=== PATIENT | female | born 1960 | race Caucasian/White ===

== ENCOUNTER 2024-08-13 12:36 | Observation (INO) | payer MEDICARE, BC, SELFPAY ==
--- NOTE | 2024-07-12 08:31 | EKG12_ITS ---
Test Reason : PREOP Blood Pressure : */* mmHG Vent. Rate : 69 BPM Atrial Rate : 69 BPM P-R Int : 154 ms QRS Dur : 92 ms QT Int : 404 ms P-R-T Axes : 22 40 42 degrees QTcB Int : 432 ms Normal sinus rhythm Normal ECG Confirmed by JANA RICO ([id number]), editorial director CHECO SINGER ([id number]) on 07/15/2024 8:11:54 AM Referred By: Ascencion Francisco Confirmed By: JANA RICO
[2024-07-12 10:10] LABS: Hematocrit 41.1 % (37-47); Hemoglobin 13.2 g/dL (12.0-15.0); Immature Granulocytes Count 0.030 X10^3/uL (0.0-0.0); Mean Corp Hgb Conc 32.1 g/dL (32-36); Mean Corpuscular Volume 85.3 fL (81-99); Mean Platelet Vol. 10.6 fl (6.2-12.0); NRBC Flagged by Analyzer 0 % (0-5); Platelet Count 381 K/mm3 (150-450); RBC Distribution Width CV 13.4 % (11.6-14.6); RBC Distribution Width SD 41.9 fl (35.1-43.9); Red Blood Count 4.82 M/mm3 (4.2-5.4); White Blood Count 7.5 K/mm3 (4.4-11.0)
[2024-07-12 11:14] LABS: Albumin, Serum 4.1 g/dL (3.4-4.8); Anion Gap 10 (5-15); BUN 20 mg/dL (4-19); BUN/Creat Ratio 31.8 RATIO (10-20); Calcium,Total 9.7 mg/dL (7.6-11.0); Carbon Dioxide 30.5 mmol/L (21.0-32.0); Chloride 101 mmol/L (98-108); Glucose 97 mg/dL (70-99); Potassium 3.7 mmol/L (3.3-5.1)
[2024-07-12 11:16] LABS: Magnesium 2.2 mg/dL (1.5-2.2)
--- NOTE | 2024-07-30 08:59 | PCM.HP.BLA ---
History and Physical History and Physical? Patient Name: Aicha Magallanes : 1960From:? LEIGH ANN CARRANZA PA-C? DATE OF PRE-OPERATIVE EXAM: 07/29/2024 DATE OF SURGERY:? 08/05/2024 SCHEDULED PROCEDURE:? Direct anterior left total hip arthroplasty HISTORY OF PRESENT ILLNESS: Preoperative history and physical exam was performed on July 29, 2024.? This is a 64-year-old female who has had ongoing pain with her left hip since 2017.? Pain has been intermittent, dull, sharp, sore.? Pain is increased with going up and down stairs and walking.? She has increased pain after walking one block.? She has had to use a cane for ambulatory assistance for the past 6 months.? She states she is limping and the pain will intensify as the day goes on.? Pain is located in her groin and does experience pain in her buttock when sitting.? She has difficulty with activities of daily living including bathing, getting dressed putting on her socks and shoes, housework, shopping, and leisure activities such as walking and going to sporting events.? She has tripped/stumbled due to the pain.? She feels unsafe going up and down stairs without railings.? She has tried rest, heat, elevation with minimal relief.? She has tried home exercises with minimal relief.? She has tried oral medications including Tylenol and ibuprofen with minimal relief.? Patient denies past history of surgery on the left hip.? Patient has medical history pertinent for anxiety, hypertension, gastroesophageal reflux disease, insomnia, frequent UTIs and coronary artery disease.? Patient denies past history of DVT or pulmonary embolism.? She has been recently evaluated and blood pressure medications have been adjusted.? This has been helpful.? She denies chest pain, shortness of breath, fevers chills or recent infections.? After failing conservative measures and discussing treatment options with Dr. Ascencion Francisco, the patient does wish to proceed with a direct anterior left total hip arthroplasty.? Patient has had surgical clearance from primary care provider Dr. Donavan Gastelum. REVIEW OF SYSTEMS: Review Of Systems: Constitutional: Denies anorexia, change in appetite, fever, difficulty sleeping, weight change. Cardiovasular: Denies chest pain, heart murmur, irregular heartbeat and peripheral vascular disease. Respiratory: Denies asthma, cough, pneumonia, sleep apnea, shortness of breath, tuberculosis and wheezing. Gastrointestinal: Reports heartburn, but denies constipation, diarrhea, nausea, rectal itching, bloody stools and vomiting. Genitourinary: Denies female genital problems. Denies incontinence. Musculoskeletal: Reports leg swelling, pain, trouble walking and weakness. Skin: Denies Raynaud's, history of shingles and tattoo. Neurological: Denies ambulatory dysfunction, dizziness, numbness/tingling and tremor. Psychiatric: Reports anxiety and insomnia, but denies depression, mental illness and stress. Hematologic/Lymphatic: Denies anemia, bleeding/bruising tendency and past transfusion. Reviewed and updated. PAST MEDICAL HISTORY: Advance Care Plan: No Advance Directives Effective Date: 05/19/2023 Past Medical History: Medical Problems: High Blood Pressure, Acid Reflux, Kidney Stones Covid- 19 - (2019) anxiety dental disease - tooth pulled - no symptoms currently? mixed hyperlipidemia, insomnia, Atherosclerotic Cardiovascular Disease, frequent UTIs, kink in ureter Accidents: None Surgical Hx: Hysterectomy - (2009) Tubal Ligation - (1999) Section - (1999) Anesthesia Complications: None Assistive Devices: Glasses, Cane Reviewed and updated. 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 Personal Habits:? Cigarette Use: Former.Smokeless Tobacco: Never Used Smokeless Tobacco.E-Cigarette Use: Never used.Alcohol: Occasionally.Drug Use: Denies Use.Enjoy Exercising: Exercises 1-3 x/month. Reviewed and updated. VITALS: Ht: 64 Wt: 176lb Wt [id number] BMI: 30.2 BP: 126/74 Pulse: 82 Resp: 17 T: 97.8 T: 36.6C Pain Level: 8/10 O2SatR: 97 ALLERGIES: Iodinated Contrast? MEDICATIONS: Lisinopril/Hydrochlorothiazide 20-12.5 mg 1 po qd, Propranolol HCL 20 mg take 1 tablet by mouth 3 times a day? take 30 to 60 minutes before triggering ev, Clonidine HCL 0.1 mg 1 tablet as needed, Aspirin 81 81 mg 1 tablet nightly, Omeprazole 40 mg as needed, Vitamin C 500 mg daily, Zinc 30 mg daily, Vitamin B Complex? once daily, Probiotic (Lactobacillus)? daily, Fish Oil 1200 mg daily, QC Tumeric Complex 500 mg daily, Advil 200 mg as needed, Tylenol Extra Strength 500 mg as needed, Aleve 220 mg as needed PRE-OP EXAM:? General appearance:NORMAL? ? ? Other: Eyes: Conjunctivae and lids: NORMAL? Pupils: ERR Ears, Nose, Mouth, and Throat: NORMAL? Other: Inspection of lips, teeth and gums: NORMAL? ?Other: Neck: Examination of neck: no masses noted. Respiratory: Assessment of respiratory effort: NORMAL? ?Other: ?Auscultation of lungs: clear to auscultation no wheezes, rhonchi or rales. Cardiovascular:? Auscultation of heart: regular rate and rhythm, positive systolic murmur PHYSICAL EXAMINATION: On exam patient does walk with an antalgic gait with use of cane.? She has left groin pain.? Range of motion 50 flexion with increased pain, external rotation 5 with increased pain, internal rotation neutral.? Sensation intact to light touch. IMAGING STUDIES: Previous x-rays of the left hip reveal joint space narrowing, subchondral sclerosis, osteophyte formation consistent with severe stage IV [id number] erosive osteoarthritis.? In comparison to previous x-rays there has been progression of disease process and worsening of the arthritis. IMPRESSION: 1.? Severe left hip osteoarthritis 2.? Hypertension 3.? Gastroesophageal reflux disease 4.? Anxiety 5.? History of kidney stones 6.? Insomnia 7.? Hyperlipidemia 8.? History of frequent UTIs currently asymptomatic 9.? Obesity with BMI 30.2 PLAN: Dr. Ascencion Francisco did discuss and review with the patient all treatment options including surgical versus nonsurgical options.? I will continue plan established by Dr. Ascencion Francisco.? Patient does wish to proceed with the above-stated procedure.? Potential risks, benefits, and complications of the procedure were discussed in detail including but not limited to , infection, nerve and blood vessel damage, persistent pain, numbness, tingling, paresthesias, blood clot, pulmonary embolism, and requirement for possible further surgery.? The patient expressed full understanding and has no further questions for the doctor.? Patient does agree to proceed with the above-stated procedure and has signed the surgery consent form. POST-OP MEDICATION PLAN: Pain Medications: Postoperative pain regimen will be initiated by Dr. Ascencion Francisco in the hospital.? We discussed regimen including Tylenol, meloxicam, and oxycodone postoperatively.? Patient has a walker that she will bring to the hospital.? We discussed postoperative course in great detail.? Labs and EKG have been reviewed and clearance from primary care provider.? Extended amount of time was spent with the patient discussing recovery and surgical procedure. DVT Prophylaxis Plan:? Aspirin 81 mg twice daily for 4 weeks postoperatively.? Denies past history of DVT or pulmonary embolism.? Patient will also utilize RONEN hose for 2 weeks postoperatively. This dictation was created using voice recognition software. Phonetic and/or grammatical errors may exist. ___? I have re-examined the patient.? There are no clinical changes since date of exam. ___? See progress notes for changes. ___? Dictated on admission Date: ? ? ?Time: Signature:
--- OUTSIDE RECORDS SUMMARY | 2024-08-05 05:37 | XMS RPT_ITS | CCD ---
Author Organization [facility] Inform ion Partnership [facility] Care Team Providers Care Business Services Officer Name Role Phone CARLIE LAI, ISH Harrington Primary Care Physician [phone] DONAVAN ELLIOTT DO Primary Care Physician DONAVAN ELLIOTT DO Attending Unavailable DONAVAN ELLIOTT DO Primary Care Unavailable CHONG RAMSEY DO Attending Unavailable DONAVAN ELLIOTT DO Primary Care Unavailable DONAVAN ELLIOTT DO Attending Unavailable DONAVAN ELLIOTT DO Primary Care Unavailable DONAVAN ELLIOTT DO Attending Unavailable DONAVAN ELLIOTT DO Primary Care Unavailable DONAVAN ELLIOTT DO Attending Unavailable LEXI LEE, DONAVAN Funk Primary Care Unavailable Jana Magana Attending Unavailable Ascencion Francisco Referring Unavailable Donavan Elliott Primary Care Unavailable Ascencion Francisco Referring Unavailable Ascencion Francisco Attending Unavailable Donavan Elliott Primary Care Unavailable LEXI LEE, DONAVAN Funk Primary Care Unavailable CASSIUS CARRANZA PA-C Attending Unavailable DONAVAN ELLIOTT DO Primary Care Unavailable DONAVAN ELLIOTT DO Attending Unavailable Allergies Allergy Classification Reported Allergen(s) Allergy Type Date of Onset Reaction(s) Facility (7 sources) Iodine; Translations: [iodine] Drug Allergy [facility] (1 source) Iodinated Contrast Media Drug allergy (disorder) 07-09-2024 [facility] Repository Medications Current Medications Medication Drug Class(es) Dates Sig (Normalized) Sig (Original) Ascorbic Acid (3 sources) Vitamin C Start: 03-22-2022 Vitamin C Dose : 1,000 mg =, qDay, 0 Refill(s) Start Date: 03/22/22 Status: Ordered cefdinir 300 mg oral capsule (2 sources) Cephalosporin Antibacterial Start: 06-23-2023 End: 06-28-2023 cefdinir 300 mg oral capsule Dose : 300 mg = 1 cap(s), Oral, q12h, X 5 day(s), # 10 cap(s), 0 Refill(s), 06/28/23 12:50:00 PM EDT, Pharmacy: [facility], Urine leukocytes Hematuria, 160, cm, 06/23/23 12:30:00 EDT, Height, 81.3, kg, 06/23/23 12:30:00 EDT, Dosing Weight Start Date: 06/23/23 Stop Date: 06/28/23 Status: Ordered Start: 03-06-2023 End: 03-11-2023 cefdinir 300 mg oral capsule Dose : 300 mg = 1 cap(s), Oral, q12h, X 5 day(s), # 10 cap(s), 0 Refill(s), 03/11/23 1:55:00 PM EST, Pharmacy: [facility], Dysuria History of kidney stones, 157.2, cm, 03/06/23 13:19:00 EST, Height, 81.3, kg, 03/06/23 13:19:00 EST, Dosing Weight Start Date: 03/06/23 Stop Date: 03/11/23 Status: Ordered cephalexin 500 mg oral capsule (2 sources) Cephalosporin Antibacterial Start: 05-23-2022 End: 05-30-2022 cephalexin 500 mg oral capsule Dose : 500 mg = 1 cap(s), Oral, q8h, X 7 day(s), # 21 cap(s), 0 Refill(s), 05/30/22 10:10:00 EDT, Pharmacy: [facility], UTI (urinary tract infection), 157.2, cm, 05/23/22 9:46:00 EDT, Height, 80.4 Start Date: 05/23/22 Stop Date: 05/30/22 Status: Ordered Start: 06-11-2021 End: 2021 cephalexin 500 mg oral capsu le Dose : 500 mg = 1 cap(s), Oral, q8h, X 7 day(s), # 21 cap(s), 0 Refill(s), 06/18/21 15:13:00 EDT, Pharmacy: [facility], 157.2, cm, 06/11/21 14:41:00 EDT, Height, 82.8 Start Date: 06/11/21 Stop Date: 06/18/21 Status: Ordered Cranberry preparation (3 sources) Non-Standardized Food Allergenic Extract, Non-Standardized Plant Allergenic Extract Start: 03-22-2022 take 1 capsule by mouth once daily cranberry oral capsule 4,200 mg, Oral, Daily, 0 Refill(s) Start Date: 03/22/22 Status: Ordered Garlic preparation (3 sources) Non-Standardized Food Allergenic Extract Start: 03-22-2022 take 1 capsule by mouth once daily garlic oral capsule Dose = 1 cap(s), Oral, Daily, 0 Refill(s) Start Date: 03/22/22 Status: Ordered hydroCHLOROthiazide 12.5 mg / lisinopril 20 mg oral tablet (6 sources) Thiazide Diuretic, Angiotensin Converting Enzyme Inhibitor Start: 06-27-2023 take 1 tablet by mouth once daily hydrochloroth iazide-lisino pril 12.5 mg-20 mg oral tablet Dose = 1 tab(s), Oral, qDay, # 90 tab(s), 0 Refill(s), Pharmacy: [facility], 160, cm, 06/23/23 12:30:00 EDT, Height, kg, 06/23/23 12:30:00 EDT, Dosing Weight Start Date: 06/27/23 Status: Ordered Start: 11-21-2022 take 1 tablet by timothy th once daily hydrochlorothiazide-lisinopril 12.5 mg-2 0 mg oral tablet Dose = 1 tab(s), Oral, qDay, # 90 tab(s), 1 Refill(s), Pharmacy: [facility], 157.2, cm, 11/21/22 10:55:00 EDT, Height, kg, 11/21/22 10:55:00 EDT, Dosing Weight Start Date: 11/21/22 Status: Ordered Start: 03-24-2022 take 1 tablet by timothy th once daily hydrochlorothiazide-lisinopril 12.5 mg-2 0 mg oral tablet Dose = 1 tab(s), Oral, qDay, # 90 tab(s), 1 Refill(s), Pharmacy: [facility], 157.2, cm, 03/22/22 10:58:00 EST, Height, kg, 03/22/22 10:58:00 EST, Dosing Weight Start Date: 03/24/22 Status: Ordered Start: 09-07-2021 take 1 tablet by timothy th once daily hydrochlorothiazide-lisinopril 12.5 mg-2 0 mg oral tablet Dose = 1 tab(s), Oral, qDay, # 90 tab(s), 1 Refill(s), Pharmacy: [facility], 157.2, cm, 09/07/21 13:31:00 EDT, Height, kg, 09/07/21 13:31:00 EDT, Dosing Weight Start Date: 09/07/21 Status: Ordered Start: 08-27-2020 take 1 tablet by timothy th once daily hydrochlorothiazide-lisinopril 12.5 mg-2 0 mg oral tablet Dose = 1 tab(s), Oral, qDay, # 90 tab(s), 3 Refill(s), Pharmacy: [facility], 160, cm, 11/08/19 13:16:00 EDT, Height, kg, 11/08/19 13:16:00 EDT, Dosing Weight Start Date: 08/27/20 Status: Ordered natures calm (3 sources) Start: 03-22-2022 natures calm n atures calm, 325 mg, 0 Refill(s), 81.1 Start Date: 03/22/22 Status: Ordered Probiotic (3 sources) Start: 03-22-2022 Probiotic 0 Re fill(s) Start Date: 03/22/22 Status: Ordered prodentim (3 sources) Start: 03-22-2022 prodentim prod entim, 0 Refill(s), 81.1 Start Date: 03/22/22 Status: Ordered propranolol hydrochloride 20 mg oral tablet (2 sources) beta-Adrenergic Chris Start: 11-21-2022 propranolol 20 mg or al tablet Dose : 20 mg = 1 tab(s), Oral, TID, Take 30-60 min before triggering events. If needing more can take 40mg, # 30 tab(s), 0 Refill(s), Pharmacy: [facility], Anxiety, 157.2, cm, 11/21/22 10:55:00 EDT, Height, kg, 11/21/22 10:55:00 EDT, Dosing Weight Start Date: 11/21/22 Status: Ordered turmeric extract 500 mg oral capsule (3 sources) Start: 03-22-2022 turmeric 500 m g oral capsule 0 Refill(s) Start Date: 03/22/22 Status: Ordered Vitamin D3 25 mcg (1000 intl units) oral capsule (3 sources) Start: 03-22-2022 Vitamin D3 25 mcg (1000 intl units) oral capsule Dose : 25 mcg = 1 cap(s), Oral, qDay, # 100 cap(s), 0 Refill(s) Start Date: 03/22/22 Status: Ordered vitamin e 180 mg oral tablet (2 sources) Start: 03-22-2022 vitamin E Dose : 180 mg =, Oral, 0 Refill(s) Start Date: 03/22/22 Status: Ordered zinc acetate 50 mg oral capsule (3 sources) Start: 03-22-2022 zinc (as aceta te) 50 mg oral capsule Dose : 50 mg = 1 cap(s), Oral, TID, # 250 cap(s), 0 Refill(s) Start Date: 03/22/22 Status: Ordered Problems Active Problems Problem Classification Problem Date Documented Date Episodic/Chronic Disorders of lipid metabolism (6 sources) Mixed hyperlipidemia 09-07-2021 Chronic Disorders of teeth and jaw (4 sources) Tooth disorder 03-22-2022 Episodic Esophageal disorders (6 sources) Gastroesophageal reflux disease 09-07-2021 Chronic Essential hypertension (8 sources) Essential hypertension; Translations: [Essential (primary) hypertension] Onset: 06-23-2023 09-07-2021 Chronic Genitourinary symptoms and ill-defined conditions (10 sources) Unspecified symptoms and signs involving the genitourinary system; Translations: [Hematuria, unspecified] Onset: 03-06-2023 Episodic Other connective tissue disease (4 sources) Trochanteric bursitis 03-22-2022 Episodic Other non-traumatic joint disorders (2 sources) Arthritis of hip 06-23-2023 Chronic Other non-traumatic joint disorders (4 sources) Hip pain 03-22-2022 Episodic Other nutritional; endocrine; and metabolic disorders (1 source) Body mass index 30+ - obesity 09-02-2023 Chronic Other nutritional; endocrine; and metabolic disorders (1 source) Obesity 09-02-2023 Chronic Peripheral and visceral atherosclerosis (1 source) Arteriosclerotic vascular disease 08-28-2023 Chronic Residual codes; unclassified (1 source) Screening due 09-02-2023 Episodic Screening and history of mental health and substance abuse codes (1 source) Tobacco use and exposure - finding 09-02-2023 Chronic Unclassified (2 sources) Patient encounter status 06-23-2023 Urinary tract infections (1 source) Recurrent urinary tract infection 09-02-2023 Episodic Past or Other Problems Problem Classification Problem Date Documented Da te Episodic/Chronic Calculus of urinary tract (2 sources) Personal history of urinary calculi; Translations: [Personal history of urinary calculi] Onset: 03-06-2023 Episodic Results Test Name Value Interpretation Reference Range Facility MRSA/SAID NASAL SCREENon MRSA+SAID SCRN Reason for Exam: Surgery MRSA MRSA Negative S. AUREUS S. aureus Negative Normal [facility] Comment on above: Performed By: #### M 100.651, L100.0100, L500.2500, L501.1800 #### [facility] [address] [place], [address] 12 Lead EKGon 07-12-2024 12 Lead EKG [facility] [address] [place] [address] 12 Lead EKG 07/12/24 0838 MR#: [id number] Acct: [id number] Name: AICHA MAGALLANES Rep #: [id number] : 1960 64 From: Jana Magana MD Attending Dr: Dr. Ascencion Francisco MD Status: PRE [facility] Ordering Dr: Ascencion Francisco MD Date: 07/12/24 Location: [facility] Sex: F C Admitted: Test Reason : PREOP Blood Pressure : */* mmHG Vent. Rate : 69 BPM Atrial Rate : 69 BPM P-R Int : 154 ms QRS Dur : 92 ms QT Int : 404 ms P-R-T Axes : 22 40 42 degrees QTcB Int : 432 ms Normal sinus rhythm Normal ECG Confirmed by JANA MAGANA ([id number]), news assignment editor CHECO SINGER ([id number]) on 07/15/2024 8:11:54 AM Referred By: Ascencion Francisco Confirmed By: JANA MAGANA 07/15/24811 Date Jana Magana MD CC: Dr. Donavan Elliott DO; Dr. Ascencion Francisco MD Signed Normal [facility] Albumin, Serumon 07-12-2024 Albumin [Mass/Vol] 4.1 g/dL Normal 3.4-4.8 [facility] Comment on above: Performed By: #### M 100.651, L100.0100, L500.2500, L501.1800 #### [facility] [address] [place], [address] Basic Metabolic Profile (BMP )on 07-12-2024 BUN/CRE 31.8 RATIO High 10-20 [facility] Comment on above: Performed By: #### M 100.651, L100.0100, L500.2500, L501.1800 #### [facility] [address] [place], [address] Calcium [Mass/Vol] 9.7 mg/dL Normal 7.6-11.0 [facility] Comment on above: Performed By: #### M 100.651, L100.0100, L500.2500, L501.1800 #### [facility] [address] [place], [address] Chloride [Moles/Vol] 101 mmol/L Normal 98-108 [facility] Comment on above: Performed By: #### M 100.651, L100.0100, L500.2500, L501.1800 #### [facility] [address] [place], [address] CO2 [Moles/Vol] 30.5 mmol/L Normal 21.0-32.0 [facility] Comment on above: Performed By: #### M 100.651, L100.0100, L500.2500, L501.1800 #### [facility] [address] [place], [address] Creatinine [Mass/Vol] 0.61 mg/dL Low 0.70-1.20 [facility] Comment on above: Performed By: #### M 100.651, L100.0100, L500.2500, L501.1800 #### [facility] [address] [place], [address] GAP 10 Normal 5-15 [facility] Comment on above: Performed By: #### M 100.651, L100.0100, L500.2500, L501.1800 #### [facility] [address] [place], [address] GFR/1.73 sq M.predicted among non-blacks MDRD (S/P/Bld) [Vol rate/Area] 99 mL/min/{1.73_m2} Normal >60 [facility] Comment on above: Result Comment: mL/m in/1.73m2 CKD-EPI Creatinine Equation (2020) Performed By: #### M 100.651, L100.0100, L500.2500, L501.1800 #### [facility] [address] [place], [address] Glucose [Mass/Vol] 97 mg/dL Normal 70-99 [facility] Comment on above: Performed By: #### M 100.651, L100.0100, L500.2500, L501.1800 #### [facility] [address] [place], [address] Potassium [Moles/Vol] 3.7 mmol/L Normal 3.3-5.1 [facility] Comment on above: Performed By: #### M 100.651, L100.0100, L500.2500, L501.1800 #### [facility] [address] [place], [address] Sodium [Moles/Vol] 141 mmol/L Normal 133-145 [facility] Comment on above: Performed By: #### M 100.651, L100.0100, L500.2500, L501.1800 #### [facility] [address] [place], [address] Urea nitrogen [Mass/Vol] 20 mg/dL High 4-19 [facility] Comment on above: Performed By: #### M 100.651, L100.0100, L500.2500, L501.1800 #### [facility] [address] [place], [address] CBC W/Diff, Automatedon 05-3 0-2025 Absolute Lymph 2.08 X10 3/uL Normal 0.83-4.51 [facility] Comment on above: Performed By: #### M 100.651, L100.0100, L500.2500, L501.1800 #### [facility] [address] [place], [address] Absolute Neut 4.8 X10 3/uL Normal 2.0-7.7 [facility] Comment on above: Performed By: #### M 100.651, L100.0100, L500.2500, L501.1800 #### [facility] [address] [place], [address] Basophils/100 WBC (Bld) 1.1 % High 0-1 [facility] Comment on above: Performed By: #### M 100.651, L100.0100, L500.2500, L501.1800 #### [facility] [address] [place], [address] Eosinophils/100 WBC (Bld) 2.5 % Normal 0-5 [facility] Comment on above: Performed By: #### M 100.651, L100.0100, L500.2500, L501.1800 #### [facility] [address] [place], [address] Erythrocyte distribution width (RBC) [Ratio] 13.4 % Normal 11.6-14.6 [facility] Comment on above: Performed By: #### M 100.651, L100.0100, L500.2500, L501.1800 #### [facility] [address] [place], [address] Hematocrit (Bld) [Volume fraction] 41.1 % Normal 37-47 [facility] Comment on above: Performed By: #### M 100.651, L100.0100, L500.2500, L501.1800 #### [facility] [address] [place], [address] Hemoglobin (Bld) [Mass/Vol] 13.2 g/dL Normal 12.0-15.0 [facility] Comment on above: Performed By: #### M 100.651, L100.0100, L500.2500, L501.1800 #### [facility] [address] [place], [address] IG% 0.400 Normal 0.0-0.9 [facility] Comment on above: Result Comment: IG% - Immature Granulocytes (promyelocytes, myelocytes and metamyelocytes) > 1% indicates that a LEFT SHIFT is Present. Performed By: #### M 100.651, L100.0100, L500.2500, L501.1800 #### [facility] [address] [place], [address] Lymphocytes/100 WBC (Bld) 27.7 % Normal 19-41 [facility] Comment on above: Performed By: #### M 100.651, L100.0100, L500.2500, L501.1800 #### [facility] [address] [place], [address] MCH (RBC) [Entitic mass] 27.4 pg Normal 27.0-32.0 [facility] Comment on above: Performed By: #### M 100.651, L100.0100, L500.2500, L501.1800 #### [facility] [address] [place], [address] MCHC (RBC) [Mass/Vol] 32.1 g/dL Normal 32-36 [facility] Comment on above: Performed By: #### M 100.651, L100.0100, L500.2500, L501.1800 #### [facility] [address] [place], [address] MCV (RBC) [Entitic vol] 85.3 fL Normal 81-99 [facility] Comment on above: Performed By: #### M 100.651, L100.0100, L500.2500, L501.1800 #### [facility] [address] [place], [address] Monocytes/100 WBC (Bld) 4.9 % Normal 0-10 [facility] Comment on above: Performed By: #### M 100.651, L100.0100, L500.2500, L501.1800 #### [facility] [address] [place], [address] Neutrophils/100 WBC (Bld) 63.4 % Normal 47-70 [facility] Comment on above: Performed By: #### M 100.651, L100.0100, L500.2500, L501.1800 #### [facility] [address] [place], [address] Nucleated RBC (Bld) [#/Vol] 0 10*3/uL Normal 0-5 [facility] Comment on above: Performed By: #### M 100.651, L100.0100, L500.2500, L501.1800 #### [facility] [address] [place], [address] Platelet mean volume (Bld) [Entitic vol] 10.6 fL Normal 6.2-12.0 [facility] Comment on above: Performed By: #### M 100.651, L100.0100, L500.2500, L501.1800 #### [facility] [address] [place], [address] Platelets (Bld) [#/Vol] 381 10*3/uL Normal 150-450 [facility] Comment on above: Performed By: #### M 100.651, L100.0100, L500.2500, L501.1800 #### [facility] [address] [place], [address] RBC (Bld) [#/Vol] 4.82 10*6/uL Normal 4.2-5.4 [facility] Comment on above: Performed By: #### M 100.651, L100.0100, L500.2500, L501.1800 #### [facility] [address] [place], [address] RDW SD 41.9 fl Normal 35.1-43.9 [facility] Comment on above: Performed By: #### M 100.651, L100.0100, L500.2500, L501.1800 #### [facility] [address] [place], [address] WBC (Bld) [#/Vol] 7.5 10*3/uL Normal 4.4-11.0 [facility] Comment on above: Performed By: #### M 100.651, L100.0100, L500.2500, L501.1800 #### [facility] [address] [place], [address] Magnesiumon 07-12-2024 Magnesium [Mass/Vol] 2.2 mg/dL Normal 1.5-2.2 [facility] Comment on above: Performed By: #### L 501.5200 #### [facility] [address] [place], [place], [address] LABORATORYOrdered By: Ale Cordon on 04-09-2024 Cholesterol [Mass/Vol] 232 mg/dL High 0 - 200 mg/dL AO ADM SS Comment on above: Interpretive Data: C holesterol Reference Interval: Less than 200 Desirable 200-239 Borderline high risk 240 and above High risk Cholesterol in HDL [Mass/Vol] 51 mg/dL Normal 40 - 60 mg/dL AO ADM SS Cholesterol in LDL [Mass/Vol] 161 mg/dL High 0 - 130 mg/dL AO ADM SS Triglyceride [Mass/Vol] 98 mg/dL Normal 0 - 150 mg/dL AO ADM SS Comment on above: Interpretive Data: T riglyceride Reference Interval: Less than 150 Normal 150-199 Borderline high risk 200-499 High risk 500 or higher Very high risk LABORATORYOrdered By: SYSTEM SYSTEM on 04-09-2024 TSH Qn 0.67 m[IU]/L Normal 0.36 - 3.74 mcIU/mL AO ADM SS LIPIDon 04-09-2024 Cholesterol [Mass/Vol] 232 mg/dL High 0-200 [facility] Comment on above: Result Comment: Chol esterol Reference Interval: Less than 200 Desirable 200-239 Borderline high risk 240 and above High risk Performed By: #### L CADEN, TSHR #### [address] [address] Cholesterol in HDL [Mass/Vol] 51 mg/dL Normal 40-60 [facility] Comment on above: Performed By: #### L CADEN, TSHR #### [address] [address] Cholesterol in LDL [Mass/Vol] 161 mg/dL High 0-130 [facility] Comment on above: Performed By: #### L CADEN, TSHR #### [place] [address] [place], [place] [address] Triglyceride [Mass/Vol] 98 mg/dL Normal 0-150 [facility] Comment on above: Result Comment: Trig lyceride Reference Interval: Less than 150 Normal 150-199 Borderline high risk 200-499 High risk 500 or higher Very high risk Performed By: #### L IPID, TSHR #### [address] [address] TSHRon 04-09-2024 TSH Qn 0.67 m[IU]/L Normal 0.36-3.74 [facility] Comment on above: Performed By: #### L IPID, TSHR #### [address] [address] .Auto Diffon 08-24-2023 Basophil, Absolute 0.1 10 3/mcL Normal 0.0-0.2 [facility] ([place]) Comment on above: Performed By: #### A DANDRE, CBC, VIDH, ADIFF, A1C, LIPID, GFR, CMP #### [place] [address] #### B12 #### [address] [address] Basophils/100 WBC (Bld) 1.2 % Normal 0.0-2.5 [facility] ([place]) Comment on above: Performed By: #### A DANDRE, CBC, VIDH, ADIFF, A1C, LIPID, GFR, CMP #### [place] [address] #### B12 #### [address] [address] Eosinophil, Absolute 0.2 10 3/mcL Normal 0.0-0.4 [facility] ([place]) Comment on above: Performed By: #### A DANDRE, CBC, VIDH, ADIFF, A1C, LIPID, GFR, CMP #### [place] [address] #### B12 #### [address] [address] Eosinophils/100 WBC (Bld) 3.7 % Normal 0.0-7.0 [facility] ([place]) Comment on above: Performed By: #### A DANDRE, CBC, VIDH, ADIFF, A1C, LIPID, GFR, CMP #### [address] [address] #### B12 #### [address] [address] Lymphocyte, Absolute 2.5 10 3/mcL Normal 0.8-3.9 [facility] ([place]) Comment on above: Performed By: #### A DANDRE, CBC, VIDH, ADIFF, A1C, LIPID, GFR, CMP #### [address] [address] #### B12 #### [address] [address] Lymphocytes/100 WBC (Bld) 38.3 % Normal 10.0-50.0 [facility] ([place]) Comment on above: Performed By: #### A DANDRE, CBC, VIDH, ADIFF, A1C, LIPID, GFR, CMP #### [address] [address] #### B12 #### [address] [address] Monocyte, Absolute 0.4 10 3/mcL Normal 0.2-1.0 [facility] ([place]) Comment on above: Performed By: #### A DANDRE, CBC, VIDH, ADIFF, A1C, LIPID, GFR, CMP #### [address] [address] #### B12 #### [address] [address] Monocytes/100 WBC (Bld) 6.1 % Normal 1.7-13.0 [facility] ([place]) Comment on above: Performed By: #### A DANDRE, CBC, VIDH, ADIFF, A1C, LIPID, GFR, CMP #### [address] [address] #### B12 #### [address] [address] Neutrophils/100 WBC (Bld) 50.7 % Normal 37.0-80.0 [facility] ([place]) Comment on above: Performed By: #### A DANDRE, CBC, VIDH, ADIFF, A1C, LIPID, GFR, CMP #### [facility] [address] [place], [place] [address] #### B12 #### [place] [address] [place] [address] .GFRon 08-24-2023 GFR Non- 92 ml/min/1.73sqm Normal [facility] ([place]) Comment on above: Result Comment: GFR Population mean for , Non- Americans Ages 20-29 = 116 mL/min/1.73 sq.m. Ages 30-39 = 107 mL/min/1.73 sq.m. Ages 40-49 = 99 mL/min/1.73 sq.m. Ages 50-59 = 93 mL/min/1.73 sq.m. Ages 60-69 = 85 mL/min/1.73 sq.m. Ages 70+ = 75 mL/min/1.73 sq.m. Chronic Kidney Disease: Less than 60 mL/min/1.73 square meters End Stage Renal Disease: Less than 15 mL/min/1.73 square meters Performed By: #### A DANDRE, CBC, VIDH, ADIFF, A1C, LIPID, GFR, CMP ####[address] [place], [place] [address]#### B12 ####[address] [address] GFR 111 ml/min/1.73sqm Normal [facility] ([place]) Comment on above: Result Comment: GFR Population mean for , Non- Americans Ages 20-29 = 116 mL/min/1.73 sq.m. Ages 30-39 = 107 mL/min/1.73 sq.m. Ages 40-49 = 99 mL/min/1.73 sq.m. Ages 50-59 = 93 mL/min/1.73 sq.m. Ages 60-69 = 85 mL/min/1.73 sq.m. Ages 70+ = 75 mL/min/1.73 sq.m. Chronic Kidney Disease: Less than 60 mL/min/1.73 square meters End Stage Renal Disease: Less than 15 mL/min/1.73 square meters Performed By: #### A DANDRE, CBC, VIDH, ADIFF, A1C, LIPID, GFR, CMP ####[place] [address]#### B12 ####[place] [address] .NEUABSon 08-24-2023 Neutrophil, Absolute 3.3 10 3/mcL Normal 2.9-6.2 [facility] ([place]) Comment on above: Performed By: #### A DANDRE, CBC, VIDH, ADIFF, A1C, LIPID, GFR, CMP #### [place] [address] #### B12 #### [place] [address] A1Con 08-24-2023 HbA1c (Bld) [Mass fraction] 5.7 % Normal 4.3-6.4 [facility] ([place]) Comment on above: Performed By: #### A DANDRE, CBC, VIDH, ADIFF, A1C, LIPID, GFR, CMP ####[place] [address]#### B12 ####[place] [address] B12on 08-24-2023 Cobalamin (Vitamin B12) [Mass/Vol] 617 pg/mL Normal 211-911 [facility] ([place]) Comment on above: Performed By: #### A DANDRE, CBC, VIDH, ADIFF, A1C, LIPID, GFR, CMP ####[place] [address]#### B12 ####[place] [address] CBCon 08-24-2023 Erythrocyte distribution width (RBC) [Ratio] 15.0 % High 11.5-14.5 [facility] ([place]) Comment on above: Performed By: #### A DANDRE, CBC, VIDH, ADIFF, A1C, LIPID, GFR, CMP #### [place] [place] [address] #### B12 #### [place] [address] Hematocrit (Bld) [Volume fraction] 39.0 % Normal 37.0-47.0 [facility] ([place] Comment on above: Performed By: #### A DANDRE, CBC, VIDH, ADIFF, A1C, LIPID, GFR, CMP #### [place] [address] #### B12 #### [place] [address] Hgb 13.1 G/dL Normal 12.0-16.0 [facility] ([place] Comment on above: Performed By: #### A DANDRE, CBC, VIDH, ADIFF, A1C, LIPID, GFR, CMP #### [place] [address] #### B12 #### [place] [address] MCH (RBC) [Entitic mass] 28.3 pg Normal 27.0-31.2 [facility] ([place] Comment on above: Performed By: #### A DANDRE, CBC, VIDH, ADIFF, A1C, LIPID, GFR, CMP #### [place] [address] #### B12 #### [place] [address] MCHC 33.6 G/dL Normal 33.0-37.0 [facility] ([place] Comment on above: Performed By: #### A DANDRE, CBC, VIDH, ADIFF, A1C, LIPID, GFR, CMP #### [place] [address] #### B12 #### [place] [address] MCV (RBC) [Entitic vol] 84.2 fL Normal 80.0-94.0 [facility] ([place] Comment on above: Performed By: #### A DANDRE, CBC, VIDH, ADIFF, A1C, LIPID, GFR, CMP #### [place] [address] #### B12 #### [place] [address] Platelet 321 10 3/mcL Normal 130-400 [facility] ([place]) Comment on above: Performed By: #### A DANDRE, CBC, VIDH, ADIFF, A1C, LIPID, GFR, CMP #### [address] [address] #### B12 #### [address] [address] Platelet mean volume (Bld) [Entitic vol] 8.2 fL Normal 7.4-10.4 [facility] ([place]) Comment on above: Performed By: #### A DANDRE, CBC, VIDH, ADIFF, A1C, LIPID, GFR, CMP #### [place] [address] #### B12 #### [place] [address] RBC 4.63 10 6/mcL Normal 4.20-5.40 [facility] ([place] Comment on above: Performed By: #### A DANDRE, CBC, VIDH, ADIFF, A1C, LIPID, GFR, CMP #### [place] [address] #### B12 #### [address] [address] WBC 6.5 10 3/mcL Normal 4.6-10.8 [facility] ([place] Comment on above: Performed By: #### A DANDRE, CBC, VIDH, ADIFF, A1C, LIPID, GFR, CMP #### [place] [address] #### B12 #### [address] [address] CMPon 08-24-2023 Albumin Level 3.5 G/dL Normal 3.4-4.8 [facility] ([place] Comment on above: Performed By: #### A DANDRE, CBC, VIDH, ADIFF, A1C, LIPID, GFR, CMP ####[address] [address]#### B12 ####[place] [address] Albumin/Globulin [Mass ratio] 1.2 {ratio} Normal 1.1-2.5 [facility] ([place] Comment on above: Performed By: #### A DANDRE, CBC, VIDH, ADIFF, A1C, LIPID, GFR, CMP ####[place] [address]#### B12 ####[place] [address] ALP [Catalytic activity/Vol] 66 U/L Normal 40-135 [facility] ([place] Comment on above: Performed By: #### A DANDRE, CBC, VIDH, ADIFF, A1C, LIPID, GFR, CMP ####[place] [address]#### B12 ####[place] [address] ALT [Catalytic activity/Vol] 47 U/L Normal 14-59 [facility] ([place] Comment on above: Performed By: #### A DANDRE, CBC, VIDH, ADIFF, A1C, LIPID, GFR, CMP ####[place] [address]#### B12 ####[place] [address] AST [Catalytic activity/Vol] 16 U/L Normal 10-40 [facility] ([place] Comment on above: Performed By: #### A DANDRE, CBC, VIDH, ADIFF, A1C, LIPID, GFR, CMP ####[place] [address]#### B12 ####[place] [address] Bili Total 0.5 mg/dL Normal 0.2-1.0 [facility] ([place] Comment on above: Result Comment: Use of this assay is not recommended for patients undergoing treatment with eltrombopag due to the potential for falsely elevated results. Performed By: #### A DANDRE, CBC, VIDH, ADIFF, A1C, LIPID, GFR, CMP ####[place] [address]#### B12 ####[address] [address] BUN/Creatinine Ratio 25 ratio Normal 7-27 [facility] ([place] Comment on above: Performed By: #### A DANDRE, CBC, VIDH, ADIFF, A1C, LIPID, GFR, CMP ####[address] [address]#### B12 ####[address] [address] Calcium [Mass/Vol] 9.5 mg/dL Normal 8.4-10.2 [facility] ([place] Comment on above: Performed By: #### A DANDRE, CBC, VIDH, ADIFF, A1C, LIPID, GFR, CMP ####[place] [address]#### B12 ####[address] [address] Chloride [Moles/Vol] 103 mmol/L Normal 98-107 [facility] ([place] Comment on above: Performed By: #### A DANDRE, CBC, VIDH, ADIFF, A1C, LIPID, GFR, CMP ####[place] [address]#### B12 ####[address] [address] CO2 [Moles/Vol] 35 mmol/L High 23-31 [facility] ([place] Comment on above: Performed By: #### A DANDRE, CBC, VIDH, ADIFF, A1C, LIPID, GFR, CMP ####[place] [address]#### B12 ####[address] [address] Creatinine [Mass/Vol] 0.65 mg/dL Normal 0.55-1.02 [facility] ([place] Comment on above: Performed By: #### A DANDRE, CBC, VIDH, ADIFF, A1C, LIPID, GFR, CMP ####[place] [address]#### B12 ####[address] [address] Electrolyte Balance 5.0 mEq/L Normal 4.0-15.0 [facility] ([place]) Comment on above: Performed By: #### A DANDRE, CBC, VIDH, ADIFF, A1C, LIPID, GFR, CMP ####[place] [address]#### B12 ####[address] [address] Globulin 3.0 G/dL Normal [facility] ([place]) Comment on above: Performed By: #### A DANDRE, CBC, VIDH, ADIFF, A1C, LIPID, GFR, CMP ####[place] [address]#### B12 ####[place] [address] Glucose [Mass/Vol] 102 mg/dL Normal 80-115 [facility] ([place] Comment on above: Performed By: #### A DANDRE, CBC, VIDH, ADIFF, A1C, LIPID, GFR, CMP ####[place] [address]#### B12 ####[place] [address] Potassium [Moles/Vol] 4.3 mmol/L Normal 3.5-5.1 [facility] ([place] Comment on above: Performed By: #### A DANDRE, CBC, VIDH, ADIFF, A1C, LIPID, GFR, CMP ####[place] [address]#### B12 ####[address] [address] Sodium [Moles/Vol] 143 mmol/L Normal 136-145 [facility] ([place] Comment on above: Performed By: #### A DANDRE, CBC, VIDH, ADIFF, A1C, LIPID, GFR, CMP ####[place] [address]#### B12 ####[address] [address] Total Protein 6.5 G/dL Normal 6.4-8.2 [facility] ([place]) Comment on above: Performed By: #### A DANDRE, CBC, VIDH, ADIFF, A1C, LIPID, GFR, CMP ####[address] [address]#### B12 ####[address] [address] Urea nitrogen [Mass/Vol] 16 mg/dL Normal 7-18 [facility] ([place]) Comment on above: Performed By: #### A DANDRE, CBC, VIDH, ADIFF, A1C, LIPID, GFR, CMP ####[place] [address]#### B12 ####[address] [address] DLDLon 08-24-2023 Direct LDL Cholesterol 152 mg/dL High 0-99 [facility] ([place]) Comment on above: Result Comment: Dire ct LDL Cholesterol Reference Interval: Optimal: <100 mg/dL Near Optimal/above optimal: 100-129 mg/dL Borderline high: 130-159 mg/dL High: 160-189 mg/dL Very high: >=190 mg/dL Performed By: #### D LDL, TSHR ####[address] [address] LIPIDon 08-24-2023 Cholesterol [Mass/Vol] 250 mg/dL High 0-200 [facility] ([place]) Comment on above: Result Comment: Chol esterol Reference Interval: Less than 200 Desirable 200-239 Borderline high risk 240 and above High risk Performed By: #### A DANDRE, CBC, VIDH, ADIFF, A1C, LIPID, GFR, CMP ####[address] [address]#### B12 ####[address] [address] Cholesterol in HDL [Mass/Vol] 43 mg/dL Normal 40-60 [facility] ([place]) Comment on above: Performed By: #### A DANDRE, CBC, VIDH, ADIFF, A1C, LIPID, GFR, CMP ####[facility] [place] [address]#### B12 ####[place] [address] Cholesterol in LDL [Mass/Vol] 163 mg/dL High 0-130 [facility] ([place]) Comment on above: Performed By: #### A DANDRE, CBC, VIDH, ADIFF, A1C, LIPID, GFR, CMP ####[place] [address]#### B12 ####[place] [address] Triglyceride [Mass/Vol] 220 mg/dL High 0-150 [facility] ([place]) Comment on above: Result Comment: Trig lyceride Reference Interval: Less than 150 Normal 150-199 Borderline high risk 200-499 High risk 500 or higher Very high risk Performed By: #### A DANDRE, CBC, VIDH, ADIFF, A1C, LIPID, GFR, CMP ####[place] [address]#### B12 ####[place] [address] TSHRon 08-24-2023 TSH Qn 0.84 m[IU]/L Normal 0.36-3.74 [facility] ([place]) Comment on above: Performed By: #### D LDL, TSHR ####[facility] [place] [id number] VIDHon 08-24-2023 Vit. D 25-Hydroxy 21.1 ng/mL Normal [facility] ([place]) Comment on above: Result Comment: Inte rpretive Values Based on Total 25(OH) Vitamin D: Deficient <20 ng/mL Insufficient 20 - <30 ng/mL Sufficient 30-100 ng/mL Performed By: #### A DANDRE, CBC, VIDH, ADIFF, A1C, LIPID, GFR, CMP ####[facility] [place] [address]#### B12 ####[place] [address] AMPICILLIN:SUSC:PT:ISOLATE:O RDQN:MICon 06-23-2023 Ampicillin RANJANA [Susc] >100,000 cfu/ml Citrobacter koseri [facility] Ampicillin RANJANA [Susc]on 06-13 Citrobacter koseri Citrobacter koseri [facility] LABORATORYOrdered By: Fiona Fernandez on 06-23-2023 Albumin DL <= 20 mg/L (U) [Mass/Vol] 499 mcg/dL Invalid Interpretation Code AO ADM SS Albumin/Creatinine DL <= 20 mg/L (U) [Mass ratio] 10 mcg/mg Normal 0 - 30 mcg/mg AO ADM SS Creatinine (U) [Mass/Vol] 47.9 mg/dL Normal 28.0 - 117.0 mg/dL AO ADM SS MALBRon 06-23-2023 U Creatinine 47.9 mg/dL Normal 28.0-117.0 [facility] ([place]) Comment on above: Performed By: #### 9 [id number] #### [address] [address] U Microalb 499 mcg/dL Normal [facility] ([place]) Comment on above: Performed By: #### 9 [address] #### [address] [address] U Ratio Alb/Cre 10 mcg/mg Normal 0-30 [facility] ([place]) Comment on above: Performed By: #### 9 [address] #### [place] [address] CSAon 03-24-2023 Color-Stone Garcia Normal [facility] ([place]) Comment on above: Performed By: #### 9 [address] #### [place] [address] Composition-Stone Comment [facility] ([place]) Comment on above: Result Comment: Please see comment Performed By: #### 9 [address] #### [address] [address] Contact info Comment [facility] ([place]) Comment on above: Result Comment: Physician questions regarding Calculi Analysis contact [facility] at: [phone]. Performed By: #### 9 225[address] #### [place] [address] Photo Stone COMMENT [facility] ([place]) Comment on above: Result Comment: Test not performed No photo available Performed By: #### 9 [address] #### [place] [address] Size-Stone <1 [facility] ([place]) Comment on above: Result Comment: Too small to measure. Performed By: #### 9 545[address] #### [place] [address] Source-Stone Comment [facility] ([place]) Comment on above: Result Comment: Not provided Performed By: #### 9 178[address] #### [place] [address] Stone Analysis Note Comment Normal [facility] ([facility] Comment on above: Result Comment: Calculi report will follow via computer, mail or manufacturer representative delivery. Performed By: #### 9 [address] #### [place] [address] Stone Comment1 Comment [facility] ([place]) Comment on above: Result Comment: Crystalline substances normally associated with human calculi were not identified. Specimen is consistent with organic material. Insufficient sample to perform additional, confirmatory, or reference testing. Performed By: #### 9 35870 #### [place] [address] Stone Comment2 Comment [facility] ([place] Comment on above: Result Comment: Calculus received wet. Wet calculi must be dried before analysis, which delays reporting of results. Leaving calculi wet (such as water, saline, blood, urine) may lead to changes in composition. Performed By: #### 9 33429 #### [place] [address] Stone Disclaimer: Comment [facility] ([place]) Comment on above: Result Comment: This test was developed and its performance characteristics determined by [employer]. It has not been cleared or approved by the Food and Drug Administration. Performed At: [facility] [address] [id number] Kendy Cerrato PhD Ph:[phone] Performed By: #### 9 [address] #### [address] [place] [address] [place], [place] [address] Weight-Stone <1 Normal [facility] ([place]) Comment on above: Result Comment: Too small to weigh Performed By: #### 9 19891 #### [address] [place] [address] [place] [address] .Urinalysis Microscopic (AO) on 03-06-2023 UA Bacteria Trace Abnormal [facility] ([place]) Comment on above: Performed By: #### U AMICAO, UA ####[address] [place] [place] [address] UA Glitter cells 0-5 Abnormal [facility] ([place] Comment on above: Performed By: #### U AMICAO, UA ####[address] [place], [place] [address] UA RBC 0-5 Abnormal None Seen [facility] ([place] Comment on above: Performed By: #### U AMICAO, UA ####[address] [place] [place], [place] [address] UA Squam Epithelial None Seen Normal None Seen [facility] ([place] Comment on above: Performed By: #### U AMICAO, UA ####[address] [place] [place] [id number] UA WBC 0-5 Abnormal None Seen [facility] ([place] Comment on above: Performed By: #### U AMICAO, UA ####[address]avid [address] [place] [address] AMIKACIN:SUSC:PT:ISOLATE:ORD QN:MICon 03-06-2023 Amikacin RANJANA [Susc] >100,000 cfu/ml Citrobacter koseri [facility] Amikacin RANJANA [Susc]on 2023 Citrobacter koseri Citrobacter koseri [facility] LABORATORYOrdered By: Julienne Roa on 03-06-2023 Appearance (U) Clear (03/06/23 4:25 PM) Normal AO Auto Urine SS Bacteria LM.HPF (Urine sed) [#/Area] Trace /HPF Invalid Interpretation Code AO Auto Urine SS Bilirubin Ql (U) Negative (03/06/23 4:25 PM) Normal AO Auto Urine SS Color (U) Yellow (03/06/23 4:25 PM) Normal AO Auto Urine SS Glucose Test strip (U) [Mass/Vol] Negative Normal AO Auto Urine SS Hemoglobin Auto test strip (U) [Mass/Vol] Trace *ABN* (03/06/23 4:25 PM) Invalid Interpretation Code AO Auto Urine SS Ketones Ql (U) Negative Normal AO Auto Ur ine SS UA Glitter cells 0-5 /HPF Invalid Interpretation Code AO Auto Urine SS UA Leuk Est Small *ABN* (03/06/23 4:25 PM) Invalid Interpretation Code AO Auto Urine SS UA Nitrite Negative (03/06/23 4:25 PM) Normal AO Auto Urine SS UA pH 5.5 (03/06/23 4:25 PM) Normal AO Auto Urine SS UA Protein Negative Normal AO Auto Urine SS UA RBC 0-5 /HPF Invalid Interpretation Code AO Auto Urine SS UA Spec Grav 1.010 *ABN* (03/06/23 4:25 PM) Invalid Interpretation Code AO Auto Urine SS UA Specimen Type Not Given (03/06/23 4:25 PM) Normal AO Auto Urine SS UA Squam Epithelial None Seen /HPF Normal A O Auto Urine SS UA Urobilinogen 0.2 E.U./dL Normal AO Auto Urine SS WBC LM.HPF (Urine sed) [#/Area] 0-5 /HPF Invalid Interpretation Code AO Auto Urine SS UAon 03-06-2023 Color (U) Yellow Normal [facility] ([place] Comment on above: Performed By: #### U OLIVER UA ####[facility] [place], [place] [address] Glucose (U) [Mass/Vol] Negative Normal Negative [facility] ([place]) Comment on above: Performed By: #### U AMICAO, UA ####[address] [place], [place] [address] Ketones Ql (U) Negative Normal Negative [facility] ([place] Comment on above: Performed By: #### U AMICAO, UA ####[address] [place] [place], [place] [address] UA Appear Clear Normal Clear [facility] ([place] Comment on above: Performed By: #### U AMICAO, UA ####[address] [place] [place], [place] [address] UA Blood Trace Abnormal Negative [facility] ([place] Comment on above: Performed By: #### U AMICAO, UA ####[address] [place] [place] [address] UA Leuk Est Small Abnormal Negative [facility] ([place] Comment on above: Performed By: #### U AMICAO, UA ####[address] [place] [address] UA Nitrite Negative Normal Negative [facility] ([place] Comment on above: Performed By: #### U AMICAO, UA ####[address] [place] [place], [place] [address] UA pH 5.5 Normal 5.0 - 8.0 [facility] ([place] Comment on above: Performed By: #### U AMICAO, UA ####[address] [place] [place], [place] [address] UA Protein Negative Normal Negative [facility] ([place] Comment on above: Performed By: #### U AMICAO, UA ####[address] [place] [place], [place] [address] UA Spec Grav 1.010 Abnormal 1.015-1.025 [facility] ([place] Comment on above: Performed By: #### U AMICAO, UA ####[address] [place] [place], [place] [address] UA Specimen Type Not Given Normal [facility] ([place] Comment on above: Performed By: #### U AMICAO, UA ####[address] [place], [place] [address] UA Urobilinogen 0.2 E.U./dL Normal 0.2-1.0 [facility] ([place] Comment on above: Performed By: #### U AMICAO, UA ####[address] [place] [place], [place] [address] Urobilinogen (U) [Mass/Vol] Negative Normal Negative [facility] ([place] Comment on above: Performed By: #### U AMICAO, UA ####[address] [place], [place] [address] Direct LDLon 11-15-2022 LDL Cholesterol Direct 146 mg/dL High <100 [facility] ([place]) Comment on above: Result Comment: <100 mg/dL, Optimal 100-129 mg/dL, Near optimal/above optimal 130-159 mg/dL, Borderline high 160-189 mg/dL, High >189 mg/dL, Very high Secondary prevention optimal LDL Cholesterol levels are recommended to be < 70 mg/dL Performed By: [employer] [address] [place] [address] [employer] Grinder: Minh Bunn III, M.D. CLIA#: [id number] Performed By: #### B MP, LDLDCT, GFR, LIPID #### [address] [address] VLDL Cholesterol See Below Normal [facility] ([place]) Comment on above: Result Comment: Test not indicated. Performed By: [employer] [place] [id number] [employer] Grinder: Minh Bunn III, M.D. CLIA#: [id number] Performed By: #### B MP, LDLDCT, GFR, LIPID #### [address] [place] [address] [place], [place] [address] .GFRon 11-14-2022 GFR 104 ml/min/1.73sqm Normal [facility] ([place]) Comment on above: Result Comment: GFR Population mean for , Non- Americans Ages 20-29 = 116 mL/min/1.73 sq.m. Ages 30-39 = 107 mL/min/1.73 sq.m. Ages 40-49 = 99 mL/min/1.73 sq.m. Ages 50-59 = 93 mL/min/1.73 sq.m. Ages 60-69 = 85 mL/min/1.73 sq.m. Ages 70+ = 75 mL/min/1.73 sq.m. Chronic Kidney Disease: Less than 60 mL/min/1.73 square meters End Stage Renal Disease: Less than 15 mL/min/1.73 square meters Performed By: #### B MP, LDLDCT, GFR, LIPID #### [address] [address] GFR Non- 86 ml/min/1.73sqm Normal [facility] ([place]) Comment on above: Result Comment: GFR Population mean for , Non- Americans Ages 20-29 = 116 mL/min/1.73 sq.m. Ages 30-39 = 107 mL/min/1.73 sq.m. Ages 40-49 = 99 mL/min/1.73 sq.m. Ages 50-59 = 93 mL/min/1.73 sq.m. Ages 60-69 = 85 mL/min/1.73 sq.m. Ages 70+ = 75 mL/min/1.73 sq.m. Chronic Kidney Disease: Less than 60 mL/min/1.73 square meters End Stage Renal Disease: Less than 15 mL/min/1.73 square meters Performed By: #### B MP, LDLDCT, GFR, LIPID #### [address] [address] BMPon 11-14-2022 BUN/Creatinine Ratio 20 ratio Normal 7-27 [facility] ([place] Comment on above: Performed By: #### B MP, LDLDCT, GFR, LIPID #### [address] [address] Calcium [Mass/Vol] 9.2 mg/dL Normal 8.4-10.2 [facility] ([place] Comment on above: Performed By: #### B MP, LDLDCT, GFR, LIPID #### [address] [address] Chloride [Moles/Vol] 103 mmol/L Normal 98-107 [facility] ([place] Comment on above: Performed By: #### B MP, LDLDCT, GFR, LIPID #### [address] [address] CO2 [Moles/Vol] 34 mmol/L High 23-31 [facility] ([place] Comment on above: Performed By: #### B MP, LDLDCT, GFR, LIPID #### [address] [address] Creatinine [Mass/Vol] 0.69 mg/dL Normal 0.55-1.02 [facility] ([place] Comment on above: Performed By: #### B MP, LDLDCT, GFR, LIPID #### [address] [address] Electrolyte Balance 6.0 mEq/L Normal 4.0-15.0 [facility] ([place]) Comment on above: Performed By: #### B MP, LDLDCT, GFR, LIPID #### [address] [address] Glucose [Mass/Vol] 94 mg/dL Normal 80-115 [facility] ([place] Comment on above: Performed By: #### B MP, LDLDCT, GFR, LIPID #### [address] [address] Potassium [Moles/Vol] 4.0 mmol/L Normal 3.5-5.1 [facility] ([place] Comment on above: Performed By: #### B MP, LDLDCT, GFR, LIPID #### [address] [address] Sodium [Moles/Vol] 143 mmol/L Normal 136-145 [facility] ([place] Comment on above: Performed By: #### B MP, LDLDCT, GFR, LIPID #### [address] [address] Urea nitrogen [Mass/Vol] 14 mg/dL Normal 7-18 [facility] ([place] Comment on above: Performed By: #### B MP, LDLDCT, GFR, LIPID #### [address] [address] LIPIDon 11-14-2022 Cholesterol [Mass/Vol] 224 mg/dL High 0-200 [facility] ([place] Comment on above: Result Comment: Chol esterol Reference Interval: Less than 200 Desirable 200-239 Borderline high risk 240 and above High risk Performed By: #### B MP, LDLDCT, GFR, LIPID #### [address] [address] Cholesterol in HDL [Mass/Vol] 42 mg/dL Normal 40-60 [facility] ([place] Comment on above: Performed By: #### B MP, LDLDCT, GFR, LIPID #### [address] [address] Cholesterol in LDL [Mass/Vol] 151 mg/dL High 0-130 [facility] ([place] Comment on above: Performed By: #### B MP, LDLDCT, GFR, LIPID #### [address] [address] Triglyceride [Mass/Vol] 154 mg/dL High 0-150 [facility] ([place] Comment on above: Result Comment: Trig lyceride Reference Interval: Less than 150 Normal 150-199 Borderline high risk 200-499 High risk 500 or higher Very high risk Performed By: #### B MP, LDLDCT, GFR, LIPID #### [address] [address] AMOXICILLIN+CLAVULANATE:SUSC :PT:ISOLATE:ORDQN:MICon 05-23-2022 Amoxicillin+Clavulana te RANJANA [Susc] >100,000 cfu/ml Citrobacter koseri [facility] Amoxicillin+Clavulanate RANJANA [Susc]on 05-23-2022 Citrobacter koseri Citrobacter koseri [facility] LABORATORYOrdered By: SYSTEM SYSTEM on 03-14-2022 Albumin BCP dye [Mass/Vol] 3.8 G/dL Invalid Interpretation Code 3.4 - 4.8 G/dL AO ADM SS Albumin/Globulin [Mass ratio] 1.1 {ratio} Invalid Interpretation Code 1.1 - 2.5 ratio AO ADM SS ALP [Catalytic activity/Vol] 66 U/L Invalid Interpretation Code 40 - 135 U/L AO ADM SS ALT With P-5'-P [Catalytic activity/Vol] 33 U/L Invalid Interpretation Code 14 - 59 U/L AO ADM SS AST With P-5'-P [Catalytic activity/Vol] 17 U/L Invalid Interpretation Code 10 - 40 U/L AO ADM SS Bilirubin [Mass/Vol] 0.5 mg/dL Invalid Interpretation Code 0.2 - 1.0 mg/dL AO ADM SS Calcium [Mass/Vol] 9.1 mg/dL Invalid Interpretation Code 8.4 - 10.2 mg/dL AO ADM SS Chloride [Moles/Vol] 103 mmol/L Invalid Interpretation Code 98 - 107 mmol/L AO ADM SS CO2 [Moles/Vol] 34 mmol/L Invalid Interpretation Code 23 - 31 mmol/L AO ADM SS Creatinine [Mass/Vol] 0.59 mg/dL Invalid Interpretation Code 0.55 - 1.02 mg/dL AO ADM SS Electrolyte Balance 4.0 mEq/L Invalid Interpretation Code 4.0 - 15.0 mEq/L AO ADM SS Free T4 [Mass/Vol] 0.95 ng/dL Invalid Interpretation Code 0.76 - 1.46 ng/dL AO ADM SS GFR 125 ml/min/1.73sqm Invalid Interpretation Code AO Chemistry S GFR Non- 103 ml/min/1.73sqm Invalid Interpretation Code AO Chemistry S Globulin 3.4 G/dL Invalid Interpretation Code AO ADM SS Glucose [Mass/Vol] 99 mg/dL Invalid Interpretation Code 80 - 115 mg/dL AO ADM SS Potassium [Moles/Vol] 3.7 mmol/L Invalid Interpretation Code 3.5 - 5.1 mmol/L AO ADM SS Protein [Mass/Vol] 7.2 G/dL Invalid Interpretation Code 6.4 - 8.2 G/dL AO ADM SS Sodium [Moles/Vol] 141 mmol/L Invalid Interpretation Code 136 - 145 mmol/L AO ADM SS TSH Qn 0.41 m[IU]/L Invalid Interpretation Code 0.36 - 3.74 mcIU/mL AO ADM SS Urea nitrogen [Mass/Vol] 13 mg/dL Invalid Interpretation Code 7 - 18 mg/dL AO ADM SS Urea nitrogen/Creatinine [Mass ratio] 22 ratio Invalid Interpretation Code 7 - 27 ratio AO ADM SS LABORATORYOrdered By: Ahmet Rey on 03-14-2022 Basophil, Absolute 0.1 103/mcL Invalid Interpretation Code 0.0 - 0.2 10^3/mcL AO Workflow SS Basophils/100 WBC (Bld) 0.8 % Invalid Interpretation Code 0.0 - 2.5 % AO Workflow SS Eosinophil, Absolute 0.1 103/mcL Invalid Interpretation Code 0.0 - 0.4 10^3/mcL AO Workflow SS Eosinophils/100 WBC (Bld) 2.0 % Invalid Interpretation Code 0.0 - 7.0 % AO Workflow SS Erythrocyte distribution width (RBC) [Ratio] 14.5 % Invalid Interpretation Code 11.5 - 14.5 % AO Workflow SS Hematocrit (Bld) [Volume fraction] 38.5 % Invalid Interpretation Code 37.0 - 47.0 % AO Workflow SS Hemoglobin (Bld) [Mass/Vol] 12.7 G/dL Invalid Interpretation Code 12.0 - 16.0 G/dL AO Workflow SS Lymphocyte, Absolute 2.3 103/mcL Invalid Interpretation Code 0.8 - 3.9 10^3/mcL AO Workflow SS Lymphocytes/100 WBC (Bld) 35.7 % Invalid Interpretation Code 10.0 - 50.0 % AO Workflow SS MCH (RBC) [Entitic mass] 27.2 pg Invalid Interpretation Code 27.0 - 31.2 pg AO Workflow SS MCHC 33.0 G/dL Invalid Interpretation Code 33.0 - 37.0 G/dL AO Workflow SS MCV (RBC) [Entitic vol] 82.5 fL Invalid Interpretation Code 80.0 - 94.0 fL AO Workflow SS Monocyte, Absolute 0.4 103/mcL Invalid Interpretation Code 0.2 - 1.0 10^3/mcL AO Workflow SS Monocytes/100 WBC (Bld) 6.1 % Invalid Interpretation Code 1.7 - 13.0 % AO Workflow SS Neutrophil, Absolute 3.6 103/mcL Invalid Interpretation Code 2.9 - 6.2 10^3/mcL AO Workflow SS Neutrophils/100 WBC (Bld) 55.4 % Invalid Interpretation Code 37.0 - 80.0 % AO Workflow SS Platelet mean volume (Bld) [Entitic vol] 7.9 fL Invalid Interpretation Code 7.4 - 10.4 fL AO Workflow SS Platelets (Bld) [#/Vol] 334 103/mcL Invalid Interpretation Code 130 - 400 10^3/mcL AO Workflow SS RBC (Bld) [#/Vol] 4.67 106/mcL Invalid Interpretation Code 4.20 - 5.40 10^6/mcL AO Workflow SS WBC (Bld) [#/Vol] 6.4 103/mcL Invalid Interpretation Code 4.6 - 10.8 10^3/mcL AO Workflow SS LABORATORYOrdered By: Dari Rodriguez on 03-14-2022 Cholesterol [Mass/Vol] 246 mg/dL Invalid Interpretation Code 0 - 200 mg/dL AO ADM SS Cholesterol in HDL [Mass/Vol] 45 mg/dL Invalid Interpretation Code 40 - 60 mg/dL AO ADM SS Cholesterol in LDL [Mass/Vol] 171 mg/dL Invalid Interpretation Code 0 - 130 mg/dL AO ADM SS Triglyceride [Mass/Vol] 151 mg/dL Invalid Interpretation Code 0 - 150 mg/dL AO ADM SS LABORATORYOrdered By: Eileen Meng on 03-14-2022 HCV Ab IA Ql Non-Reactive (03/14/22 9:16 AM) Invalid Interpretation Code Non-Reactive AH ADM SS HCV Ab IA Ql Nonreactive: Samples with a value < 0.80 are considered nonreactive (negative) for antibodies to HCV.A negative test result does not exclude the possibility of exposure to or infection with HCV. HCV antibodies may be undetectable in some stages of the infection and in some clinical conditions. Invalid Interpretation Code AH Chemistry S No Panel Informationon 06-11 Culture Urine 10,000 - 50,000 cfu/ml Mixed growth consistent with normal urogenital tomer. [facility] Encounters Encounter Date Encounter Type Care Provider Facility Start: 08-01-2024 Encounter for other preprocedural examination [facility] Francisco [facility] Start: 08-01-2024 ambulatory DONAVAN ELLIOTT DO Faci lity:[facility] Start: 07-12-2024 End: 07-12-2024 ambulatory [facility] Facility:[facility] Start: 04-09-2024 End: 04-09-2024 ambulatory DONAVAN ELLIOTT DO Facility[facility] [place] Start: 04-09-2024 End: 04-09-2024 Patient encounter procedure DONAVAN Blessing ELLIOTT DO [facility] Start: 09-02-2023 ambulatory CHONG RAMSEY DO Facili ty:B Start: 08-24-2023 End: 08-24-2023 ambulatory DONAVAN HAWTHORNEINS DO Facility:[facility] Start: 06-23-2023 End: 06-27-2023 ambulatory DONAVAN Blessing ELLIOTT DO Facility:[facility] Start: 06-23-2023 End: 06-27-2023 Outreach Lab DONAVAN Blessing ELLIOTT DO [facility] Start: 03-06-2023 End: 03-10-2023 ambulatory DONAVAN Blessing ELLIOTT DO Facility:B Start: 03-06-2023 End: 03-10-2023 Outreach Lab DONAVAN Blessing ELLIOTT DO [facility] Start: 11-14-2022 End: 11-14-2022 ambulatory DONAVAN ELLIOTT DO Facility:B Start: 05-23-2022 End: 05-27-2022 Outreach Lab [employer] [facility] Start: 03-14-2022 End: 03-14-2022 Patient encounter procedure DONAVAN Blessing ELLIOTT DO [facility] Start: 10-05-2021 End: 10-05-2021 Patient encounter procedure DONAVAN Blessing ELLIOTT DO [facility] Start: 06-11-2021 End: 06-15-2021 Outreach Lab [employer] [facility] Plan of Treatment Date Care Activity Detail Author Start: 08-05-2024 ambulatory Ambulatory Facility:[facility] Immunizations Immunization Date Immunization Notes Care Provider Johanny winters 06-08-2018 tetanus toxoid, redu kamilah diphtheria toxoid, and acellular pertussis vaccine, adsorbed DONAVAN ELLIOTT DO [facility] Payers Date Payer Category Payer Medicare [id number] 2024 Self-pay 2024 Unknown [id number] 2022 Unknown [id number] 1960 Unknown [id number] 2.16.8 [id number] 1959 Unknown [id number] 2.16.8 [id number] 1959 Unknown [id number] 2.16.8 [id number] 1959 Unknown [id number] 2.16.8 [id number] 1959 Unknown [id number] 2.16.8 [id number] 1959 Unknown [id number] 2.16. [id number] 1959 Unknown [id number] 2.16.8 [id number] Unknown [id number] 2.16.8 [id number] Unknown [id number] 2.16.8 [id number] Social History Date Type Detail Facility Start: 04-17-2019 Tobacco smoking status Never s moked tobacco (finding) [facility] Sex Assigned At Female [facility] Sexual Orientation [facility]ine [facility] Start: 08-08-2018 Sex Female (finding) [facility] Clinical Notes 03-08-2023 to 07-30-2024 LaboratoryLaboratoryLaboratoryLaboratoryLaboratoryRadiology Note Date & Type Note Facility 07-30-2024 Note [facility] Medical Records Department [address] [place] [address] History Physical Exam 07/30/24 0859 MR#: [id number] Acct: [id number] Name: AICHA MAGALLANES Rep #: [id number] : 1960 64 From: Cassius RUSS PA-C PCP: Dr. Donavan Elliott, DO Status:PRE [facility] Location: [place] History and Physical History and Physical??? Patient Name: Aicha Magallanes : 1960From:??? CASSIUS CARRANZA PA-C??? DATE OF PRE-OPERATIVE EXAM: 07/29/2024 DATE OF SURGERY:??? 08/05/2024 SCHEDULED PROCEDURE:??? Direct anterior left total hip arthroplasty HISTORY OF PRESENT ILLNESS: Preoperative history and physical exam was performed on July 29, 2024.??? This is a 64-year-old female who has had ongoing pain with her left hip since 2017.??? Pain has been intermittent, dull, sharp, sore.??? Pain is increased with going up and down stairs and walking.??? She has increased pain after walking one block.??? She has had to use a cane for ambulatory assistance for the past 6 months.??? She states she is limping and the pain will intensify as the day goes on.??? Pain is located in her groin and does experience pain in her buttock when sitting.??? She has difficulty with activities of daily living including bathing, getting dressed putting on her socks and shoes, housework, shopping, and leisure activities such as walking and going to sporting events.??? She has tripped/stumbled due to the pain.??? She feels unsafe going up and down stairs without railings.??? She has tried rest, heat, elevation with minimal relief.??? She has tried home exercises with minimal relief.??? She has tried oral medications including Tylenol and ibuprofen with minimal relief.??? Patient denies past history of surgery on the left hip.??? Patient has medical history pertinent for anxiety, hypertension, gastroesophageal reflux disease, insomnia, frequent UTIs and coronary artery disease.??? Patient denies past history of DVT or pulmonary embolism.??? She has been recently evaluated and blood pressure medications have been adjusted.??? This has been helpful.??? She denies chest pain, shortness of breath, fevers chills or recent infections.??? After failing conservative measures and discussing treatment options with Dr. Ascencion Francisco, the patient does wish to proceed with a direct anterior left total hip arthroplasty.??? Patient has had surgical clearance from primary care provider Dr. Donavan Elliott. REVIEW OF SYSTEMS: Review Of Systems: Constitutional: Denies anorexia, change in appetite, fever, difficulty sleeping, weight change. Cardiovasular: Denies chest pain, heart murmur, irregular heartbeat and peripheral vascular disease. Respiratory: Denies asthma, cough, pneumonia, sleep apnea, shortness of breath, tuberculosis and wheezing. Gastrointestinal: Reports heartburn, but denies constipation, diarrhea, nausea, rectal itching, bloody stools and vomiting. Genitourinary: Denies female genital problems. Denies incontinence. Musculoskeletal: Reports leg swelling, pain, trouble walking and weakness. Skin: Denies Raynaud's, history of shingles and tattoo. Neurological: Denies ambulatory dysfunction, dizziness, numbness/tingling and tremor. Psychiatric: Reports anxiety and insomnia, but denies depression, mental illness and stress. Hematologic/Lymphatic: Denies anemia, bleeding/bruising tendency and past transfusion. Reviewed and updated. PAST MEDICAL HISTORY: Advance Care Plan: No Advance Directives Effective Date: 05/19/2023 Past Medical History: Medical Problems: High Blood Pressure, Acid Reflux, Kidney Stones Covid- 19 - (2019) anxiety dental disease - tooth pulled -2024 - no symptoms currently??? mixed hyperlipidemia, insomnia, Atherosclerotic Cardiovascular Disease, frequent UTIs, kink in ureter Accidents: None Surgical Hx: Hysterectomy - (2009) Tubal Ligation - (1999) Section - (1999) Anesthesia Complications: None Assistive Devices: Glasses, Cane Reviewed and updated. SOCIAL HISTORY: Social History: Marital: .Occupation: [employer].Work Status: Retired.Hand Dominance: Right-handed. Personal Habits:??? Cigarette Use: Former.Smokeless Tobacco: Never Used Smokeless Tobacco.E-Cigarette Use: Never used.Alcohol: Occasionally.Drug Use: Denies Use.Enjoy Exercising: Exercises 1-3 x/month. Reviewed and updated. VITALS: Ht: 64 Wt: 176lb Wt k.834 BMI: 30.2 BP: 126/74 Pulse: 82 Resp: 17 T: 97.8 T: 36.6C Pain Level: 8/10 O2SatR: 97 ALLERGIES: Iodinated Contrast??? MEDICATIONS: Lisinopril/Hydrochlorothiazide 20-12.5 mg 1 po qd, Propranolol HCL 20 mg take 1 tablet by mouth 3 times a day??? take 30 to 60 minutes before triggering ev, Clonidine HCL 0.1 mg 1 tablet as needed, Aspirin 81 81 mg 1 tablet nightly, Omeprazole 40 mg as needed, Vitamin C 500 mg daily, Zinc 30 mg daily, Vitamin B Com (more content not included)... [facility] 09-04-2023 Note . MICRO - Microbiology PROCEDURE: Urine Culture [*1] SOURCE: Urine, Clean Catch BODY SITE: COLLECTED DATE/TIME: 09/02/2023 09:54 EDT RECEIVED DATE/TIME: 09/02/2023 15:59 EDT START DATE/TIME: 09/02/2023 15:59 EDT FREE TEXT SOURCE: FINAL REPORTS Final Report [] Verified Date/Time/Personnel: 09/04/2023 08:49 EDT >100,000 cfu/ml Citrobacter koseri PRELIMINARY REPORTS Preliminary Report [] Verified Date/Time/Personnel: 09/03/2023 11:20 EDT >100,000 cfu/ml Citrobacter koseri RANJANA to follow SUSCEPTIBILITY RESULTS Citrobacter koseri Antibiotic RANJANA Dilut RANJANA Inter Ampicillin >16 Resistant Ampicillin/ <=4/2 Susceptible Sulbactam Aztreonam <=4 Susceptible Cefazolin <=2 Susceptible Ciprofloxacin <=0.25 Susceptible Ertapenem <=0.5 Susceptible Gentamicin <=2 Susceptible ID Panel Not Not Applicable Applicable Imipenem <=1 Susceptible Levofloxacin <=0.5 Susceptible Meropenem <=1 Susceptible Minocycline <=4 Susceptible Nitrofurantoin <=32 Susceptible Piperacillin/ <=8 Susceptible Tazobactam Trimethoprim/ <=0.5/9.5 Susceptible Sulfa Performing Locations *1: This test was performed at: [address], [address] [place] [address] ([place]) 06-25-2023 Note . MICRO - Microbiology PROCEDURE: Urine Culture [*1] SOURCE: Urine, Clean Catch BODY SITE: COLLECTED DATE/TIME: 06/23/2023 16:51 EDT RECEIVED DATE/TIME: 06/23/2023 20:20 EDT START DATE/TIME: 06/23/2023 20:20 EDT FREE TEXT SOURCE: FINAL REPORTS Final Report [] Verified Date/Time/Personnel: 06/25/2023 08:20 EDT >100,000 cfu/ml Citrobacter koseri PRELIMINARY REPORTS Preliminary Report [] Verified Date/Time/Personnel: 06/24/2023 12:17 EDT >100,000 cfu/ml Citrobacter koseri RANJANA to follow SUSCEPTIBILITY RESULTS Citrobacter koseri Antibiotic RANJANA Dilut RANJANA Inter Ampicillin >16 Resistant Ampicillin/ <=4/2 Susceptible Sulbactam Aztreonam <=4 Susceptible Cefazolin <=2 Susceptible Ciprofloxacin <=0.25 Susceptible Ertapenem <=0.5 Susceptible Gentamicin <=2 Susceptible ID Panel Not Not Applicable Applicable Imipenem <=1 Susceptible Levofloxacin <=0.5 Susceptible Meropenem <=1 Susceptible Minocycline <=4 Susceptible Nitrofurantoin <=32 Susceptible Piperacillin/ <=8 Susceptible Tazobactam Trimethoprim/ <=0.5/9.5 Susceptible Sulfa Performing Locations *1: This test was performed at: [address], [address] [place] [address] ([place]) 03-08-2023 Note . MICRO - Microbiology PROCEDURE: Urine Culture [*1] SOURCE: Urine, Clean Catch BODY SITE: COLLECTED DATE/TIME: 03/06/2023 16:24 EST RECEIVED DATE/TIME: 03/06/2023 19:11 EST START DATE/TIME: 03/06/2023 19:11 EST FREE TEXT SOURCE: FINAL REPORTS Final Report [] Verified Date/Time/Personnel: 03/08/2023 08:40 EST >100,000 cfu/ml Citrobacter koseri PRELIMINARY REPORTS Preliminary Report [] Verified Date/Time/Personnel: 03/07/2023 10:52 EST >100,000 cfu/ml Citrobacter koseri RANJANA to follow SUSCEPTIBILITY RESULTS Citrobacter koseri Antibiotic RANJANA Dilut RANJANA Inter Ampicillin >16 Resistant Ampicillin/ <=4/2 Susceptible Sulbactam Aztreonam <=4 Susceptible Cefazolin <=2 Susceptible Ciprofloxacin <=0.25 Susceptible Ertapenem <=0.5 Susceptible Gentamicin <=2 Susceptible ID Panel Not Not Applicable Applicable Imipenem <=1 Susceptible Levofloxacin <=0.5 Susceptible Meropenem <=1 Susceptible Minocycline <=4 Susceptible Nitrofurantoin 64 Intermediate Piperacillin/ <=8 Susceptible Tazobactam Trimethoprim/ <=0.5/9.5 Susceptible Sulfa Performing Locations *1: This test was performed at: [facility], [address] [place] [address], [address] [place] [address] ([place]) Evaluation + Plan note No data available for this section [facility] Evaluation + Plan note Future Appointments Appointment Date:12/01/2021 10:00:00 AM Scheduled Provider:DONAVAN ELLIOTT DO Location:[facility] Appointment Type:PC Wellness Annual Future Scheduled TestsThyroid Stimulating Hormone 09/07/21Free T4 09/07/21Complete Blood Count 09/07/21Lipid Profile 09/07/21Hepatitis C Antibody IgG 09/07/21Microalbumin Level Urine 09/07/21Complete Metabolic Panel 09/07/21 [facility] Evaluation + Plan note Future Appointments Appointment Date:03/21/2022 02:30:00 PM Scheduled Provider:DONAVAN ELLIOTT DO Location:[facility] Appointment Type:PC Wellness Annual Future Scheduled TestsMicroalbumin Level Urine 09/07/21 [facility] Evaluation + Plan note Future Appointments Appointment Date:07/12/2022 02:00:00 PM Scheduled Provider:DONAVAN ELLIOTT DO Location:[facility] Appointment Type:PC OV Future Scheduled TestsLDL-Cholesterol, Direct 03/22/22Basic Metabolic Panel 03/22/22Lipid Profile 03/22/22Microalbumin Level Urine 09/07/21 [facility] Evaluation + Plan note Future Appointments Appointment Date:05/23/2023 09:30:00 AM Scheduled Provider:DONAVAN ELLIOTT DO Location:[facility] Appointment Type:PC OV Diagnostic Tests PendingStone Analysis 03/06/23 Future Scheduled TestsLDL-Cholesterol, Direct 11/21/22Thyroid Stimulating Hormone 11/21/22A1C Hemoglobin 11/21/22Complete Blood Count 11/21/22Lipid Profile 11/21/22Albumin/Creatinine Ratio, Random Urine 11/21/22Complete Metabolic Panel 11/21/22 [facility] Evaluation + Plan note Future Appointments Appointment Date:08/28/2023 04:00:00 PM Scheduled Provider:DONAVAN ELLIOTT DO Location:[facility] Appointment Type:PC OV Future Scheduled Tests.CCLLDL-Cholesterol, Direct 06/23/23Thyroid Stimulating Hormone 06/23/23Urine Microscopic 06/23/23Vitamin B12 Level 06/23/23A1C Hemoglobin 06/23/23Complete Blood Count 06/23/23Lipid Profile 06/23/23Vitamin D Level 06/23/23Complete Metabolic Panel 06/23/23 [facility] Evaluation + Plan note Future Appointments Appointment Date:04/12/2024 02:45:00 PM Scheduled Provider:DONAVAN ELLIOTT DO Location:[facility] Appointment Type:PC OV Future Scheduled TestsCT Coronary Calcium Score w/o Contrast 08/28/23 [facility] Hospital Discharge instructions No data available for this section [facility] Progress note No data available for this section [facility] Summary Purpose Family History No Family History Records Found Advance Directives No Advanced Directives Records FoundNo Advanced Directives Records FoundNo Advanced Directives Records Found Additional Source Comments Care Team (unrecognized sect ion and content) Personnel Name: ISH SEXTON MD Address: [address] [place] [address] Care Team Personnel Name: DONAVAN ELLIOTT DO Position: P4 Physician - Primary Care Member Role: Primary Care Physician Address: Address: [address] [place] [address] Care Team Related Persons Name: ILDA MAGALLANES Address: Home [address] [place], [place] [id number] Address: Temporary [address] [place], [place] [id number] Care Team Personnel Name: DONAVAN ELLIOTT DO Position: P4 Physician - Primary Care Member Role: Primary Care Physician Address: Address: [address] [place] [id number] [place] [address] Care Team Related Persons Name: ILDA MAGALLANES Address: Home [address] [place], [place] [id number] Address: Temporary [address] [place], [place] [id number] Care Team Personnel Name: DONAVAN ELLIOTT DO Position: P4 Physician - Primary Care Member Role: Primary Care Physician Address: Address: [address] [place] [id number] [place] [address] Care Team Related Persons Name: ILDA MAGALLANES Address: Home [address] [place], [place] [id number] Address: Temporary [address] [place], [place] [id number] Care Team Personnel Name: DONAVAN ELLIOTT DO Position: P4 Physician - Primary Care Member Role: Primary Care Physician Address: [address] [place] [id number] [place] [address] Telecom: Care Team Related Persons Name: ILDA MAGALLANES Care Team (unrecognized sect ion and content) Care Team Personnel Name: DONAVAN ELLIOTT DO Position: P4 Physician - Primary Care Member Role: Primary Care Physician Address: Address: [address] [place] [id number] Care Team Related Persons Name: ILDA MAGALLANES Address: Home [address] [place], [place] [id number] Address: Temporary [address] [place], [place] [id number] Care Team Personnel Name: DONAVAN ELLIOTT DO Position: P4 Physician - Primary Care Member Role: Primary Care Physician Address: Address: [address] [place] [id number] Care Team Related Persons Name: ILDA MAGALLANES Address: Home [address] [place], [place] [id number] Address: Temporary [address] [place] [phone] INFORMATION SOURCE (unrecogn ized section and content) DATE CREATED AUTHOR 09/05/2023 [facility] ([place]) DATE CREATED AUTHOR AUTHOR'S ORGANIZ ATION 08/01/2024 [facility] DATE CREATED AUTHOR AUTHOR'S ORGANIZ ATION 08/04/2024 [facility] FOR RECORDS PERTAINING TO PATIENTS WHO ARE OR HAVE BEEN ENROLLED IN A CHEMICAL DEPENDENCY/SUBSTANCEABUSE PROGRAM, SOME INFORMATION MAY BE OMITTED. This clinical summary was aggregated from multiple sources. Caution should be exercised in using it in the provision of clinical care. This summary normalizes information from multiple sources, and as a consequence, information in this document may materially change the coding, format and clinical context of patient data. In addition, data may be omitted in some cases. CLINICAL DECISIONS SHOULD BE BASED ON THE PRIMARY CLINICAL RECORDS. [facility] provides no warranty or guarantee of the accuracy or completeness of information in this document.
[2024-08-13] VITALS (15 sets, daily range): BP systolic 107–140; BP diastolic 64–79; PULSE 58–87; RESP 16–18; TEMP 36.1–36.9; O2SAT 94–100; BMI 31.8
[2024-08-13] MEDS: Magnesium 1 GM over 15 mins IV (10:14)
[2024-08-13] MEDS: Lactated Ringers 1,000 ML 999 ML IV (10:36)
--- NOTE | 2024-08-13 10:41 | PRE.ANES_ITS ---
ASA Classification* ASA Classification ASA Classification: 3 Assessment & Plan Anesthesia* Anesthesia Assessment Anesthesia Assessment: Discussed sedation and/or anesthesia options, risks, benefits, and alternatives with patient/parents/legal guardian/POA. Questions invited. The patient/parents/legal guardian/POA seems to understand and agrees to proceed with anesthesia plan. Reviewed the physical assessment, medical history, allergy history and patient home medications list prior to surgery/procedure/anesthetic and documented any changes. Performed airway and anesthesia risk assessments. Anesthesia Type Anesthesia Type: Spinal (we thoroughly discussed spinal +sedation vs GA, patient would like to move forward with spinal. discussed chances of nerve injury, PDPH, epidural hematoma, lack of efficicacy, need for conversation to GA, awareness. ) History Source History Obtained from:: Patient and Chart Anesthesia Focused Assessment* Temperature: 98.5 F Pulse Rate: 70 Blood Pressure: 140/79 Respiratory Rate: 16 Pulse Ox: 95 Oxygen Delivery Method: Room Air Airway Assessment Mouth opens: >3 cm Mallampati Score: II Teeth Condition: Intact Neck Range of motion (ROM): Full ROM Labs Anesthesia Preop lab: CBC WBC 7.5 K/mm3 (4.4-11.0) 07/12/24 08:49 07/12/24 RBC 4.82 M/mm3 (4.2-5.4) 07/12/24 08:49 07/12/24 Hgb 13.2 g/dL (12.0-15.0) 07/12/24 08:49 07/12/24 Hct 41.1 % (37-47) 07/12/24 08:49 07/12/24 Plt Count 381 K/mm3 (150-450) 07/12/24 08:49 07/12/24 CHEMISTRY Potassium 3.7 mmol/L (3.3-5.1) 07/12/24 08:49 07/12/24 Sodium 141 mmol/L (133-145) 07/12/24 08:49 07/12/24 Magnesium 2.2 mg/dL (1.5-2.2) 07/12/24 08:49 07/12/24 BUN 20 mg/dL (4-19) H 07/12/24 08:49 07/12/24 Creatinine 0.61 mg/dL (0.70-1.20) L 07/12/24 08:49 Glucose 97 mg/dL (70-99) 07/12/24 08:49 07/12/24 POC Glucose 113 mg/dL (74-106) H 08/13/24 09:42 08/13/24 COAG Pre-Assessment Diagnosis/Proposed Procedure Planned Operative Procedure(s): (L) ERAS, ANTERIOR LEFT TOTAL HIP ARTHROPLASTY Anesthesia History 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 When Was Last Pacemaker Check QUESTION #4 FULL TEXT: You/Your Family Experience fever (hyperthermia) with Anesthesia Last Oral Intake Last Oral intake: Last Oral Intake NPO since 08:30 08/13/24 09:33 Meds taken in AM with sips of Yes 08/13/24 09:33 water? Meds patient instructed to take am of surgery PONV PONV - chemical research technician: PONV - chemical research technician Female Yes 07/09/24 08:51 HX of Motion Sickness No 07/09/24 08:51 HX of N/V After Surgery No 07/09/24 08:51 Non-Smoker Yes 07/09/24 08:51 Duration of Surgery greater Yes 07/09/24 08:51 than 60 minutes Number of Risk Factors 3 07/09/24 08:51 PONV Score Moderate Risk 07/09/24 08:51 Height & Weight Height & Weight: Anesthesia: Height & Weight Height 5 ft 2 in 08/13/24 09:33 Weight: 79 kg 08/13/24 09:33 Body Mass Index (BMI) 31.8 08/13/24 09:33 Respiratory Assessment Respiratory Assessment - chemical research technician: Respiratory Tract Infection Hx - chemical research technician Hx Respiratory Tract Infection No 07/09/24 08:51 STOP Sleep Apnea STOP Sleep Apnea - chemical research technician: STOP Sleep Apnea - chemical research technician Hx Hypertension Yes: SITUATIONAL/WHITE COAT 07/09/24 08:51 Hx Sleep Apnea No 07/09/24 08:51 CPAP BIPAP Do you snore loudly (louder No 07/09/24 08:51 than talking or can be heard Do you often feel tired/ No 07/09/24 08:51 fatigued/ sleepy during daytime? Has anyone observed you stop No 07/09/24 08:51 breathing during sleep? STOP Results Negative 07/09/24 08:51 QUESTION #5 FULL TEXT : Do you snore loudly (louder than talking or can be heard through closed doors)? 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 Specify any problems Hx of Preganancy in last 3 No 07/09/24 08:51 Months Nurse Filling Out Transfusion VCHRISTIN 07/09/24 08:51 & Questions: Date: 07/09/24 07/09/24 08:51 Time: 08:57 07/09/24 08:51 Patient unable to answer at this time (ie. confused, unrespo /Reproduction History /Reproductive History - chemical research technician: /Reproductive Hx- chemical research technician Hx Now Gestational Age (in weeks): EDC: Hx Hx Para Hx Section SAB Active Medications Active Medications: Current Medications Generic Name Dose Route Start Last Admin Trade Name Freq PRN Reason Stop Dose Admin Acetaminophen 1,000 mg 08/13/24 11:00 08/13/24 09:57 Acetaminophen 500 Mg Tablet PO 08/13/24 11:01 1,000 mg PREOP ONE Administration Celecoxib 400 mg 08/13/24 11:00 08/13/24 09:56 Celecoxib 200 Mg Capsule PO 08/13/24 11:01 400 mg PREOP ONE Administration Sodium Chloride 77.9 ml/ 0 ml 08/13/24 11:00 Ropivacaine 200 mg/ OPERA.SITE 08/13/24 11:01 Epinephrine HCl 0.6 mg/ INTRAOP ONE Ketorolac Tromethamine 30 mg/ Morphine Sulfate 5 mg Dexamethasone Sodium Phosphate 10 mg 08/13/24 11:00 Dexamethasone 10 Mg/Ml Vial IV 08/13/24 11:01 INTRAOP ONE Gabapentin 600 mg 08/13/24 11:00 08/13/24 09:57 Gabapentin 600 Mg Tablet PO 08/13/24 11:01 600 mg PREOP ONE Administration Cefazolin Sodium 2 gm/ Sodium 110 mls @ 150 mls/hr 08/13/24 11:00 Chloride IV 08/13/24 11:43 INTRAOP ONE Tranexamic Acid 1,000 mg/ 110 mls @ 660 mls/hr 08/13/24 11:00 Sodium Chloride IV 08/13/24 11:09 INTRAOP ONE Tranexamic Acid 1,000 mg/ 110 mls @ 660 mls/hr 08/13/24 11:00 Sodium Chloride IV 08/13/24 11:09 INTRAOP ONE Lactated Ringer's 1,000 mls @ 999 mls/hr 08/13/24 11:00 IV 08/13/24 12:00 .Q1H1M DEE Lactated Ringer's 1,000 mls @ 125 mls/hr 08/13/24 11:00 IV 08/13/24 18:59 .Q8H DEE Magnesium Sulfate 1 gm/ 102 mls @ 408 mls/hr 08/13/24 11:00 08/13/24 10:14 Dextrose IV 08/13/24 11:14 408 mls/hr INTRAOP ONE Administration Lactated Ringer's 1,000 mls @ 15 mls/hr 08/13/24 09:15 IV .Q48H DEE Lactated Ringer's 1,000 mls @ 999 mls/hr 08/13/24 10:45 08/13/24 10:36 IV 08/13/24 11:45 999 mls/hr .Q1H1M DEE Administration Insulin Human Lispro 1 - 6 unit 08/13/24 11:00 Insulin Lispro 100 Unit/Ml Insuln.Pen SC Q4H PRN PRN BG>/= 180, SEE PROTOCOL Protocol PFSH Medical History Wears glasses Post-menopausal Anxiety Arthritis Kidney stone Gastric reflux History of edema History of echocardiogram History of stress test Hypertension History of irregular heartbeat Home Medications ?Medication ?Instructions ?Recorded ?Last Taken ?Type Lactobacillus acidophilus 10 100 mmu cells PO DAILY Unknown History billion cell capsule (NewFlora) ascorbic acid (vitamin C) 500 mg 500 mg PO DAILY 07/09 Unknown History tablet (C-500) aspirin 81 mg capsule 81 mg PO DAILY 07/09/24 Unkn own History cholecalciferol (vitamin D3) 25 25 mcg PO DAILY Unknown History mcg (1,000 unit) tablet (Vitamin D3) garlic 1,000 mg capsule 1,000 mg PO DAILY 07/09/24 U nknown History lisinopril 20 1 tab PO DAILY 07/09/24 Unkn own History mg-hydrochlorothiazide 12.5 mg tablet omega 3 350 mg-dha 235 mg-epa 90 1 cap PO DAILY Unknown History mg-fish oil 597 mg capsule,delay rel ([place]-3) propranolol 20 mg tablet 20 mg PO TID PRN anxiety 08/13/24 08:30 Histor y turmeric 400 mg capsule 400 mg PO DAILY 07/09/24 Unk nown History vitamin B complex (Balanced B-50 1 tab PO DAILY Unknown History tablet) zinc gluconate 50 mg tablet 50 mg PO DAILY 07/09/24 Un known History clonidine HCl 0.1 mg tablet 0.1 mg PO Q6H PRN hyperten sive 08/01/24 08/13/24 08:30 History emergency lorazepam 0.5 mg tablet (Ativan) 0.5 mg PO Q12H PRN an xiety 08/01/24 08/13/24 08:30 History Allergy/AdvReac Type Severity Reaction Status Date / Time Iodinated Contrast Media Allergy Severe Hives Verified 08/13/24 09:26 (Iodinated Contrast Media - IV Dye) Surgical History (Updated 07/09/24 @ 08:50 by Janiya Dsouza) Hx of section Hx of tubal ligation Hx of hysterectomy Social History Smoking Status: Never smoker Review of Systems (Anesthesia) ROS Narrative System reviewed and no additional complaints, except as documented.
[2024-08-13] MEDS: Cefazolin 2 GM in 0.9% Normal Saline (100mL Bag) 100 ML IV (11:38)
[2024-08-13] MEDS: TXA 1000mg in NS100 100ml (IVPB at Incision) 660 MG IV (11:40)
--- NOTE | 2024-08-13 12:10 | RAD_ITS ---
PROCEDURE: HIP MIN 2 VIEWS (PORTABLE) 08/13/2024 REASON FOR EXAM: ANTERIOR LT HIP TOTAL ARTHROPLASTY TECHNIQUE: HIP MIN 2 VIEWS (PORTABLE) COMPARISON: 08/13/2024 FINDINGS: The patient is undergoing left THR. Intact hardware. Anatomic alignment. No intraoperative complication noted. RAD/Hip Min 2 Views (Portable) IMPRESSION: Unremarkable intraoperative appearance Reading Location: [place] [id number]
--- NOTE | 2024-08-13 12:38 | OP.PCM_ITS ---
Operative Report (Standard) Operative Information Date of Procedure: 08/13/24 Pre-Operative Diagnosis: Left hip primary osteoarthritis Post-Operative Diagnosis: Left hip primary osteoarthritis Surgery/Procedure Performed: Left direct anterior minimally invasive selective placement assembler flexible leads: Yes Criminal Intelligence Analyst: Cassius Richmond Tasks completed by press operator assistant: Other (See body of operative report) Additional medical assistant instructor?: No Type of Anesthesia: Spinal RN Documented Start/Stop Times: Operation Date: 08/13/24 11:00 Case Time Into Pre-Op 08/13/24 09:12 Anesthesia Start 08/13/24 11:13 Into Room 08/13/24 11:13 Procedure Start 08/13/24 11:48 Procedure End 08/13/24 13:07 Anesthesia End 08/13/24 13:14 Out of Room 08/13/24 13:14 Into Recovery 08/13/24 13:16 Procedure Start Time: 11:48 Procedure Stop Time: 13:07 Select all DRAINS/GRAFTS/IMPLANTS that apply: Prosthetic device Prosthetic device details: see body of operative report Special Medications: 2 g Ancef, 1 g TXA at incision, 1 g TXA closure, 10 mg Decadron, joint cocktail (5 mg Duramorph, 30 mL of 0.5% Ropivicaine, 1000 units of epinephrine, 30 mg of Toradol) Estimated Blood Loss: 300 mL Fluids Replaced: 2200 mL crystalloid Specimen collected: Yes Description of specimen(s) removed: Bony cuts Description of surgery: Components used: 1. Accolade 2 [place] femoral stem size 5/127 2. [place] trident 2 acetabular shell size 48 mm 3. Johanny X3 polyethylene D 4. Johanny Biolox delta 36 mm, 2.5 mm femoral head Brief history operative indications: 64 yo f who failed conservative measures for their hip osteoarthritis. X-rays were consistent with osteoarthritis including joint space narrowing, osteophyte formation and subchondral cysts. Total hip replacement was discussed with the patient with risks and benefits including but not limited to blood loss, DVTs, PEs, neurovascular damage, dislocation, general risks of anesthesia including loss of life. Patient demonstrated an understanding medical clearance is obtained the patient was consented for surgery. Procedure: On the date of procedure the patient's L hip was marked in the preoperative area. Patient was then taken back to the operating room where anesthesia assumed control of the C-spine and airway and administered anesthetic. Patient was transferred to the operating table and placed in the supine position. The hips were placed at the break of the bed and a sacral bump was placed. The L lower extremity was then prepped out in a sterile fashion using chlorhexidine while the surgeon scrubbed. The PA was vital in the positioning of the patient. Upon reentering the room the L lower extremity was draped in the standard orthopedic fashion and the incision was marked. A timeout was called and everyone agreed upon the side, the site, the procedure be performed, antibody given, and patient's identity. At this time incision was made through skin, subcutaneous tissue, and fat down to fascia. The fascia was then incised and the TFL was retracted laterally. A retractor was placed on the lateral border of the femoral neck. Attention was directed to the inferior portion of the approach and all crossing vessels were identified and appropriately coagulated. A retractor was then placed on the medial portion of the femoral neck. The anterior capsule was then cleared of all soft tissue and then H shaped capsulotomy was made. The retractors were then placed inside the capsule. The femoral neck was identified and a cleanup cut was made. At this time a power corkscrew was used to remove the femoral head. Attention was then turned toward the acetabulum where the soft tissues were appropriately retracted and the acetabulum was sequentially reamed to 48 mm. A 48 mm cup was then selected and impacted into place, excess osteophytes were removed. Acetabular liner was impacted into place and locking mechanism was verified. The position of the acetabular cup was then verified under live fluoroscopy. Attention was then turned to the femur. Soft tissue releases on the medial and lateral femoral neck were appropriately done, the leg was externally rotated and lateralized. A Wise retractor was placed medially and proximally to the greater trochanter this allowed appropriate visualization and exposure of the femoral canal. Ron[place]our was then used to remove excess lateral bone. A canal finder and entry broach were used to open the proximal canal. Once we verified we were down the femoral canal we subsequently broached up to a size 5 femur. The appropriate neck was placed in the previously selected head was trialed with a 2.5 mm neck. Traction was pulled and the hip was reduced with internal rot ation. Once it was appropriately reduced and stability was checked. There was minimal shuck, equal leg lengths and appropriate stability with hyperextension and external rotation as well as with 90? flexion and internal rotation. Fluoroscopy was then also used to verify the position of the components and leg lengths using the contralateral side for comparison. The trial components were then dislocated the proximal femur was again exposed and the components were removed from the wound. The final components were verified and opened. The wound was copiously irrigated out with normal saline. The acetabulum was checked for any residual debris. The final components were placed and impacted. Traction and internal rotation were again used to reduce the hip. After adequate reduction the hip remained stable with appropriate leg lengths. The final components were once again checked with live fluoroscopy and were found to be satisfactory. The wound was then copiously irrigated with nor mal saline once more, and hemostasis was obtained. Closure was then done using #1 Vicryl runner to close the fascia. A 2-0 vicryl interuppted sutures were used to close the subcutaneous skin. A 3-0 Monocryl and Steri-Strips were used for final skin closure. A Silverlon dressing was placed. Patient was awakened by anesthesia and transferred to the [facility]. Patient was then transferred to the PACU for recovery. Postoperative plan: Patient will get 24 hours postop antibiotics. Patient will get in-house physical therapy and will be weight-bear as tolerated. Patient will follow up in office in 2 weeks for a wound check and x-rays. Aspirin 81 mg twice daily. During the course of the procedure the physician unpaid intern (PE) played a vital role. Their intimate knowledge of my steps in the procedure aided in safe and expedient completion of the procedure. The PE played a vital rolls in positioning particularly in obtaining the appropriate positioning of the sacral bump. The PE was also vital in the retraction of soft tissues during the exposure and especially the femoral work as this is a vital part of the procedure to prevent complications and fractures. The PE was also vital and protecting soft tissues during times of bony cuts and reaming. He also played a vital role in closure with my direct supervision. The PE was also important during reduction and dislocation of the joint and trials intraoperatively. Insert direct anterior total hip macro Surgical Findings: Stable hip. Stage IV osteoarthritis Complications Complications: No Admit VTE Documentation VTE Present on Admission: No VTE Mechan Device Prophylaxis: SCD's and Thigh High RONEN Hose VTE Pharm Prophylaxis ordered?: Yes
[2024-08-13] MEDS: TXA 1000mg in NS100 100ml (IVPB at Closure) 660 MG IV (12:40)
[2024-08-13] MEDS: ROPIVACAINE HCL OPERA.SITE (12:42)
[2024-08-13] MEDS: [UNRECOGNIZED DRUG - OTHER] OPERA.SITE (12:42)
[2024-08-13] MEDS: NORMAL SALINE OPERA.SITE (12:42)
[2024-08-13] MEDS: LR 1,000 ML - BOLUS POSTOP 999 ML IV (13:24)
--- NOTE | 2024-08-13 13:25 | RAD_ITS ---
PROCEDURE: HIP MIN 2 VIEWS (PORTABLE) 08/13/2024 REASON FOR EXAM: POST OP TECHNIQUE: HIP MIN 2 VIEWS (PORTABLE) COMPARISON: None FINDINGS: There is a total hip prosthesis in position on the left. Trace amount of soft tissue air is present consistent with recent surgery. Alignment is maintained. RAD/Hip Min 2 Views (Portable) IMPRESSION: Hardware in position. Reading Location: [facility]
[2024-08-13] MEDS: LR 1,000 ML - 125 ML/HR (POST BOLUS) POST OP IV (14:16)
--- NOTE | 2024-08-13 14:35 | PCM.CONS.GEN ---
Assessment & Plan Assessment/Plan (1) Status post left hip replacement: PLAN: Plan Patient is a 64-year-old female who presented to [facility] on 08/13/2024 for planned left hip replacement. Medicine consulted postoperatively for medical management. 1. Left hip osteoarthritis ? Orthopedic surgery primary. S/p left direct anterior minimally invasive hip replacement with Dr. Francisco on 08/13. Tolerated procedure well, no intraoperative complications noted. Pain control, DVT prophylaxis and further management per orthopedics. Follow-up a.m. CBC and BMP. PT/OT/case management consulted. 2. Hypertension ? Normotensive in the 120s postoperatively. Okay to resume home lisinopril?hydrochlorothiazide tomorrow with hold parameters in place. Notably does have clonidine 0.1 mg every 6 hours as needed on home med list for hypertensive emergency; no need to order at this time. 3. Anxiety ? On propranolol 20 mg 3 times daily as needed at home. Was prescribed a very short course of 0.5 mg Ativan twice daily as needed recently preoperatively as well. Okay to resume home propranolol as needed but will hold on prescribing Ativan. DVT prophylaxis: Baby aspirin twice daily per orthopedics Total clinical time spent by myself addressing the patient's medical issues, reviewing all the data, and collaborating with patient's care team: 35 minutes. HPI Consult Data Date of Consult: 08/13/24 HPI Narrative Reason for Consultation: Postoperative medical management HPI Narrative: PASTOR DUFF, is a 64 F who presented to [facility] on 08/13/2024 for planned left hip replacement. Medicine consulted postoperatively for medical management. Patient had left a replacement done with Dr. Francisco on 08/13. Tolerated procedure well, no intraoperative complications noted. I saw the patient at bedside earlier this evening. Patient was sitting back comfortably in bed, conversing normally, in no acute distress. States she still felt a bit lightheaded and attributes this to the anesthesia but otherwise is feeling well. She did get up earlier this afternoon with assistance and ambulated with minimal hip pain. She denies any hip pain at rest currently. Denies any other acute concerns at this time. [facility] Medical History Wears glasses Post-menopausal Anxiety Arthritis Kidney stone Gastric reflux History of edema History of echocardiogram History of stress test Hypertension History of irregular heartbeat Home Medications ?Medication ?Instructions ?Recorded ?Last Taken ?Type Lactobacillus acidophilus 10 100 mmu cells PO DAILY 07/09/24 Unknown History billion cell capsule (NewFlora) ascorbic acid (vitamin C) 500 mg 500 mg PO DAILY 07/09/24 Unknown History tablet (C-500) aspirin 81 mg capsule 81 mg PO DAILY 07/09/24 Unknown History cholecalciferol (vitamin D3) 25 25 mcg PO DAILY 07/09/24 Unknown History mcg (1,000 unit) tablet (Vitamin D3) garlic 1,000 mg capsule 1,000 mg PO DAILY 07/09/24 Unknown History lisinopril 20 1 tab PO DAILY 07/09/24 Unknown History mg-hydrochlorothiazide 12.5 mg tablet omega 3 350 mg-dha 235 mg-epa 90 1 cap PO DAILY 07/09/24 Unknown History mg-fish oil 597 mg capsule,delay rel ([place]-3) propranolol 20 mg tablet 20 mg PO TID PRN anxiety 07/09/24 08/13/24 08:30 History turmeric 400 mg capsule 400 mg PO DAILY 07/09/24 Unknown History vitamin B complex (Balanced B-50 1 tab PO DAILY 07/09/24 Unknown History tablet) zinc gluconate 50 mg tablet 50 mg PO DAILY 07/09/24 Unknown History clonidine HCl 0.1 mg tablet 0.1 mg PO Q6H PRN hypertensive 08/01/24 08/13/24 08:30 History emergency lorazepam 0.5 mg tablet (Ativan) 0.5 mg PO Q12H PRN anxiety 08/01/24 08/13/24 08:30 History Allergy/AdvReac Type Severity Reaction Status Date / Time Iodinated Contrast Media Allergy Severe Hives Verified 08/13/24 09:26 (Iodinated Contrast Media - IV Dye) Surgical History (Updated 08/13/24 @ 18:[address] Eulogio Sheets, DO) Hx of section Hx of tubal ligation Hx of hysterectomy Social History Smoking Status: Never smoker ROS Constitutional Constitutional: Denies chills, fatigue, fever(s) or weakness Eyes Eyes: Denies change in vision Cardiovascular Cardiovascular: Denies chest pain Respiratory/Chest Respiratory/Chest: Denies cough or shortness of breath at rest Gastrointestinal Gastrointestinal: Denies abdominal pain Genitourinary Genitourinary: Denies dysuria Musculoskeletal Musculoskeletal: Reports joint pain; Denies arthralgias, joint swelling or myalgias Neurologic Neurologic: Denies dizziness, focal weakness or headache(s) Physical Exam Const alert, oriented x3 and no apparent distress Constitutional Narrative: Upper middle-aged female, class I obesity, good energy level, sitting back comfortably in bed, conversing normally, in no acute distress. General Appearance: cooperative and comfortable HEENT normocephalic, head/scalp atraumatic, hearing grossly normal bilaterally, nasal mucous membranes and turbinates normal and moist oral mucous membranes Eyes PERRL, EOMs intact bilaterally and conjunctivae normal Neck full ROM Chest inspection of chest normal Resp normal respiratory effort, normal air movement, no use of accessory muscles and clear to auscultation bilaterally Cardio regular rate, regular rhythm, no murmurs and peripheral pulses 2+ throughout GI normal to inspection, nondistended, normoactive bowel sounds, soft to palpation, non-tender and non-distended Back/Spine normal ROM Extremity Extremity Narrative: Left hip with dressing and ice pack in place. Skin no rashes or lesions noted Psych mental status grossly normal Lab / Micro Data 07/12/24 08:49 07/12/24 08:49 Labs: Laboratory Results - last 24 hr 08/13/24 09:42: POC Glucose 113 H Imaging Radiology Impression Hip X-Ray 08/13/24 13:25 IMPRESSION: Hardware in position. Reading Location: [facility] Charges/Coding Visit Charges Inpatient E&M: 33664 Subs Hosp L2
--- NOTE | 2024-08-13 15:33 | PCM.POST.ANE ---
Anesthesia: Postop Eval I Current Vital Signs Temperature: 97.2 F Pulse Rate: 61 Blood Pressure: 107/69 Respiratory Rate: 16 Pulse Ox: 99 Oxygen Delivery Method: Simple Mask Oxygen Flow Rate (L/min): 4 Assessment Airway patent: Yes Spontaneous unlabored respirations: Yes Mental status: Awake and Calm nausea: No Vomiting: No Anesthesia Complication: No Fluid Hydration Crystalloid volume administer (ml): 1,500 Total IV fluid infused: 1,500 Progress Note Anesthesia document: Postop Eval 1 completed: Yes
--- NOTE | 2024-08-13 15:35 | PCM.POSTANE2 ---
Anesthesia Postop Eval I Sum Postop Eval Completion status Anesthesia document: Postop Eval 1 completed: Yes Anesthesia Postop Eval I Summary Anesthesia Postop Eval I Summary: Anesthesia Postop Eval I: Assessment Summary Airway patent Yes 08/13/24 15:35 Spontaneous unlabored Yes 08/13/24 15:35 respirations Mental status Awake,Calm 08/13/24 15:35 nausea No 08/13/24 15:35 Vomiting No 08/13/24 15:35 Anesthesia Postop Eval I: Fluid Summary Crystalloid volume administer 1,500 08/13/24 15:35 (ml) Colloids volume administered ( ml) Blood Product volume administered (ml) Total IV fluid infused 1,500 08/13/24 15:35 Anesthesia Postop Eval I: Summary Notes Anesthesia Complication No 08/13/24 15:35 Anesthesia Complication Comment: Post-operative progress note Anesthesia: Postop Eval II Evaluation Mental status: Awake and Calm Pain Level: 3 nausea: No Vomiting: No Progress Note Post-operative progress note: doing well in PACU Complications Anesthesia Complication: No
[2024-08-13] MEDS: 0.9% Saline Lock 10 ML Syringe IV (18:34)
[2024-08-13] MEDS: Cefazolin 1 GM/50 ML BAG IV (18:34)
[2024-08-13] MEDS: Senna/Docusate Sodium 1 Tablet 2 TABLET PO (21:14)
--- OUTSIDE RECORDS SUMMARY | 2024-08-13 22:48 | XMS RPT_ITS | CCD ---
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 Name Role Phone CARLIE LAI, ISH Harrington Primary Care Physician DONAVAN ELLIOTT DO Primary Care Physician DONAVAN ELLIOTT DO Attending Unavailable DONAVAN ELLIOTT DO Primary Care Unavailable CHONG RAMSYE DO Attending Unavailable DONAVAN ELLIOTT DO Primary Care Unavailable DONAVAN ELLIOTT DO Attending Unavailable DONAVAN ELLIOTT DO Primary Care Unavailable DONAVAN ELLIOTT DO Attending Unavailable DONAVAN ELLIOTT DO Primary Care Unavailable DONAVAN ELLIOTT DO Attending Unavailable DONAVAN ELLIOTT DO Primary Care Unavailable DONAVAN ELLIOTT DO Attending Unavailable DONAVAN ELLIOTT DO Primary Care Unavailable CARSON LAI, DR ASCENCION Tong Attending Unavailab DONAVAN De La Cruz DO Primary Care Unavailable CASSUIS CARRANZA PA-C W Attending Unavailable DONAVAN ELLIOTT DO Primary Care Unavailable CARSON LAI, DR ASCENCION Tong Attending Unavailab DONAVAN De La Cruz DO Primary Care Unavailable Jana Magana Attending Unavailable Ascencion Francisco Referring Unavailable Donavan Elliott Primary Care Unavailable Ascencion Francisco Referring Unavailable Ascencion Francisco Attending Unavailable Donavan Elliott Primary Care Unavailable Allergies Allergy Classification Reported Allergen(s) Allergy Type Date of Onset Reaction(s) Facility (7 sources) Iodine; Translations: [iodine] Drug Allergy [facility] (1 source) Iodinated Contrast Media Drug allergy (disorder) 07-09-2024 [facility] Repository Medications Current Medications Medication Drug Class(es) [...] 0 Refill(s), 06/28/23 12:50:00 PM EDT, Pharmacy: [facility], Urine leukocytes Hematuria, 160, cm, 06/23/23 12:30:00 EDT, Height, 81.3, kg, 06/23/23 12:30:00 EDT, Dosing Weight Start Date: 06/23/23 Stop Date: 06/28/23 Status: Ordered Start: 03-06-2023 End: 03-11-2023 cefdinir 300 mg oral capsule Dose : 300 mg = 1 cap(s), Oral, q12h, X 5 day(s), # 10 cap(s), 0 Refill(s), 03/11/23 1:55:00 PM EST, Pharmacy: [facility], Dysuria History of kidney stones, 157.2, cm, [...] cap(s), 0 Refill(s), 05/30/22 10:10:00 EDT, Pharmacy: [facility], UTI (urinary tract infection), 157.2, cm, 05/23/22 9:46:00 EDT, Height, 80.4 Start Date: 05/23/22 Stop Date: 05/30/22 Status: Ordered Start: 06-11-2021 End: 2021 cephalexin 500 mg oral capsu le Dose : 500 mg = 1 cap(s), Oral, q8h, X 7 day(s), # 21 cap(s), 0 Refill(s), 06/18/21 15:13:00 EDT, Pharmacy: [facility], 157.2, cm, 06/11/21 14:41:00 EDT, Height, 82.8 [...] qDay, # 90 tab(s), 0 Refill(s), Pharmacy: [facility], 160, cm, 06/23/23 12:30:00 EDT, Height, kg, 06/23/23 12:30:00 EDT, Dosing Weight Start Date: 06/27/23 Status: Ordered Start: 11-21-2022 take 1 tablet by timothy th once daily hydrochlorothiazide-lisinopril 12.5 mg-2 0 mg oral tablet Dose = 1 tab(s), Oral, qDay, # 90 tab(s), 1 Refill(s), Pharmacy: [facility], 157.2, cm, 11/21/22 10:55:00 EDT, Height, kg, 11/21/22 10:55:00 EDT, Dosing Weight Start Date: 11/21/22 Status: Ordered Start: 03-24-2022 take 1 tablet by timothy once daily hydrochlorothiazide-lisinopril 12.5 mg-2 0 mg oral tablet Dose = 1 tab(s), Oral, qDay, # 90 tab(s), 1 Refill(s), Pharmacy: [facility], 157.2, cm, 03/22/22 10:58:00 EST, Height, kg, 03/22/22 10:58:00 EST, Dosing Weight Start Date: 03/24/22 Status: Ordered Start: 09-07-2021 take 1 tablet by timothy once daily hydrochlorothiazide-lisinopril 12.5 mg-2 0 mg oral tablet Dose = 1 tab(s), Oral, qDay, # 90 tab(s), 1 Refill(s), Pharmacy: [facility], 157.2, cm, 09/07/21 13:31:00 EDT, Height, kg, 09/07/21 13:31:00 EDT, Dosing Weight Start Date: 09/07/21 Status: Ordered Start: 08-27-2020 take 1 tablet by [facility] once daily hydrochlorothiazide-lisinopril 12.5 mg-2 0 mg oral tablet Dose = 1 tab(s), Oral, qDay, # 90 tab(s), 3 Refill(s), Pharmacy: [facility], 160, cm, 11/08/19 13:16:00 EDT, Height, kg, [...] 40mg, # 30 tab(s), 0 Refill(s), Pharmacy: [facility], Anxiety, 157.2, cm, 11/21/22 10:55:00 EDT, Height, [...] Negative S. AUREUS S. aureus Negative Normal [facility] Comment on above: Performed By: #### M 100.651, L100.0100, L500.2500, L501.1800 #### [facility] [address] [place], [address] 12 Lead EKGon 07-12-2024 12 Lead EKG [facility] Cardiovascular Services [address] [place] [address] 12 Lead EKG 07/12/24 0838 MR#: [id number] Acct: [id number] Name: AICHA MAGALLANES Rep #: [id number] : 1960 64 From: Jana Magana MD Attending Dr: Dr. Ascencion Francisco MD Status: PRE [facility] [place] Ordering Dr: Ascencion Francisco MD Date: 07/12/24 Location: [facility] [place] Sex: F C Admitted: Test Reason : PREOP Blood Pressure : */* mmHG Vent. Rate : 69 BPM Atrial Rate : 69 BPM P-R Int : 154 ms QRS Dur : 92 ms QT Int : 404 ms P-R-T Axes : 22 40 42 degrees QTcB Int : 432 ms Normal sinus rhythm Normal ECG Confirmed by JANA MAGANA ([id number]), art editor CHECO SINGER ([id number]) on 07/15/2024 8:11:54 AM Referred By: Ascencion Francisco Confirmed By: JANA MAGANA 07/15/2412 Date Jana Magana MD CC: Dr. Donavan Elliott, DO; Dr. Ascencion Francisco MD Signed Normal [facility] Albumin, Serumon 07-12-2024 Albumin [Mass/Vol] 4.1 g/dL Normal 3.4-4.8 [facility] Comment on above: Performed By: #### M 100.651, L100.0100, L500.2500, L501.1800 #### [facility] [address] [place], [address] Basic Metabolic Profile (BMP )on 07-12-2024 BUN/CRE 31.8 RATIO High 10-20 [facility] Comment on above: Performed By: #### M 100.651, L100.0100, L500.2500, L501.1800 #### [facility] [address] [place], [address] Calcium [Mass/Vol] 9.7 mg/dL Normal 7.6-11.0 [facility] Comment on above: Performed By: #### M 100.651, L100.0100, L500.2500, L501.1800 #### [facility] [address] [place], [address] Chloride [Moles/Vol] 101 mmol/L Normal 98-108 [facility] Comment on above: Performed By: #### M 100.651, L100.0100, L500.2500, L501.1800 #### [facility] [address] [place], [address] CO2 [Moles/Vol] 30.5 mmol/L Normal 21.0-32.0 [facility] Comment on above: Performed By: #### M 100.651, L100.0100, L500.2500, L501.1800 #### [facility] [address] [place], [address] Creatinine [Mass/Vol] 0.61 mg/dL Low 0.70-1.20 [facility] Comment on above: Performed By: #### M 100.651, L100.0100, L500.2500, L501.1800 #### [facility] [address] [place], [address] GAP 10 Normal 5-15 [facility] Comment on above: Performed By: #### M 100.651, L100.0100, L500.2500, L501.1800 #### [facility] [address] [place], [address] GFR/1.73 sq M.predicted among non-blacks MDRD (S/P/Bld) [Vol rate/Area] 99 mL/min/{1.73_m2} Normal >60 [facility] Comment on above: Result Comment: mL/m in/1.73m2 CKD-EPI Creatinine Equation (2020) Performed By: #### M 100.651, L100.0100, L500.2500, L501.1800 #### [facility] [address] [place], [address] Glucose [Mass/Vol] 97 mg/dL Normal 70-99 [facility] Comment on above: Performed By: #### M 100.651, L100.0100, L500.2500, L501.1800 #### [facility] [address] [place], [address] Potassium [Moles/Vol] 3.7 mmol/L Normal 3.3-5.1 [facility] Comment on above: Performed By: #### M 100.651, L100.0100, L500.2500, L501.1800 #### [facility] [address] [place], [address] Sodium [Moles/Vol] 141 mmol/L Normal 133-145 [facility] Comment on above: Performed By: #### M 100.651, L100.0100, L500.2500, L501.1800 #### [facility] [address] [place], [address] Urea nitrogen [Mass/Vol] 20 mg/dL High 4-19 [facility] Comment on above: Performed By: #### M 100.651, L100.0100, L500.2500, L501.1800 #### [facility] [address] [place], [address] CBC W/Diff, Automatedon 05-3 0-5 Absolute Lymph 2.08 X10 3/uL Normal 0.83-4.51 [facility] Comment on above: Performed By: #### M 100.651, L100.0100, L500.2500, L501.1800 #### [facility] [address] [place], [address] Absolute Neut 4.8 X10 3/uL Normal 2.0-7.7 [facility] Comment on above: Performed By: #### M 100.651, L100.0100, L500.2500, L501.1800 #### [facility] [address] [place], [address] Basophils/100 WBC (Bld) 1.1 % High 0-1 [facility] Comment on above: Performed By: #### M 100.651, L100.0100, L500.2500, L501.1800 #### [facility] [address] [place], [address] Eosinophils/100 WBC (Bld) 2.5 % Normal 0-5 [facility] Comment on above: Performed By: #### M 100.651, L100.0100, L500.2500, L501.1800 #### [facility] [address] [place], [address] Erythrocyte distribution width (RBC) [Ratio] 13.4 % Normal 11.6-14.6 [facility] Comment on above: Performed By: #### M 100.651, L100.0100, L500.2500, L501.1800 #### [facility] [address] [place], [address] Hematocrit (Bld) [Volume fraction] 41.1 % Normal 37-47 [facility] Comment on above: Performed By: #### M 100.651, L100.0100, L500.2500, L501.1800 #### [facility] [address] [place], [address] Hemoglobin (Bld) [Mass/Vol] 13.2 g/dL Normal 12.0-15.0 [facility] Comment on above: Performed By: #### M 100.651, L100.0100, L500.2500, L501.1800 #### [facility] [address] [place], [address] IG% 0.400 Normal 0.0-0.9 [facility] Comment on above: Result Comment: IG% - Immature Granulocytes (promyelocytes, myelocytes and metamyelocytes) > 1% indicates that a LEFT SHIFT is Present. Performed By: #### M 100.651, L100.0100, L500.2500, L501.1800 #### [facility] [address] [place], [address] Lymphocytes/100 WBC (Bld) 27.7 % Normal 19-41 [facility] Comment on above: Performed By: #### M 100.651, L100.0100, L500.2500, L501.1800 #### [facility] [address] [place], [address] MCH (RBC) [Entitic mass] 27.4 pg Normal 27.0-32.0 [facility] Comment on above: Performed By: #### M 100.651, L100.0100, L500.2500, L501.1800 #### [facility] [address] [place], [address] MCHC (RBC) [Mass/Vol] 32.1 g/dL Normal 32-36 [facility] Comment on above: Performed By: #### M 100.651, L100.0100, L500.2500, L501.1800 #### [facility] [address] [place], [address] MCV (RBC) [Entitic vol] 85.3 fL Normal 81-99 [facility] Comment on above: Performed By: #### M 100.651, L100.0100, L500.2500, L501.1800 #### [facility] [address] [place], [address] Monocytes/100 WBC (Bld) 4.9 % Normal 0-10 [facility] Comment on above: Performed By: #### M 100.651, L100.0100, L500.2500, L501.1800 #### [facility] [address] [place], [address] Neutrophils/100 WBC (Bld) 63.4 % Normal 47-70 [facility] Comment on above: Performed By: #### M 100.651, L100.0100, L500.2500, L501.1800 #### [facility] [address] [place], [address] Nucleated RBC (Bld) [#/Vol] 0 10*3/uL Normal 0-5 [facility] Comment on above: Performed By: #### M 100.651, L100.0100, L500.2500, L501.1800 #### [facility] [address] [place], [address] Platelet mean volume (Bld) [Entitic vol] 10.6 fL Normal 6.2-12.0 [facility] Comment on above: Performed By: #### M 100.651, L100.0100, L500.2500, L501.1800 #### [facility] [address] [place], [address] Platelets (Bld) [#/Vol] 381 10*3/uL Normal 150-450 [facility] Comment on above: Performed By: #### M 100.651, L100.0100, L500.2500, L501.1800 #### [facility] [address] [place], [address] RBC (Bld) [#/Vol] 4.82 10*6/uL Normal 4.2-5.4 [facility] Comment on above: Performed By: #### M 100.651, L100.0100, L500.2500, L501.1800 #### [facility] [address] [place], [address] RDW SD 41.9 fl Normal 35.1-43.9 [facility] Comment on above: Performed By: #### M 100.651, L100.0100, L500.2500, L501.1800 #### [facility] [address] [place], [address] WBC (Bld) [#/Vol] 7.5 10*3/uL Normal 4.4-11.0 [facility] Comment on above: Performed By: #### M 100.651, L100.0100, L500.2500, L501.1800 #### [facility] [address] [place], [address] Magnesiumon 07-12-2024 Magnesium [Mass/Vol] 2.2 mg/dL Normal 1.5-2.2 [facility] Comment on above: Performed By: #### L 501.5200 #### [facility] [address] [place], [address] LABORATORYOrdered By: Ale Cordon on 04-09-2024 Cholesterol [...] 04-09-2024 Cholesterol [Mass/Vol] 232 mg/dL High 0-200 [facility] Comment on above: Result Comment: Chol esterol Reference Interval: Less than 200 Desirable 200-239 Borderline high risk 240 and above High risk Performed By: #### L CADEN TSHR #### [address] [address] Cholesterol in HDL [Mass/Vol] 51 mg/dL Normal 40-60 [facility] Comment on above: Performed By: #### L CADEN TSHR #### [address] [address] Cholesterol in LDL [Mass/Vol] 161 mg/dL High 0-130 [facility] Comment on above: Performed By: #### L CADEN TSHR #### [address] [address] Triglyceride [Mass/Vol] 98 mg/dL Normal 0-150 [facility] Comment on above: Result Comment: Trig lyceride Reference Interval: Less than 150 Normal 150-199 Borderline high risk 200-499 High risk 500 or higher Very high risk Performed By: #### L IPID, TSHR #### [address] [address] TSHRon 04-09-2024 TSH Qn 0.67 m[IU]/L Normal 0.36-3.74 [facility] Comment on above: Performed By: #### L IPID, TSHR #### [address] [address] .Auto Diffon 08-24-2023 Basophil, Absolute 0.1 10 3/mcL Normal 0.0-0.2 [facility] ([place]) Comment on above: Performed By: #### A DANDRE, CBC, VIDH, ADIFF, A1C, LIPID, GFR, CMP #### [place] [address] #### B12 #### [address] [address] Basophils/100 WBC (Bld) 1.2 % Normal 0.0-2.5 [facility] ([place]) Comment on above: Performed By: #### A DANDRE, CBC, VIDH, ADIFF, A1C, LIPID, GFR, CMP #### [place] [address] #### B12 #### [address] [address] Eosinophil, Absolute 0.2 10 3/mcL Normal 0.0-0.4 [facility] ([place]) Comment on above: Performed By: #### A DANDRE, CBC, VIDH, ADIFF, A1C, LIPID, GFR, CMP #### [place] [address] #### B12 #### [address] [address] Eosinophils/100 WBC (Bld) 3.7 % Normal 0.0-7.0 [facility] ([place]) Comment on above: Performed By: #### A DANDRE, CBC, VIDH, ADIFF, A1C, LIPID, GFR, CMP #### [address] [address] #### B12 #### [address] [address] Lymphocyte, Absolute 2.5 10 3/mcL Normal 0.8-3.9 [facility] ([place]) Comment on above: Performed By: #### A DANDRE, CBC, VIDH, ADIFF, A1C, LIPID, GFR, CMP #### [address] [address] #### B12 #### [address] [address] Lymphocytes/100 WBC (Bld) 38.3 % Normal 10.0-50.0 [facility] ([place]) Comment on above: Performed By: #### A DANDRE, CBC, VIDH, ADIFF, A1C, LIPID, GFR, CMP #### [address] [address] #### B12 #### [address] [address] Monocyte, Absolute 0.4 10 3/mcL Normal 0.2-1.0 [facility] ([place]) Comment on above: Performed By: #### A DANDRE, CBC, VIDH, ADIFF, A1C, LIPID, GFR, CMP #### [address] [address] #### B12 #### [address] [address] Monocytes/100 WBC (Bld) 6.1 % Normal 1.7-13.0 [facility] ([place]) Comment on above: Performed By: #### A DANDRE, CBC, VIDH, ADIFF, A1C, LIPID, GFR, CMP #### [address] [address] #### B12 #### [address] [address] Neutrophils/100 WBC (Bld) 50.7 % Normal 37.0-80.0 [facility] ([place]) Comment on above: Performed By: #### A DANDRE, CBC, VIDH, ADIFF, A1C, LIPID, GFR, CMP #### [address] [place] [address] [place], [place] [address] #### B12 #### [facility] [address] [place] [address] .GFRon 08-24-2023 GFR Non- 92 ml/min/1.73sqm Normal [facility] ([place]) Comment on above: Result Comment: GFR Population [...] CBC, VIDH, ADIFF, A1C, LIPID, GFR, CMP ####[place] [address] [place], [place] [address]#### B12 ####[facility] [place] [address] GFR 111 ml/min/1.73sqm Normal [facility] ([place]) Comment on above: Result Comment: GFR Population [...] CBC, VIDH, ADIFF, A1C, LIPID, GFR, CMP ####[place] [address]#### B12 ####[place] [address] .NEUABSon 08-24-2023 Neutrophil, Absolute 3.3 10 3/mcL Normal 2.9-6.2 [facility] ([place]) Comment on above: Performed By: #### A DANDRE, CBC, VIDH, ADIFF, A1C, LIPID, GFR, CMP #### [place] [address] #### B12 #### [place] [address] A1Con 08-24-2023 HbA1c (Bld) [Mass fraction] 5.7 % Normal 4.3-6.4 [facility] ([place]) Comment on above: Performed By: #### A DANDRE, CBC, VIDH, ADIFF, A1C, LIPID, GFR, CMP ####[place] [address]#### B12 ####[place] [address] B12on 08-24-2023 Cobalamin (Vitamin B12) [Mass/Vol] 617 pg/mL Normal 211-911 [facility] ([place]) Comment on above: Performed By: #### A DANDRE, CBC, VIDH, ADIFF, A1C, LIPID, GFR, CMP ####[address] [address]#### B12 ####[place] [address] CBCon 08-24-2023 Erythrocyte distribution width (RBC) [Ratio] 15.0 % High 11.5-14.5 [facility] ([place]) Comment on above: Performed By: #### A DANDRE, CBC, VIDH, ADIFF, A1C, LIPID, GFR, CMP #### [place] [address] #### B12 #### [place] [address] Hematocrit (Bld) [Volume fraction] 39.0 % Normal 37.0-47.0 [facility] ([place]) Comment on above: Performed By: #### A DANDRE, CBC, VIDH, ADIFF, A1C, LIPID, GFR, CMP #### [place] [address] #### B12 #### [place] [address] Hgb 13.1 G/dL Normal 12.0-16.0 [facility] ([place]) Comment on above: Performed By: #### A DANDRE, CBC, VIDH, ADIFF, A1C, LIPID, GFR, CMP #### [place] [address] #### B12 #### [place] [address] MCH (RBC) [Entitic mass] 28.3 pg Normal 27.0-31.2 [facility] ([place]) Comment on above: Performed By: #### A DANDRE, CBC, VIDH, ADIFF, A1C, LIPID, GFR, CMP #### [place] [address] #### B12 #### [place] [address] MCHC 33.6 G/dL Normal 33.0-37.0 [facility] ([place]) Comment on above: Performed By: #### A DANDRE, CBC, VIDH, ADIFF, A1C, LIPID, GFR, CMP #### [place] [address] #### B12 #### [place] [address] MCV (RBC) [Entitic vol] 84.2 fL Normal 80.0-94.0 [facility] ([place]) Comment on above: Performed By: #### A DANDRE, CBC, VIDH, ADIFF, A1C, LIPID, GFR, CMP #### [address] [address] #### B12 #### [place] [address] Platelet 321 10 3/mcL Normal 130-400 [facility] ([place]) Comment on above: Performed By: #### A DANDRE, CBC, VIDH, ADIFF, A1C, LIPID, GFR, CMP #### [place] [address] #### B12 #### [place] [address] Platelet mean volume (Bld) [Entitic vol] 8.2 fL Normal 7.4-10.4 [facility] ([place]) Comment on above: Performed By: #### A DANDRE, CBC, VIDH, ADIFF, A1C, LIPID, GFR, CMP #### [place] [address] #### B12 #### [place] [address] RBC 4.63 10 6/mcL Normal 4.20-5.40 [facility] ([place]) Comment on above: Performed By: #### A DANDRE, CBC, VIDH, ADIFF, A1C, LIPID, GFR, CMP #### [place] [address] #### B12 #### [place] [address] WBC 6.5 10 3/mcL Normal 4.6-10.8 [facility] ([place]) Comment on above: Performed By: #### A DANDRE, CBC, VIDH, ADIFF, A1C, LIPID, GFR, CMP #### [place] [address] #### B12 #### [place] [address] CMPon 08-24-2023 Albumin Level 3.5 G/dL Normal 3.4-4.8 [facility] ([place]) Comment on above: Performed By: #### A DANDRE, CBC, VIDH, ADIFF, A1C, LIPID, GFR, CMP ####[place] [address]#### B12 ####[address] [address] Albumin/Globulin [Mass ratio] 1.2 {ratio} Normal 1.1-2.5 [facility] ([place]) Comment on above: Performed By: #### A DANDRE, CBC, VIDH, ADIFF, A1C, LIPID, GFR, CMP ####[place] [address]#### B12 ####[address] [address] ALP [Catalytic activity/Vol] 66 U/L Normal 40-135 [facility] ([place]) Comment on above: Performed By: #### A DANDRE, CBC, VIDH, ADIFF, A1C, LIPID, GFR, CMP ####[place] [address]#### B12 ####[place] [address] ALT [Catalytic activity/Vol] 47 U/L Normal 14-59 [facility] ([place]) Comment on above: Performed By: #### A DANDRE, CBC, VIDH, ADIFF, A1C, LIPID, GFR, CMP ####[place] [address]#### B12 ####[place] [address] AST [Catalytic activity/Vol] 16 U/L Normal 10-40 [facility] ([place]) Comment on above: Performed By: #### A DANDRE, CBC, VIDH, ADIFF, A1C, LIPID, GFR, CMP ####[place] [address]#### B12 ####[place] [address] Bili Total 0.5 mg/dL Normal 0.2-1.0 [facility] ([place]) Comment on above: Result Comment: Use of this assay is not recommended for patients undergoing treatment with eltrombopag due to the potential for falsely elevated results. Performed By: #### A DANDRE, CBC, VIDH, ADIFF, A1C, LIPID, GFR, CMP ####[place] [address]#### B12 ####[address] [address] BUN/Creatinine Ratio 25 ratio Normal 7-27 [facility] ([place]) Comment on above: Performed By: #### A DANDRE, CBC, VIDH, ADIFF, A1C, LIPID, GFR, CMP ####[place] [address]#### B12 ####[address] [address] Calcium [Mass/Vol] 9.5 mg/dL Normal 8.4-10.2 [facility] ([place]) Comment on above: Performed By: #### A DANDRE, CBC, VIDH, ADIFF, A1C, LIPID, GFR, CMP ####[place] [address]#### B12 ####[address] [address] Chloride [Moles/Vol] 103 mmol/L Normal 98-107 [facility] ([place]) Comment on above: Performed By: #### A DANDRE, CBC, VIDH, ADIFF, A1C, LIPID, GFR, CMP ####[place] [address]#### B12 ####[place] [address] CO2 [Moles/Vol] 35 mmol/L High 23-31 [facility] ([place]) Comment on above: Performed By: #### A DANDRE, CBC, VIDH, ADIFF, A1C, LIPID, GFR, CMP ####[place] [address]#### B12 ####[address] [address] Creatinine [Mass/Vol] 0.65 mg/dL Normal 0.55-1.02 [facility] ([place]) Comment on above: Performed By: #### A DANDRE, CBC, VIDH, ADIFF, A1C, LIPID, GFR, CMP ####[place] [address]#### B12 ####[place] [address] Electrolyte Balance 5.0 mEq/L Normal 4.0-15.0 [facility] ([place]) Comment on above: Performed By: #### A DANDRE, CBC, VIDH, ADIFF, A1C, LIPID, GFR, CMP ####[place] [address]#### B12 ####[place] [address] Globulin 3.0 G/dL Normal [facility] ([place]) Comment on above: Performed By: #### A DANDRE, CBC, VIDH, ADIFF, A1C, LIPID, GFR, CMP ####[place] [address]#### B12 ####[place] [address] Glucose [Mass/Vol] 102 mg/dL Normal 80-115 [facility] ([place]) Comment on above: Performed By: #### A DANDRE, CBC, VIDH, ADIFF, A1C, LIPID, GFR, CMP ####[place] [address]#### B12 ####[place] [address] Potassium [Moles/Vol] 4.3 mmol/L Normal 3.5-5.1 [facility] ([place]) Comment on above: Performed By: #### A DANDRE, CBC, VIDH, ADIFF, A1C, LIPID, GFR, CMP ####[place] [address]#### B12 ####[place] [address] Sodium [Moles/Vol] 143 mmol/L Normal 136-145 [facility] ([place]) Comment on above: Performed By: #### A DANDRE, CBC, VIDH, ADIFF, A1C, LIPID, GFR, CMP ####[place] [address]#### B12 ####[address] [address] Total Protein 6.5 G/dL Normal 6.4-8.2 [facility] ([place]) Comment on above: Performed By: #### A DANDRE, CBC, VIDH, ADIFF, A1C, LIPID, GFR, CMP ####[place] [address]#### B12 ####[address] [address] Urea nitrogen [Mass/Vol] 16 mg/dL Normal 7-18 [facility] ([place]) Comment on above: Performed By: #### A DANDRE, CBC, VIDH, ADIFF, A1C, LIPID, GFR, CMP ####[place] [address]#### B12 ####[place] [address] DLDLon 08-24-2023 Direct LDL Cholesterol 152 mg/dL High 0-99 [facility] ([place]) Comment on above: Result Comment: Dire ct LDL Cholesterol Reference Interval: Optimal: <100 mg/dL Near Optimal/above optimal: 100-129 mg/dL Borderline high: 130-159 mg/dL High: 160-189 mg/dL Very high: >=190 mg/dL Performed By: #### D LDL, TSHR ####[place] [id number] LIPIDon 08-24-2023 Cholesterol [Mass/Vol] 250 mg/dL High 0-200 [facility] ([place]) Comment on above: Result Comment: Chol esterol Reference Interval: Less than 200 Desirable 200-239 Borderline high risk 240 and above High risk Performed By: #### A DANDRE, CBC, VIDH, ADIFF, A1C, LIPID, GFR, CMP ####[place] [id number] [place] [address]#### B12 ####[place] [address] Cholesterol in HDL [Mass/Vol] 43 mg/dL Normal 40-60 [facility] ([place]) Comment on above: Performed By: #### A DANDRE, CBC, VIDH, ADIFF, A1C, LIPID, GFR, CMP ####[address] [address]#### B12 ####[address] [address] Cholesterol in LDL [Mass/Vol] 163 mg/dL High 0-130 [facility] ([place]) Comment on above: Performed By: #### A DANDRE, CBC, VIDH, ADIFF, A1C, LIPID, GFR, CMP ####[place] [address]#### B12 ####[address] [address] Triglyceride [Mass/Vol] 220 mg/dL High 0-150 [facility] ([place]) Comment on above: Result Comment: Trig lyceride Reference Interval: Less than 150 Normal 150-199 Borderline high risk 200-499 High risk 500 or higher Very high risk Performed By: #### A DANDRE, CBC, VIDH, ADIFF, A1C, LIPID, GFR, CMP ####[place] [address]#### B12 ####[address] [address] TSHRon 08-24-2023 TSH Qn 0.84 m[IU]/L Normal 0.36-3.74 [facility] ([place]) Comment on above: Performed By: #### D LDL, TSHR ####[address] [place], [place] [address] VIDHon 08-24-2023 Vit. D 25-Hydroxy 21.1 ng/mL Normal [facility] ([place]) Comment on above: Result Comment: Inte rpretive Values Based on Total 25(OH) Vitamin D: Deficient <20 ng/mL Insufficient 20 - <30 ng/mL Sufficient 30-100 ng/mL Performed By: #### A DANDRE, CBC, VIDH, ADIFF, A1C, LIPID, GFR, CMP ####[place] [address]#### B12 ####[place] [address] AMPICILLIN:SUSC:PT:ISOLATE:O RDQN:MICon 06-23-2023 Ampicillin RANJANA [Susc] >100,000 cfu/ml Citrobacter koseri [facility] Ampicillin RANJANA [Susc]on 06-13 Citrobacter koseri Citrobacter koseri [facility] LABORATORYOrdered By: Fiona Fernandez on 06-23-2023 Albumin DL <= 20 mg/L (U) [Mass/Vol] 499 mcg/dL Invalid Interpretation Code AO ADM SS Albumin/Creatinine DL <= 20 mg/L (U) [Mass ratio] 10 mcg/mg Normal 0 - 30 mcg/mg AO ADM SS Creatinine (U) [Mass/Vol] 47.9 mg/dL Normal 28.0 - 117.0 mg/dL AO ADM SS MALBRon 06-23-2023 U Creatinine 47.9 mg/dL Normal 28.0-117.0 [facility] ([place]) Comment on above: Performed By: #### 9 [address] #### [address] [address] U Microalb 499 mcg/dL Normal [facility] ([place]) Comment on above: Performed By: #### 9 [address] #### [address] [address] U Ratio Alb/Cre 10 mcg/mg Normal 0-30 [facility] ([place]) Comment on above: Performed By: #### 9 [address] #### [address] [address] CSAon 03-24-2023 Color-Stone Garcia [facility] ([place]) Comment on above: Performed By: #### 9 [address]89 #### [address] [address] Composition-Stone Comment [facility] ([place]) Comment on above: Result Comment: Please see comment Performed By: #### 9 [address]5586 #### [address] [address] LC Contact info Comment [facility] ([place]) Comment on above: Result Comment: Physician questions regarding Calculi Analysis contact [facility] at: [phone]. Performed By: #### 9 [address] #### [place] [address] Photo Stone COMMENT Normal [facility] ([place]) Comment on above: Result Comment: Test not performed No photo available Performed By: #### 9 [address] #### [place] [address] Size-Stone <1 [facility] ([place]) Comment on above: Result Comment: Too small to measure. Performed By: #### 9 [address] #### [place] [address] Source-Stone Comment Normal [facility]) Comment on above: Result Comment: Not provided Performed By: #### 9 [address] #### [place] [address] Stone Analysis Note Comment [facility] ([place]) Comment on above: Result Comment: Calculi report will follow via computer, mail or computer operations supervisor delivery. Performed By: #### 9 [address] #### [place] [address] Stone Comment1 Comment [facility] ([place]) Comment on above: Result Comment: Crystalline substances normally associated with human calculi were not identified. Specimen is consistent with organic material. Insufficient sample to perform additional, confirmatory, or reference testing. Performed By: #### 9 [address] #### [place] [address] Stone Comment2 Comment [facility] ([place]) Comment on above: Result Comment: Calculus received wet. Wet calculi must be dried before analysis, which delays reporting of results. Leaving calculi wet (such as water, saline, blood, urine) may lead to changes in composition. Performed By: #### 9 [address] #### [address] [place], [place] [address] Stone Disclaimer: Comment Normal [facility] ([place]) Comment on above: Result Comment: This test was developed and its performance characteristics determined by [facility]. It has not been cleared or approved by the Food and Drug Administration. Performed At: [facility] [address] [place], [place] [id number] Kendy Cerrato PhD Ph:[phone] Performed By: #### 9 [address] #### [address] [place] [address] [place], [place] [address] Weight-Stone <1 Normal [facility] ([place]) Comment on above: Result Comment: Too small to weigh Performed By: #### 9 [address]3660 #### [address] [place] [address] [place] [address] .Urinalysis Microscopic (AO) on 03-06-2023 UA Bacteria Trace Abnormal [facility] ([place]) Comment on above: Performed By: #### U AMICAO, UA ####[address] [place] [place] [address] UA Glitter cells 0-5 Abnormal [facility] ([place]) Comment on above: Performed By: #### U AMICAO, UA ####[address] [place] [place] [address] UA RBC 0-5 Abnormal None Seen [facility] ([place]) Comment on above: Performed By: #### U AMICAO, UA ####[address] [place], [place] [address] UA Squam Epithelial None Seen Normal None Seen [facility] ([place]) Comment on above: Performed By: #### U AMICAO, UA ####[address] [place] [address] UA WBC 0-5 Abnormal None Seen [facility] ([place]) Comment on above: Performed By: #### U AMICAO, UA ####[address] [place] [address] AMIKACIN:SUSC:PT:ISOLATE:ORD QN:MICon 03-06-2023 Amikacin RANJANA [Susc] >100,000 cfu/ml Citrobacter koseri [facility] Amikacin RANJANA [Susc]on 2023 Citrobacter koseri Citrobacter koseri [facility] LABORATORYOrdered By: Julienne Roa on 03-06-2023 [...] SS UAon 03-06-2023 Color (U) Yellow Normal [facility] ([place]) Comment on above: Performed By: #### U AMICAO, UA ####[facility] [place], [place] [address] Glucose (U) [Mass/Vol] Negative Normal Negative [facility] ([place]) Comment on above: Performed By: #### U AMICAO, UA ####[address] [place], [place] [address] Ketones Ql (U) Negative Normal Negative [facility] ([place]) Comment on above: Performed By: #### U AMICAO, UA ####[address] [place], [place] [address] UA Appear Clear Normal Clear [facility] ([place]) Comment on above: Performed By: #### U AMICAO, UA ####[address] [place], [place] [address] UA Blood Trace Abnormal Negative [facility] ([place]) Comment on above: Performed By: #### U AMICAO, UA ####[address] [place] [address] UA Leuk Est Small Abnormal Negative [facility] ([place]) Comment on above: Performed By: #### U AMICAO, UA ####[address] [place], [place] [address] UA Nitrite Negative Normal Negative [facility] ([place]) Comment on above: Performed By: #### U AMICAO, UA ####[address] [place], [place] [address] UA pH 5.5 Normal 5.0 - 8.0 [facility] ([place]) Comment on above: Performed By: #### U AMICAO, UA ####[address] [place], [place] [address] UA Protein Negative Normal Negative [facility] ([place]) Comment on above: Performed By: #### U AMICAO, UA ####[address] [place], [place] [address] UA Spec Grav 1.010 Abnormal 1.015-1.025 [facility] ([place]) Comment on above: Performed By: #### U AMICAO, UA ####[address] [place], [place] [address] UA Specimen Type Not Given Normal [facility] ([place]) Comment on above: Performed By: #### U AMICAO, UA ####[address] [place], [place] [address] UA Urobilinogen 0.2 E.U./dL Normal 0.2-1.0 [facility] ([place]) Comment on above: Performed By: #### U AMICAO, UA ####[address] [place], [place] [address] Urobilinogen (U) [Mass/Vol] Negative Normal Negative [facility] ([place]) Comment on above: Performed By: #### U AMICAO, UA ####[address] [place], [place] [address] Direct LDLon 11-15-2022 LDL Cholesterol Direct 146 mg/dL High <100 [facility] ([place]) Comment on above: Result Comment: <100 mg/dL, Optimal 100-129 mg/dL, Near optimal/above optimal 130-159 mg/dL, Borderline high 160-189 mg/dL, High >189 mg/dL, Very high Secondary prevention optimal LDL Cholesterol levels are recommended to be < 70 mg/dL Performed By: [facility] [address] [place] [id number] Tool Crib Attendant: Minh Bunn III, M.D. CLIA#: [id number] Performed By: #### B MP, LDLDCT, GFR, LIPID #### [address] [address] VLDL Cholesterol See Below Normal [facility] ([place]) Comment on above: Result Comment: Test not indicated. Performed By: [facility] [address] [place] [address] Tool Crib Attendant: Minh Bunn III, M.D. CLIA#: [id number] Performed By: #### B MP, LDLDCT, GFR, LIPID #### [address] [place] [place], [place] [address] .GFRon 11-14-2022 GFR 104 ml/min/1.73sqm Normal [facility] ([place]) Comment on above: Result Comment: GFR Population [...] #### B MP, LDLDCT, GFR, LIPID #### [place] [address] [place], [place] [address] GFR Non- 86 ml/min/1.73sqm Normal [facility] ([place]) Comment on above: Result Comment: GFR Population [...] #### B MP, LDLDCT, GFR, LIPID #### [place] [address] [place], [place] [address] BMPon 11-14-2022 BUN/Creatinine Ratio 20 ratio Normal - [facility] ([place]) Comment on above: Performed By: #### B MP, LDLDCT, GFR, LIPID #### [address] [address] Calcium [Mass/Vol] 9.2 mg/dL Normal 8.4-10.2 [facility] ([place]) Comment on above: Performed By: #### B MP, LDLDCT, GFR, LIPID #### [address] [address] Chloride [Moles/Vol] 103 mmol/L Normal 98-107 [facility] ([place]) Comment on above: Performed By: #### B MP, LDLDCT, GFR, LIPID #### [address] [address] CO2 [Moles/Vol] 34 mmol/L High 23-31 [facility] ([place]) Comment on above: Performed By: #### B MP, LDLDCT, GFR, LIPID #### [address] [address] Creatinine [Mass/Vol] 0.69 mg/dL Normal 0.55-1.02 [facility] ([place]) Comment on above: Performed By: #### B MP, LDLDCT, GFR, LIPID #### [address] [address] Electrolyte Balance 6.0 mEq/L Normal 4.0-15.0 [facility] ([place]) Comment on above: Performed By: #### B MP, LDLDCT, GFR, LIPID #### [address] [address] Glucose [Mass/Vol] 94 mg/dL Normal 80-115 [facility] ([place]) Comment on above: Performed By: #### B MP, LDLDCT, GFR, LIPID #### [address] [address] Potassium [Moles/Vol] 4.0 mmol/L Normal 3.5-5.1 [facility] ([place]) Comment on above: Performed By: #### B MP, LDLDCT, GFR, LIPID #### [address] [address] Sodium [Moles/Vol] 143 mmol/L Normal 136-145 [facility] ([place]) Comment on above: Performed By: #### B MP, LDLDCT, GFR, LIPID #### [address] [address] Urea nitrogen [Mass/Vol] 14 mg/dL Normal 7-18 [facility] ([place]) Comment on above: Performed By: #### B MP, LDLDCT, GFR, LIPID #### [address] [address] LIPIDon 11-14-2022 Cholesterol [Mass/Vol] 224 mg/dL High 0-200 [facility] ([place]) Comment on above: Result Comment: Chol esterol Reference Interval: Less than 200 Desirable 200-239 Borderline high risk 240 and above High risk Performed By: #### B MP, LDLDCT, GFR, LIPID #### [address] [address] Cholesterol in HDL [Mass/Vol] 42 mg/dL Normal 40-60 [facility] ([place]) Comment on above: Performed By: #### B MP, LDLDCT, GFR, LIPID #### [address] [address] Cholesterol in LDL [Mass/Vol] 151 mg/dL High 0-130 [facility] ([place]) Comment on above: Performed By: #### B MP, LDLDCT, GFR, LIPID #### [address] [address] Triglyceride [Mass/Vol] 154 mg/dL High 0-150 [facility] ([place]) Comment on above: Result Comment: Trig lyceride Reference Interval: Less than 150 Normal 150-199 Borderline high risk 200-499 High risk 500 or higher Very high risk Performed By: #### B MP, LDLDCT, GFR, LIPID #### [address] [address] AMOXICILLIN+CLAVULANATE:SUSC :PT:ISOLATE:ORDQN:MICon 05-23-2022 Amoxicillin+Clavulana te RANJANA [Susc] >100,000 cfu/ml Citrobacter koseri [facility] Amoxicillin+Clavulanate RANJANA [Susc]on 05-23-2022 Citrobacter koseri Citrobacter koseri [facility] LABORATORYOrdered By: SYSTEM SYSTEM on 03-14-2022 [...] Mixed growth consistent with normal urogenital tomer. [facility] Encounters Encounter Date Encounter Type Care Provider Facility Start: 08-13-2024 ambulatory Ascencion Francisco Facility: [facility] Start: 08-12-2024 Encounter for other preprocedural examination Ascencion Francisco [facility] Start: 08-05-[address] ASCENCION LOPEZ MD Facility:[facility] Start: 08-01-2024 ambulatory CASSIUS CARRANZA PA-C Fac ility:[facility] Start: 07-12-2024 End: 07-12-2024 ambulatory Jana Magana Facility:[facility] Start: 04-09-2024 End: 04-09-2024 ambulatory DONAVAN ELLIOTT DO Facility:[facility] Start: 04-09-2024 End: 04-09-2024 Patient encounter procedure DONAVAN ELLIOTT DO [facility] Start: 09-02-2023 ambulatory CHONG MARIZAMELANIE DO Facili ty:B Start: 08-24-2023 End: 08-24-2023 ambulatory DONAVAN ELLIOTT DO Facility:[facility] Start: 06-23-2023 End: 06-27-2023 ambulatory DONAVAN ELLIOTT DO Facility:[facility] Start: 06-23-2023 End: 06-27-2023 Outreach Lab DONAVAN ELLIOTT DO [facility] Start: 03-06-2023 End: 03-10-2023 ambulatory DONAVAN ELLIOTT DO Facility:[facility] Start: 03-06-2023 End: 03-10-2023 Outreach Lab DONAVAN ELLIOTT DO [facility] Start: 11-14-2022 End: 11-14-2022 ambulatory DONAVAN ELLIOTT DO Facility:[facility] Start: 05-23-2022 End: 05-27-2022 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 [facility] Start: 03-14-2022 End: 03-14-2022 Patient encounter procedure DONAVAN ELLIOTT DO [facility] Start: 10-05-2021 End: 10-05-2021 Patient encounter procedure DONAVAN ELLIOTT DO [facility] Start: 06-11-2021 End: 06-15-2021 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 1959 Unknown [id number] 2.16.8 40.1.155953.3.579.2. 1959 Unknown [id number] 2.16.8 40.1.245051.3.579.2. 1959 Unknown [id number] 2.16.8 [id number] 1959 Unknown [id number] 2.16.8 40.1.207085.3.579.2. 1959 Unknown [id number] 2.16. [id number] 1959 Unknown [id number] 2.16. 840.1.702614.3.579.2. 1959 Unknown [id number] 2.16. 840.1.713252.3.579.2.62 1959 Unknown [id number] 2.16.8 40.1.721884.3.579.2.627 Unknown [id number] 2.16.8 40.1.514578.3.579.2.462 Unknown [id number] 2.16.8 40.1.301014.3.579.2.462 Social History Date Type Detail Facility Start: 04-17-2019 Tobacco smoking status Never s moked tobacco (finding) [facility] Sex Assigned At Female [facility] O[facility] Start: 08-08-2018 Sex Female (finding) [facility] Clinical Notes 03-08-2023 to 07-30-2024 LaboratoryLaboratoryLaboratoryLaboratoryLaboratoryRadiology Note Date & Type Note Facility 07-30-2024 Note [facility] Medical Records Department [address] [place] [address] History Physical Exam 07/30/24 0859 MR#: [id number] Acct: [id number] Name: AICHA MAGALLANES Rep #: [id number] : 1960 64 From: Cassius RUSS PA-C PCP: Dr. Donavan Elliott, DO Status:PRE [facility] Location: [facility] History and Physical History and Physical??? Patient [...] (2019) anxiety dental disease - tooth pulled - no symptoms currently??? mixed hyperlipidemia, insomnia, Atherosclerotic Cardiovascular Disease, frequent UTIs, kink in ureter Accidents: None Surgical Hx: Hysterectomy - (2009) Tubal Ligation - (1999) Section - (1999) Anesthesia Complications: None Assistive Devices: Glasses, Cane Reviewed and updated. 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 Personal Habits:??? Cigarette [...] Vitamin B Com (more content not included)... [facility] 09-04-2023 Note . MICRO - Microbiology PROCEDURE: [...] *1: This test was performed at: [address] ([place]) 06-25-2023 Note . MICRO - Microbiology PROCEDURE: [...] Locations *1: This test was performed at: [facility], [address] [place] [address], [address] , Counts include 234 beds at the [facility] ([place]) 03-08-2023 Note . MICRO - Microbiology PROCEDURE: [...] Locations *1: This test was performed at: [address], [address] , Counts include 234 beds at the [facility] ([place]) Evaluation + Plan note No data available for this section [facility] Evaluation + Plan note Future Appointments Appointment Date:12/01/2021 10:00:00 AM Scheduled Provider:DONAVAN ELLIOTT DO Location:[facility] Appointment Type:PC Wellness Annual Future Scheduled TestsThyroid Stimulating Hormone 09/07/21Free T4 09/07/21Complete Blood Count 09/07/21Lipid Profile 09/07/21Hepatitis C Antibody IgG 09/07/21Microalbumin Level Urine 09/07/21Complete Metabolic Panel 09/07/21 [facility] Evaluation + Plan note Future Appointments Appointment Date:03/21/2022 02:30:00 PM Scheduled Provider:DONAVAN ELLIOTT DO Location:[facility] Appointment Type:PC Wellness Annual Future Scheduled TestsMicroalbumin Level Urine 09/07/21 [facility] Evaluation + Plan note Future Appointments Appointment Date:07/12/2022 02:00:00 PM Scheduled Provider:DONAVAN ELLIOTT DO Location:[facility] Appointment Type:PC OV Future Scheduled TestsLDL-Cholesterol, Direct 03/22/22Basic Metabolic Panel 03/22/22Lipid Profile 03/22/22Microalbumin Level Urine 09/07/21 [facility] Evaluation + Plan note Future Appointments Appointment Date:05/23/2023 09:30:00 AM Scheduled Provider:DONAVAN ELLIOTT DO Location:[facility] Appointment Type:PC OV Diagnostic Tests PendingStone Analysis 03/06/23 Future Scheduled TestsLDL-Cholesterol, Direct 11/21/22Thyroid Stimulating Hormone 11/21/22A1C Hemoglobin 11/21/22Complete Blood Count 11/21/22Lipid Profile 11/21/22Albumin/Creatinine Ratio, Random Urine 11/21/22Complete Metabolic Panel 11/21/22 [facility] Evaluation + Plan note Future Appointments Appointment Date:08/28/2023 04:00:00 PM Scheduled Provider:DONAVAN ELLIOTT DO Location:[facility] Appointment Type:PC OV Future Scheduled Tests.CCLLDL-Cholesterol, Direct 06/23/23Thyroid Stimulating Hormone 06/23/23Urine Microscopic 06/23/23Vitamin B12 Level 06/23/23A1C Hemoglobin 06/23/23Complete Blood Count 06/23/23Lipid Profile 06/23/23Vitamin D Level 06/23/23Complete Metabolic Panel 06/23/23 [facility] Evaluation + Plan note Future Appointments Appointment Date:04/12/2024 02:45:00 PM Scheduled Provider:DONAVAN ELLIOTT DO Location:[facility] Appointment Type:PC OV Future Scheduled TestsCT Coronary Calcium Score w/o Contrast 08/28/23 [facility] Hospital Discharge instructions No data available for this section [facility] Progress note No data available for this section [facility] Summary Purpose Family History No Family History Records Found Advance Directives No Advanced Directives Records FoundNo Advanced Directives Records FoundNo Advanced Directives Records Found Additional Source Comments Care Team (unrecognized sect ion and content) Personnel Name: ISH SEXTON MD Address: [address] [place] [address] Care Team Personnel Name: DONAVAN ELLIOTT DO Position: P4 Physician - Primary Care Member Role: Primary Care Physician Address: Address: [address] [place] [address] Care Team Related Persons Name: ILDA MAGALLANES Address: Home [address] [place], [place] [id number] Address: Temporary [address] [place], [place] [id number] Care Team Personnel Name: DONAVAN ELLIOTT DO Position: P4 Physician - Primary Care Member Role: Primary Care Physician Address: Address: [address] [place] [id number] [place] [address] Care Team Related Persons Name: ILDA MAGALLANES Address: Home [address] [place], [place] [id number] Address: Temporary [address] [place], [place] [id number] Care Team Personnel Name: DONAVAN ELLIOTT DO Position: P4 Physician - Primary Care Member Role: Primary Care Physician Address: Address: [address] [place] [address] Care Team Related Persons Name: ILDA MAGALLANES Address: Home [address] [place], [place] [id number] Address: Temporary [address] [place], [place] [id number] Care Team Personnel Name: DONAVAN ELLIOTT DO Position: P4 Physician - Primary Care Member Role: Primary Care Physician Address: [address] [place], [place] [address] Telecom: Care Team Related Persons Name: ILDA MAGALLANES Care Team (unrecognized sect ion and content) Care Team Personnel Name: DONAVAN ELLIOTT DO Position: P4 Physician - Primary Care Member Role: Primary Care Physician Address: Address: [address] [place] [address] [place] Care Team Related Persons Name: ILDA MAGALLANES Address: Home [address] [place], [place] [id number] Address: Temporary [address] [place], [place] [id number] Care Team Personnel Name: DONAVAN ELLIOTT DO Position: P4 Physician - Primary Care Member Role: Primary Care Physician Address: Address: [address] [place] [address] [place] Care Team Related Persons Name: ILDA MAGALLANES Address: Home [address] [place], [place] [id number] Address: Temporary [address] [place], [place] [id number] INFORMATION SOURCE (unrecogn ized section and content) DATE CREATED AUTHOR 09/05/2023 [facility] ([place]) DATE CREATED AUTHOR AUTHOR'S ORGANIZ ATION 08/06/2024 [facility] DATE CREATED AUTHOR AUTHOR'S ORGANIZ ATION 08/13/2024 [facility] FOR RECORDS PERTAINING TO PATIENTS WHO ARE [...] BE BASED ON THE PRIMARY CLINICAL RECORDS. [facility]. provides no warranty or guarantee of the accuracy or completeness of information in this document.
[2024-08-14 02:30] VITALS: BP 145/80; PULSE 72; RESP 16; TEMP 36.6; O2SAT 97
[2024-08-14] MEDS: Cefazolin 1 GM/50 ML BAG IV (03:45)
[2024-08-14 06:05] LABS: Hematocrit 33.4 % (37-47); Hemoglobin 10.9 g/dL (12.0-15.0); Immature Granulocytes Count 0.070 X10^3/uL (0.0-0.0); Mean Corp Hgb Conc 32.6 g/dL (32-36); Mean Corpuscular Volume 84.1 fL (81-99); Mean Platelet Vol. 10.2 fl (6.2-12.0); NRBC Flagged by Analyzer 0 % (0-5); Platelet Count 313 K/mm3 (150-450); RBC Distribution Width CV 13.3 % (11.6-14.6); RBC Distribution Width SD 41.4 fl (35.1-43.9); Red Blood Count 3.97 M/mm3 (4.2-5.4); White Blood Count 13.5 K/mm3 (4.4-11.0)
[2024-08-14 06:30] VITALS: BP 129/73; PULSE 75; RESP 16; TEMP 36.6; O2SAT 98
[2024-08-14 07:09] LABS: Anion Gap 12 (5-15); BUN 14 mg/dL (4-19); BUN/Creat Ratio 33.1 RATIO (10-20); Calcium,Total 8.9 mg/dL (7.6-11.0); Carbon Dioxide 23.4 mmol/L (21.0-32.0); Chloride 105 mmol/L (98-108); Estimated Creatinine Clearance 68.24 ml/min (50-250); Glucose 137 mg/dL (70-99); Potassium 3.7 mmol/L (3.3-5.1)
--- NOTE | 2024-08-14 07:42 | PCM.HOSP.N ---
Hospitalist Note We were consulted postoperatively for medical management of her chronic medical issues. She has no acute issues at this time. Labs are relatively stable with a drop in her hemoglobin as expected for postoperative knee replacement and fluid resuscitation intraoperatively. She has no signs of acute bleeding. She is hemodynamically stable and vitals unremarkable. From a medical standpoint she is stable for discharge and we will sign off at this point.
--- NOTE | 2024-08-14 09:05 | PCM.PN.ORT ---
Subjective Subjective The patient was sitting in bedside chair upon examination. Patient denies any chest pain, shortness of breath, dizziness, lightheadedness, nausea or vomiting, or calf pain. Pain is controlled on medications. No adverse overnight events. Patient is doing very well this morning. She says her pain is very well-controlled. She does have some thigh soreness. She is ready for discharge home today. Objective Data Objective Data Vital Signs: Vital Signs Temp Pulse Resp BP Pulse Ox O2 Del Method O2 Flow Rate 97.8 F 75 16 129/73 H 98 Room Air 4 08/14/24 06:30 08/14/24 06:30 08/14/24 06:30 08/14/24 06:30 08/14/24 06:30 08/14/24 06:30 08/13/24 15:35 Oxygen Flow Rate (L/min) 4 Oxygen Delivery Method Room Air Weight: 79 kg Body Mass Index (BMI) 31.8 Intake & Output: Intake and Output for Last 24 Hours 08/12/24 08/13/24 08/14/24 23:59 23:59 23:59 Intake Total 2150 / 2150 50 / 50 Output Total 300 / 300 Balance 1850 / 1850 50 / 50 Lab / Micro Data 08/14/24 05:00 08/14/24 05:00 Labs: Laboratory Results - last 24 hr 08/13/24 09:42: POC Glucose 113 H 08/14/24 05:00: WBC 13.5 H, RBC 3.97 L, Hgb 10.9 L, Hct 33.4 L, MCV 84.1, MCH 27.5, MCHC 32.6, RDW Std Deviation 41.4, RDW Coeff of Nadia 13.3, Plt Count 313, MPV 10.2, Immature Gran % (Auto) 0.500, Neut % (Auto) 85.4 H, Lymph % (Auto) 9.9 L, [place] % (Auto) 4.0, Eos % (Auto) 0.1, Baso % (Auto) 0.1, Absolute Neuts (auto) 11.5 H, Absolute Lymphs (auto) 1.33, Nucleated RBC % 0, Sodium 140, Potassium 3.7, Chloride 105, Carbon Dioxide 23.4, Anion Gap 12, BUN 14, Creatinine 0.43 L, Estim Creat Clear Calc 68.24, Est GFR (MDRD) Non-Af 108, BUN/Creatinine Ratio 33.1 H, Glucose 137 H, Calcium 8.9 Micro: Microbiology 07/12/24 08:49 Swab (Method) Nasal Screen MRSA/MSSA - Final Radiography Diagnostic Testing: Radiology Impression Hip X-Ray 08/13/24 12:10 IMPRESSION: Unremarkable intraoperative appearance Reading Location: [facility]2 Hip X-Ray 08/13/24 13:25 IMPRESSION: Hardware in position. Reading Location: [facility] Physical Exam Narrative Vital signs stable and afebrile. Left thigh is soft and supple. SCDs and RONEN hose are in place bilaterally Patient is able to plantarflex and dorsiflex actively. Sensation is intact to light touch to saphenous, sural, superficial and deep peroneal, and tibial distribution. Dressing is clean dry and intact. Negative Homans bilaterally, negative signs and symptoms of DVT. Const alert, oriented x3 and no apparent distress Assessment & Plan Assessment/Plan (1) Status post left hip replacement: PLAN: 1. S/P direct anterior left total hip arthroplasty POD #1 2. Continue Pain Medications: Tylenol, meloxicam, oxycodone. Do not take any other nonsteroidal anti-inflammatories while using meloxicam/Mobic. 3. DVT Prophylaxis: Take 81 mg aspirin twice daily for 4 weeks postoperatively for DVT prophylaxis. Patient denies past history of DVT or pulmonary embolism. Patient will continue with RONEN hose for 2 weeks postoperatively. Recommend getting up every hour while awake to walk for several minutes. After 4 weeks of twice a day aspirin she can then go back to her normal 81 mg aspirin daily. 4. PT/OT: Weightbearing as tolerated with walker 5. H & H: 10.9/33.4, asymptomatic. Monitoring patient's hemoglobin and hematocrit with postoperative anemia without any intra operative complications. At this time no treatment is required. 6. Reactive leukocytosis: 13.5, Afebrile. Patient did receive Decadron intraoperatively. No clinical signs of infection. 7. Encouraged Incentive Spirometry 8. Patient is aware of postoperative constipation that can occur from 1-3 days postoperatively. Will continue with senna 2 tablets twice daily until first bowel movement. Patient was advised if not having a bowel movement after day 3 she is to contact orthopedics so appropriate change can be made. Patient voiced understanding. 9. Continue postoperative medical treatment per medicine 10. Disposition: Plan will be for discharge home today as long as patient remains medically stable, tolerates therapy, and pain is adequately controlled. Patient would like her prescriptions E scribed to [facility] pharmacy. She was instructed to contact our office with any postoperative concerns or questions. She has outpatient physical therapy established for August 19, 2024. I did advise her of the weekend she should be doing these exercises twice daily that she will be taught in the hospital. I would recommend patient hold off of her supplements and vitamins for 2 weeks postoperatively. Hold off of the turmeric for 4 weeks. Patient will follow-up per our postoperative instructions. I have reviewed the [place] Automated Rx Reporting System (OARRS) report for this patient for refill pattern and other prescriber involvement as part of the appropriate surveillance for the provision of acute and chronic controlled medications. The report was requested and reviewed on the date of this entry and was considered in the prescribing process. This dictation was created using voice recognition software. Phonetic and/or grammatical errors may exist.
--- NOTE | 2024-08-14 09:09 | DCINST_ITS ---
Discharge Instructions Diet Discharge Diet: No restrictions DC O2, CPAP, BIPAP needs Home O2 Discharge instructions: No Dressing / Incision Discharge Activity: May Not Drive (No driving until you can walk 100 feet with use of cane and no longer on any narcotics.) May shower in (days): 1 (only if incision is dry and without drainage. Do NOT soak/submerge in tub/pool/mora/stream/hot tub.)) Ice area for (Minutes): 20 (Every 1-2 hours while [address] place barrier between ice and skin.) Weight Bearing Status: Weight bearing as tolerated Keep extremity elevated above heart level: Operative Extremity Additional Activity Instructions:: Follow [facility] Post-op Instructions. Recommend getting up during the day while awake every hour to walk for several minutes. Avoid elastic band with your underwear or going directly over the incision. Once postoperative dressing has been removed only use gentle soap and water over the incision. Do not use any ointments, Neosporin, salves, alcohol pads over the incision for 6 weeks postoperatively. Do not submerge underwater for 6 weeks postoperatively. Wear elastic stockings for 2 weeks. Do NOT use alcohol with narcotic pain medication. Do NOT make important decisions while taking narcotic medication. If you have problems with taking your medication (rash, itching, nausea, etc.) call the office at once. Dressing / Incision Call your doctor if your incision/area has: Continuous Slow Oozing, Sudden Increased Bleeding, Increased Pain/ Swelling, Increased Redness and Foul Smelling Discharge Call your doctor if you observe: Fever of 101 or Higher, Shortness of breath, Chest pain, Calf discomfort and Uncontrolled pain Remove Dressing in: 4 days (Okay to remove dressing on August 18, 2024) Follow Up Care Test Results: Test results from this visit will be discussed in further detail at your follow- up appointment, if applicable. Discharge Plan Admission Admit Date/Time: 08/13/24 12:36 Attending Provider: Ascencion Francisco Primary Care Provider: Donavan Gastelum Consulting Providers: Eulogio Sheets; Ursula Casper Discharge Orders/Prescriptions Prescriptions: New famotidine 20 mg Tablet 20 mg PO DAILY 30 Days Qty: 30 0RF aspirin 81 mg Tablet,Chewable 81 mg PO BIDCM Qty: 0 0RF Rx Instructions: Take 81 mg aspirin twice daily for 4 weeks postoperatively for DVT prophylaxis. After 4 weeks you can then go back to normal 81 mg aspirin daily. meloxicam 7.5 mg Tablet 7.5 mg PO BID 30 Days Qty: 60 0RF Rx Instructions: Do not take any other nonsteroidal anti-inflammatories while using meloxicam/Mobic. oxycodone 5 mg Tablet 5 - 10 mg PO Q4H PRN PRN (Reason: As Needed for Pain) 7 Days Qty: 42 0RF sennosides-docusate sodium [Stimulant Laxative Plus] 8.6-50 mg Tablet 2 tab PO BID 3 Days Qty: 12 0RF Rx Instructions: Take until first bowel movement, then as needed Continued lisinopril-hydrochlorothiazide 20-12.5 mg tablet 1 tab PO DAILY propranolol 20 mg tablet 20 mg PO TID PRN (Reason: anxiety) ascorbic acid (vitamin C) [C-500] 500 mg tablet 500 mg PO DAILY zinc gluconate 50 mg tablet 50 mg PO DAILY cholecalciferol (vitamin D3) [Vitamin D3] 25 mcg (1,000 unit) tablet 25 mcg PO DAILY vitamin B complex [Balanced B-50] Tablet 1 tab PO DAILY NewFlora 10 billion cell capsule 100 mmu cells PO DAILY clonidine HCl 0.1 mg tablet 0.1 mg PO Q6H PRN (Reason: hypertensive emergency) lorazepam [Ativan] 0.5 mg tablet 0.5 mg PO Q12H PRN (Reason: anxiety) Held turmeric 400 mg capsule 400 mg PO DAILY Hold Instructions: Resume on 09/11/24. garlic 1,000 mg capsule 1,000 mg PO DAILY Hold Instructions: Resume on 08/28/24. [place]-3 350 mg-235 mg- 90 mg-597 mg capsule,delayed release(DR/EC) 1 cap PO DAILY Hold Instructions: Resume on 08/28/24. Discontinued aspirin 81 mg capsule 81 mg PO DAILY Referrals / Follow Up: Physical,Therapy [Other] - 08/19/24 1:00 pm Donavan Gastelum DO [Primary Care Provider] - Cassius Richmond PA-C [Med Staff - [facility]] - 08/26/24 11:00 am Disposition Disposition (needs filled in before D/C Order can be placed): Home, Self Care
[2024-08-14 09:17] VITALS: BP 159/86; PULSE 84; RESP 18; TEMP 36.6; O2SAT 98
[2024-08-14] MEDS: Lactobacillis Acidophilus 1 CAP PO (09:37)
[2024-08-14] MEDS: Cholecalciferol (VIT D3) 25 MCG TABLET (1,000 UNITS) PO (09:38)
[2024-08-14] MEDS: Senna/Docusate Sodium 1 Tablet 2 TABLET PO (09:38)
--- NOTE | 2024-08-14 10:22 | CASEMGMT ---
VENITA CM into pt room, pt lying in bed dressed in no distress. Pt states her family is bringing in a FWW to use when she dc's. Pt has outpt therapy set up at [facility] on 08/19 at 1pm. Pt lives with her with 2 steps to enter with a rail. Pt states she then has FFSU. Pt has a shower chair and ice machine. Pt denies any homegoing needs at this time.
--- NOTE | 2024-08-14 10:52 | PHA.DC.MC.R ---
Pharmacy [facility] Counsel[facility] Pharmacy Service has performed discharge medication reconciliation and counseling for this patient. 1. ASPIRIN 81MG PO BIDCM X 4 WEEKS, THEN RESUME DAILY 2. FAMOTIDINE 20MG PO DAILY 3. MELOXICAM 7.5MG PO BID 4. OXYCODONE 5-10MG PO Q4H PRN PAIN 5. SENNA/DOCUSATE 2T PO BID UNTIL FIRST BOWEL MOVEMENT, THEN PRN CONSTIPATION 6. HOLD GARLIC AND OMEGA-3 UNTIL 08/28, HOLD TURMERIC UNTIL 09/11 The patient's discharge medication list was reviewed for discrepancies and discrepancies were resolved. The patient was counseled on the following discharge medications and changes in medications for homegoing were reviewed. The Reason for Use, instructions for use, and potential side effects were reviewed for all new medications. The patient's questions regarding all of their medications were answered. The patient was able to verbally demonstrate an understanding of their discharge medications. Medications at Discharge Home Medications Lactobacillus acidophilus 10 billion cell capsule (NewFlora) 100 mmu cells PO DAILY 07/09/24 ascorbic acid (vitamin C) 500 mg tablet (C-500) 500 mg PO DAILY 07/09/24 cholecalciferol (vitamin D3) 25 mcg (1,000 unit) tablet (Vitamin D3) 25 mcg PO DAILY 07/09/24 garlic 1,000 mg capsule 1,000 mg PO DAILY 07/09/24 Held on 08/14/24. Instructions: Resume on 08/28/24. lisinopril 20 mg-hydrochlorothiazide 12.5 mg tablet 1 tab PO DAILY 07/09/24 omega 3 350 mg-dha 235 mg-epa 90 mg-fish oil 597 mg capsule,delay rel ([place]-3) 1 cap PO DAILY 07/09/24 Held on 08/14/24. Instructions: Resume on 08/28/24. propranolol 20 mg tablet 20 mg PO TID PRN anxiety 07/09/24 turmeric 400 mg capsule 400 mg PO DAILY 07/09/24 Held on 08/14/24. Instructions: Resume on 09/11/24. vitamin B complex (Balanced B-50 tablet) 1 tab PO DAILY 07/09/24 zinc gluconate 50 mg tablet 50 mg PO DAILY 07/09/24 clonidine HCl 0.1 mg tablet 0.1 mg PO Q6H PRN hypertensive emergency 08/01/24 lorazepam 0.5 mg tablet (Ativan) 0.5 mg PO Q12H PRN anxiety 08/01/24 aspirin 81 mg chewable tablet 81 mg PO BIDCM #0 tabs 08/14/24 famotidine 20 mg tablet 20 mg PO DAILY 30 days #30 tabs 08/14/24 meloxicam 7.5 mg tablet 7.5 mg PO BID 30 days #60 tabs 08/14/24 oxycodone 5 mg tablet 5 - 10 mg (1 - 2 x 5 mg) PO Q4H PRN PRN As Needed for Pain 7 days #42 tabs 08/14/24 sennosides 8.6 mg-docusate sodium 50 mg tablet (Stimulant Laxative Plus) 2 tab PO BID 3 days #12 tabs 08/14/24
== END 2024-08-14 14:00 | disposition home or self-care (01) ==
LOC: SDC 14:07 → MS3 14:07
PROVIDERS: Anesthesiology; Admitting Provider Specialist; Referring Provider Specialist; Visit Provider Specialist
PROC: (CPT 27284; principal; 2024-08-13 10:35)
DX: M16.12 Unilateral primary osteoarthritis, left hip (principal); F41.9 Anxiety disorder, unspecified; Z79.82 Long term (current) use of aspirin; K21.9 Gastro-esophageal reflux disease without esophagitis; I10 Essential (primary) hypertension; G47.00 Insomnia, unspecified; I25.10 Atherosclerotic heart disease of native coronary artery without angina pectoris; E78.2 Mixed hyperlipidemia; Z79.899 Other long term (current) drug therapy; E66.9 Obesity, unspecified; Z68.30 Body mass index [BMI] 30.0-30.9, adult
CPT/HCPCS: 27130; 01214; 36415; 73502; 76000; 80048; 82040; 82962; 83735; 85025; 87081; 93005; 94668; 96361; 96365; 96366; 97162; 97166; 97530; 97535; 99221; C1776; A4216; G0378; J3475

== ENCOUNTER 2024-10-04 00:16 | Emergency (ER) | payer MEDICARE, BC, SELFPAY ==
[2024-10-04 00:18] VITALS: BP 183/97; PULSE 79; RESP 18; TEMP 36.6; O2SAT 96; BMI 33.2
--- OUTSIDE RECORDS SUMMARY | 2024-10-04 00:52 | XMS RPT_ITS | CCD ---
Author Organization [facility] Care Team Providers Care Associate Financial Analyst Name Role Phone CARLIE LAI, ISH Harrington Primary Care Physician DONAVAN GASTELUM DO Primary Care Physician DONAVAN GASTELUM DO Attending Unavailable DONAVAN GASTELUM DO Primary Care Unavailable CHONG RAMSEY DO Attending Unavailable DONAVAN GASTELUM DO Primary Care Unavailable DONAVAN GASTELUM DO Attending Unavailable DONAVAN GASTELUM DO Primary Care Unavailable DONAVAN GASTELUM DO Attending Unavailable DONAVAN GASTELUM DO Primary Care Unavailable DONAVAN GASTELUM DO Attending Unavailable DONAVAN GASTELUM DO Primary Care Unavailable Dr. Donavan Gastelum DO Primary Care Provider [phone] Ch[place] LAI, Dr. Jacome Attending Provider Carson LAI, Dr. Vegas Referring Provider Carson LAI, Dr. Vegas Admit Provider Dr. Misbah Byrd MD Attending Provider Dr. Eulogio Sheets DO Other Provider Dr. Ursula Casper DO Other Provider Dr. Misbah Byrd MD Other Provider Dr. Eulogio Sheets DO Attending Provider Dr. Ursula Casper DO Attending Provider Donavan Gastelum Primary Care Unavailable Ursula Casper Attending Unavailable Eulogio Sheets Consulting Unavailable Misbah Byrd Referring Unavailable Misbah Byrd Admitting Unavailable Ursula Casper Consulting Unavailable Misbah Byrd Consulting Unavailable Eulogio Sheets Attending Unavailable Donavan Gastelum Primary Care Unavailable Misbah Byrd Admitting Unavailable Eulogio Sheets Consulting Unavailable Misbah Byrd Attending Unavailable Misbah Byrd Referring Unavailable Ursula Casper Consulting Unavailable Donavan Gastelum Primary Care Unavailable Misbah Byrd Referring Unavailable Jana Magana Attending Unavailable DONAVAN GASTELUM DO Primary Care Unavailable CARSON LAI, DR MISBAH Tong Attending Unavailab DONAVAN De La Cruz DO Primary Care Unavailable DR MISBAH BYRD MD Attending Unavailab ELIZABET Euceda Admitting Unavakarina AWAD, ELIZABET Miramontes Attending AllisonvaDONAVAN Goddard DO Primary Care Unavailable JESSIKA SILVER MD Consulting Unavailable DONAVAN GASTELUM DO Primary Care Unavailable DONAVAN GASTELUM DO Attending Unavailable DONAVAN GASTELUM DO Primary Care Unavailable DILLON HARTMAN, CASSIUS Arreaga Attending Unavailable Zohra Michele Unavailable Unavailable Allergies Allergy Classification Reported Allergen(s) Allergy Type Date of Onset Reaction(s) Facility (8 sources) Iodine; Translations: [iodine] Drug Allergy Redness of skin of face, Eruption of skin (disorder) [facility] (1 source) Triiodobenzoic Acids Allergy to substance 5 [facility] Comment on above: hives (1 source) Iodinated Contrast Media Drug allergy (disorder) 5 [facility] (1 source) clopidogrel; Translations: [clopidogrel] Drug Allergy 5 Flushing (disorder), Eruption of skin (disorder) [facility] Medications Current Medications Medication Drug Class(es) Dates Sig (Normalized) Sig (Original) amLODIPine 2.5 mg oral tablet (1 source) Dihydropyridine Calcium Channel Chris Start: 08-28-2024 amLODIPine 2.5 mg oral tablet Dose : 2.5 mg = 1 tab(s), Oral, qDay, Start 2.5mg. If BP > 140 systolic or 90 diastolic regularly increas to 5mg dosing D/C 5mg dosing, # 30 tab(s), 1 Refill(s), Pharmacy: [id number], 161.1, cm, 08/28/24 15:47:00 EDT, Height, kg, 08/28/24 15:35:00 EDT, Dosing Weight Start Date: 08/28/24 Status: Ordered Medication Dispense Status: Completed Quantity: 30.0 Unit: tab(s) Total Allowed Fills: 2 Fills Dispensed: 0 ascorbic acid 500 mg oral tablet (5 sources) Vitamin C Start: 07-09-2024 take 1 tablet by mouth once daily Ascorbic Acid (Vitamin C) (C-500) 500 mg tablet Active 500 mg PO DAILY July 09, 2024 12:00am Start: 03-22-2022 Vitamin C Dose : 1,000 mg =, qDay, 0 Refill(s) Start Date: 03/22/22 Status: Ordered Medication Dispense Status: Completed Total Allowed Fills: 1 Fills Dispensed: 0 Start: 03-22-2022 Vitamin C Dose : 1,000 mg =, qDay, 0 Refill(s) Start Date: 03/22/22 Status: Ordered aspirin 81 mg chewable tablet (3 sources) Platelet Aggregation Inhibitor, Nonsteroidal Anti-inflammatory Drug Start: 10-02-2024 aspirin 81 mg ora l tablet, chewable Dose : 81 mg = 1 tab(s), Oral, qDayM, # 30 tab(s), 0 Refill(s), Pharmacy: [id number], 157.5, cm, 10/01/24 15:09:00 EDT, Height, kg, 10/01/24 15:09:00 EDT, Dosing Weight Start Date: 10/02/24 Status: Ordered Medication Dispense Status: Completed Quantity: 30.0 Unit: tab(s) Total Allowed Fills: 1 Fills Dispensed: 0 Start: 08-14-2024 Aspirin 81 mg Tablet,Chewable Active 81 mg PO TWICE DAILY WITH MEALS 0 0 August 14, 2024 12:00am Take 81 mg aspirin twice daily for 4 weeks postoperatively for DVT prophylaxis. After 4 weeks you can then go back to normal 81 mg aspirin daily. Start: 07-09-2024 End: 08-14-2024 take 1 capsule by mouth once daily Aspirin 81 mg capsule Discontinued 81 mg PO DAILY July 09, 2024 12:00am August 14, 2024 9:11am beet root (1 source) Start: 08-28-2023 beet root beet root, 0 Refill(s), 81.1 Start Date: 08/28/23 Status: Ordered Medication Dispense Status: Completed Total Allowed Fills: 1 Fills Dispensed: 0 cefdinir 300 mg oral capsule (2 sources) Cephalosporin Antibacterial Start: 06-23-2023 End: 06-28-2023 cefdinir 300 mg oral capsule Dose : 300 mg = 1 cap(s), Oral, q12h, X 5 day(s), # 10 cap(s), 0 Refill(s), 06/28/23 12:50:00 PM EDT, Pharmacy: [facility], Urine leukocytes Hematuria, 160, cm, 06/23/23 12:30:00 EDT, Height, 81.3, kg, 06/23/23 12:30:00 EDT, Dosing Weight Start Date: 06/23/23 Stop Date: 06/28/23 Status: Ordered Start: 03-06-2023 End: 03-11-2023 cefdinir 300 mg oral capsule Dose : 300 mg = 1 cap(s), Oral, q12h, X 5 day(s), # 10 cap(s), 0 Refill(s), 03/11/23 1:55:00 PM EST, Pharmacy: [facility], Dysuria History of kidney stones, [...] cap(s), 0 Refill(s), 05/30/22 10:10:00 EDT, Pharmacy: [facility], UTI (urinary tract infection), 157.2, cm, 05/23/22 9:46:00 EDT, Height, 80.4 Start Date: 05/23/22 Stop Date: 05/30/22 Status: Ordered Start: 06-11-2021 End: 2021 cephalexin 500 mg oral capsu le Dose : 500 mg = 1 cap(s), Oral, q8h, X 7 day(s), # 21 cap(s), 0 Refill(s), 06/18/21 15:13:00 EDT, Pharmacy: [facility], 157.2, cm, 06/11/21 14:41:00 EDT, Height, 82.8 Start Date: 06/11/21 Stop Date: 06/18/21 Status: Ordered cholecalciferol 0.025 mg oral tablet (1 source) Vitamin D Start: 07-09-2024 take 1 tablet by mouth once daily Cholecalciferol (Vitamin D3) (Vitamin D3) 25 mcg (1,000 unit) tablet Active 25 ug PO DAILY July 09, 2024 12:00am cloNIDine hydrochloride 0.1 mg oral tablet (2 sources) Central alpha-2 Adrenergic Agonist Start: 07-22-2024 take 1 tablet by mouth every six hours as needed Clonidine Hcl 0.1 mg tablet Active 0.1 mg PO EVERY 6 HOURS as needed for hypertensive emergency August 01, 2024 12:00am clopidogrel 75 mg oral tablet (1 source) [id number] Platelet Inhibitor Start: 10-02-2024 End: 10-22-2024 Plavix 75 mg oral tablet Dose : 75 mg = 1 tab(s), Oral, qDay, # 20 tab(s), 0 Refill(s), Pharmacy: [id number], 157.5, cm, 10/01/24 15:09:00 EDT, Height, kg, 10/01/24 15:09:00 EDT, Dosing Weight Start Date: 10/02/24 Stop Date: 10/22/24 Status: Ordered Medication Dispense Status: Completed Quantity: 20.0 Unit: tab(s) Total Allowed Fills: 1 Fills Dispensed: 0 Cranberry preparation (4 sources) Non-Standardized Food Allergenic Extract, Non-Standardized Plant Allergenic Extract Start: 03-22-2022 take 1 capsule by mouth once daily cranberry oral capsule 4,200 mg, Oral, Daily, 0 Refill(s) Start Date: 03/22/22 Status: Ordered Medication Dispense Status: Completed Total Allowed Fills: 1 Fills Dispensed: 0 Start: 03-22-2022 take 1 capsule by mo uth once daily cranberry oral capsule 4,200 mg, Oral, Daily, 0 Refill(s) Start Date: 03/22/22 Status: Ordered docusate sodium 50 mg / sennosides, fci 8.6 mg oral tablet (1 source) Start: 08-14-2024 Sennosides-Docusate Sodium (Stimulant Laxative Plus) 8.6-50 mg Tablet Active 2 {tbl} PO TWICE A DAY 12 3 August 14, 2024 12:00am Take until first bowel movement, then as needed famotidine 20 mg oral tablet (2 sources) Histamine-2 Receptor Antagonist Start: 08-28-2023 take 1 tablet by mouth once daily Famotidine 20 mg Tablet Active 20 mg PO DAILY 30 30 August 14, 2024 12:00am Garlic (5 sources) Non-Standardized Food Allergenic Extract Start: 07-09-2024 take 1 capsule by mouth once daily Garlic 1,000 mg capsule Active 1000 mg PO DAILY July 09, 2024 12:00am On Hold: Resume on 08/28/24. Start: 03-22-2022 take 1 capsule by [facility] once daily garlic oral capsule Dose = 1 cap(s), Oral, Daily, 0 Refill(s) Start Date: 03/22/22 Status: Ordered Medication Dispense Status: Completed Total Allowed Fills: 1 Fills Dispensed: 0 Start: 03-22-2022 take 1 capsule by [facility] once daily garlic oral capsule Dose = 1 cap(s), Oral, Daily, 0 Refill(s) Start Date: 03/22/22 Status: Ordered hydroCHLOROthiazide 12.5 mg / lisinopril 20 mg oral tablet (8 sources) Thiazide Diuretic, Angiotensin Converting Enzyme Inhibitor Start: 07-09-2024 Lisinopril-Hydrochlorothiazi de 20-12.5 mg tablet Active 1 {tbl} PO DAILY July 09, 2024 12:00am Start: 06-27-2023 take 1 tablet by [facility] once daily hydrochlorothiazide-lisinopril 12.5 mg-2 0 mg oral tablet Dose = 1 tab(s), Oral, qDay, # 90 tab(s), 0 Refill(s), Pharmacy: [facility], 160, cm, 06/23/23 12:30:00 EDT, Height, kg, 06/23/23 12:30:00 EDT, Dosing Weight Start Date: 06/27/23 Status: Ordered Start: 11-21-2022 take 1 tablet by timothy once daily hydrochlorothiazide-lisinopril 12.5 mg-2 0 mg oral tablet Dose = 1 tab(s), Oral, qDay, # 90 tab(s), 1 Refill(s), Pharmacy: [facility], 157.2, cm, 11/21/22 10:55:00 EDT, Height, kg, 11/21/22 10:55:00 EDT, Dosing Weight Start Date: 11/21/22 Status: Ordered Start: 03-24-2022 take 1 tablet by [facility] once daily hydrochlorothiazide-lisinopril 12.5 mg-2 0 mg oral tablet Dose = 1 tab(s), Oral, qDay, # 90 tab(s), 1 Refill(s), Pharmacy: [facility], 157.2, cm, 03/22/22 10:58:00 EST, Height, kg, 03/22/22 10:58:00 EST, Dosing Weight Start Date: 03/24/22 Status: Ordered Start: 09-07-2021 take 1 tablet by [facility] once daily hydrochlorothiazide-lisinopril 12.5 mg-2 0 mg oral tablet Dose = 1 tab(s), Oral, qDay, # 90 tab(s), 1 Refill(s), Pharmacy: [facility], 157.2, cm, 09/07/21 13:31:00 EDT, Height, kg, 09/07/21 13:31:00 EDT, Dosing Weight Start Date: 09/07/21 Status: Ordered Start: 01-20-2014 End: 07-09-2024 take 1 tablet by mouth once daily hydrochlorothiazide-lisinopril 12.5 mg-2 0 mg oral tablet Dose = 1 tab(s), Oral, qDay, # 90 tab(s), 3 Refill(s), Pharmacy: [facility], 160, cm, 11/08/19 13:16:00 EDT, Height, kg, 11/08/19 13:16:00 EDT, Dosing Weight Start Date: 08/27/20 Status: Ordered ibuprofen 200 mg oral tablet (1 source) Nonsteroidal Anti-inflammatory Drug Start: 08-04-2023 ibuprofen 200 mg oral tablet Dose : 400 mg = 2 tab(s), Oral, q6hr, PRN pain or fever, 0 Refill(s) Start Date: 08/04/23 Status: Ordered Medication Dispense Status: Completed Total Allowed Fills: 1 Fills Dispensed: 0 lactobacillus acidophilus [id number] unt oral capsule (1 source) Start: 07-09-2024 take 10 capsules by mouth once daily Lactobacillus Acidophilus (Newflora) 10 billion cell capsule Active 100 NMA PO DAILY July 09, 2024 12:00am lisinopril 20 mg oral tablet (1 source) Angiotensin Converting Enzyme Inhibitor Start: 08-28-2024 lisinopril 20 mg oral tablet Dose : 20 mg = 1 tab(s), Oral, qDay, D/C lisinopril-HCTZ combo pill please 08/28/24, # 30 tab(s), 1 Refill(s), Pharmacy: [id number], 161.1, cm, 08/28/24 15:47:00 EDT, Height, kg, 08/28/24 15:35:00 EDT, Dosing Weight Start Date: 08/28/24 Status: Ordered Medication Dispense Status: Completed Quantity: 30.0 Unit: tab(s) Total Allowed Fills: 2 Fills Dispensed: 0 LORazepam 0.5 mg oral tablet (2 sources) Benzodiazepine Start: 08-01-2024 take 1 tablet by mouth every twelve hours as needed for anxiety Lorazepam (Ativan) 0.5 mg tablet Active 0.5 mg PO Q12H as needed for anxiety August 01, 2024 12:00am Start: 01-20-2014 End: 07-09-2024 Lorazepam Discontinued 1 mg January 20, 2014 1:00am July 09, 2024 8:29am meloxicam 7.5 mg oral tablet (1 source) Nonsteroidal Anti-inflammatory Drug Start: 08-14-2024 take 1 tablet by mouth twice daily Meloxicam 7.5 mg Tablet Active 7.5 mg PO TWICE A DAY 60 30 0 August 14, 2024 12:00am Do not take any other nonsteroidal anti-inflammatories while using meloxicam/Mobic. Natrol L-Arginine (1 source) Start: 04-12-2024 take 1 dose by mouth once daily Natrol L-Arginine Oral, qDay, 0 Refill(s) Start Date: 04/12/24 Status: Ordered Medication Dispense Status: Completed Total Allowed Fills: 1 Fills Dispensed: 0 natures calm (4 sources) Start: 03-22-2022 natures calm natures calm, 325 mg, 0 Refill(s), 81.1 Start Date: 03/22/22 Status: Ordered Medication Dispense Status: Completed Total Allowed Fills: 1 Fills Dispensed: 0 Start: 03-22-2022 natures calm n atures calm, 325 mg, 0 Refill(s), 81.1 Start Date: 03/22/22 Status: Ordered Fargo 8-Kel-Vho-Fish Oil (Fargo-3) 350 mg-235 mg- 90 mg-597 mg capsule,delayed release(DR/EC) (1 source) Start: 07-09-2024 Fargo 1-Cow-Zxw-Fish Oil (Fargo-3) 350 mg-235 mg- 90 mg-597 mg capsule,delayed release(DR/EC) Active 1 NMA PO DAILY July 09, 2024 12:00am On Hold: Resume on 08/28/24. oxyCODONE hydrochloride 5 mg oral tablet (1 source) Opioid Agonist Start: 08-14-2024 take 5-10 mg by mouth every four hours as needed for pain Oxycodone 5 mg Tablet Active 5 - 10 mg PO EVERY 4 HOURS NEEDED as needed for As Needed for Pain 42 7 0 August 14, 2024 Status post left hip replacement Presence of left artificial hip joint Probiotic (4 sources) Start: 03-22-2022 Probiotic 0 Refill(s) Start Date: 03/22/22 Status: Ordered Medication Dispense Status: Completed Total Allowed Fills: 1 Fills Dispensed: 0 Start: 03-22-2022 Probiotic 0 Re fill(s) Start Date: 03/22/22 Status: Ordered prodentim (3 sources) Start: 03-22-2022 prodentim prod entim, 0 Refill(s), 81.1 Start Date: 03/22/22 Status: Ordered propranolol hydrochloride 20 mg oral tablet (4 sources) beta-Adrenergic Chris Start: 08-21-2024 propranolol 20 mg or al tablet Dose : 20 mg = 1 tab(s), Oral, TID, Take 30-60 min before triggering events. If needing more can take 40mg, # 30 tab(s), 0 Refill(s), Pharmacy: [id number], Anxiety, 161.1, cm, 07/31/24 13:21:00 EDT, Height, kg, 07/31/24 13:21:00 EDT, Dosing Weight Start Date: 08/21/24 Status: Ordered Medication Dispense Status: Completed Quantity: 30.0 Unit: tab(s) Total Allowed Fills: 1 Fills Dispensed: 0 Indications: Anxiety disorder, unspecified; Start: 07-09-2024 take 1 tablet by timothy three times daily as needed for anxiety Propranolol 20 mg tablet Active 20 mg PO THREE TIMES A DAY as needed for anxiety July 09, 2024 12:00am Start: 11-21-2022 propranolol 20 mg oral tablet Dose : 20 mg = 1 tab(s), Oral, TID, Take 30-60 min before triggering events. If needing more can take 40mg, # 30 tab(s), 0 Refill(s), Pharmacy: [facility], Anxiety, 157.2, cm, 11/21/22 10:55:00 EDT, Height, kg, 11/21/22 10:55:00 EDT, Dosing Weight Start Date: 11/21/22 Status: Ordered rosuvastatin calcium 10 mg oral tablet (1 source) HMG-CoA Reductase Inhibitor Start: 10-02-2024 End: 11-01-2024 rosuvastatin 10 mg oral tablet Dose : 10 mg = 1 tab(s), Oral, qDay, # 30 tab(s), 0 Refill(s), Pharmacy: [id number], 157.5, cm, 10/01/24 15:09:00 EDT, Height, kg, 10/01/24 15:09:00 EDT, Dosing Weight Start Date: 10/02/24 Stop Date: 11/01/24 Status: Ordered Medication Dispense Status: Completed Quantity: 30.0 Unit: tab(s) Total Allowed Fills: 1 Fills Dispensed: 0 Turmeric extract (5 sources) Start: 07-09-2024 take 1 capsule by mouth once daily Turmeric 400 mg capsule Active 400 mg PO DAILY July 09, 2024 12:00am On Hold: Resume on 09/11/24. Start: 03-22-2022 turmeric 500 m g oral capsule 0 Refill(s) Start Date: 03/22/22 Status: Ordered Medication Dispense Status: Completed Total Allowed Fills: 1 Fills Dispensed: 0 Vitamin B Complex (Balanced B-50) tablet (1 source) Start: 07-09-2024 Vitamin B Comp yolanda (Balanced B-50) tablet Active 1 {tbl} PO DAILY July 09, 2024 12:00am Vitamin D3 25 mcg (1000 intl units) oral capsule (4 sources) Start: 03-22-2022 Vitamin D3 25 mcg (1000 intl units) oral capsule Dose : 25 mcg = 1 cap(s), Oral, qDay, # 100 cap(s), 0 Refill(s) Start Date: 03/22/22 Status: Ordered Medication Dispense Status: Completed Quantity: 100.0 Unit: cap(s) Total Allowed Fills: 1 Fills Dispensed: 0 Start: 03-22-2022 Vitamin D3 25 mcg (1000 intl units) oral capsule Dose : 25 mcg = 1 cap(s), Oral, qDay, # 100 cap(s), 0 Refill(s) Start Date: 03/22/22 Status: Ordered vitamin e 180 mg oral tablet (2 sources) Start: 03-22-2022 vitamin E Dose : 180 mg =, Oral, 0 Refill(s) Start Date: 03/22/22 Status: Ordered zinc acetate 50 mg oral capsule (4 sources) Start: 03-22-2022 zinc (as aceta te) 50 mg oral capsule Dose : 50 mg = 1 cap(s), Oral, qDay, 0 Refill(s) Start Date: 03/22/22 Status: Ordered Medication Dispense Status: Completed Total Allowed Fills: 1 Fills Dispensed: 0 zinc gluconate 50 mg oral tablet (1 source) Start: 07-09-2024 take 1 tablet by mouth once daily Zinc Gluconate 50 mg tablet Active 50 mg PO DAILY July 09, 2024 12:00am Problems Active Problems Problem Classification Problem Date Documented Date Episodic/Chronic Acute cerebrovascular disease (3 sources) Cerebral infarction, unspecified; Translations: [Cerebral infarction] Onset: 10-01-2024 Chronic Disorders of lipid metabolism (9 sources) Mixed hyperlipidemia; Translations: [Mixed hyperlipidemia] Onset: 10-01-2024 09-07-2021 Chronic Disorders of teeth and jaw (5 sources) Tooth disorder 03-22-2022 Episodic Esophageal disorders (7 sources) Gastroesophageal reflux disease 09-07-2021 Chronic Essential hypertension (11 sources) Essential hypertension; Translations: [Essential (primary) hypertension] Onset: 06-23-2023 09-07-2021 Chronic Genitourinary symptoms and ill-defined conditions (10 sources) Unspecified symptoms and signs involving the genitourinary system; Translations: [Hematuria, unspecified] Onset: 03-06-2023 Episodic Hypertension with complications and secondary hypertension (1 source) Secondary hypertension 07-31-2024 Chronic Osteoarthritis (1 source) Unilateral primary osteoarthritis, left hip; Translations: [Unilateral primary osteoarthritis, left hip] Onset: 09-08-2024 Chronic Other connective tissue disease (2 sources) History of repair of hip joint; Translations: [Presence of left artificial hip joint] 08-13-2024 Chronic Other connective tissue disease (1 source) Presence of left artificial hip joint; Translations: [Presence of left artificial hip joint] Onset: 08-15-2024 Chronic Other connective tissue disease (5 sources) Trochanteric bursitis 03-22-2022 Episodic Other non-traumatic joint disorders (3 sources) Arthritis of hip 06-23-2023 Chronic Other non-traumatic joint disorders (4 sources) Hip pain 03-22-2022 Episodic Other nutritional; endocrine; and metabolic disorders (2 sources) Body mass index 30+ - obesity 09-02-2023 Chronic Other nutritional; endocrine; and metabolic disorders (2 sources) Obesity 09-02-2023 Chronic Peripheral and visceral atherosclerosis (2 sources) Arteriosclerotic vascular disease 08-28-2023 Chronic Residual codes; unclassified (1 source) Screening due 09-02-2023 Episodic Residual codes; unclassified (1 source) Insomnia 07-22-2024 Episodic Screening and history of mental health and substance abuse codes (2 sources) Tobacco use and exposure - finding 09-02-2023 Chronic Unclassified (3 sources) Patient encounter status 06-23-2023 Unclassified (1 source) History of repair of hip joint 08-28-2024 Urinary tract infections (2 sources) Recurrent urinary tract infection 09-02-2023 Episodic Past or Other Problems Problem Classification Problem Date Documented Da te Episodic/Chronic Calculus of urinary tract (2 sources) Personal history of urinary calculi; Translations: [Personal history of urinary calculi] Onset: 03-06-2023 Episodic Results Test Name Value Interpretation Reference Range Facility .Auto Diffon 10-02-2024 Basophil, Absolute 0.0 10 3/mcL Normal 0.0-0.3 [facility] Comment on above: Performed By: #### C MP, GFR, MG, ANEU, CBC, ADIFF #### [address] [address] Basophils/100 WBC (Bld) 0.2 % Normal 0.0-2.5 [facility] Comment on above: Performed By: #### C MP, GFR, MG, ANEU, CBC, ADIFF #### [address] [address] Eosinophil, Absolute 0.0 10 3/mcL Normal 0.0-0.7 [facility] Comment on above: Performed By: #### C MP, GFR, MG, ANEU, CBC, ADIFF #### [address] [address] Eosinophils/100 WBC (Bld) 0.0 % Normal 0.0-6.0 [facility] Comment on above: Performed By: #### C MP, GFR, MG, ANEU, CBC, ADIFF #### [address] [address] Lymphocyte, Absolute 1.6 10 3/mcL Normal 0.9-4.3 [facility] Comment on above: Performed By: #### C MP, GFR, MG, ANEU, CBC, ADIFF #### [address] [address] Lymphocytes/100 WBC (Bld) 17.3 % Low 20.0-40.0 [facility] Comment on above: Performed By: #### C MP, GFR, MG, ANEU, CBC, ADIFF #### [address] [address] Monocyte, Absolute 0.5 10 3/mcL Normal 0.1-1.4 [facility] Comment on above: Performed By: #### C MP, GFR, MG, ANEU, CBC, ADIFF #### [address] [place], [place] [address] Monocytes/100 WBC (Bld) 4.8 % Normal 2.0-13.0 [facility] Comment on above: Performed By: #### C MP, GFR, MG, ANEU, CBC, ADIFF #### [address] [address] Neutrophils/100 WBC (Bld) 77.7 % High 50.0-75.0 [facility] Comment on above: Performed By: #### C MP, GFR, MG, ANEU, CBC, ADIFF #### [address] [address] .GFRon 10-02-2024 Estimated Glomerular Filtration Rate 105 ml/min/1.73sqm Normal [facility] Comment on above: Result Comment: Stages of Chronic Kidney Disease (CKD) Stage Description eGFR(ml/min/1.73 sq.m.) CKD 1 Normal kidney function or >=90 normal kindney function with possible kidney damage (ex. Proteinuria) CKD 2 Kidney damage with mild loss 60-89 of kidney function CKD 3a Mild to moderate loss of kidney 45-59 function CKD 3b Moderate to severe loss of 30-44 of kindey function CKD 4 Severe loss of kidney function 15-29 CKD 5 Kidney failure <15 Note: (go live 2024) the eGFR calculation was updated to the 2020 CKD-EPI creatinine equation without a race factor to calculate the eGFR results. Performed By: #### C MP, GFR, MG, ANEU, CBC, ADIFF #### [address] [address] .NEUABSon 10-02-2024 Neutrophil, Absolute 7.2 10 3/mcL Normal 2.3-8.1 [facility] Comment on above: Performed By: #### C MP, GFR, MG, ANEU, CBC, ADIFF #### [address] [address] CBCon 10-02-2024 Erythrocyte distribution width (RBC) [Ratio] 14.0 % Normal 11.5-15.5 [facility] Comment on above: Performed By: #### C MP, GFR, MG, ANEU, CBC, ADIFF #### [place] [address] Hematocrit (Bld) [Volume fraction] 37.8 % Normal 34.0-46.0 [facility] Comment on above: Performed By: #### C MP, GFR, MG, ANEU, CBC, ADIFF #### [place] [address] Hgb 12.5 G/dL Normal 12.0-16.0 [facility] Comment on above: Performed By: #### C MP, GFR, MG, ANEU, CBC, ADIFF #### [place] [id number] MCH (RBC) [Entitic mass] 27.1 pg Normal 27.0-33.0 [facility] Comment on above: Performed By: #### C MP, GFR, MG, ANEU, CBC, ADIFF #### [place] [address] MCHC 33.0 G/dL Normal 32.0-36.0 [facility] Comment on above: Performed By: #### C MP, GFR, MG, ANEU, CBC, ADIFF #### [place] [address] MCV (RBC) [Entitic vol] 82.1 fL Normal 80.0-99.0 [facility] Comment on above: Performed By: #### C MP, GFR, MG, ANEU, CBC, ADIFF #### [place] [address] Platelet 390 10 3/mcL Normal 150-450 [facility] Comment on above: Performed By: #### C MP, GFR, MG, ANEU, CBC, ADIFF #### [address] [place] [address] Platelet mean volume (Bld) [Entitic vol] 8.1 fL Normal 6.6-10.5 [facility] Comment on above: Performed By: #### C MP, GFR, MG, ANEU, CBC, ADIFF #### [address] [address] RBC 4.60 10 6/mcL Normal 4.10-5.30 [facility] Comment on above: Performed By: #### C MP, GFR, MG, ANEU, CBC, ADIFF #### [place] [id number] WBC 9.3 10 3/mcL Normal 4.5-10.8 [facility] Comment on above: Performed By: #### C MP, GFR, MG, ANEU, CBC, ADIFF #### [address] [address] CMPon 10-02-2024 Albumin Level 3.1 G/dL Low 3.4-4.8 [facility] Comment on above: Performed By: #### C MP, GFR, MG, ANEU, CBC, ADIFF #### [place] [address] Albumin/Globulin [Mass ratio] 0.8 {ratio} Low 1.1-2.5 [facility] Comment on above: Performed By: #### C MP, GFR, MG, ANEU, CBC, ADIFF #### [address] [address] ALP [Catalytic activity/Vol] 74 U/L Normal 40-135 [facility] Comment on above: Performed By: #### C MP, GFR, MG, ANEU, CBC, ADIFF #### [place] [address] ALT [Catalytic activity/Vol] 24 U/L Normal 14-59 [facility] Comment on above: Performed By: #### C MP, GFR, MG, ANEU, CBC, ADIFF #### [place] [phone] AST [Catalytic activity/Vol] 13 U/L Normal 10-40 [facility] Comment on above: Performed By: #### C MP, GFR, MG, ANEU, CBC, ADIFF #### [address] [address] Bili Total 0.3 mg/dL Normal 0.2-1.0 [facility] Comment on above: Result Comment: Use of this assay is not recommended for patients undergoing treatment with eltrombopag due to the potential for falsely elevated results. Performed By: #### C MP, GFR, MG, ANEU, CBC, ADIFF #### [address] [address] BUN/Creatinine Ratio 38 ratio High 7-27 [facility] Comment on above: Performed By: #### C MP, GFR, MG, ANEU, CBC, ADIFF #### [address] [address] Calcium [Mass/Vol] 9.5 mg/dL Normal 8.4-10.2 [facility] Comment on above: Performed By: #### C MP, GFR, MG, ANEU, CBC, ADIFF #### [address] [address] Chloride [Moles/Vol] 107 mmol/L Normal 98-107 [facility] Comment on above: Performed By: #### C MP, GFR, MG, ANEU, CBC, ADIFF #### [address] [address] CO2 [Moles/Vol] 31 mmol/L Normal 23-31 [facility] Comment on above: Performed By: #### C MP, GFR, MG, ANEU, CBC, ADIFF #### [address] [address] Creatinine [Mass/Vol] 0.48 mg/dL Low 0.51-0.[address] [facility] Comment on above: Performed By: #### C MP, GFR, MG, ANEU, CBC, ADIFF #### [address] [address] Electrolyte Balance 6.0 mEq/L Normal 4.0-15.0 [facility] Comment on above: Performed By: #### C MP, GFR, MG, ANEU, CBC, ADIFF #### [address] [address] Globulin 3.8 G/dL Normal 2.7-4.4 [facility] Comment on above: Performed By: #### C MP, GFR, MG, ANEU, CBC, ADIFF #### [address] [address] Glucose [Mass/Vol] 116 mg/dL High 80-115 [facility] Comment on above: Performed By: #### C MP, GFR, MG, ANEU, CBC, ADIFF #### [address] [address] Potassium [Moles/Vol] 3.5 mmol/L Normal 3.5-5.[address] [facility] Comment on above: Performed By: #### C MP, GFR, MG, ANEU, CBC, ADIFF #### [address] [address] Sodium [Moles/Vol] 144 mmol/L Normal 136-145 [facility] Comment on above: Performed By: #### C MP, GFR, MG, ANEU, CBC, ADIFF #### [address] [address] Total Protein 6.9 G/dL Normal 6.4-8.2 [facility] Comment on above: Performed By: #### C MP, GFR, MG, ANEU, CBC, ADIFF #### [address] [address] Urea nitrogen [Mass/Vol] 18 mg/dL Normal 7-18 [facility] Comment on above: Performed By: #### C MP, GFR, MG, ANEU, CBC, ADIFF #### [address] [address] LABORATORYOrdered By: SYSTEM SYSTEM on 10-02-2024 Albumin BCP dye [Mass/Vol] 3.1 G/dL Low 3.4 - 4.8 G/dL AO ADM SS Albumin/Globulin [Mass ratio] 0.8 {ratio} Low 1.1 - 2.5 ratio AO ADM SS ALP [Catalytic activity/Vol] 74 U/L Normal 40 - 135 U/L AO ADM SS ALT With P-5'-P [Catalytic activity/Vol] 24 U/L Normal 14 - 59 U/L AO ADM SS AST With P-5'-P [Catalytic activity/Vol] 13 U/L Normal 10 - 40 U/L AO ADM SS Basophils (Bld) [#/Vol] 0.0 103/mcL Normal 0.0 - 0.3 10^3/mcL AO Workflow SS Basophils/100 WBC (Bld) 0.2 % Normal 0.0 - 2.5 % AO Workflow SS Bilirubin [Mass/Vol] 0.3 mg/dL Normal 0.2 - 1 .0 mg/dL AO ADM SS Comment on above: Interpretive Data: U se of this assay is not recommended for patients undergoing treatment with eltrombopag due to the potential for falsely elevated results. Calcium [Mass/Vol] 9.5 mg/dL Normal 8.4 - 10. 2 mg/dL AO ADM SS Chloride [Moles/Vol] 107 mmol/L Normal 98 - 10 7 mmol/L AO ADM SS CO2 [Moles/Vol] 31 mmol/L Normal 23 - 31 mmol/L AO ADM SS Creatinine [Mass/Vol] 0.48 mg/dL Low 0.51 - 0.95 mg/dL AO ADM SS Electrolyte Balance 6.0 mEq/L Normal 4.0 - 15 .0 mEq/L AO ADM SS Eosinophil, Absolute 0.0 103/mcL Normal 0.0 - 0 .7 10^3/mcL AO Workflow SS Eosinophils/100 WBC (Bld) 0.0 % Normal 0.0 - 6.0 % AO Workflow SS Erythrocyte distribution width (RBC) [Ratio] 14.0 % Normal 11.5 - 15.5 % AO Workflow SS Estimated Glomerular Filtration Rate 105 ml/min/1.73sqm Invalid Interpretation Code AO Chemistry S Comment on above: Interpretive Data: Stages of Chronic Kidney Disease (CKD) Stage Description eGFR(ml/min/1.73 sq.m.) CKD 1 Normal kidney function or >=90 normal kindney function with possible kidney damage (ex. Proteinuria) CKD 2 Kidney damage with mild loss 60-89 of kidney function CKD 3a Mild to moderate loss of kidney 45-59 function CKD 3b Moderate to severe loss of 30-44 of kindey function CKD 4 Severe loss of kidney function 15-29 CKD 5 Kidney failure <15 Note: (go live 2024) the eGFR calculation was updated to the 2020 CKD-EPI creatinine equation without a race factor to calculate the eGFR results. Globulin 3.8 G/dL Normal 2.7 - 4.4 G/dL AO ADM SS Glucose [Mass/Vol] 116 mg/dL High 80 - 115 mg/dL AO ADM SS Hematocrit (Bld) [Volume fraction] 37.8 % Normal 34.0 - 46.0 % AO Workflow SS Hemoglobin (Bld) [Mass/Vol] 12.5 G/dL Normal 12.0 - 16.0 G/dL AO Workflow SS Lymphocytes (Bld) [#/Vol] 1.6 103/mcL Normal 0.9 - 4.3 10^3/mcL AO Workflow SS Lymphocytes/100 WBC (Bld) 17.3 % Low 20.0 - 40.0 % AO Workflow SS Magnesium [Mass/Vol] 2.1 mg/dL Normal 1.8 - 2 .4 mg/dL AO ADM SS MCH (RBC) [Entitic mass] 27.1 pg Normal 27. 0 - 33.0 pg AO Workflow SS MCHC 33.0 G/dL Normal 32.0 - 36.0 G/dL AO Workflow SS MCV (RBC) [Entitic vol] 82.1 fL Normal 80.0 - 99.0 fL AO Workflow SS Monocytes (Bld) [#/Vol] 0.5 103/mcL Normal 0.1 - 1.4 10^3/mcL AO Workflow SS Monocytes/100 WBC (Bld) 4.8 % Normal 2.0 - 13.0 % AO Workflow SS Neutrophils (Bld) [#/Vol] 7.2 103/mcL Normal 2.3 - 8.1 10^3/mcL AO Workflow SS Neutrophils/100 WBC (Bld) 77.7 % High 50.0 - 75.0 % AO Workflow SS Platelet mean volume (Bld) [Entitic vol] 8.1 fL Normal 6.6 - 10.5 fL AO Workflow SS Platelets (Bld) [#/Vol] 390 103/mcL Normal 150 - 450 10^3/mcL AO Workflow SS Potassium [Moles/Vol] 3.5 mmol/L Normal 3.5 - 5.1 mmol/L AO ADM SS Protein [Mass/Vol] 6.9 G/dL Normal 6.4 - 8.2 G/dL AO ADM SS RBC (Bld) [#/Vol] 4.60 106/mcL Normal 4.10 - 5.3 0 10^6/mcL AO Workflow SS Sodium [Moles/Vol] 144 mmol/L Normal 136 - 145 mmol/L AO ADM SS Urea nitrogen [Mass/Vol] 18 mg/dL Normal 7 - 18 mg/d L AO ADM SS Urea nitrogen/Creatinine [Mass ratio] 38 ratio High 7 - 27 ratio AO ADM SS WBC (Bld) [#/Vol] 9.3 103/mcL Normal 4.5 - 10.8 10^3/mcL AO Workflow SS MGon 10-02-2024 Magnesium [Mass/Vol] 2.1 mg/dL Normal 1.8-2.4 [facility] Comment on above: Performed By: #### C MP, GFR, MG, ANEU, CBC, ADIFF #### [address] [address] .Auto Diffon 10-01-2024 Basophil, Absolute 0.1 10 3/mcL Normal 0.0-0.3 [facility] Comment on above: Performed By: #### A ALYSSAEL, ADIFF, PRO, BMP, APTT, TROPHS, CBC, MDW, ABSGEL, MG, GFR, ANEU #### [address] [address] Basophils/100 WBC (Bld) 0.9 % Normal 0.0-2.5 [facility] Comment on above: Performed By: #### A BOGEL, ADIFF, PRO, BMP, APTT, TROPHS, CBC, MDW, ABSGEL, MG, GFR, ANEU #### [address] [address] Eosinophil, Absolute 0.2 10 3/mcL Normal 0.0-0.7 [facility] Comment on above: Performed By: #### A BOGEL, ADIFF, PRO, BMP, APTT, TROPHS, CBC, MDW, ABSGEL, MG, GFR, ANEU #### [address] [address] Eosinophils/100 WBC (Bld) 3.4 % Normal 0.0-6.0 [facility] Comment on above: Performed By: #### A BOGEL, ADIFF, PRO, BMP, APTT, TROPHS, CBC, MDW, ABSGEL, MG, GFR, ANEU #### [address] [address] Lymphocyte, Absolute 3.2 10 3/mcL Normal 0.9-4.3 [facility] Comment on above: Performed By: #### A BOGEL, ADIFF, PRO, BMP, APTT, TROPHS, CBC, MDW, ABSGEL, MG, GFR, ANEU #### [address] [address] Lymphocytes/100 WBC (Bld) 43.9 % High 20.0-40.0 [facility] Comment on above: Performed By: #### A BOGEL, ADIFF, PRO, BMP, APTT, TROPHS, CBC, MDW, ABSGEL, MG, GFR, ANEU #### [address] [address] Monocyte, Absolute 0.4 10 3/mcL Normal 0.1-1.4 [facility] Comment on above: Performed By: #### A BOGEL, ADIFF, PRO, BMP, APTT, TROPHS, CBC, MDW, ABSGEL, MG, GFR, ANEU #### [address] [address] Monocytes/100 WBC (Bld) 5.4 % Normal 2.0-13.0 [facility] Comment on above: Performed By: #### A BOGEL, ADIFF, PRO, BMP, APTT, TROPHS, CBC, MDW, ABSGEL, MG, GFR, ANEU #### [address] [address] Neutrophils/100 WBC (Bld) 46.4 % Low 50.0-75.0 [facility] Comment on above: Performed By: #### A BOGEL, ADIFF, PRO, BMP, APTT, TROPHS, CBC, MDW, ABSGEL, MG, GFR, ANEU #### [address] [address] .GFRon 10-01-2024 Estimated Glomerular Filtration Rate 101 ml/min/1.73sqm Normal [facility] Comment on above: Result Comment: Stages of Chronic Kidney Disease (CKD) Stage Description eGFR(ml/min/1.73 sq.m.) CKD 1 Normal kidney function or >=90 normal kindney function with possible kidney damage (ex. Proteinuria) CKD 2 Kidney damage with mild loss 60-89 of kidney function CKD 3a Mild to moderate loss of kidney 45-59 function CKD 3b Moderate to severe loss of 30-44 of kindey function CKD 4 Severe loss of kidney function 15-29 CKD 5 Kidney failure <15 Note: (go live 2024) the eGFR calculation was updated to the 2020 CKD-EPI creatinine equation without a race factor to calculate the eGFR results. Performed By: #### C MP, GFR, MG, ANEU, CBC, ADIFF #### [address] [address] .MDWon 10-01-2024 Monocyte Distribution Width 16.84 Normal 0.00-20.00 [facility] Comment on above: Result Comment: For ED adult patients suspected of sepsis, MDW<=20.0 does not rule out sepsis or risk of sepsis Performed By: #### A BOGEL, ADIFF, PRO, BMP, APTT, TROPHS, CBC, MDW, ABSGEL, MG, GFR, ANEU #### [address] [address] .NEUABSon 10-01-2024 Neutrophil, Absolute 3.4 10 3/mcL Normal 2.3-8.1 [facility] Comment on above: Performed By: #### A BOGEL, ADIFF, PRO, BMP, APTT, TROPHS, CBC, MDW, ABSGEL, MG, GFR, ANEU #### [address] [address] A1Con 10-01-2024 Glucose [Mass/Vol] 111 mg/dL Normal [facility] Comment on above: Result Comment: Ines mated Average Glucose calculated by equation ((28.7xA1C)-46.7) Estimated average glucose (eAG) is a calculated value from Hemoglobin A1C and is international sales representative of the average blood glucose level in the last 2-3 month period. Normal range: less than 114 mg/dL Performed By: #### C MP, GFR, MG, ANEU, CBC, ADIFF #### [address] [address] HbA1c (Bld) [Mass fraction] 5.5 % Normal 4.3-6.4 [facility] Comment on above: Performed By: #### C MP, GFR, MG, ANEU, CBC, ADIFF #### [address] [address] ABO/Rh (Gel)on 10-01-2024 ABO/Rh Interp AB NEG Invalid Interpretation Code [facility] Comment on above: Performed By: #### C MP, GFR, MG, ANEU, CBC, ADIFF #### [address] [address] ABS (Gel)on 10-01-2024 ABSC Interp (Gel) Negative Normal [facility] Comment on above: Performed By: #### C MP, GFR, MG, ANEU, CBC, ADIFF #### [address] [address] APTTon 10-01-2024 aPTT Coag (Bld) [Time] 30.5 s Normal 25.0-35.0 [facility] Comment on above: Result Comment: For Heparin anticoagulation therapy, the recommended therapeutic range is: 45.4-75.9 seconds. Patients on heparin therapy may have an extreme result. Performed By: #### C MP, GFR, MG, ANEU, CBC, ADIFF #### [address] [address] BMPon 10-01-2024 BUN/Creatinine Ratio 25 ratio Normal 7-27 [facility] Comment on above: Performed By: #### C MP, GFR, MG, ANEU, CBC, ADIFF #### [address] [address] Calcium [Mass/Vol] 9.9 mg/dL Normal 8.4-10.2 [facility] Comment on above: Performed By: #### C MP, GFR, MG, ANEU, CBC, ADIFF #### [place] [address] Chloride [Moles/Vol] 102 mmol/L Normal 98-107 [facility] Comment on above: Performed By: #### C MP, GFR, MG, ANEU, CBC, ADIFF #### [place] [address] Creatinine [Mass/Vol] 0.57 mg/dL Normal 0.51-0.[address] [facility] Comment on above: Performed By: #### C MP, GFR, MG, ANEU, CBC, ADIFF #### [place] [address] Electrolyte Balance 8.0 mEq/L Normal 4.0-15.0 [facility] Comment on above: Performed By: #### C MP, GFR, MG, ANEU, CBC, ADIFF #### [place] [address] Glucose [Mass/Vol] 119 mg/dL High 80-115 [facility] Comment on above: Performed By: #### C MP, GFR, MG, ANEU, CBC, ADIFF #### [place] [address] Potassium [Moles/Vol] 3.3 mmol/L Low 3.5-5.[address] [facility] Comment on above: Performed By: #### C MP, GFR, MG, ANEU, CBC, ADIFF #### [place] [address] Sodium [Moles/Vol] 139 mmol/L Normal 136-145 [facility] Comment on above: Performed By: #### C MP, GFR, MG, ANEU, CBC, ADIFF #### [address] [address] Urea nitrogen [Mass/Vol] 14 mg/dL Normal 7-18 [facility] Comment on above: Performed By: #### C MP, GFR, MG, ANEU, CBC, ADIFF #### [address] [address] CO2 [Moles/Vol] 29 mmol/L Normal 23-31 [facility] Comment on above: Performed By: #### C MP, GFR, MG, ANEU, CBC, ADIFF #### [address] [address] CBCon 10-01-2024 Erythrocyte distribution width (RBC) [Ratio] 14.0 % Normal 11.5-15.5 [facility] Comment on above: Performed By: #### A BOBBY, ADIFF, PRO, BMP, APTT, TROPHS, CBC, MDW, ABSGEL, MG, GFR, ANEU #### [address] [address] Hematocrit (Bld) [Volume fraction] 40.1 % Normal 34.0-46.0 [facility] Comment on above: Performed By: #### A BOGEL, ADIFF, PRO, BMP, APTT, TROPHS, CBC, MDW, ABSGEL, MG, GFR, ANEU #### [address] [address] Hgb 13.2 G/dL Normal 12.0-16.0 [facility] Comment on above: Performed By: #### A BOGEL, ADIFF, PRO, BMP, APTT, TROPHS, CBC, MDW, ABSGEL, MG, GFR, ANEU #### [address] [address] MCH (RBC) [Entitic mass] 27.3 pg Normal 27.0-33.0 [facility] Comment on above: Performed By: #### A BOGEL, ADIFF, PRO, BMP, APTT, TROPHS, CBC, MDW, ABSGEL, MG, GFR, ANEU #### [address] [address] MCHC 32.9 G/dL Normal 32.0-36.0 [facility] Comment on above: Performed By: #### A BOGEL, ADIFF, PRO, BMP, APTT, TROPHS, CBC, MDW, ABSGEL, MG, GFR, ANEU #### [address] [address] MCV (RBC) [Entitic vol] 83.0 fL Normal 80.0-99.0 [facility] Comment on above: Performed By: #### A BOGEL, ADIFF, PRO, BMP, APTT, TROPHS, CBC, MDW, ABSGEL, MG, GFR, ANEU #### [address] [address] Platelet 375 10 3/mcL Normal 150-450 [facility] Comment on above: Performed By: #### A BOGEL, ADIFF, PRO, BMP, APTT, TROPHS, CBC, MDW, ABSGEL, MG, GFR, ANEU #### [address] [address] Platelet mean volume (Bld) [Entitic vol] 8.0 fL Normal 6.6-10.5 [facility] Comment on above: Performed By: #### A BOGEL, ADIFF, PRO, BMP, APTT, TROPHS, CBC, MDW, ABSGEL, MG, GFR, ANEU #### [address] [address] RBC 4.83 10 6/mcL Normal 4.10-5.30 [facility] Comment on above: Performed By: #### A BOGEL, ADIFF, PRO, BMP, APTT, TROPHS, CBC, MDW, ABSGEL, MG, GFR, ANEU #### [address] [address] WBC 7.3 10 3/mcL Normal 4.5-10.8 [facility] Comment on above: Performed By: #### A BOGEL, ADIFF, PRO, BMP, APTT, TROPHS, CBC, MDW, ABSGEL, MG, GFR, ANEU #### [address] [place], [place] [address] CT ANGIOGRAPHY HEAD W/ CONTR Alvin 10-01-2024 CT ANGIOGRAPHY HEAD W/ CONTRAST ORIGINAL EXAMINATION: CTA OF THE HEAD WITH CONTRAST 10/01/2024 12:34 pm: TECHNIQUE: CTA of the head/brain was performed with the administration of intravenous contrast. Multiplanar reformatted images are provided for review. MIP images are provided for review. Automated exposure control, iterative reconstruction, and/or weight based adjustment of the mA/kV was utilized to reduce the radiation dose to as low as reasonably achievable. COMPARISON: None. HISTORY: ORDERING SYSTEM PROVIDED HISTORY: Reason for Exam: Rt Weakness FINDINGS: ANTERIOR CIRCULATION: No significant stenosis of the intracranial internal carotid, anterior cerebral, or middle cerebral arteries. No aneurysm. POSTERIOR CIRCULATION: No significant stenosis of the vertebral, basilar, or posterior cerebral arteries. No aneurysm. OTHER: No dural venous sinus thrombosis on this non-dedicated study. BRAIN: No mass effect or midline shift. No extra-axial fluid collection. The avina-white differentiation is maintained. IMPRESSION: Unremarkable CTA of the head. Interpreted by: Elfego Diaz DO Preliminary Report By: Elfego Diaz DO Electronically signed By Elfego Diaz DO Dictated Date: 10/01/2024 12:39:54 PM Prelim Date: 10/01/2024 12:42:47 PM Sign Date: 10/01/2024 12:42:47 PM Ordering Provider: MISHA Treviño [facility] CT ANGIOGRAPHY NECK W/CONTRA [place] 10-01-2024 CT ANGIOGRAPHY NECK W/CONTRAST ORIGINAL EXAMINATION: CTA OF THE NECK 10/01/2024 12:34 pm TECHNIQUE: CTA of the neck was performed with the administration of intravenous contrast. Multiplanar reformatted images are provided for review. MIP images are provided for review. Stenosis of the internal carotid arteries measured using NASCET criteria. Automated exposure control, iterative reconstruction, and/or weight based adjustment of the mA/kV was utilized to reduce the radiation dose to as low as reasonably achievable. COMPARISON: None. HISTORY: ORDERING SYSTEM PROVIDED HISTORY: Reason for Exam: Rt Weakness FINDINGS: AORTIC ARCH/ARCH VESSELS: No dissection or arterial injury. No significant stenosis of the brachiocephalic or subclavian arteries. CAROTID ARTERIES: No dissection, arterial injury, or hemodynamically significant stenosis by NASCET criteria. VERTEBRAL ARTERIES: No dissection, arterial injury, or significant stenosis. IMPRESSION: No significant arterial stenosis in the neck. Interpreted by: Violette Cook Preliminary Report By: Violette Cook Electronically signed By Violette Cook Dictated Date: 10/01/2024 12:48:07 PM Prelim Date: 10/01/2024 12:49:00 PM Sign Date: 10/01/2024 12:49:00 PM Ordering Provider: MISHA BLACK [facility] CT HEAD OR BRAIN W/O CONTRAS Ton 10-01-2024 CT HEAD OR BRAIN W/O CONTRAST ORIGINAL EXAMINATION: CT OF THE HEAD WITHOUT CONTRAST 10/01/2024 12:33 pm TECHNIQUE: CT of the head was performed without the administration of intravenous contrast. Automated exposure control, iterative reconstruction, and/or weight based adjustment of the mA/kV was utilized to reduce the radiation dose to as low as reasonably achievable. COMPARISON: None. HISTORY: ORDERING SYSTEM PROVIDED HISTORY: Reason for Exam: Rt Weakness FINDINGS: BRAIN/VENTRICLES: There is no acute intracranial hemorrhage, mass effect or midline shift. No abnormal extra-axial fluid collection. The ventricles and sulci are not enlarged. There is a 7 mm hypodensity in the left basal ganglia, chronicity uncertain. ORBITS: The visualized portion of the orbits demonstrate no acute abnormality. SINUSES: The visualized paranasal sinuses and mastoid air cells demonstrate no acute abnormality. SOFT TISSUES/SKULL: No acute abnormality of the visualized skull or soft tissues. 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 Interpreted by: Violette Cook Preliminary Report By: Violette Cook Electronically signed By Violette Cook Dictated Date: 10/01/2024 12:46:39 PM Prelim Date: 10/01/2024 12:47:56 PM Sign Date: 10/01/2024 12:47:56 PM Ordering Provider: MISHA BLACK [facility] FT4on 10-01-2024 Free T4 [Mass/Vol] 1.06 ng/dL Normal 0.76-1.46 [facility] Comment on above: Performed By: #### C MP, GFR, MG, ANEU, CBC, ADIFF #### [facility] [address] [place] [id number] LABORATORYOrdered By: Ale Cordon on 10-01-2024 Cholesterol [Mass/Vol] 273 mg/dL High 0 - 2 00 mg/dL AO ADM SS Comment on above: Interpretive Data: C holesterol Reference Interval: Less than 200 Desirable 200-239 Borderline high risk 240 and above High risk Cholesterol in HDL [Mass/Vol] 53 mg/dL Normal 40 - 60 mg/dL AO ADM SS Cholesterol in LDL [Mass/Vol] 204 mg/dL High 0 - 130 mg/dL AO ADM SS Triglyceride [Mass/Vol] 80 mg/dL Normal 0 - 150 mg/dL AO ADM SS Comment on above: Interpretive Data: T riglyceride Reference Interval: Less than 150 Normal 150-199 Borderline high risk 200-499 High risk 500 or higher Very high risk LABORATORYOrdered By: SYSTEM SYSTEM on 10-01-2024 Free T4 [Mass/Vol] 1.06 ng/dL Normal 0.76 - 1. 46 ng/dL AO ADM SS Glucose [Mass/Vol] 111 mg/dL Invalid Interpretation Code AO Chemistry S Comment on above: Interpretive Data: E stimated average glucose (eAG) is a calculated value from Hemoglobin A1C and is international sales representative of the average blood glucose level in the last 2-3 month period. Normal range: less than 114 mg/dL HbA1c (Bld) [Mass fraction] 5.5 % Normal 4.3 - 6.4 % AO ADM SS TSH Qn 0.24 m[IU]/L Low 0.36 - 3.74 mcIU/mL AO ADM SS aPTT Coag (PPP) [Time] 30.5 s Normal 25.0 - 35.0 seconds AO [facility] SS Comment on above: Interpretive Data: F or Heparin anticoagulation therapy, the recommended therapeutic range is: 45.4-75.9 seconds. Patients on heparin therapy may have an extreme result. Basophils (Bld) [#/Vol] 0.1 103/mcL Normal 0.0 - 0.3 10^3/mcL AO Workflow SS Basophils/100 WBC (Bld) 0.9 % Normal 0.0 - 2.5 % AO Workflow SS Calcium [Mass/Vol] 9.9 mg/dL Normal 8.4 - 10. 2 mg/dL AO ADM SS Chloride [Moles/Vol] 102 mmol/L Normal 98 - 10 7 mmol/L AO ADM SS CO2 [Moles/Vol] 29 mmol/L Normal 23 - 31 mmol/L AO ADM SS Creatinine [Mass/Vol] 0.57 mg/dL Normal 0.51 - 0.95 mg/dL AO ADM SS Electrolyte Balance 8.0 mEq/L Normal 4.0 - 15 .0 mEq/L AO ADM SS Eosinophil, Absolute 0.2 103/mcL Normal 0.0 - 0 .7 10^3/mcL AO Workflow SS Eosinophils/100 WBC (Bld) 3.4 % Normal 0.0 - 6.0 % AO Workflow SS Erythrocyte distribution width (RBC) [Ratio] 14.0 % Normal 11.5 - 15.5 % AO Workflow SS Estimated Glomerular Filtration Rate 101 ml/min/1.73sqm Invalid Interpretation Code AO Chemistry S Comment on above: Interpretive Data: Stages of Chronic Kidney Disease (CKD) Stage Description eGFR(ml/min/1.73 sq.m.) CKD 1 Normal kidney function or >=90 normal kindney function with possible kidney damage (ex. Proteinuria) CKD 2 Kidney damage with mild loss 60-89 of kidney function CKD 3a Mild to moderate loss of kidney 45-59 function CKD 3b Moderate to severe loss of 30-44 of kindey function CKD 4 Severe loss of kidney function 15-29 CKD 5 Kidney failure <15 Note: (go live 2024) the eGFR calculation was updated to the 2020 CKD-EPI creatinine equation without a race factor to calculate the eGFR results. Glucose [Mass/Vol] 119 mg/dL High 80 - 115 mg/dL AO ADM SS Hematocrit (Bld) [Volume fraction] 40.1 % Normal 34.0 - 46.0 % AO Workflow SS Hemoglobin (Bld) [Mass/Vol] 13.2 G/dL Normal 12.0 - 16.0 G/dL AO Workflow SS INR Coag (PPP) [Relative time] 1.0 {INR} Invalid Interpretation Code AO HemoHub SS Comment on above: Interpretive Data: Ion alcantar [employer] (CHEST, 1991, 102:312S-25S) recommended therapeutic range for oral anticoagulant therapy is: LOW RISK: Prophylaxis of venous thrombosis INR: 2.0-3.0 Treatment of pulmonary embolism 2.0-3.0 Prevention of systemic embolism 2.0-3.0 HIGH RISK: Mechanical prosthetic valves 2.5-3.5 Lymphocytes (Bld) [#/Vol] 3.2 103/mcL Normal 0.9 - 4.3 10^3/mcL AO Workflow SS Lymphocytes/100 WBC (Bld) 43.9 % High 20.0 - 40.0 % AO Workflow SS Magnesium [Mass/Vol] 2.1 mg/dL Normal 1.8 - 2 .4 mg/dL AO ADM SS MCH (RBC) [Entitic mass] 27.3 pg Normal 27. 0 - 33.0 pg AO Workflow SS MCHC 32.9 G/dL Normal 32.0 - 36.0 G/dL AO Workflow SS MCV (RBC) [Entitic vol] 83.0 fL Normal 80.0 - 99.0 fL AO Workflow SS Monocyte distribution width Auto (Bld) [Entitic vol] 16.84 1 Normal 0.00 - 20.00 AO Workflow SS Comment on above: Result Comment: For ED adult patients suspected of sepsis, MDW<=20.0 does not rule out sepsis or risk of sepsis Monocytes (Bld) [#/Vol] 0.4 103/mcL Normal 0.1 - 1.4 10^3/mcL AO Workflow SS Monocytes/100 WBC (Bld) 5.4 % Normal 2.0 - 13.0 % AO Workflow SS Neutrophils (Bld) [#/Vol] 3.4 103/mcL Normal 2.3 - 8.1 10^3/mcL AO Workflow SS Neutrophils/100 WBC (Bld) 46.4 % Low 50.0 - 75.0 % AO Workflow SS Platelet mean volume (Bld) [Entitic vol] 8.0 fL Normal 6.6 - 10.5 fL AO Workflow SS Platelets (Bld) [#/Vol] 375 103/mcL Normal 150 - 450 10^3/mcL AO Workflow SS Potassium [Moles/Vol] 3.3 mmol/L Low 3.5 - 5.1 mmol/L AO ADM SS PT Coag (PPP) [Time] 11.0 s Normal 9.0 - 1 4.4 seconds AO HemoHub SS RBC (Bld) [#/Vol] 4.83 106/mcL Normal 4.10 - 5.3 0 10^6/mcL AO Workflow SS Sodium [Moles/Vol] 139 mmol/L Normal 136 - 145 mmol/L AO ADM SS Troponin I.cardiac DL <= 0.01 ng/mL [Mass/Vol] 4 ng/L Normal 0 - 51 ng/L AO ADM SS Comment on above: Interpretive Data: H igh Sensitive Troponin I Reference Ranges: Female: 0-51 ng/L Male: 0-76 ng/L Testing performed on [employer] using a homogeneous sandwich chemiluminescent immunoassay based on Signature technology. Urea nitrogen [Mass/Vol] 14 mg/dL Normal 7 - 18 mg/d L AO ADM SS Urea nitrogen/Creatinine [Mass ratio] 25 ratio Normal 7 - 27 ratio AO ADM SS WBC (Bld) [#/Vol] 7.3 103/mcL Normal 4.5 - 10.8 10^3/mcL AO Workflow SS LABORATORYOrdered By: Nisa Desai on 10-01-2024 ABO and Rh group Nom (Bld) Blood group AB Rh(D) negative Invalid Interpretation Code AO BB Auto SS Blood group antibody screen Ql Negative ABSC (10/01/24 11:25 AM) Normal AO BB Auto SS LABORATORYOrdered By: Yajaira Acevedo on 10-01-2024 Blood Glucose Interventions Notify physician (10/01/24 11:04 AM) [facility] Blood Glucose Testing Reason Routine (10/01/24 11:04 AM) [facility] Glucose [Mass/Vol] 103 mg/dL Normal 82 - 115 mg/dL [facility] LIPIDon 10-01-2024 Cholesterol [Mass/Vol] 273 mg/dL High 0-200 [facility] Comment on above: Result Comment: Chol esterol Reference Interval: Less than 200 Desirable 200-239 Borderline high risk 240 and above High risk Performed By: #### C MP, GFR, MG, ANEU, CBC, ADIFF #### [facility] [address] [place], [place] [address] Cholesterol in HDL [Mass/Vol] 53 mg/dL Normal 40-60 [facility] Comment on above: Performed By: #### C MP, GFR, MG, ANEU, CBC, ADIFF #### [facility] [address] [place], [place] [address] Cholesterol in LDL [Mass/Vol] 204 mg/dL High 0-130 [facility] Comment on above: Performed By: #### C MP, GFR, MG, ANEU, CBC, ADIFF #### [facility] [address] [place], [place] [address] Triglyceride [Mass/Vol] 80 mg/dL Normal 0-150 [facility] Comment on above: Result Comment: Trig lyceride Reference Interval: Less than 150 Normal 150-199 Borderline high risk 200-499 High risk 500 or higher Very high risk Performed By: #### C MP, GFR, MG, ANEU, CBC, ADIFF #### [address] [place], [place] [address] MGon 10-01-2024 Magnesium [Mass/Vol] 2.1 mg/dL Normal 1.8-2.4 [facility] Comment on above: Performed By: #### C MP, GFR, MG, ANEU, CBC, ADIFF #### [address] [place], [place] [address] MRI BRAIN W/O CONTRASTon MRI BRAIN W/O CONTRAST ORIGINAL EXAMINATION: MRI OF THE BRAIN WITHOUT CONTRAST 10/01/2024 5:18 pm TECHNIQUE: Multiplanar multisequence MRI of the brain was performed without the administration of intravenous contrast. COMPARISON: CTA head with and without contrast performed earlier the same day. HISTORY: ORDERING SYSTEM PROVIDED HISTORY: Reason for Exam: Transient ischemic attack (TIA) FINDINGS: INTRACRANIAL STRUCTURES/VENTRICL ES: Tiny punctate foci of hyperintensity on diffusion-weighted imaging are appreciated within the medial right parietal and left posterior frontal lobes which are too small to resolve on ADC. Questionable corresponding FLAIR hyperintensity within the posterior left frontal lobe. No appreciable FLAIR correlate within the right parietal lobe. No mass effect or midline shift. No evidence of an acute intracranial hemorrhage. Mild generalized volume loss is appreciated with associated prominence of the sulci and ventricles. The sellar/suprasellar regions appear unremarkable. The normal signal voids within the major intracranial vessels appear maintained. ORBITS: The visualized portion of the orbits demonstrate no acute abnormality. SINUSES: The visualized paranasal sinuses and mastoid air cells demonstrate no acute abnormality. BONES/SOFT TISSUES: The bone marrow signal intensity appears normal. The soft tissues demonstrate no acute abnormality. IMPRESSION: Tiny punctate foci of hyperintensity on DWI within the medial right parietal and left posterior frontal lobes which are too small to resolve/nonvisualiz ed on ADC. Questionable corresponding FLAIR hyperintensity within the posterior left frontal lobe. These may represent tiny acute infarcts versus artifact. Interpreted by: Citlaly Wilson Preliminary Report By: Citlaly Wilson Electronically signed By Citlaly Wilson Dictated Date: 10/01/2024 9:02:44 PM Prelim Date: 10/01/2024 9:07:14 PM Sign Date: 10/01/2024 9:07:14 PM Ordering Provider: ELIZABET NOLAN Normal [facility] PROon 10-01-2024 PT Coag (PPP) [Time] 11.0 s Normal 9.0-14.4 [facility] Comment on above: Performed By: #### C MP, GFR, MG, ANEU, CBC, ADIFF #### [address] [place], [place] [address] PT International Ratio 1.0 Normal [facility] Comment on above: Result Comment: [employer] (CHEST, 1992, 102:312S-25S) recommended therapeutic range for oral anticoagulant therapy is: LOW RISK: Prophylaxis of venous thrombosis INR: 2.0-3.0 Treatment of pulmonary embolism 2.0-3.0 Prevention of systemic embolism 2.0-3.0 HIGH RISK: Mechanical prosthetic valves 2.5-3.5 Performed By: #### C MP, GFR, MG, ANEU, CBC, ADIFF #### [address] [address] TROPHSon 10-01-2024 High Sensitivity Troponin I 4 ng/L Normal 0-51 [facility] Comment on above: Result Comment: High Sensitive Troponin I Reference Ranges: Female: 0-51 ng/L Male: 0-76 ng/L Testing performed on [employer] using a homogeneous sandwich chemiluminescent immunoassay based on Signature technology. Performed By: #### C MP, GFR, MG, ANEU, CBC, ADIFF #### [address] [place], [place] [address] TSHon 10-01-2024 TSH Qn 0.24 m[IU]/L Low 0.36-3.74 [facility] Comment on above: Performed By: #### C MP, GFR, MG, ANEU, CBC, ADIFF #### [address] [address] Absolute lymphocyte countOrd ered By: Misbah Bryd on 08-14-2024 Lymphocytes Auto (Unsp spec) [#/Vol] 1.33 10*3/uL 0.83-4.51 [facility] Absolute neutrophil countOrd ered By: Misbah Byrd on 08-14-2024 Neutrophils (Bld) [#/Vol] 11.5 10*3/uL High 2.0-7.7 [facility] Anion gap in Serum or Plasma Ordered By: Misbah Byrd on 08-14-2024 Anion gap [Moles/Vol] 12 mmol/L 5-15 [facility] Automated blood erythrocyte countOrdered By: Misbah Byrd on 08-14-2024 RBC (Bld) [#/Vol] 3.97 10*6/uL Low 4.2-5.4 [facility] Comment on above: Performed By: #### L 500.2500, L100.0100 ####[facility] [address] [place], [place], [address] Automated blood hematocrit ( percentage)Ordered By: Misbah Byrd on 08-14-2024 Hematocrit (Bld) [Volume fraction] 33.4 % Low 37-47 [facility] Comment on above: Performed By: #### L 500.2500, L100.0100 ####[facility] [address] [place], [place], [address] Automated lymphocyte count a s percentage of total leukocytesOrdered By: Misbah Byrd on 08-14-2024 Lymphocytes/100 WBC Auto (Unsp spec) 9.9 % Low 19-41 [facility] BUN/creatinine ratioOrdered By: Misbah Byrd on 08-14-2024 Urea nitrogen/Creatinine [Mass ratio] 33.1 mg/mg High 10-20 [facility] Basic Metabolic Profile (BMP )on 08-14-2024 BUN/CRE 33.1 RATIO High 10-20 [facility] Comment on above: Performed By: #### L 500.2500, L100.0100 ####[facility] [address] [place], [address] ECRCL 68.24 ml/min Normal 50-250 [facility] Comment on above: Performed By: #### L 500.2500, L100.0100 ####[facility] [address] [place], [address] GAP 12 Normal 5-15 [facility] Comment on above: Performed By: #### L 500.2500, L100.0100 ####[facility] [address] [place], [address] Potassium [Moles/Vol] 3.7 mmol/L Normal 3.3-5.1 [facility] Comment on above: Performed By: #### L 500.2500, L100.0100 ####[facility] [address] [place], [address] Basophil percentageOrdered B y: Misbah Byrd on 08-14-2024 Basophils/100 WBC (Bld) 0.1 % Normal 0-1 [facility] Comment on above: Performed By: #### L 500.2500, L100.0100 ####[facility] [address] [place], [address] CBC W/Diff, Automatedon 07-0 Absolute Lymph 1.33 X10 3/uL Normal 0.83-4.51 [facility] Comment on above: Performed By: #### L 500.2500, L100.0100 ####[facility] [address] [place], [address] Absolute Neut 11.5 X10 3/uL High 2.0-7.7 [facility] Comment on above: Performed By: #### L 500.2500, L100.0100 ####[facility] [address] [place], [address] IG% 0.500 Normal 0.0-0.9 [facility] Comment on above: Result Comment: IG% - Immature Granulocytes (promyelocytes, myelocytes and metamyelocytes) > 1% indicates that a LEFT SHIFT is Present. Performed By: #### L 500.2500, L100.0100 ####[facility] [address] [place], [address] Lymphocytes/100 WBC (Bld) 9.9 % Low 19-41 [facility] Comment on above: Performed By: #### L 500.2500, L100.0100 ####[facility] [address] [place], [address] Nucleated RBC (Bld) [#/Vol] 0 10*3/uL Normal 0-5 [facility] Comment on above: Performed By: #### L 500.2500, L100.0100 ####[facility] [address] [place], [address] RDW SD 41.4 fl Normal 35.1-43.9 [facility] Comment on above: Performed By: #### L 500.2500, L100.0100 ####[facility] [address] [place], [address] Carbon dioxide, total [Moles /volume] in Central venous bloodOrdered By: Misbah Byrd on 08-14-2024 CO2 [Moles/Vol] 23.4 mmol/L Normal 21.0-32.0 [facility] Comment on above: Performed By: #### L 500.2500, L100.0100 ####[facility] [address] [place], [address] Chloride assayOrdered By: St ena Byrd on 08-14-2024 Chloride [Moles/Vol] 105 mmol/L Normal 98-108 [facility] Comment on above: Performed By: #### L 500.2500, L100.0100 ####[facility] [address] [place], [address] Discharge Instructionon 07 Discharge Instruction [facility] Medical Records Department [address] [place] [address] Instructions for Home/Discharge Instructions 08/14/24 0909 MR#: [id number] Acct: [id number] Name: PASTOR MAGALLANES Rep #: [id number] : 1960 64 From: Cassius RUSS PA-C PCP: Dr. Donavan Gastelum, DO Status:ADM OSMANI Discharge Instructions Diet Discharge Diet: No restrictions DC O2, CPAP, BIPAP needs Home O2 Discharge instructions: No Dressing / Incision Discharge Activity: May Not Drive (No driving until you can walk 100 feet with use of cane and no longer on any narcotics.) May shower in (days): 1 (only if incision is dry and without drainage. Do NOT soak/submerge in tub/pool/mora/strea m/hot tub.)) Ice area for (Minutes): 20 (Every 1-2 hours [address] place barrier between ice and skin.) Weight Bearing Status: Weight bearing as tolerated Keep extremity elevated above heart level: Operative Extremity Additional Activity Instructions:: Follow [facility] Post-op Instructions. Recommend getting up during the day while awake every hour to walk for several minutes. Avoid elastic band with your underwear or going directly over the incision. Once postoperative dressing has been removed only use gentle soap and water over the incision. Do not use any ointments, Neosporin, salves, alcohol pads over the incision for 6 weeks postoperatively. Do not submerge underwater for 6 weeks postoperatively. Wear elastic stockings for 2 weeks. Do NOT use alcohol with narcotic pain medication. Do NOT make important decisions while taking narcotic medication. If you have problems with taking your medication (rash, itching, nausea, etc.) call the office at once. Dressing / Incision Call your doctor if your incision/area has: Continuous Slow Oozing, Sudden Increased Bleeding, Increased Pain/ Swelling, Increased Redness and Foul Smelling Discharge Call your doctor if you observe: Fever of 101 or Higher, Shortness of breath, Chest pain, Calf discomfort and Uncontrolled pain Remove Dressing in: 4 days (Okay to remove dressing on August 18, 2024) Follow Up Care Test Results: Test results from this visit will be discussed in further detail at your follow-up appointment, if applicable. Discharge Plan Admission Admit Date/Time: 08/13/24 12:36 Attending Provider: Misbah Byrd Primary Care Provider: Donavan Gastelum Consulting Providers: Eulogio Sheets ; Ursula Casper Discharge Orders/Prescription s Prescriptions: New famotidine 20 mg Tablet 20 mg PO DAILY 30 Days Qty: 30 0RF aspirin 81 mg Tablet,Chewable 81 mg PO BIDCM Qty: 0 0RF Rx Instructions: Take 81 mg aspirin twice daily for 4 weeks postoperatively for DVT prophylaxis. After 4 weeks you can then go back to normal 81 mg aspirin daily. meloxicam 7.5 mg Tablet 7.5 mg PO BID 30 Days Qty: 60 0RF Rx Instructions: Do not take any other nonsteroidal anti-inflammatories while using meloxicam/Mobic. oxycodone 5 mg Tablet 5 - 10 mg PO Q4H PRN PRN (Reason: As Needed for Pain) 7 Days Qty: 42 0RF sennosides-docusate sodium [Stimulant Laxative Plus] 8.6-50 mg Tablet 2 tab PO BID 3 Days Qty: 12 0RF Rx Instructions: Take until first bowel movement, then as needed Continued lisinopril-hydrochl orothiazide 20-12.5 mg tablet 1 tab PO DAILY propranolol 20 mg tablet 20 mg PO TID PRN (Reason: anxiety) ascorbic acid (vitamin C) [C-500] 500 mg tablet 500 mg PO DAILY zinc gluconate 50 mg tablet 50 mg PO DAILY cholecalciferol (vitamin D3) [Vitamin D3] 25 mcg (1,000 unit) tablet 25 mcg PO DAILY vitamin B complex [Balanced B-50] Tablet 1 tab PO DAILY NewFlora 10 billion cell capsule 100 mmu cells PO DAILY clonidine HCl 0.1 mg tablet 0.1 mg PO Q6H PRN (Reason: hypertensive emergency) lorazepam [Ativan] 0.5 mg tablet 0.5 mg PO Q12H PRN (Reason: anxiety) Held turmeric 400 mg capsule 400 mg PO DAILY Hold Instructions: Resume on 09/11/24. garlic 1,000 mg capsule 1,000 mg PO DAILY Hold Instructions: Resume on 08/28/24. [place]-3 350 mg-235 mg- 90 mg-597 mg capsule,delayed release(DR/EC) 1 cap PO DAILY Hold Instructions: Resume on 08/28/24. Discontinued aspirin 81 mg capsule 81 mg PO DAILY Referrals / Follow Up: Physical,Therapy [Other] - 08/19/24 1:00 pm Donavan Gastelum DO [Primary Care Provider] - Cassius Carranza PA-C [Med Staff - [facility]] - 08/26/24 11:00 am Disposition Disposition (needs filled in before D/C Order can be placed): Home, Self Care 08/14/24 0917 Cassius RUSS PA-C CC: Dr. Eulogio Sheets, DO; Dr. Ursula Casper, DO; Dr. Donavan Gastelum, DO Signed Normal [facility] Eosinophil percentageOrdered By: Misbah Byrd on 08-14-2024 Eosinophils/100 WBC (Bld) 0.1 % Normal 0-5 [facility] Comment on above: Performed By: #### L 500.2500, L100.0100 ####[facility] [address] [place], [address] Erythrocyte distribution wid th ratioOrdered By: Misbah Byrd on 08-14-2024 Erythrocyte distribution width (RBC) [Ratio] 13.3 % Normal 11.6-14.6 [facility] Comment on above: Performed By: #### L 500.2500, L100.0100 ####[facility] [address] [place], [address] Erythrocyte distribution wid th standard deviationOrdered By: Misbah Byrd on 08-14-2024 Erythrocyte distribution width (RBC) [Ratio] 41.4 fl 35.1-43.9 [facility] Glomerular filtration rate ( GFR) estimation/1.73 sq m using serum, plasma, or whole bOrdered By: Misbah Byrd on 08-14-2024 GFR/1.73 sq M.predicted among non-blacks MDRD (S/P/Bld) [Vol rate/Area] 108 mL/min/{1.73_m2} Normal >60 [facility] Comment on above: mL/min/1.73m2 CKD-EP I Creatinine Equation (2020) Result Comment: mL/m in/1.73m2 CKD-EPI Creatinine Equation (2020) Performed By: #### L 500.2500, L100.0100 ####[facility] [address] [place], [address] Hemoglobin measurementOrdere d By: Misbah Byrd on 08-14-2024 Hemoglobin (Bld) [Mass/Vol] 10.9 g/dL Low 12.0-15.0 [facility] Comment on above: Performed By: #### L 500.2500, L100.0100 ####[facility] [address] [place], [address] Immature granulocytes/100 WB C Auto (Bld)Ordered By: Misbah Byrd on 08-14-2024 Immature granulocytes/100 WBC (Bld) 0.500 % 0.0-0.9 [facility] Comment on above: IG% - Immature Granu locytes (promyelocytes, myelocytes and metamyelocytes) > 1% indicates that a LEFT SHIFT is Present. MCV (mean corpuscular volume ) determinationOrdered By: Misbah Byrd on 08-14-2024 MCV (RBC) [Entitic vol] 84.1 fL Normal 81-99 [facility] Comment on above: Performed By: #### L 500.2500, L100.0100 ####[facility] [address] [place], [address] Mean corpuscular hemoglobin (MCH) determinationOrdered By: Misbah Byrd on 08-14-2024 MCH (RBC) [Entitic mass] 27.5 pg Normal 27.0-32.0 [facility] Comment on above: Performed By: #### L 500.2500, L100.0100 ####[facility] [address] [place], [address] Mean corpuscular hemoglobin concentration (MCHC) determinationOrdered By: Misbah Byrd on 08-14-2024 MCHC (RBC) [Mass/Vol] 32.6 g/dL Normal 32-36 [facility] Comment on above: Performed By: #### L 500.2500, L100.0100 ####[facility] [address] [place], [address] Mean platelet volume determi nationOrdered By: Misbah Byrd on 08-14-2024 Platelet mean volume (Bld) [Entitic vol] 10.2 fL Normal 6.2-12.0 [facility] Comment on above: Performed By: #### L 500.2500, L100.0100 ####[facility] [address] [place], [address] Monocyte percentageOrdered B y: Misbah Byrd on 08-14-2024 Monocytes/100 WBC (Bld) 4.0 % Normal 0-10 [facility] Comment on above: Performed By: #### L 500.2500, L100.0100 ####[facility] [address] [place], [address] Neutrophil percentageOrdered By: Misbah Byrd on 08-14-2024 Neutrophils/100 WBC (Bld) 85.4 % High 47-70 [facility] Comment on above: Performed By: #### L 500.2500, L100.0100 ####[facility] [address] [place], [address] Nucleated red blood cell per centageOrdered By: Misbah Byrd on 08-14-2024 Nucleated RBC/100 WBC (Bld) [Ratio] 0 % 0-5 [facility] Platelet countOrdered By: St ena Byrd on 08-14-2024 Platelets (Bld) [#/Vol] 313 10*3/uL Normal 150-450 [facility] Comment on above: Performed By: #### L 500.2500, L100.0100 ####[facility] [address] [place], [address] Potassium measurement (mass/ volume)Ordered By: Misbah Byrd on 08-14-2024 Potassium (Unsp spec) [Mass/Vol] 3.7 mmol/L 3.3-5.1 [facility] Serum creatinine measurement (mass/volume)Ordered By: Misbah Byrd on 08-14-2024 Creatinine [Mass/Vol] 0.43 mg/dL Low 0.70-1.20 [facility] Comment on above: Performed By: #### L 500.2500, L100.0100 ####[facility] [address] [place], [address] Serum glucose measurement (m ass/volume)Ordered By: Misbah Byrd on 08-14-2024 Glucose [Mass/Vol] 137 mg/dL High 70-99 [facility] Comment on above: Performed By: #### L 500.2500, L100.0100 ####[facility] [address] [place], [address] Serum or plasma calcium daniel urement (mass/volume)Ordered By: Misbah Byrd on 08-14-2024 Calcium [Mass/Vol] 8.9 mg/dL Normal 7.6-11.0 [facility] Comment on above: Performed By: #### L 500.2500, L100.0100 ####[facility] [address] [place], [address] Serum or plasma urea nitroge n measurement (mass/volume)Ordered By: Misbah Byrd on 08-14-2024 Urea nitrogen [Mass/Vol] 14 mg/dL Normal 4-19 [facility] Comment on above: Performed By: #### L 500.2500, L100.0100 ####[facility] [address] [place], [address] Sodium levelOrdered By: Russell Byrd on 08-14-2024 Sodium [Moles/Vol] 140 mmol/L Normal 133-145 [facility] Comment on above: Performed By: #### L 500.2500, L100.0100 ####[facility] [address] [place], [address] White blood cell (WBC) count Ordered By: Misbah Byrd on 08-14-2024 WBC (Bld) [#/Vol] 13.5 10*3/uL High 4.4-11.0 [facility] Comment on above: Performed By: #### L 500.2500, L100.0100 ####[facility] [address] [place], [place], [address] Bedside Glucoseon 08-13-2024 FINGERSTICK GLU 113 mg/dL High 74-106 [facility] Comment on above: Result Comment: CHRISSIE FIERRO OF PATIENT CARE PER NURSING PROTOCOL Performed By: #### L 501.080 #### [facility] Laboratory [address] [place], [place], [address] Consultation - [place] 08-13-2024 Consultation - Hospitalist [facility] Medical Records Department [address] [place] [address] Consultation - Hospitalist 08/13/24 1435 MR#: [id number] Acct: [id number] Name: PASTOR MAGALLANES Rep #: [id number] : 1960 64 From: Eulogio Sheets DO PCP: Dr. Donavan Gastelum, DO Status:ADM OSMANI Location: [place] [address] Assessment Plan Assessment/Plan (1) Status post left hip replacement: PLAN: Plan Patient is a 64-year-old female who presented to [facility] on 08/13/2024 for planned left hip replacement. Medicine consulted postoperatively for medical management. 1. Left hip osteoarthritis ??? Orthopedic surgery primary. S/p left direct anterior minimally invasive hip replacement with Dr. Byrd on 08/13. Tolerated procedure well, no intraoperative complications noted. Pain control, DVT prophylaxis and further management per orthopedics. Follow-up a.m. CBC and BMP. PT/OT/case management consulted. 2. Hypertension ??? Normotensive in the 120s postoperatively. Okay to resume home lisinopril???hydroc hlorothiazide tomorrow with hold parameters in place. Notably does have clonidine 0.1 mg every 6 hours as needed on home med list for hypertensive emergency; no need to order at this time. 3. Anxiety ??? On propranolol 20 mg 3 times daily as needed at home. Was prescribed a very short course of 0.5 mg Ativan twice daily as needed recently preoperatively as well. Okay to resume home propranolol as needed but will hold on prescribing Ativan. DVT prophylaxis: Baby aspirin twice daily per orthopedics Total clinical time spent by myself addressing the patient's medical issues, reviewing all the data, and collaborating with patient's care team: 35 minutes. HPI Consult Data Date of Consult: 08/13/24 HPI Narrative Reason for Consultation: Postoperative medical management HPI Narrative: PASTOR MAGALLANES, is a 64 F who presented to [facility] on 08/13/2024 for planned left hip replacement. Medicine consulted postoperatively for medical management. Patient had left a replacement done with Dr. Byrd on 08/13. Tolerated procedure well, no intraoperative complications noted. I saw the patient at bedside earlier this evening. Patient was sitting back comfortably in bed, conversing normally, in no acute distress. States she still felt a bit lightheaded and attributes this to the anesthesia but otherwise is feeling well. She did get up earlier this afternoon with assistance and ambulated with minimal hip pain. She denies any hip pain at rest currently. Denies any other acute concerns at this time. [facility] Medical History Wears glasses Post-menopausal Anxiety Arthritis Kidney stone Gastric reflux History of edema History of echocardiogram History of stress test Hypertension History of irregular heartbeat Home Medications ???Medication ???Instructions ???Recorded ???Last Taken ???Type Lactobacillus acidophilus 10 100 mmu cells PO DAILY 07/09/24 Un known History billion cell capsule (NewFlora) ascorbic acid (vitamin C) 500 mg 500 mg PO DAILY 07/09/24 Unknown H istory tablet (C-500) aspirin 81 mg capsule 81 mg PO DAILY 07/09/24 Unknown Hi story cholecalciferol (vitamin D3) 25 25 mcg PO DAILY 07/09/24 Unknown H istory mcg (1,000 unit) tablet (Vitamin D3) garlic 1,000 mg capsule 1,000 mg PO DAILY 07/09/24 Unknown History lisinopril 20 1 tab PO DAILY 07/09/24 Unknown Hi story mg-hydrochlorothiaz savi 12.5 mg tablet omega 3 350 mg-dha 235 mg-epa 90 1 cap PO DAILY 07/09/24 Unknown Hi story mg-fish oil 597 mg capsule,delay rel (Fargo-3) propranolol 20 mg tablet 20 mg PO TID PRN anxiety 07/09/24 08/13/24 08:30 History turmeric 400 mg capsule 400 mg PO DAILY 07/09/24 Unknown H istory vitamin B complex (Balanced B-50 1 tab PO DAILY 07/09/24 Unknown Hi story tablet) zinc gluconate 50 mg tablet 50 mg PO DAILY 07/09/24 Unknown Hi story clonidine HCl 0.1 mg tablet 0.1 mg PO Q6H PRN hypertensive 08/13/24 08:30 History emergency lorazepam 0.5 mg tablet (Ativan) 0.5 mg PO Q12H PRN anxiety 5 08/13/24 08:30 History Allergy/AdvReac Type Severity Reaction Status Date / Time Iodinated Contrast Media Allergy Severe Hives Verified 08/13/24 09:26 (Iodinated Contrast Media - IV Dye) Surgical History (Updated 08/13/24 @ 18:[address] Eulogio Sheets, ) Hx of section Hx of tubal ligation Hx of hysterectomy Social History Smoking Status: Never smoker ROS Constitutional Constitutional: Denies chills, fatigue, fever(s) or weakness Eyes Eyes: Denies change in vision Cardiovascular Cardiovascular: Denies chest pain Respiratory/Chest Respiratory/Chest: Denies cough or shortness of breath at rest Gastroin (more content not included)... Normal [facility] Glucose measurement at [facility] deOrdered By: Misbah Byrd on 08-13-2024 Glucose [Mass/Vol] 113 mg/dL High 74-106 [facility] Comment on above: MANAGEMENT OF PATIEN T CARE PER NURSING PROTOCOL Hip Min 2 Views (Portable)on 08-13-2024 Hip Min 2 Views (Portable) [facility] Imaging Services [address] [place] [address] Hip Min 2 Views (Portable) MR#: [id number] Acct: [id number] Name: PASTOR MAGALLANES Rep #: [id number] : 1960 F 64 From: Jose Madison MD PCP: Dr. Donavan Gastelum DO Status: REG SDC Study: Hip Min 2 Views (Portable) Date of Exam: 08/13 Exam# [id number] Ordering Dr: Misbah Byrd MD PROCEDURE: HIP MIN 2 VIEWS (PORTABLE) 08/13/2024 REASON FOR EXAM: POST OP TECHNIQUE: HIP MIN 2 VIEWS (PORTABLE) COMPARISON: None FINDINGS: There is a total hip prosthesis in position on the left. Trace amount of soft tissue air is present consistent with recent surgery. Alignment is maintained. RAD/Hip Min 2 Views (Portable) IMPRESSION: Hardware in position. Reading Location: [facility] CC: Dr. Donavan Gastelum DO; Dr. Misbah Byrd MD Data Management: Signed [facility] Hip Min 2 Views (Portable) [facility] Imaging Services [address] [place], [place] [address] Hip Min 2 Views (Portable) MR#: [id number] Acct: [id number] Name: PASTOR MAGALLANES Rep #: [id number] : 1960 F 64 From: Robert Gill MD PCP: Dr. Donavan Gastelum DO Status: ADM OSMANI Study: Hip Min 2 Views (Portable) Date of Exam: 08/13 Exam# [id number] Ordering Dr: Misbah Byrd MD PROCEDURE: HIP MIN 2 VIEWS (PORTABLE) 08/13/2024 REASON FOR EXAM: ANTERIOR LT HIP TOTAL ARTHROPLASTY TECHNIQUE: HIP MIN 2 VIEWS (PORTABLE) COMPARISON: 08/13/2024 FINDINGS: The patient is undergoing left THR. Intact hardware. Anatomic alignment. No intraoperative complication noted. RAD/Hip Min 2 Views (Portable) IMPRESSION: Unremarkable intraoperative appearance Reading Location: [facility] CC: Dr. Donavan Gastelum DO; Dr. Misbah Byrd MD Data Management: Signed [facility] MR/POSTOP.ANE 08-13-2024 MR/POSTOP.[facility] Medical Records Department [address] [place] [address] Anesthesia Postop Eval I 08/13/24 1533 MR#: [id number] Acct: [id number] Name: PASTOR MAGALLANES Rep #: [id number] : 1960 64 From: Pacheco Gomez MD PCP: Dr. Donavan Gastelum, DO Status:ADM OSMANI Y Race: C Location: [address] Anesthesia: Postop Eval I Current Vital Signs Temperature: 97.2 F Pulse Rate: 61 Blood Pressure: 107/69 Respiratory Rate: 16 Pulse Ox: 99 Oxygen Delivery Method: Simple Mask Oxygen Flow Rate (L/min): 4 Assessment Airway patent: Yes Spontaneous unlabored respirations: Yes Mental status: Awake and Calm nausea: No Vomiting: No Anesthesia Complication: No Fluid Hydration Crystalloid volume administer (ml): 1,500 Total IV fluid infused: 1,500 Progress Note Anesthesia document: Postop Eval 1 completed: Yes 08/13/241534 Date Pacheco Gomez MD Cosigner Signature: Date CC: Signed Normal [facility] MR/BSARSUSK6ln [facility]-13-2024 [facility] Medical Records Department [address] [place] [address] Anesthesia Postop Eval II 08/13/24 1535 MR#: [id number] Acct: [id number] Name: PASTOR MAGALLANES Rep #: [id number] : 1960 64 From: Pacheco Gomez MD PCP: Dr. Donavan Gastelum, DO Status:ADM OSMANI Y Race: C Location: [address] Anesthesia Postop Eval I Sum Postop Eval Completion status Anesthesia document: Postop Eval 1 completed: Yes Anesthesia Postop Eval I Summary Anesthesia Postop Eval I Summary: Anesthesia Postop Eval I: Assessment Summary Airway patent Yes 08/13/24 15:35 Spontaneous unlabored Yes 08/13/24 15:35 respirations Mental status Awake,Calm 08/13/24 15:35 nausea No 08/13/24 15:35 Vomiting No 08/13/24 15:35 Anesthesia Postop Eval I: Fluid Summary Crystalloid volume administer 1,500 08/13/24 15:35 (ml) Colloids volume administered ( ml) Blood Product volume administered (ml) Total IV fluid infused 1,500 08/13/24 15:35 Anesthesia Postop Eval I: Summary Notes Anesthesia Complication No 08/13/24 15:35 Anesthesia Complication Comment: Post-operative progress note Anesthesia: Postop Eval II Evaluation Mental status: Awake and Calm Pain Level: 3 nausea: No Vomiting: No Progress Note Post-operative progress note: doing well in PACU Complications Anesthesia Complication: No 08/13/24 1535 Date Pacheco Gomez MD Cosigner Signature: Date CC: Signed Normal [facility] Operative Reporton 5 Operative Report [facility] Medical Records Department [address] [place] [address] Operative Report 08/13/24 1238 MR#: [id number] Acct: [id number] Name: PASTOR MAGALLANES Rep #: [id number] : 1960 64 From: Misbah Byrd MD PCP: Dr. Donavan Gastelum, DO Status:[facility] Location: [place] [address] Operative Report (Standard) Operative Information Date of Procedure: 08/13/24 Pre-Operative Diagnosis: Left hip primary osteoarthritis Post-Operative Diagnosis: Left hip primary osteoarthritis Surgery/Procedure Performed: Left direct anterior minimally invasive selective placement bariatric nurse: Yes Electrical System Specialist: Cassius Carranza Tasks completed by speech pathologist assistant: Other (See body of operative report) Additional assistant controller?: No Type of Anesthesia: Spinal RN Documented Start/Stop Times: Operation Date: 08/13/24 11:00 Case Time Into Pre-Op 08/13/24 09:12 Anesthesia Start 08/13/24 11:13 Into Room 08/13/24 11:13 Procedure Start 08/13/24 11:48 Procedure End 08/13/24 13:07 Anesthesia End 08/13/24 13:14 Out of Room 08/13/24 13:14 Into Recovery 08/13/24 13:16 Procedure Start Time: 11:48 Procedure Stop Time: 13:07 Select all DRAINS/GRAFTS/IMPLA NTS that apply: Prosthetic device Prosthetic device details: see body of operative report Special Medications: 2 g Ancef, 1 g TXA at incision, 1 g TXA closure, 10 mg Decadron, joint cocktail (5 mg Duramorph, 30 mL of 0.5% Ropivicaine, 1000 units of epinephrine, 30 mg of Toradol) Estimated Blood Loss: 300 mL Fluids Replaced: 2200 mL crystalloid Specimen collected: Yes Description of specimen(s) removed: Bony cuts Description of surgery: Components used: 1. Accolade 2 Johanny femoral stem size 5/127 2. [place] trident 2 acetabular shell size 48 mm 3. Johanny X3 polyethylene D 4. Johanny Biolox delta 36 mm, 2.5 mm femoral head Brief history operative indications: 64 yo f who failed conservative measures for their hip osteoarthritis. X-rays were consistent with osteoarthritis including joint space narrowing, osteophyte formation and subchondral cysts. Total hip replacement was discussed with the patient with risks and benefits including but not limited to blood loss, DVTs, PEs, neurovascular damage, dislocation, general risks of anesthesia including loss of life. Patient demonstrated an understanding medical clearance is obtained the patient was consented for surgery. Procedure: On the date of procedure the patient's L hip was marked in the preoperative area. Patient was then taken back to the operating room where anesthesia assumed control of the C-spine and airway and administered anesthetic. Patient was transferred to the operating table and placed in the supine position. The hips were placed at the break of the bed and a sacral bump was placed. The L lower extremity was then prepped out in a sterile fashion using chlorhexidine while the surgeon scrubbed. The PA was vital in the positioning of the patient. Upon reentering the room the L lower extremity was draped in the standard orthopedic fashion and the incision was marked. A timeout was called and everyone agreed upon the side, the site, the procedure be performed, antibody given, and patient's identity. At this time incision was made through skin, subcutaneous tissue, and fat down to fascia. The fascia was then incised and the TFL was retracted laterally. A retractor was placed on the lateral border of the femoral neck. Attention was directed to the inferior portion of the approach and all crossing vessels were identified and appropriately coagulated. A retractor was then placed on the medial portion of the femoral neck. The anterior capsule was then cleared of all soft tissue and then H shaped capsulotomy was made. The retractors were then placed inside the capsule. The femoral neck was identified and a cleanup cut was made. At this time a power corkscrew was used to remove the femoral head. Attention was then turned toward the acetabulum where the soft tissues were appropriately retracted and the acetabulum was sequentially reamed to 48 mm. A 48 mm cup was then selected and impacted into place, excess osteophytes were removed. Acetabular liner was impacted into place and locking mechanism was verified. The position of the acetabular cup was then verified under live fluoroscopy. Attention was then turned to the femur. Soft tissue releases on the medial and lateral femoral neck were appropriately done, the leg was externally rotated and lateralized. A Wise retractor was placed medially and proximally to the greater trochanter this allowed appropriate visualization and exposure of the femoral canal. Rongeour was then used to remove excess lateral bone. A canal finder and entry broach were used to open the proximal canal. Once we verified we were down the femoral canal we subsequently broached up to a si (more content not included)... Normal [facility] Electrocardiogram reportOrde red By: Jana Magana on 07-15-2024 EKG study [facility] Cardiovascular Services [address] [place] [address] 12 Lead EKG 07/12/24 0838 MR#: [id number] Acct: [id number] Name: PASTOR MAGALLANES Rep #:[id number] : 1960 64 From: Jana Magana MD Attending Dr: Dr. Misbah Byrd MD Status: PRE [facility] Ordering Dr: Misbah Byrd MD Date: 07/12/24 Location: [facility] Sex: F C Admitted: Test Reason : PREOP Blood Pressure : */* mmHG Vent. Rate : 69 BPM Atrial Rate : 69 BPM P-R Int : 154 ms QRS Dur : 92 ms QT Int : 404 ms P-R-T Axes : 22 40 42 degrees QTcB Int : 432 ms Normal sinus rhythm Normal ECG Confirmed by JANA MAGANA ([id number]), content editor ZOHRA SINGER ([id number]) on 07/15/2024 8:11:54 AM Referred By: Misbah Byrd Confirmed By: JANA MAGANA 07/15/2412 Date _ Jana Magana MD CC: Dr. Donavan Gastelum, DO; Dr. Misbah Byrd MD ~ Signed [facility] Work Phone: MRSA/SAID NASAL SCREENon MRSA+SAID SCRN Reason for Exam: Surgery MRSA MRSA Negative S. AUREUS S. aureus Negative Normal [facility] Comment on above: Performed By: #### M 100.651, L100.0100, L500.2500, L501.1800 ####[facility] [address] [facility] [place], [address] 12 Lead EKGon 07-12-2024 12 Lead EKG [facility] Cardiovascular Services [address] [place] [address] 12 Lead EKG 07/12/24 0838 MR#: [id number] Acct: [id number] Name: PASTOR MAGALLANES Rep #: [id number] : 1960 64 From: Jana Magana MD Attending Dr: Dr. Misbah Byrd MD Status: PRE [facility] Ordering Dr: Misbah Byrd MD Date: 07/12/24 Location: [facility] Sex: F C Admitted: Test Reason : PREOP Blood Pressure : */* mmHG Vent. Rate : 69 BPM Atrial Rate : 69 BPM P-R Int : 154 ms QRS Dur : 92 ms QT Int : 404 ms P-R-T Axes : 22 40 42 degrees QTcB Int : 432 ms Normal sinus rhythm Normal ECG Confirmed by JANA MAGANA ([id number]), content editor ZOHRA SINGER ([id number]) on 07/15/2024 8:11:54 AM Referred By: Misbah Byrd Confirmed By: JANA MAGANA 07/15/24811 Date Jana Magana MD CC: Dr. Donavan Gastelum, DO; Dr. Misbah Byrd MD Signed Normal [facility] Albumin, Serumon 07-12-2024 Albumin [Mass/Vol] 4.1 g/dL Normal 3.4-4.8 [facility] Comment on above: Performed By: #### M 100.651, L100.0100, L500.2500, L501.1800 ####[facility] [address] [place], [address] Basic Metabolic Profile (BMP )on 07-12-2024 BUN/CRE 31.8 RATIO High 10-20 [facility] Comment on above: Performed By: #### M 100.651, L100.0100, L500.2500, L501.1800 ####[facility] [address] [place], [address] Calcium [Mass/Vol] 9.7 mg/dL Normal 7.6-11.0 [facility] Comment on above: Performed By: #### M 100.651, L100.0100, L500.2500, L501.1800 ####[facility] [address] [place], [address] Chloride [Moles/Vol] 101 mmol/L Normal 98-108 [facility] Comment on above: Performed By: #### M 100.651, L100.0100, L500.2500, L501.1800 ####[facility] [address] [place], [address] CO2 [Moles/Vol] 30.5 mmol/L Normal 21.0-32.0 [facility] Comment on above: Performed By: #### M 100.651, L100.0100, L500.2500, L501.1800 ####[facility] [address] [place], [address] Creatinine [Mass/Vol] 0.61 mg/dL Low 0.70-1.20 [facility] Comment on above: Performed By: #### M 100.651, L100.0100, L500.2500, L501.1800 ####[facility] [address] [place], [address] GAP 10 Normal 5-15 [facility] Comment on above: Performed By: #### M 100.651, L100.0100, L500.2500, L501.1800 ####[facility] [address] [place], [address] GFR/1.73 sq M.predicted among non-blacks MDRD (S/P/Bld) [Vol rate/Area] 99 mL/min/{1.73_m2} Normal >60 [facility] Comment on above: Result Comment: mL/m in/1.73m2 CKD-EPI Creatinine Equation (2020) Performed By: #### M 100.651, L100.0100, L500.2500, L501.1800 ####[facility] [address] [place], [address] Glucose [Mass/Vol] 97 mg/dL Normal 70-99 [facility] Comment on above: Performed By: #### M 100.651, L100.0100, L500.2500, L501.1800 ####[facility] [address] [place], [address] Potassium [Moles/Vol] 3.7 mmol/L Normal 3.3-5.1 [facility] Comment on above: Performed By: #### M 100.651, L100.0100, L500.2500, L501.1800 ####[facility] [address] [place], [address] Sodium [Moles/Vol] 141 mmol/L Normal 133-145 [facility] Comment on above: Performed By: #### M 100.651, L100.0100, L500.2500, L501.1800 ####[facility] [address] [place], [address] Urea nitrogen [Mass/Vol] 20 mg/dL High 4-19 [facility] Comment on above: Performed By: #### M 100.651, L100.0100, L500.2500, L501.1800 ####[facility] [address] [place], [address] CBC W/Diff, Automatedon 05-3 0-5 Absolute Lymph 2.08 X10 3/uL Normal 0.83-4.51 [facility] Comment on above: Performed By: #### M 100.651, L100.0100, L500.2500, L501.1800 ####[facility] [address] [place], [address] Absolute Neut 4.8 X10 3/uL Normal 2.0-7.7 [facility] Comment on above: Performed By: #### M 100.651, L100.0100, L500.2500, L501.1800 ####[facility] [address] [place], [address] Basophils/100 WBC (Bld) 1.1 % High 0-1 [facility] Comment on above: Performed By: #### M 100.651, L100.0100, L500.2500, L501.1800 ####[facility] [address] [place], [address] Eosinophils/100 WBC (Bld) 2.5 % Normal 0-5 [facility] Comment on above: Performed By: #### M 100.651, L100.0100, L500.2500, L501.1800 ####[facility] [address] [place], [address] Erythrocyte distribution width (RBC) [Ratio] 13.4 % Normal 11.6-14.6 [facility] Comment on above: Performed By: #### M 100.651, L100.0100, L500.2500, L501.1800 ####[facility] [address] [place], [address] Hematocrit (Bld) [Volume fraction] 41.1 % Normal 37-47 [facility] Comment on above: Performed By: #### M 100.651, L100.0100, L500.2500, L501.1800 ####[facility] [address] [place], [address] Hemoglobin (Bld) [Mass/Vol] 13.2 g/dL Normal 12.0-15.0 [facility] Comment on above: Performed By: #### 100.651, L100.0100, L500.2500, L501.1800 ####[facility] [address] [place], [address] IG% 0.400 Normal 0.0-0.9 [facility] Comment on above: Result Comment: IG% - Immature Granulocytes (promyelocytes, myelocytes and metamyelocytes) > 1% indicates that a LEFT SHIFT is Present. Performed By: #### M 100.651, L100.0100, L500.2500, L501.1800 ####[facility] [address] [place], [address] Lymphocytes/100 WBC (Bld) 27.7 % Normal 19-41 [facility] Comment on above: Performed By: #### M 100.651, L100.0100, L500.2500, L501.1800 ####[facility] [address] [place], [address] MCH (RBC) [Entitic mass] 27.4 pg Normal 27.0-32.0 [facility] Comment on above: Performed By: #### M 100.651, L100.0100, L500.2500, L501.1800 ####[facility] [address] [place], [address] MCHC (RBC) [Mass/Vol] 32.1 g/dL Normal 32-36 [facility] Comment on above: Performed By: #### M 100.651, L100.0100, L500.2500, L501.1800 ####[facility] [address] [place], [address] MCV (RBC) [Entitic vol] 85.3 fL Normal 81-99 [facility] Comment on above: Performed By: #### M 100.651, L100.0100, L500.2500, L501.1800 ####[facility] [address] [place], [address] Monocytes/100 WBC (Bld) 4.9 % Normal 0-10 [facility] Comment on above: Performed By: #### M 100.651, L100.0100, L500.2500, L501.1800 ####[facility] [address] [place], [address] Neutrophils/100 WBC (Bld) 63.4 % Normal 47-70 [facility] Comment on above: Performed By: #### M 100.651, L100.0100, L500.2500, L501.1800 ####[facility] [address] [place], [address] Nucleated RBC (Bld) [#/Vol] 0 10*3/uL Normal 0-5 [facility] Comment on above: Performed By: #### M 100.651, L100.0100, L500.2500, L501.1800 ####[facility] [address] [place], [address] Platelet mean volume (Bld) [Entitic vol] 10.6 fL Normal 6.2-12.0 [facility] Comment on above: Performed By: #### M 100.651, L100.0100, L500.2500, L501.1800 ####[facility] [address] [place], [address] Platelets (Bld) [#/Vol] 381 10*3/uL Normal 150-450 [facility] Comment on above: Performed By: #### M 100.651, L100.0100, L500.2500, L501.1800 ####[facility] [address] [place], [address] RBC (Bld) [#/Vol] 4.82 10*6/uL Normal 4.2-5.4 [facility] Comment on above: Performed By: #### M 100.651, L100.0100, L500.2500, L501.1800 ####[facility] [address] [place], [address] RDW SD 41.9 fl Normal 35.1-43.9 [facility] Comment on above: Performed By: #### M 100.651, L100.0100, L500.2500, L501.1800 ####[facility] [address] [place], [address] WBC (Bld) [#/Vol] 7.5 10*3/uL Normal 4.4-11.0 [facility] Comment on above: Performed By: #### M 100.651, L100.0100, L500.2500, L501.1800 ####[facility] [address] [place], [place], [address] MRSA screenOrdered By: Abdirahman Byrd on 07-12-2024 MRSA DNA MARTIR+probe Ql (Unsp spec) [facility] Magnesiumon 07-12-2024 Magnesium [Mass/Vol] 2.2 mg/dL Normal 1.5-2.2 [facility] Comment on above: Performed By: #### L [phone] ####[facility] [id number] [facility]. [place], [place], [address] Magnesium measurement (mass/ volume)Ordered By: Sarath Elder on 07-12-2024 Magnesium (Unsp spec) [Mass/Vol] 2.2 mg/dL 1.5-2.2 [facility] Serum or plasma albumin daniel urement (mass/volume)Ordered By: Misbah Byrd on 07-12-2024 Albumin [Mass/Vol] 4.1 g/dL 3.4-4.8 [facility] LABORATORYOrdered By: Ale Cordon on 04-09-2024 Cholesterol [Mass/Vol] 232 mg/dL High 0 - 2 00 mg/dL AO ADM SS Comment on above: [...] 04-09-2024 Cholesterol [Mass/Vol] 232 mg/dL High 0-200 [facility] Comment on above: Result Comment: Chol esterol Reference Interval: Less than 200 Desirable 200-239 Borderline high risk 240 and above High risk Performed By: #### C MP, GFR, MG, ANEU, CBC, ADIFF #### [address] [address] Cholesterol in HDL [Mass/Vol] 51 mg/dL Normal 40-60 [facility] Comment on above: Performed By: #### C MP, GFR, MG, ANEU, CBC, ADIFF #### [address] [address] Cholesterol in LDL [Mass/Vol] 161 mg/dL High 0-130 [facility] Comment on above: Performed By: #### C MP, GFR, MG, ANEU, CBC, ADIFF #### [address] [address] Triglyceride [Mass/Vol] 98 mg/dL Normal 0-150 [facility] Comment on above: Result Comment: Trig lyceride Reference Interval: Less than 150 Normal 150-199 Borderline high risk 200-499 High risk 500 or higher Very high risk Performed By: #### C MP, GFR, MG, ANEU, CBC, ADIFF #### [address] [address] TSHRon 04-09-2024 TSH Qn 0.67 m[IU]/L Normal 0.36-3.74 [facility] Comment on above: Performed By: #### C MP, GFR, MG, ANEU, CBC, ADIFF #### [address] [address] .Auto Diffon 08-24-2023 Basophil, Absolute 0.1 10 3/mcL Normal 0.0-0.2 On license of [facility] ([place]) Comment on above: Performed By: #### A DANDRE, CBC, VIDH, ADIFF, A1C, LIPID, GFR, CMP #### [address] [address] #### B12 #### [facility] [address] [place] [address] Basophils/100 WBC (Bld) 1.2 % Normal 0.0-2.5 A [facility] ([place]) Comment on above: Performed By: #### A DANDRE, CBC, VIDH, ADIFF, A1C, LIPID, GFR, CMP #### [address] [address] #### B12 #### [address] [address] Eosinophil, Absolute 0.2 10 3/mcL Normal 0.0-0.4 [facility] ([place]) Comment on above: Performed By: #### A DANDRE, CBC, VIDH, ADIFF, A1C, LIPID, GFR, CMP #### [address] [address] #### B12 #### [address] [address] Eosinophils/100 WBC (Bld) 3.7 % Normal 0.0-7.0 [facility] ([place] Comment on above: Performed By: #### A DANDRE, CBC, VIDH, ADIFF, A1C, LIPID, GFR, CMP #### [address] [address] #### B12 #### [address] [address] Lymphocyte, Absolute 2.5 10 3/mcL Normal 0.8-3.9 [facility] ([place]) Comment on above: Performed By: #### A DANDRE, CBC, VIDH, ADIFF, A1C, LIPID, GFR, CMP #### [place] [address] #### B12 #### [address] [address] Lymphocytes/100 WBC (Bld) 38.3 % Normal 10.0-50.0 [facility] ([place] Comment on above: Performed By: #### A DANDRE, CBC, VIDH, ADIFF, A1C, LIPID, GFR, CMP #### [address] [address] #### B12 #### [address] [address] Monocyte, Absolute 0.4 10 3/mcL Normal 0.2-1.0 On license of [facility] ([place]) Comment on above: Performed By: #### A DANDRE, CBC, VIDH, ADIFF, A1C, LIPID, GFR, CMP #### [address] [address] #### B12 #### [address] [address] Monocytes/100 WBC (Bld) 6.1 % Normal 1.7-13.0 A [facility] ([place]) Comment on above: Performed By: #### A DANDRE, CBC, VIDH, ADIFF, A1C, LIPID, GFR, CMP #### [address] [address] #### B12 #### [address] [address] Neutrophils/100 WBC (Bld) 50.7 % Normal 37.0-80.0 [facility] ([place] Comment on above: Performed By: #### A DANDRE, CBC, VIDH, ADIFF, A1C, LIPID, GFR, CMP #### [address] [address] #### B12 #### [address] [address] .GFRon 08-24-2023 GFR Non- 92 ml/min/1.73sqm Normal [facility] ([place]) Comment on above: Result Comment: GFR Population [...] CBC, VIDH, ADIFF, A1C, LIPID, GFR, CMP ####[address] [address]#### B12 ####[facility] [place] [address] GFR 111 ml/min/1.73sqm Normal [facility] ([place]) Comment on above: Result Comment: GFR Population [...] CBC, VIDH, ADIFF, A1C, LIPID, GFR, CMP ####[place] [id number]#### B12 ####[facility] [place] [address] .NEUABSon 08-24-2023 Neutrophil, Absolute 3.3 10 3/mcL Normal 2.9-6.2 [facility] ([place]) Comment on above: Performed By: #### A DANDRE, CBC, VIDH, ADIFF, A1C, LIPID, GFR, CMP #### [place] [address] [place], [place] [address] #### B12 #### [facility] [address] [place] [address] A1Con 08-24-2023 HbA1c (Bld) [Mass fraction] 5.7 % Normal 4.3-6.4 [facility] [place] Comment on above: Performed By: #### A DANDRE, CBC, VIDH, ADIFF, A1C, LIPID, GFR, CMP ####[place] [id number]#### B12 ####[address] [address] B12on 08-24-2023 Cobalamin (Vitamin B12) [Mass/Vol] 617 pg/mL Normal 211-911 [facility] ([place] Comment on above: Performed By: #### A DANDRE, CBC, VIDH, ADIFF, A1C, LIPID, GFR, CMP ####[place] [address]#### B12 ####[place] [address] CBCon 08-24-2023 Erythrocyte distribution width (RBC) [Ratio] 15.0 % High 11.5-14.5 [facility] ([place] Comment on above: Performed By: #### A DANDRE, CBC, VIDH, ADIFF, A1C, LIPID, GFR, CMP #### [place] [address] #### B12 #### [place] [address] Hematocrit (Bld) [Volume fraction] 39.0 % Normal 37.0-47.0 [facility] ([place] Comment on above: Performed By: #### A DANDRE, CBC, VIDH, ADIFF, A1C, LIPID, GFR, CMP #### [place] [address] #### B12 #### [place] [address] Hgb 13.1 G/dL Normal 12.0-16.0 [facility] [place] Comment on above: Performed By: #### A DANDRE, CBC, VIDH, ADIFF, A1C, LIPID, GFR, CMP #### [place] [address] #### B12 #### [place] [address] MCH (RBC) [Entitic mass] 28.3 pg Normal 27.0-31.2 [facility] [place] Comment on above: Performed By: #### A DANDRE, CBC, VIDH, ADIFF, A1C, LIPID, GFR, CMP #### [place] [address] #### B12 #### [place] [address] MCHC 33.6 G/dL Normal 33.0-37.0 [facility] [place] Comment on above: Performed By: #### A DANDRE, CBC, VIDH, ADIFF, A1C, LIPID, GFR, CMP #### [place] [address] #### B12 #### [place] [address] MCV (RBC) [Entitic vol] 84.2 fL Normal 80.0-94.0 A [facility] ([place]) Comment on above: Performed By: #### A DANDRE, CBC, VIDH, ADIFF, A1C, LIPID, GFR, CMP #### [place] [address] #### B12 #### [place] [address] Platelet 321 10 3/mcL Normal 130-400 [facility] ([place] Comment on above: Performed By: #### A DANDRE, CBC, VIDH, ADIFF, A1C, LIPID, GFR, CMP #### [place] [address] #### B12 #### [place] [address] Platelet mean volume (Bld) [Entitic vol] 8.2 fL Normal 7.4-10.4 [facility] ([place] Comment on above: Performed By: #### A DANDRE, CBC, VIDH, ADIFF, A1C, LIPID, GFR, CMP #### [place] [address] #### B12 #### [place] [address] RBC 4.63 10 6/mcL Normal 4.20-5.40 [facility] [place] Comment on above: Performed By: #### A DANDRE, CBC, VIDH, ADIFF, A1C, LIPID, GFR, CMP #### [address] [address] #### B12 #### [address] [address] WBC 6.5 10 3/mcL Normal 4.6-10.8 [facility] ([place] Comment on above: Performed By: #### A DANDRE, CBC, VIDH, ADIFF, A1C, LIPID, GFR, CMP #### [place] [address] #### B12 #### [address] [address] CMPon 08-24-2023 Albumin Level 3.5 G/dL Normal 3.4-4.8 [facility] [place] Comment on above: Performed By: #### A DANDRE, CBC, VIDH, ADIFF, A1C, LIPID, GFR, CMP ####[place] [address]#### B12 ####[address] [address] Albumin/Globulin [Mass ratio] 1.2 {ratio} Normal 1.1-2.5 [facility] ([place] Comment on above: Performed By: #### A DANDRE, CBC, VIDH, ADIFF, A1C, LIPID, GFR, CMP ####[place] [address]#### B12 ####[address] [address] ALP [Catalytic activity/Vol] 66 U/L Normal 40-135 [facility] ([place] Comment on above: Performed By: #### A DANDRE, CBC, VIDH, ADIFF, A1C, LIPID, GFR, CMP ####[place] [address]#### B12 ####[address] [address] ALT [Catalytic activity/Vol] 47 U/L Normal 14-59 [facility] ([place] Comment on above: Performed By: #### A DANDRE, CBC, VIDH, ADIFF, A1C, LIPID, GFR, CMP ####[place] [address]#### B12 ####[place] [address] AST [Catalytic activity/Vol] 16 U/L Normal 10-40 [facility] ([place] Comment on above: Performed By: #### A DANDRE, CBC, VIDH, ADIFF, A1C, LIPID, GFR, CMP ####[place] [address]#### B12 ####[place] [address] Bili Total 0.5 mg/dL Normal 0.2-1.0 [facility] ([place] Comment on above: Result Comment: Use of this assay is not recommended for patients undergoing treatment with eltrombopag due to the potential for falsely elevated results. Performed By: #### A DANDRE, CBC, VIDH, ADIFF, A1C, LIPID, GFR, CMP ####[place] [address]#### B12 ####[place] [address] BUN/Creatinine Ratio 25 ratio Normal 7-27 On license of [facility] ([place]) Comment on above: Performed By: #### A DANDRE, CBC, VIDH, ADIFF, A1C, LIPID, GFR, CMP ####[place] [address]#### B12 ####[place] [address] Calcium [Mass/Vol] 9.5 mg/dL Normal 8.4-10.2 [facility] ([place]) Comment on above: Performed By: #### A DANDRE, CBC, VIDH, ADIFF, A1C, LIPID, GFR, CMP ####[place] [address]#### B12 ####[place] [address] Chloride [Moles/Vol] 103 mmol/L Normal 98-107 On license of [facility] ([place]) Comment on above: Performed By: #### A DANDRE, CBC, VIDH, ADIFF, A1C, LIPID, GFR, CMP ####[place] [address]#### B12 ####[place] [address] CO2 [Moles/Vol] 35 mmol/L High 23-31 [facility] ([place] Comment on above: Performed By: #### A DANDRE, CBC, VIDH, ADIFF, A1C, LIPID, GFR, CMP ####[place] [address]#### B12 ####[place] [address] Creatinine [Mass/Vol] 0.65 mg/dL Normal 0.55-1.02 [facility] ([place]) Comment on above: Performed By: #### A DANDRE, CBC, VIDH, ADIFF, A1C, LIPID, GFR, CMP ####[place] [address]#### B12 ####[place] [address] Electrolyte Balance 5.0 mEq/L Normal 4.0-15.0 [facility] ([place]) Comment on above: Performed By: #### A DANDRE, CBC, VIDH, ADIFF, A1C, LIPID, GFR, CMP ####[place] [address]#### B12 ####[place] [address] Globulin 3.0 G/dL Normal [facility] ([place] Comment on above: Performed By: #### A DANDRE, CBC, VIDH, ADIFF, A1C, LIPID, GFR, CMP ####[place] [address]#### B12 ####[place] [address] Glucose [Mass/Vol] 102 mg/dL Normal 80-115 [facility] ([place]) Comment on above: Performed By: #### A DANDRE, CBC, VIDH, ADIFF, A1C, LIPID, GFR, CMP ####[place] [address]#### B12 ####[address] [address] Potassium [Moles/Vol] 4.3 mmol/L Normal 3.5-5.1 [facility] ([place]) Comment on above: Performed By: #### A DANDRE, CBC, VIDH, ADIFF, A1C, LIPID, GFR, CMP ####[place] [address]#### B12 ####[place] [address] Sodium [Moles/Vol] 143 mmol/L Normal 136-145 [facility] ([place]) Comment on above: Performed By: #### A DANDRE, CBC, VIDH, ADIFF, A1C, LIPID, GFR, CMP ####[place] [address]#### B12 ####[address] [address] Total Protein 6.5 G/dL Normal 6.4-8.2 [facility] ([place] Comment on above: Performed By: #### A DANDRE, CBC, VIDH, ADIFF, A1C, LIPID, GFR, CMP ####[place] [address]#### B12 ####[place] [address] Urea nitrogen [Mass/Vol] 16 mg/dL Normal 7-18 [facility] ([place] Comment on above: Performed By: #### A DANDRE, CBC, VIDH, ADIFF, A1C, LIPID, GFR, CMP ####[place] [address]#### B12 ####[address] [address] DLDLon 08-24-2023 Direct LDL Cholesterol 152 mg/dL High 0-99 [facility] ([place]) Comment on above: Result Comment: Dire ct LDL Cholesterol Reference Interval: Optimal: <100 mg/dL Near Optimal/above optimal: 100-129 mg/dL Borderline high: 130-159 mg/dL High: 160-189 mg/dL Very high: >=190 mg/dL Performed By: #### D LDL, TSHR ####[facility] [place] [id number] LIPIDon 08-24-2023 Cholesterol [Mass/Vol] 250 mg/dL High 0-200 [facility] ([place]) Comment on above: Result Comment: Chol esterol Reference Interval: Less than 200 Desirable 200-239 Borderline high risk 240 and above High risk Performed By: #### A DANDRE, CBC, VIDH, ADIFF, A1C, LIPID, GFR, CMP ####[place] [address]#### B12 ####[address] [address] Cholesterol in HDL [Mass/Vol] 43 mg/dL Normal 40-60 [facility] ([place] Comment on above: Performed By: #### A DANDRE, CBC, VIDH, ADIFF, A1C, LIPID, GFR, CMP ####[place] [address]#### B12 ####[address] [address] Cholesterol in LDL [Mass/Vol] 163 mg/dL High 0-130 [facility] ([place] Comment on above: Performed By: #### A DANDRE, CBC, VIDH, ADIFF, A1C, LIPID, GFR, CMP ####[place] [address]#### B12 ####[address] [address] Triglyceride [Mass/Vol] 220 mg/dL High 0-150 A [facility] ([place]) Comment on above: Result Comment: Trig lyceride Reference Interval: Less than 150 Normal 150-199 Borderline high risk 200-499 High risk 500 or higher Very high risk Performed By: #### A DANDRE, CBC, VIDH, ADIFF, A1C, LIPID, GFR, CMP ####[place] [address]#### B12 ####[place] [address] TSHRon 08-24-2023 TSH Qn 0.84 m[IU]/L Normal 0.36-3.74 [facility] ([place]) Comment on above: Performed By: #### D LDL, TSHR ####[address] [place] [place] [id number] VIDHon 08-24-2023 Vit. D 25-Hydroxy 21.1 ng/mL Normal [facility] ([place]) Comment on above: Result Comment: Inte rpretive Values Based on Total 25(OH) Vitamin D: Deficient <20 ng/mL Insufficient 20 - <30 ng/mL Sufficient 30-100 ng/mL Performed By: #### A DANDRE, CBC, VIDH, ADIFF, A1C, LIPID, GFR, CMP ####[address] [place] [place] [address]#### B12 ####[place] [address] AMPICILLIN:SUSC:PT:ISOLATE:O RDQN:MICon 06-23-2023 Ampicillin RANJANA [Susc] >100,000 cfu/ml Citrobacter koseri [facility] Ampicillin RANJANA [Susc]on 06-13 Citrobacter koseri Citrobacter koseri [facility] LABORATORYOrdered By: Fiona Fernandez on 06-23-2023 Albumin DL <= 20 mg/L (U) [Mass/Vol] 499 mcg/dL Invalid Interpretation Code AO ADM SS Albumin/Creatinine DL <= 20 mg/L (U) [Mass ratio] 10 mcg/mg Normal 0 - 30 mcg/mg AO ADM SS Creatinine (U) [Mass/Vol] 47.9 mg/dL Normal 28.0 - 117.0 mg/dL AO ADM SS MALBRon 06-23-2023 U Creatinine 47.9 mg/dL Normal 28.0-117.0 [facility] ([place]) Comment on above: Performed By: #### 9 [address] #### [address] [place] [address] [place], [place] [address] U Microalb 499 mcg/dL [facility] ([place]) Comment on above: Performed By: #### 9 [address] #### [place] [place] [address] [place], [place] [address] U Ratio Alb/Cre 10 mcg/mg [place] 0-30 [facility] ([place] Comment on above: Performed By: #### 9 [address] #### [place] [id number] CSAon 03-24-2023 Color-Stone Garcia [facility] ([place]) Comment on above: Performed By: #### 9 [address] #### [place] [id number] Composition-Stone Comment [facility] ([place]) Comment on above: Result Comment: Please see comment Performed By: #### 9 [address] #### [place] [address] LC Contact info Comment [facility]) Comment on above: Result Comment: Physician questions regarding Calculi Analysis contact [facility] at: [phone]. Performed By: #### 9 [address] #### [address] [address] Photo Stone COMMENT [facility] ([place]) Comment on above: Result Comment: Test not performed No photo available Performed By: #### 9 [address] #### [place] [id number] Size-Stone <1 [facility] ([place]) Comment on above: Result Comment: Too small to measure. Performed By: #### 9 [address] #### [address] [address] Source-Stone Comment [facility]) Comment on above: Result Comment: Not provided Performed By: #### 9 [address] #### [address] [address] Stone Analysis Note Comment [facility] ([place]) Comment on above: Result Comment: Calculi report will follow via computer, mail or timber supervisor delivery. Performed By: #### 9 [address] #### [place] [address] Stone Comment1 Comment [facility]) Comment on above: Result Comment: Crystalline substances normally associated with human calculi were not identified. Specimen is consistent with organic material. Insufficient sample to perform additional, confirmatory, or reference testing. Performed By: #### 9 [address] #### [place] [address] Stone Comment2 Comment [facility] ([place]) Comment on above: Result Comment: Calculus received wet. Wet calculi must be dried before analysis, which delays reporting of results. Leaving calculi wet (such as water, saline, blood, urine) may lead to changes in composition. Performed By: #### 9 [address] #### [place] [address] Stone Disclaimer: Comment [facility]) Comment on above: Result Comment: This test was developed and its performance characteristics determined by [employer]. It has not been cleared or approved by the Food and Drug Administration. Performed At: [address] [id number] Kendy Cerrato PhD Ph:[phone] Performed By: #### 9 [address] #### [place] [place] [address] Weight-Stone <1 Normal [facility]) Comment on above: Result Comment: Too small to weigh Performed By: #### 9 [address] #### [place] [address] .Urinalysis Microscopic (AO) on 03-06-2023 UA Bacteria Trace Abnormal [facility] ([place] Comment on above: Performed By: #### U AMICAO, UA ####[address] [place] [place] [address] UA Glitter cells 0-5 Abnormal [facility] [place] Comment on above: Performed By: #### U AMICAO, UA ####[address] [place], [place] [address] UA RBC 0-5 Abnormal None Seen [facility] ([place]) Comment on above: Performed By: #### U AMICAO, UA ####[address]d [address] [place], [place] [address] UA Squam Epithelial None Seen Normal None Seen [facility] ([place]) Comment on above: Performed By: #### U AMICAO, UA ####[address]d [address] [place], [place] [address] UA WBC 0-5 Abnormal None Seen [facility] ([place]) Comment on above: Performed By: #### U AMICAO, UA ####[address] [place], [place] [address] AMIKACIN:SUSC:PT:ISOLATE:ORD QN:MICon 03-06-2023 Amikacin RANJANA [Susc] >100,000 cfu/ml Citrobacter koseri [facility] Amikacin RANJANA [Susc]on 2023 Citrobacter koseri Citrobacter koseri [facility] LABORATORYOrdered By: Julienne Roa on 03-06-2023 [...] SS UAon 03-06-2023 Color (U) Yellow Normal [facility] [place] Comment on above: Performed By: #### U AMICAO, UA ####[address]d [address] [place], [place] [address] Glucose (U) [Mass/Vol] Negative Normal Negative [facility] ([place]) Comment on above: Performed By: #### U AMICAO, UA ####[address]d [address] [place], [place] [address] Ketones Ql (U) Negative Normal Negative [facility] [place] Comment on above: Performed By: #### U AMICAO, UA ####[address] [place] [place], [place] [address] UA Appear Clear Normal Clear [facility] [place] Comment on above: Performed By: #### U AMICAO, UA ####Jd [address] [place], [place] [address] UA Blood Trace Abnormal Negative [facility] [place] Comment on above: Performed By: #### U AMICAO, UA ####Jd [address] [place], [place] [address] UA Leuk Est Small Abnormal Negative [facility] [place] Comment on above: Performed By: #### U AMICAO, UA ####Jd [address] [place], [place] [address] UA Nitrite Negative Normal Negative [facility] ([place] Comment on above: Performed By: #### U AMICAO, UA ####Jd [address] [place], [place] [address] UA pH 5.5 Normal 5.0 - 8.0 [facility] ([place] Comment on above: Performed By: #### U AMICAO, UA ####[address]d [address] [place], [place] [address] UA Protein Negative Normal Negative [facility] ([place] Comment on above: Performed By: #### U AMICAO, UA ####[address] [place] [place], [place] [address] UA Spec Grav 1.010 Abnormal 1.015-1.025 [facility] ([place] Comment on above: Performed By: #### U AMICAO, UA ####Jd [address] [place], [place] [address] UA Specimen Type Not Given Normal [facility] [place] Comment on above: Performed By: #### U AMICAO, UA ####[address] [place] [place], [place] [address] UA Urobilinogen 0.2 E.U./dL Normal 0.2-1.0 [facility] ([place] Comment on above: Performed By: #### U AMICAO, UA ####Jd [address] [place], [place] [address] Urobilinogen (U) [Mass/Vol] Negative Normal Negative [facility] [place] Comment on above: Performed By: #### U AMICAO, UA ####[address]d [address] [place], [place] [address] Direct LDLon 11-15-2022 LDL Cholesterol Direct 146 mg/dL High <100 [facility] ([place]) Comment on above: Result Comment: <100 mg/dL, Optimal 100-129 mg/dL, Near optimal/above optimal 130-159 mg/dL, Borderline high 160-189 mg/dL, High >189 mg/dL, Very high Secondary prevention optimal LDL Cholesterol levels are recommended to be < 70 mg/dL Performed By: [email or web address] [email or web address] [address] [place] [address] Ship Liner: Minh Bunn III, M.D. CLIA#: [id number] Performed By: #### B MP, LDLDCT, GFR, LIPID #### Jd [address] [address] VLDL Cholesterol See Below Normal [facility] [place] Comment on above: Result Comment: Test not indicated. Performed By: [facility] [address] [place] [address] Ship Liner: Minh Bunn III, M.D. CLIA#: [id number] Performed By: #### B MP, LDLDCT, GFR, LIPID #### Jd [address] [address] .GFRon 11-14-2022 GFR 104 ml/min/1.73sqm Normal [facility] ([place] Comment on above: Result Comment: GFR Population [...] B MP, LDLDCT, GFR, LIPID #### Jd [address] [address] GFR Non- 86 ml/min/1.73sqm Normal [facility] ([place] Comment on above: Result Comment: GFR Population [...] #### B MP, LDLDCT, GFR, LIPID #### [address] [address] BMPon 11-14-2022 BUN/Creatinine Ratio 20 ratio Normal 7-27 On license of [facility] ([place]) Comment on above: Performed By: #### B MP, LDLDCT, GFR, LIPID #### [address] [address] Calcium [Mass/Vol] 9.2 mg/dL Normal 8.4-10.2 [facility] ([place]) Comment on above: Performed By: #### B MP, LDLDCT, GFR, LIPID #### [address] [address] Chloride [Moles/Vol] 103 mmol/L Normal 98-107 On license of [facility] ([place]) Comment on above: Performed By: #### B MP, LDLDCT, GFR, LIPID #### [address] [address] CO2 [Moles/Vol] 34 mmol/L High 23-31 [facility] ([place] Comment on above: Performed By: #### B MP, LDLDCT, GFR, LIPID #### [address] [address] Creatinine [Mass/Vol] 0.69 mg/dL Normal 0.55-1.02 [facility] ([place]) Comment on above: Performed By: #### B MP, LDLDCT, GFR, LIPID #### [address] [address] Electrolyte Balance 6.0 mEq/L Normal 4.0-15.0 [facility] ([place]) Comment on above: Performed By: #### B MP, LDLDCT, GFR, LIPID #### [address] [address] Glucose [Mass/Vol] 94 mg/dL Normal 80-115 [facility] ([place]) Comment on above: Performed By: #### B MP, LDLDCT, GFR, LIPID #### [address] [address] Potassium [Moles/Vol] 4.0 mmol/L Normal 3.5-5.1 [facility] ([place]) Comment on above: Performed By: #### B MP, LDLDCT, GFR, LIPID #### [address] [address] Sodium [Moles/Vol] 143 mmol/L Normal 136-145 [facility] ([place]) Comment on above: Performed By: #### B MP, LDLDCT, GFR, LIPID #### [address] [address] Urea nitrogen [Mass/Vol] 14 mg/dL Normal 7-18 [facility] [place] Comment on above: Performed By: #### B MP, LDLDCT, GFR, LIPID #### [address] [address] LIPIDon 11-14-2022 Cholesterol [Mass/Vol] 224 mg/dL High 0-200 [facility] ([place]) Comment on above: Result Comment: Chol esterol Reference Interval: Less than 200 Desirable 200-239 Borderline high risk 240 and above High risk Performed By: #### B MP, LDLDCT, GFR, LIPID #### [address] [address] Cholesterol in HDL [Mass/Vol] 42 mg/dL Normal 40-60 [facility] ([place] Comment on above: Performed By: #### B MP, LDLDCT, GFR, LIPID #### [address] [address] [address] Cholesterol in LDL [Mass/Vol] 151 mg/dL High 0-130 [facility] ([place]) Comment on above: Performed By: #### B MP, LDLDCT, GFR, LIPID #### [address] [address] Triglyceride [Mass/Vol] 154 mg/dL High 0-150 A [facility] ([place]) Comment on above: Result Comment: Trig lyceride Reference Interval: Less than 150 Normal 150-199 Borderline high risk 200-499 High risk 500 or higher Very high risk Performed By: #### B MP, LDLDCT, GFR, LIPID #### [facility] [address] [place], [place] [address] AMOXICILLIN+CLAVULANATE:SUSC :PT:ISOLATE:ORDQN:MICon 05-23-2022 Amoxicillin+Clavulanate RANJANA [Susc] >100,000 cfu/ml Citrobacter koseri [facility] Amoxicillin+Clavulanate RANJANA [Susc]on 05-23-2022 Citrobacter koseri Citrobacter koseri [facility] LABORATORYOrdered By: SYSTEM SYSTEM on 03-14-2022 [...] AO Chemistry S GFR Non- 103 ml/min/1.73sqm Inva lid Interpretation Code AO Chemistry S Globulin 3.4 [...] Mixed growth consistent with normal urogenital tomer. [facility] Vital Signs Date Time Vital Sign Value Performing Clinician Faci lity 08-14-2024 09:17-0400 Body temperature 97.9 [degF] Dr. Donavan Gastelum DO Work Phone: [facility] 08-14-2024 09:17-0400 Diastolic blood pressure 86 mm[Hg] Dr. Donavan Gastelum DO Work Phone: [facility] 08-14-2024 09:17-0400 Heart rate 84 /min Dr. Donavan Gastelum DO Work Phone: [facility] 08-14-2024 09:17-0400 Respiratory rate 18 /min Dr. Donavan Gastelum DO Work Phone: [facility] 08-14-2024 09:17-0400 SaO2% (BldA) [Mass fraction] 98 % Dr. Donavan Gastelum DO Work Phone: [facility] 08-14-2024 09:17-0400 Systolic blood pressure 159 mm[Hg] Dr. Donavan Gastelum DO Work Phone: [facility] 08-13-2024 15:35-0400 Inhaled oxygen flow rate 4 L/min Dr. Donavan Gastelum DO Work Phone: [facility] 08-13-2024 14:30-0400 Body height 157.[address] Donavan Gastelum DO Work Phone: [facility] 08-13-2024 14:30-0400 Body mass index (BMI) [Ratio] 31.8 kg/m2 Dr. Donavan Gastelum DO Work Phone: [facility] 08-13-2024 14:30-0400 Body weight [address] Donavan Gastelum DO Work Phone: [facility] Encounters Encounter Date Encounter Type Care Provider Facility Start: 10-01-2024 End: 10-02-2024 Emergency department patient visit ELIZABET Fe NOLAN CHIEF LOCK OPERATOR-AUTOMATION CONTROL INTEGRATOR Facility:[facility] Start: 10-01-2024 End: 10-02-2024 Observation ELIZABET KENDRCIKDARIEN CHIEF LOCK OPERATOR-AUTOMATION CONTROL INTEGRATOR [facility] Start: 08-19-2024 ambulatory DONAVAN Sandy lity:[facility] Start: 08-15-2024 Encounter for other preprocedural examination [facility] Start: 08-14-2024 Non-patient / Non-visit Dr. Ursula Casper [facility] Work Phone: Start: 08-13-2024 Non-patient / Non-visit Dr. Colon [facility] Work Phone: Start: 08-13-2024 End: 08-14-2024 ambulatory Donavan Gastelum Facility:[facility] Start: 08-13-2024 End: 08-14-2024 Evaluation and management of inpatient Dr. Misbah Byrd MD -[facility] Work Phone: Start: 08-13-2024 End: 08-14-[address] Donavan Gastelum DO Work Phone: -[facility] Start: 08-05-2024 ambulatory DONAVAN GASTELUM DO Faci lity:[facility] Start: 07-12-2024 End: 07-12-2024 ambulatory Donavan Gastelum Facility[facility] Start: 07-12-2024 End: 07-12-2024 Non-patient / Non-visit Dr. Jana Magana MD [facility] Work Phone: Start: 04-09-2024 End: 04-09-2024 ambulatory DONAVAN GASTELUM DO Facility:[facility] Start: 04-09-2024 End: 04-09-2024 Patient encounter procedure DONAVAN GASTELUM DO [facility] Start: 09-02-2023 ambulatory CHONG RAMSEY DO Facili ty:B Start: 08-24-2023 End: 08-24-2023 ambulatory DONAVAN GASTELUM DO Facility:[facility] Start: 06-23-2023 End: 06-27-2023 ambulatory DONAVAN GASTELUM DO Facility:[facility] Start: 06-23-2023 End: 06-27-2023 Outreach Lab DONAVAN GASTELUM DO [facility] Start: 03-06-2023 End: 03-10-2023 ambulatory DONAVAN GASTELUM DO Facility:[facility] Start: 03-06-2023 End: 03-10-2023 Outreach Lab DONAVAN Blessing GASTELUM DO [facility] Start: 11-14-2022 End: 11-14-2022 ambulatory DONAVAN GASTELUM DO Facility:[facility] Start: 05-23-2022 End: 05-27-2022 Outreach Lab YUNIOR POTTS CHIEF LOCK OPERATOR-AUTOMATION CONTROL INTEGRATOR [facility] Start: 03-14-2022 End: 03-14-2022 Patient encounter procedure DONAVAN GASTELUM DO [facility] Start: 10-05-2021 End: 10-05-2021 Patient encounter procedure DONAVAN GASTELUM DO [facility] Start: 06-11-2021 End: 06-15-2021 Outreach Lab YUNIOR POTTS CHIEF LOCK OPERATOR-AUTOMATION CONTROL INTEGRATOR [facility] Procedures Date Procedure Procedure Detail Performing Clinician Start: 08-14-[address] Donavan Gastelum DO Work Phone: Start: 08-13-2024 Plain X-ray of hip Dr. Donavan Gastelum DO Work Phone: Start: 08-13-[address] Donavan Gastelum DO Work Phone: Start: 08-13-2024 Plain X-ray of hip Dr. Donavan Gastelum DO Work Phone: Start: 08-13-2024 Total replacement of hip Dr. Donavan vinson DO Work Phone: Start: 07-12-2024 Methicillin resistant Staphylococcus aureus screening test Dr. Donavan Gastelum DO Work Phone: History of total hysterectomy S/P total hysterectomy 2009 ELIZABET AWAD Plan of Treatment Date Care Activity Detail Author Start: 08-14-2024 Patient discharge [facility] Start: 08-13-2024 Application of inter mittent pneumatic compression device [facility] Start: 08-13-2024 Following clinical p athway protocol [facility] Start: 08-13-2024 Provision of overbed trapeze [facility] Start: 08-13-2024 End: 08-13-2024 [facility] Start: 08-13-2024 Ambulation therapy management [facility] Start: 08-13-2024 Application of device [facility] Start: 08-13-2024 Assessment of risk o f venous thromboembolism [facility] Start: 08-13-2024 Catheterization of vein [facility] Start: 08-13-2024 Consultation [facility] Start: 08-13-2024 Exercises [facility] Start: 08-13-2024 Following clinical p athway protocol [facility] Start: 08-13-2024 Incentive spirometry [facility] Start: 08-13-2024 Introduction of urinary catheter [facility] Start: 08-13-2024 Measuring intake and output [facility] Start: 08-13-2024 Neurovascular assessment [facility] Start: 08-13-2024 Patient education [facility] Start: 08-13-2024 Procedure discontinued [facility] Start: 08-13-2024 Provision of activity privileges [facility] Start: 08-13-2024 Recommendation to co ntinue with treatment [facility] Start: 08-13-2024 Referral to occupati onal therapist [facility] Start: 08-13-2024 Referral to service [facility] Start: 08-13-2024 Vital signs measurements [facility] Start: 08-13-2024 Wound care [facility] Start: 08-13-2024 Admission procedure [facility] Immunizations Immunization Date Immunization Notes Care Provider Johanny winters 06-08-2018 tetanus toxoid, redu kamilah diphtheria toxoid, and acellular pertussis vaccine, adsorbed DONAVAN GASTELUM DO [facility] Payers Date Payer Category Payer Self-pay 2024 Medicare [id number] 2024 Unknown [id number] 2022 Unknown [id number] 1959 Unknown [id number] 2.16.8 [id number]. 1959 Unknown [id number] 2.16.8 40.1.843226.3.579.2. 1959 Unknown [id number] 2.16.8 40.1.933893.3.579.2. 1959 Unknown [id number] 2.16.8 40.1.471995.3.579.2. 1959 Unknown [id number] 2.16.8 40.1.784771.3.579.2. 1959 Unknown [id number] 2.16. 840.1.924760.3.579.2. 1959 Unknown [id number] 2.16. 840.1.012150.3.579.2. 1959 Unknown [id number] 2.16. [id number] 1959 Unknown [id number] 2.16. [id number] 1959 Unknown [id number] 2.16.8 [id number] Unknown [id number] Unknown [id number] 2.16.8 40.1.930620.3.579.2.462 Unknown [id number] 2.16.8 40.1.037158.3.579.2.462 Unknown [id number] 2.16.8 40.1.620886.3.579.2.462 Unknown [id number] 2.16.8 40.1.534003.3.579.2.462 Social History Date Type Detail Facility Start: 04-17-2019 End: 07-09-2024 Tobacco smoking status Never smoked tobacco (finding) [facility] Start: 1960 Sex Assigned At Female A [facility] Start: 08-08-2018 Sex Female (finding) [facility] Start: 10-01-2024 Tobacco smoking status Ex-smoker (fi nding) [facility] Medical Equipment Procedure Code Equipment Code Equipment Origin al Text Equipment Identifier Dates Minimally invasive total replacement of hip joint by anterior approach ([id number]) Ceramic femoral head prosthesis ()[id number] FDA Start: 08-13-2024 Minimally invasive total replacement of hip joint by anterior approach ([id number]) Coated hip femur prosthesis, modular ()[id number] FDA Start: 08-13-2024 Minimally invasive total replacement of hip joint by anterior approach ([id number]) Non-constrained polyethylene acetabular liner ()[id number] FDA Start: 08-13-2024 Minimally invasive total replacement of hip joint by anterior approach ([id number]) Acetabular shell ([id number] FDA Start: 08-13-2024 Goals Date Patient Goal Desired Activity /State Functional Status Date Assessment Result Facility 08-14-2024 Functional status Ambulates [facility] Work Phone: Mental Status Date Assessment Result Facility 08-14-2024 Cognitive function Voice/Name [place] [facility] Work Phone: Clinical Notes 03-08-2023 to 10-02-2024 Note Date & Type Note Facility 10-02-2024 Hospital Discharg e instructions Patient Education 10/02/2024 12:25:04 Stroke Prevention Stroke Prevention Some medical conditions and behaviors are associated with a higher chance of having a stroke. You can help prevent a stroke by making nutrition, lifestyle, and other changes, including managing any medical conditions you may have. What nutrition changes can be made? Eat healthy foods. You can do this by: ?Choosing foods high in fiber, such as fresh fruits and vegetables and whole grains. ?Eating at least 5 or more servings of fruits and vegetables a day. Try to fill half of your plate at each meal with fruits and vegetables. ?Choosing lean protein foods, such as lean cuts of meat, poultry without skin, fish, tofu, beans, and nuts. ?Eating low-fat dairy products. ?Avoiding foods that are high in salt (sodium). This can help lower blood pressure. ?Avoiding foods that have saturated fat, trans fat, and cholesterol. This can help prevent high cholesterol. ?Avoiding processed and premade foods. Follow your health care provider's specific guidelines for losing weight, controlling high blood pressure (hypertension), lowering high cholesterol, and managing diabetes. These may include: ?Reducing your daily calorie intake. ?Limiting your daily sodium intake to 1,500 milligrams (mg). ?Using only healthy fats for cooking, such as olive oil, canola oil, or sunflower oil. ?Counting your daily carbohydrate intake. What lifestyle changes can be made? Maintain a healthy weight. Talk to your health care provider about your ideal weight. Get at least 30 minutes of moderate physical activity at least 5 days a week. Moderate activity includes brisk walking, biking, and swimming. Do not use any products that contain nicotine or tobacco, such as cigarettes and e-cigarettes. If you need help quitting, ask your health care provider. It may also be helpful to avoid exposure to secondhand smoke. Limit alcohol intake to no more than 1 drink a day for non women and 2 drinks a day for men. One drink equals 12 oz of beer, 5 oz of wine, or 1 oz of hard liquor. Stop any illegal drug use. Avoid taking control pills. Talk to your health care provider about the risks of taking control pills if: ?You are over 35 years old. ?You smoke. ?You get migraines. ?You have ever had a blood clot. What other changes can be made? Manage your cholesterol levels. ?Eating a healthy diet is important for preventing high cholesterol. If cholesterol cannot be managed through diet alone, you may also need to take medicines. ?Take any prescribed medicines to control your cholesterol as told by your health care provider. Manage your diabetes. ?Eating a healthy diet and exercising regularly are important parts of managing your blood sugar. If your blood sugar cannot be managed through diet and exercise, you may need to take medicines. ?Take any prescribed medicines to control your diabetes as told by your health care provider. Control your hypertension. ?To reduce your risk of stroke, try to keep your blood pressure below 130/80. ?Eating a healthy diet and exercising regularly are an important part of controlling your blood pressure. If your blood pressure cannot be managed through diet and exercise, you may need to take medicines. ?Take any prescribed medicines to control hypertension as told by your health care provider. ?Ask your health care provider if you should monitor your blood pressure at home. ?Have your blood pressure checked every year, even if your blood pressure is normal. Blood pressure increases with age and some medical conditions. Get evaluated for sleep disorders (sleep apnea). Talk to your health care provider about getting a sleep evaluation if you snore a lot or have excessive sleepiness. Take xlrm-aep-ythivul and prescription medicines only as told by your health care provider. Aspirin or blood thinners (antiplatelets or anticoagulants) may be recommended to reduce your risk of forming blood clots that can lead to stroke. Make sure that any other medical conditions you have, such as atrial fibrillation or atherosclerosis, are managed. What are the warning signs of a stroke? The warning signs of a stroke can be easily remembered as BEFAST. B is for balance. Signs include: ?Dizziness. ?Loss of balance or coordination. ?Sudden trouble walking. E is for eyes. Signs include: ?A sudden change in vision. ?Trouble seeing. F is for face. Signs include: ?Sudden weakness or numbness of the face. ?The face or eyelid drooping to one side. A is for arms. Signs include: ?Sudden weakness or numbness of the arm, usually on one side of the body. S is for speech. Signs include: ?Trouble speaking (aphasia). ?Trouble understanding. T is for time. ?These symptoms may represent a serious problem that is an emergency. Do not wait to see if the symptoms will go away. Get medical help right away. Call your local emergency services (911 in the [place] Do not drive yourself to the hospital. Other signs of stroke may include: ?A sudden, severe headache with no known cause. ?Nausea or vomiting. ?Seizure. Where to find more information For more information, visit: [place] [employer] Association: www.strokeassociation.org National Stroke Association: www.stroke.org Summary You can prevent a stroke by eating healthy, exercising, not smoking, limiting alcohol intake, and managing any medical conditions you may have. Do not use any products that contain nicotine or tobacco, such as cigarettes and e-cigarettes. If you need help quitting, ask your health care provider. It may also be helpful to avoid exposure to secondhand smoke. Remember BEFAST for warning signs of stroke. Get help right away if you or a loved one has any of these signs. This information is not intended to replace advice given to you by your health care provider. Make sure you discuss any questions you have with your health care provider. Document Released: 03/09/2005 Document Revised: 01/12/2018 Document Reviewed: 03/07/2017 [employer] Patient Education 2020 [employer] Follow Up Care 10/01/2024 10:55:37 With:DONAVAN GASTELUM DO Address: [address] [place] [address]- [phone] When:2-4 days Comments:Please call to schedule your post-hospital follow-up appointment[facility] Note Discharge Instructions Thank you for allowing [facility] to assist you with your healthcare needs. The following is important discharge information regarding your hospital visit. Your Care Team [facility] Your Diagnosis CVA (cerebrovascular accident) Essential hypertension Mixed hyperlipidemia What to do next Instructions From Your Doctor You are admitted to the hospital after having experienced zdis-cvo-snehdsa in your leg as well as vision changes. You had an MRI of your brain that showed 2 very small strokes. Having a stroke, high cholesterol, and high blood pressure means there is a higher risk of having another stroke or heart problem in the future. One important way to lower this risk is by taking a type of medicine called a statin. Statins are medicines that lower the bad cholesterol (called LDL cholesterol) in the blood. High levels of LDL cholesterol can lead to blockages in blood vessels, which can cause strokes and heart attacks. Statins help keep blood vessels healthy and lower the chance of another stroke. 03/2024 your LDL was 161. During this hospital stay, your LDL was 204. Your total cholesterol also increased from 232 to 273. Along with statins, controlling blood pressure, eating a healthy diet, staying active, and not smoking are all important ways to lower the risk of another stroke. A diet high in fiber can help lower cholesterol. The liver uses cholesterol to make bile acids, which help digest fats. When you eat soluble fiber, it forms a gel-like substance in your gut. This gel traps bile acids and carries them out of your body in your stool, instead of letting them get reabsorbed. To replace the lost bile acids, your liver pulls more cholesterol out of your blood to make new ones. This process lowers the amount of LDL (bad cholesterol) in your blood. Goal fiber per day would be 30-40 grams. This may be too much to start with if you're not used to eating that much fiber. You could start with 20-25 grams per day and increase over a few weeks. It is important to increase your water intake with fiber intake as water is necessary to move the fiber through your digestive tract. A sudden increase in fiber can cause gas, bloating and abdominal discomfort. If this happens, lower your fiber intake for a week or two, then increase again. It is normal to have questions or worries, especially with so much information online. However, the benefits of statins for people who have had a stroke are clear and supported by the best available medical research. Stopping or avoiding statins after a stroke can increase the risk of another stroke or heart attack. You have indicated your reluctance to taking a statin. I would encourage you to discuss this with Dr. Gastelum at your follow-up appointment. A prescription has been sent to your pharmacy in the event that you do decide to take this. A prescription for plavix and aspirin has also been sent to your pharmacy. You will take both for 21 days, then you will stop the plavix and continue the aspirin. Scheduled Follow-Up Appointments Appointment Type When With Where Contact Information StatusPT Treatment - [facility] 10/04/2024 01:00 [place] [address] [facility] [phone] Confirmed PC OV 10/23/2024 02:15 PM EDT DONAVAN GASTELUM DO [address] [phone] Confirmed Follow Up Appointments Follow Up with DONAVAN GASTELUM DO When:Within 2-4 days Where:[address] [place] [phone] Additional Information: Please call to schedule your post-hospital follow-up appointment. The Following Activity and Diet Have Been Ordered for You Discharge Activity - Ordered -- Resume your pre-hospitalization activity, 10/02/24 12:22:00 EDT Discharge Diet - Ordered -- No changes were made to your diet during your hospital stay. Please resume your pre hospitalization diet on discharge., 10/02/24 12:22:00 EDT Someone Will Contact You Regarding These Home Health Referrals No home referrals have been ordered for you. No one will call you. Allergies iodine Facial redness, Rash Medications Please ask your primary doctor or pharmacist before taking any other medication not listed, including over the counter drugs, herbal medications, vitamins and or supplements as they may interact with your home medications. What How Much When Why Instructions Last Dose New aspirin (aspirin 81 mg oral tablet, chewable) 1 tab(s) by mouth Once a day with a meal Pickup at [id number] 10/02/24 0839 AM New clopidogrel (Plavix 75 mg oral tablet) 1 tab(s) by mouth Once a day Duration: 20 Days Pickup at [id number] 10/02/24 0839AM New rosuvastatin (rosuvastatin 10 mg oral tablet) 1 tab(s) by mouth Once a day Duration: 30 Days Pickup at [id number] NA Changed Misc Medication (beet root) NA Changed Misc Medication (natures calm) 325 Milligram NA Unchanged amLODIPine (amLODIPine 2.5 mg oral tablet) 1 tab(s) by mouth Once a day Start 2.5mg. If BP > 140 systolic or 90 diastolic regularly increas to 5mg dosing D/ C 5mg dosing 10/02/24 0839 AM Unchanged ascorbic acid (Vitamin C) 1,000 Milligram Once a day NA Unchanged cholecalciferol (Vitamin D3 25 mcg (1000 intl units) oral capsule) 1 cap by mouth Once a day NA Unchanged cloNIDine (cloNIDine 0.1 mg oral tablet) 1 tab(s) by mouth Three (3) times a day Essential hypertension Take for BP > 140 systolic or > 90 diastolic, or 30-60 min before stressful events NA Unchanged famotidine (Pepcid 20 mg oral tablet) 1 tab(s) by mouth Once a day as needed for acid reflux Mixed hyperlipidemia Essential hypertension NA Unchanged herbal/ nutritional product (cranberry oral capsule) 4,200 Milligram by mouth Every day NA Unchanged herbal/ nutritional product (garlic oral capsule) 1 cap by mouth Every day NA Unchanged herbal/ nutritional product (Probiotic) NA Unchanged herbal/ nutritional product (turmeric 500 mg oral capsule) NA Unchanged ibuprofen (ibuprofen 200 mg oral tablet) 2 tab(s) by mouth Every 6 hours as needed for pain or fever NA Unchanged lisinopril (lisinopril 20 mg oral tablet) 1 tab(s) by mouth Once a day D/ C lisinopril-HCTZ combo pill please 10/02/24 0839 AM Unchanged multivitamin (Natrol L-Arginine) by mouth Once a day NA Unchanged propranolol (propranolol 20 mg oral tablet) 1 tab(s) by mouth Three (3) times a day Anxiety Take 30-60 min before triggering events. If needing more can take 40mg NA Unchanged zinc acetate (zinc (as acetate) 50 mg oral capsule) 1 cap by mouth Once a day NA Pharmacy Information [id number]: [id number], [place] [phone] Please take this list to your next doctor s visit. Bring all medications you take, including over the counter medications, herbals and other supplements with you to your doctor s visit. Patients and families are reminded to discard old lists and to update any records with all medication providers or retail pharmacies. Education Materials Stroke Prevention Some medical conditions and behaviors are associated with a higher chance of having a stroke. You can help prevent a stroke by making nutrition, lifestyle, and other changes, including managing any medical conditions you may have. What nutrition changes can be made? Eat healthy foods. You can do this by: ? Choosing foods high in fiber, such as fresh fruits and vegetables and whole grains. ? Eating at least 5 or more servings of fruits and vegetables a day. Try to fill half of your plate at each meal with fruits and vegetables. ? Choosing lean protein foods, such as lean cuts of meat, poultry without skin, fish, tofu, beans, and nuts. ? Eating low-fat dairy products. ? Avoiding foods that are high in salt (sodium). This can help lower blood pressure. ? Avoiding foods that have saturated fat, trans fat, and cholesterol. This can help prevent high cholesterol. ? Avoiding processed and premade foods. Follow your health care provider's specific guidelines for losing weight, controlling high blood pressure (hypertension), lowering high cholesterol, and managing diabetes. These may include: ? Reducing your daily calorie intake. ? Limiting your daily sodium intake to 1,500 milligrams (mg). ? Using only healthy fats for cooking, such as olive oil, canola oil, or sunflower oil. ? Counting your daily carbohydrate intake. What lifestyle changes can be made? Maintain a healthy weight. Talk to your health care provider about your ideal weight. Get at least 30 minutes of moderate physical activity at least 5 days a week. Moderate activity includes brisk walking, biking, and swimming. Do not use any products that contain nicotine or tobacco, such as cigarettes and e-cigarettes. If you need help quitting, ask your health care provider. It may also be helpful to avoid exposure to secondhand smoke. Limit alcohol intake to no more than 1 drink a day for non women and 2 drinks a day for men. One drink equals 12 oz of beer, 5 oz of wine, or 1 oz of hard liquor. Stop any illegal drug use. Avoid taking control pills. Talk to your health care provider about the risks of taking control pills if: ? You are over 35 years old. ? You smoke. ? You get migraines. ? You have ever had a blood clot. What other changes can be made? Manage your cholesterol levels. ? Eating a healthy diet is important for preventing high cholesterol. If cholesterol cannot be managed through diet alone, you may also need to take medicines. ? Take any prescribed medicines to control your cholesterol as told by your health care provider. Manage your diabetes. ? Eating a healthy diet and exercising regularly are important parts of managing your blood sugar. If your blood sugar cannot be managed through diet and exercise, you may need to take medicines. ? Take any prescribed medicines to control your diabetes as told by your health care provider. Control your hypertension. ? To reduce your risk of stroke, try to keep your blood pressure below 130/80. ? Eating a healthy diet and exercising regularly are an important part of controlling your blood pressure. If your blood pressure cannot be managed through diet and exercise, you may need to take medicines. ? Take any prescribed medicines to control hypertension as told by your health care provider. ? Ask your health care provider if you should monitor your blood pressure at home. ? Have your blood pressure checked every year, even if your blood pressure is normal. Blood pressure increases with age and some medical conditions. Get evaluated for sleep disorders (sleep apnea). Talk to your health care provider about getting a sleep evaluation if you snore a lot or have excessive sleepiness. Take umst-isa-hxwgppv and prescription medicines only as told by your health care provider. Aspirin or blood thinners (antiplatelets or anticoagulants) may be recommended to reduce your risk of forming blood clots that can lead to stroke. Make sure that any other medical conditions you have, such as atrial fibrillation or atherosclerosis, are managed. What are the warning signs of a stroke? The warning signs of a stroke can be easily remembered as BEFAST. B is for balance. Signs include: ? Dizziness. ? Loss of balance or coordination. ? Sudden trouble walking. E is for eyes. Signs include: ? A sudden change in vision. ? Trouble seeing. F is for face. Signs include: ? Sudden weakness or numbness of the face. ? The face or eyelid drooping to one side. A is for arms. Signs include: ? Sudden weakness or numbness of the arm, usually on one side of the body. S is for speech. Signs include: ? Trouble speaking (aphasia). ? Trouble understanding. T is for time. ? These symptoms may represent a serious problem that is an emergency. Do not wait to see if the symptoms will go away. Get medical help right away. Call your local emergency services (911 in the [place] Do not drive yourself to the hospital. Other signs of stroke may include: ? A sudden, severe headache with no known cause. ? Nausea or vomiting. ? Seizure. Where to find more information For more information, visit: [place] [employer] Association: www.strokeassociation.org National Stroke Association: www.stroke.org Summary You can prevent a stroke by eating healthy, exercising, not smoking, limiting alcohol intake, and managing any medical conditions you may have. Do not use any products that contain nicotine or tobacco, such as cigarettes and e-cigarettes. If you need help quitting, ask your health care provider. It may also be helpful to avoid exposure to secondhand smoke. Remember BEFAST for warning signs of stroke. Get help right away if you or a loved one has any of these signs. This information is not intended to replace advice given to you by your health care provider. Make sure you discuss any questions you have with your health care provider. Document Released: 03/09/2005 Document Revised: 01/12/2018 Document Reviewed: 03/07/2017 [employer] Patient Education 2020 [employer] Additional Information VACCINATE! IT SAVES LIVES! Members of the community who have not yet received the COVID-19 vaccine and would like to receive it can visit one of [facility] vaccine clinics. There are many vaccine clinic locations within the [facility]. For locations and available times, please visit https://gettheshot.coronavirus.o hio.gov/. It is important to note that some COVID mobile vaccine clinics are held outdoors and may be canceled in rainy or stormy conditions. To learn more about pediatric vaccinations (ages 5-11), we invite you to visit the [facility] webpage. https://www.[facility].org/p [email or web address]-Smdksdpxgqc-Freq aoyxtu-Shlnb-Xtlztoqqw.[email or web address] To learn more about the COVID-19 vaccine, we invite you to visit the CDC website for a list of frequently asked questions.https://www.cdc.gov/co ronavirus/2019-ncov/vaccines/faq .html [facility] Patient Portal Access Instructions: Stay connected with your healthcare team and access your personal medical information anytime with the [facility] Patient Portal. Please follow the directions below to create your [facility] account: 1.Access the email account you provided upon registration to the hospital/physician office.2.Look for an invitation email from [facility].3.Open the email and access the invitation link: Accept Invitation to [facility].4.Fill in the required sousa to create your account. To access your account, visit [employer] [employer]. Click the blue button labeled Access Patient Portal and then log in with the username and password that you created in the steps above. You will be able to view your test results, lab results, a summary of your visits, upcoming appointments and more. There is also a convenient messaging option where you can send secure messages to your provider. In addition, you will have the ability to download any documents or summaries to your computer and/or send the information securely to a physician. Remember that your healthcare information is confidential, so carefully consider who you will allow to register on the [facility] [facility] Patient Portal for access to your information. You can also access the [facility] Patient Portal on the [employer] ayden. Simply click on Patient Portal and then log into your account. If you would like to receive a full copy of your medical records, please contact the [facility] Medical Records Department by calling [phone], Monday through Monday between 8 a.m. and 4:30 p.m. HOW TO SAFELY DISPOSE OF PRESCRIPTION MEDICATIONS Please use one of the following methods to safely dispose of your unused medications. 1.Use a drug disposal kit: the drug disposal pouch allows you to safely discard your old and unused drugs. Ask your nurse to give you one when you are discharged.2.Visit a local take-back location: Many local pharmacies and police departments have programs that collect old and unwanted prescription drugs. Call your local pharmacy or go to http://U.S. Healthworks.Devtoo/5S2Oq0b to find one close to you.3.Make use of household items: Use cat litter or old coffee grounds to dispose medications if other options are not available. Mix your drugs with these household products, seal them in an airtight container and throw it into the garbage. Call [facility]: [phone] to be sure your drugs can be disposed of in this way. Some medicines may require a different approach.4.Never flush your medications down the toilet. IF YOU HAVE BEEN PRESCRIBED AN OPIOID FOR PAIN If you have been prescribed an opioid (such as hydrocodone, oxycodone or morphine), it is critical to understand the possible side effects and risks of opioid pain medications. Even when taken as directed, opioids can have several side effects including: Tolerance, meaning you might need to take more of a medication for the same pain relief. Nausea, vomiting and/or constipation. Sleepiness, dizziness, dry mouth, confusion, depression or itching. Physical dependence, meaning you have withdrawal symptoms when a medication is stopped, can develop within a few days. KNOW YOUR RESPONSIBILITIES It is important to know exactly how much and how often to take the opioid pain medications you are prescribed. Never take opioids in higher amounts or more often than prescribed. Do not combine opioids with alcohol or other drugs that cause drowsiness, such as benzodiazepines, also known as benzos, including diazepam and alprazolam, muscle relaxants or sleep aids. Never sell or share prescription opioids. This is illegal. Store opioids in a secure place and out of reach of others (including children, family, friends and visitors). The last page of this document has been signed and retained as a CHART COPY. Signatures Patient Education Materials Stroke Prevention Medication Leaflets My discharge plan and instructions have been reviewed and explained to me and ISHERIN DEBRA A understand my current condition and have read and understand these discharge instructions. I have received a written copy of the plan/instructions. If I have questions, I am aware that I should contact my doctor. Patient/Conservation Technician Signature: Date/Time: Relationship to Patient: Witness Name/Signature: Date/Time: [facility] 10-02-2024 Pastoral care Progress note Pastoral Care Note Entered On: 10/02/2024 9:24 EDT Performed On: 10/02/2024 9:19 EDT by Cassius Moses Pastoral Care Spiritual Care Visit Initiated by : Consult/Referral Type of Pastoral Visit : Initial visit Spiritual Care Reason for Visit : General Pastoral Care Referral From : Patient Spiritual Assessment : Faithful, Positive Image of God Spiritual Care Emotional Assessment : Frustrated, Anxious/Worried, Has Support Network, Family Dynamics Issues Spiritual Care Intervention : Active listening, Compassion/Empathy, Supportive presence, Explore Spiritual Needs, Explore Emotional Needs, Prayer with Patient/Family Spiritual Outcomes : Expresses Gratitude, Expresses Valentina Spiritual Plan of Care : No Further Action Pastoral Care Comments : patient is known to this document reviewer through her daughter's family; pt is welcoming and seeking of spiritual care and support; pt acknowledges that it was a shock to know that I had a small stroke, but I knew something like that was happening to me; pt says her is very upset about this and is skeptical of medications; pt has valentina in God to help her and other family members are available to assist her; pt requests prayer for self in decision making and for so that he can be more understanding and calm; pt expresses gratitude for presence and prayer Pastoral Care Visit Length : 15 minute(s) Cassius Moses - 10/02/2024 9:19 EDT Digitally Signed by Cassius Moses on 10/02/2024 09:19 AM [facility] 10-01-2024 Note Date of Service 10/01/2024 Chief Complaint Presents with right eye visual changes and right leg needles that started at 1045 today History of Present Illness 64-year-old female with past medical history significant for hypertension, hyperlipidemia, GERD, insomnia. Patient presented to [facility] emergency department 10/01/2024 with reports of right lower extremity numbness, feeling lightheaded. This lasted for less than 1 hour. When she arrived in the emergency department she had vision changes in bilateral eyes where she was seeing halos and squiggles. This went away quickly. She was very anxious and given a dose of Ativan with improvement in symptoms. Blood pressure was elevated at 177/87. Remainder of vital signs were stable. CBC unremarkable. Potassium level 3.3, glucose 119. CT of the head showed subcentimeter left basal ganglial infarct of uncertain age. CTA head and neck unremarkable. NIH score 0. Patient was subsequently admitted for TIA workup. On exam today, pt denies any fever or chills. No headache or dizziness. No further vision changes after initial episode. Denies chest pain, palpitations. No cough, dyspnea, sputum production. Denies N/V/D/C. No melena/hematochezia. No dysuria or hematuria. No further paresthesias after initial episode. Review of Systems See HPI for specific ROS. All other systems reviewed and negative. Physical Exam Vitals and Measurements T: 36.8 C (Oral) TMIN: 36.2 C (Oral) TMAX: 36.9 C (Oral) HR: 91 RR: 18 BP: 145/85 SpO2: 96% HT: 157.5 cm WT: 81.6 kg BMI: 32.89 Weight Dosing Weight: 81.6 kg (10/01/24) Dosing Weight: 81.6 kg (10/01/24) GEN: Appears chronically ill EYES: No conjunctival erythema, drainage. EOMI EARS: Hearing grossly intact. NOSE: No nasal discharge. THROAT: Oral cavity and pharynx pink and moist. CHEST: Normal S1 and S2. Rhythm is regular. Clear to auscultation, without rales, rhonchi, wheezing. ABD: Positive bowel sounds x 4 quads. Soft, nondistended, nontender. EXT: No significant deformity or joint abnormality. No edema. Peripheral pulses intact. NEURO: Sensation grossly intact. NIH SS 0 SKIN: Skin color normal PSYCH: The mental examination revealed the patient was alert and oriented x 4 Lab Results 10/01 11:25 WBC: 7.3 Hgb: 13.2 Hct: 40.1 Platelet: 375 Neutrophil %: 46.4 L Protime: 11.0 PT International Ratio: 1.0 Glucose Level: 119 H Sodium Level: 139 Potassium Level: 3.3 L BUN: 14 Creatinine Lvl (s): 0.57 Imaging Results and Diagnostics CT Angiography Neck w/ Contrast Result Date: October 01, 2024 Verified By: VIOLETTE COOK MD CLINICAL STATEMENT: IMPRESSION: No significant arterial stenosis in the neck. CT Angiography Head w/ Contrast Result Date: October 01, 2024 Verified By: ELFEGO DIAZ DO CLINICAL STATEMENT: IMPRESSION: Unremarkable CTA of the head. CT Head or Brain w/o Contrast Result Date: October 01, 2024 Verified By: VIOLETTE COOK MD CLINICAL STATEMENT: IMPRESSION: Subcentimeter left basal ganglial infarct of uncertain age. EKG EC10/01/24: Sinus rhythm Borderline intraventricular conduction delay Electronic Signature: MISHA BLACK DO 10/01/2024 11:40:01 Assessment/Plan 1. CVA (cerebrovascular accident) 2. Essential hypertension Ordered: 3. Mixed hyperlipidemia Ordered: CVA- CT of the head showed subcentimeter left basal ganglial infarct that is age indeterminant. Also concern for TIA given vision changes and right lower extremity paresthesias. ABCD2 score of 3. Start atorvastatin 40 mg daily, aspirin 81 mg daily, Plavix 75 mg daily. Patient is reluctant to take a statin. Her is at the bedside and adamantly opposed to all statin use. States that he has done his own research and believes that they are more harmful than beneficial. Patient's and both educated on the safety and benefit of statin use, especially given that she has had a stroke. Obtain MRI of the brain and echocardiogram with bubble study. HTN- SBP goal 140 or less. Continue home antihypertensives. HLD atorvastatin 40 mg daily. 03/2024, total cholesterol was 232, triglycerides 98, HDL 51, LDL 161. Today total cholesterol is 273, triglycerides 80, HDL 53, LDL 204. A1c 5.5. Patient was undecided at the time of visit if she would take a statin. DVT prophylaxis: Lovenox Code Status: Full code Plan of care discussed with patient. All questions answered. Patient verbalizes understanding is agreeable to plan of care. This dictation was performed using voice recognition software and may include grammatical and/or spelling errors. Problem List/Past Medical History Ongoing Arthritis of left hip ASCVD (arteriosclerotic cardiovascular disease), 10.2% on 08/28/23, 7.5% even if HTN perfect BMI 31.0-31.9,adult CVA (cerebrovascular accident) Dental disease Essential hypertension GERD (gastroesophageal reflux disease) Insomnia Mixed hyperlipidemia Non-tobacco user Obese Reactive hypertension Recurrent UTI S/P total hysterectomy 2009 Status post left hip replacement Trochanteric bursitis of left hip Weight loss counseling, encounter for Procedure/Surgical History No qualifying data available. Medications Home Medications (19) Active amLODIPine 2.5 mg oral tablet 2.5 mg = 1 tab(s), Oral, qDay beet root cloNIDine 0.1 mg oral tablet 0.1 mg = 1 tab(s), Oral, TID cranberry oral capsule 4,200 mg, Oral, Daily FAMOTIDINE 20 MG TABLET garlic oral capsule 1 cap(s), Oral, Daily ibuprofen 200 mg oral tablet 400 mg = 2 tab(s), PRN, Oral, q6hr L-Citrulline lisinopril 20 mg oral tablet 20 mg = 1 tab(s), Oral, qDay meloxicam 7.5 mg oral tablet Natrol L-Arginine , Oral, qDay natures calm 325 mg Pepcid 20 mg oral tablet 20 mg = 1 tab(s), PRN, Oral, qDay Probiotic propranolol 20 mg oral tablet 20 mg = 1 tab(s), Oral, TID turmeric 500 mg oral capsule Vitamin C 1,000 mg, qDay Vitamin D3 25 mcg (1000 intl units) oral capsule 25 mcg = 1 cap(s), Oral, qDay zinc (as acetate) 50 mg oral capsule 50 mg = 1 cap(s), Oral, qDay Allergies iodine Facial redness, Rash Social History Alcohol - Low Risk, 03/31/2017 Use: Past. Type: Beer. 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 Stroke: Mother and Grandparent. Health Status Family Member(s) Family Member(s) Relationship: Mother, Age: 72 Years, Cause: stroke,club feet Relationship: Father, Age: 81 Years, Cause: Pneumonia, alcoholic Relationship: Maternal Grandmother, Age: 70 Years, Cause: Stroke Relationship: Maternal Grandfather, Age: 40 Years, Cause: Pneumonia Relationship: Paternal Grandfather, Age: 70 Years, Cause: stroke Relationship: Paternal Grandmother, Age: Unknown, Cause: unknown, stroke Immunizations tetanus/diphtheria/pertussMUL.OR [id number]: 0.5 unknown unit (06/08/18) Code Status Code Status - Ordered -- 10/01/24 14:05:00 EDT, Full Code, Constant Order Digitally Signed by ELIZABET NOLAN on 10/01/2024 07:55 PM Digitally Signed by JESSIKA SILVER MD [facility] 10-01-2024 Note Exam Date Time Procedure Performing Provider Status 10/01/24 5:10 PM MRI Brain w/o Contrast CITLALY WILSON DO; Auth (Verified) [id number] ORIGINAL EXAMINATION: MRI OF THE BRAIN WITHOUT CONTRAST 10/01/2024 5:18 pm TECHNIQUE: Multiplanar multisequence MRI of the brain was performed without the administration of intravenous contrast. COMPARISON: CTA head with and without contrast performed earlier the same day. HISTORY: ORDERING SYSTEM PROVIDED HISTORY: Reason for Exam: Transient ischemic attack (TIA) FINDINGS: INTRACRANIAL STRUCTURES/VENTRICLES: Tiny punctate foci of hyperintensity on diffusion-weighted imaging are appreciated within the medial right parietal and left posterior frontal lobes which are too small to resolve on ADC. Questionable corresponding FLAIR hyperintensity within the posterior left frontal lobe. No appreciable FLAIR correlate within the right parietal lobe. No mass effect or midline shift. No evidence of an acute intracranial hemorrhage. Mild generalized volume loss is appreciated with associated prominence of the sulci and ventricles. The sellar/suprasellar regions appear unremarkable. The normal signal voids within the major intracranial vessels appear maintained. ORBITS: The visualized portion of the orbits demonstrate no acute abnormality. SINUSES: The visualized paranasal sinuses and mastoid air cells demonstrate no acute abnormality. BONES/SOFT TISSUES: The bone marrow signal intensity appears normal. The soft tissues demonstrate no acute abnormality. IMPRESSION: Tiny punctate foci of hyperintensity on DWI within the medial right parietal and left posterior frontal lobes which are too small to resolve/nonvisualized on ADC. Questionable corresponding FLAIR hyperintensity within the posterior left frontal lobe. These may represent tiny acute infarcts versus artifact. Interpreted by: Citlaly Wilson Preliminary Report By: Citlaly Wilson Electronically signed By Citlaly Wilson Dictated Date: 10/01/2024 9:02:44 PM Prelim Date: 10/01/2024 9:07:14 PM Sign Date: 10/01/2024 9:07:14 PM Ordering Provider: ELIZABET NOLAN [facility]08-19-2025 Note* Exam Date Time Procedure Performing Provider Status 10/01/24 4:03 PM Echocardiogram, Adul t with Bubble Study- BLANCA CHUA MD; Auth (Verified) [facility]08-19-2025 Evaluation + Plan noteExtracted from: Title:History and Physical Author:EILZABET NOLAN APRN-AUTOMATION CONTROL INTEGRATOR Date:10/01/24 1. CVA (cerebrovascular acci dent) 2. Essential hypertension Ordered: 3. Mixed hyperlipidemia Ordered: CVA- CT of the head showed subcentimeter left basal ganglial infarct that is age indeterminant. Also concern for TIA given vision changes and right lower extremity paresthesias. ABCD2 score of 3. Start atorvastatin 40 mg daily, aspirin 81 mg daily, Plavix 75 mg daily. Patient is reluctant to take a statin. Her is at the bedside and adamantly opposed to all statin use. States that he has done his own research and believes that they are more harmful than beneficial. Patient's and both educated on the safety and benefit of statin use, especially given that she has had a stroke. Obtain MRI of the brain and echocardiogram with bubble study. HTN- SBP goal 140 or less. Continue home antihypertensives. HLD atorvastatin 40 mg daily. 03/2024, total cholesterol was 232, triglycerides 98, HDL 51, LDL 161. Today total cholesterol is 273, triglycerides 80, HDL 53, LDL 204. A1c 5.5. Patient was undecided at the time of visit if she would take a statin. DVT prophylaxis: Lovenox Code Status: Full code Plan of care discussed with patient. All questions answered. Patient verbalizes understanding is agreeable to plan of care. This dictation was performed using voice recognition software and may include grammatical and/or spelling errors. Future Appointments Appointment Date:10/04/2024 01:00:00 PM Scheduled Provider:[place] [id number] Location:[facility] Appointment Type:PT [facility] Appointment Date:10/07/2024 01:00:00 PM Scheduled Provider:DONAVAN GASTELUM DO Location:[facility] Appointment Type:PC OV TCM 30 Appointment Date:10/23/2024 02:15:00 PM Scheduled Provider:DONAVAN GASTELUM DO Location:[facility] Appointment Type:PC OV Future Scheduled Tests Laboratory* Lipoprotein (a) 08/28/24 * Apolipoprotein B 08/28/24 * Lipid Profile 08/28/24 * Complete Metabolic Panel 08/28/24 [facility] 08-19-2025 Note* Exam Date Time Procedure Performing Provider Status 10/01/24 12:[address] Angiography Neck w/ Contrast VIOLETTE COOK MD; Auth (Verified) [id number] ORIGINAL EXAMINATION: CTA OF THE NECK 10/01/2024 12:34 pm TECHNIQUE: CTA of the neck was performed with the administration of intravenous contrast. Multiplanar reformatted images are provided for review. MIP images are provided for review. Stenosis of the internal carotid arteries measured using NASCET criteria. Automated exposure control, iterative reconstruction, and/or weight based adjustment of the mA/kV was utilized to reduce the radiation dose to as low as reasonably achievable. COMPARISON: None. HISTORY: ORDERING SYSTEM PROVIDED HISTORY: Reason for Exam: Rt Weakness FINDINGS: AORTIC ARCH/ARCH VESSELS: No dissection or arterial injury. No significant stenosis of the brachiocephalic or subclavian arteries. CAROTID ARTERIES: No dissection, arterial injury, or hemodynamically significant stenosis by NASCET criteria. VERTEBRAL ARTERIES: No dissection, arterial injury, or significant stenosis. IMPRESSION: No significant arterial stenosis in the neck. Interpreted by: Violette Cook Preliminary Report By: Violette Cook Electronically signed By Violette Cook Dictated Date: 10/01/2024 12:48:07 PM Prelim Date: 10/01/2024 12:49:00 PM Sign Date: 10/01/2024 12:49:00 PM Ordering Provider: MISHA BLACK [facility]08-19-2025 Note* Exam Date Time Procedure Performing Provider Status 10/01/24 12:[address] Angiography Head w/ Contrast ELFEGO DIAZ DO; Auth (Verified) [id number] ORIGINAL EXAMINATION: CTA OF THE HEAD WITH CONTRAST 10/01/2024 12:34 pm: TECHNIQUE: CTA of the head/brain was performed with the administration of intravenous contrast. Multiplanar reformatted images are provided for review. MIP images are provided for review. Automated exposure control, iterative reconstruction, and/or weight based adjustment of the mA/kV was utilized to reduce the radiation dose to as low as reasonably achievable. COMPARISON: None. HISTORY: ORDERING SYSTEM PROVIDED HISTORY: Reason for Exam: Rt Weakness FINDINGS: ANTERIOR CIRCULATION: No significant stenosis of the intracranial internal carotid, anterior cerebral, or middle cerebral arteries. No aneurysm. POSTERIOR CIRCULATION: No significant stenosis of the vertebral, basilar, or posterior cerebral arteries. No aneurysm. OTHER: No dural venous sinus thrombosis on this non-dedicated study. BRAIN: No mass effect or midline shift. No extra-axial fluid collection. The avina-white differentiation is maintained. IMPRESSION: Unremarkable CTA of the head. Interpreted by: Elfego Diaz DO Preliminary Report By: Elfego Diaz DO Electronically signed By Elfego Diaz DO Dictated Date: 10/01/2024 12:39:54 PM Prelim Date: 10/01/2024 12:42:47 PM Sign Date: 10/01/2024 12:42:47 PM Ordering Provider: [facility]08-19-2025 Note* Exam Date Time Procedure Performing Provider Status 10/01/24 12:[address] Head or Brain w/o Contrast VIOLETTE COOK MD; Auth (Verified) [id number] ORIGINAL EXAMINATION: CT OF THE HEAD WITHOUT CONTRAST 10/01/2024 12:33 pm TECHNIQUE: CT of the head was performed without the administration of intravenous contrast. Automated exposure control, iterative reconstruction, and/or weight based adjustment of the mA/kV was utilized to reduce the radiation dose to as low as reasonably achievable. COMPARISON: None. HISTORY: ORDERING SYSTEM PROVIDED HISTORY: Reason for Exam: Rt Weakness FINDINGS: BRAIN/VENTRICLES: There is no acute intracranial hemorrhage, mass effect or midline shift. No abnormal extra-axial fluid collection. The ventricles and sulci are not enlarged. There is a 7 mm hypodensity in the left basal ganglia, chronicity uncertain. ORBITS: The visualized portion of the orbits demonstrate no acute abnormality. SINUSES: The visualized paranasal sinuses and mastoid air cells demonstrate no acute abnormality. SOFT TISSUES/SKULL: No acute abnormality of the visualized skull or soft tissues. 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 Interpreted by: Violette Cook Preliminary Report By: Violette Cook Electronically signed By Violette Cook Dictated Date: 10/01/2024 12:46:39 PM Prelim Date: 10/01/2024 12:47:56 PM Sign Date: 10/01/2024 12:47:56 PM Ordering Provider: MISHA BLACK [facility]08-19-2025 Note* Exam Date Time Procedure Performing Provider Status 10/01/24 11:23 AM EKG [ED AOH] - CV MISHA BLACK DO; A [facility] (Verified) ECG Final Report Sinus rhythm Borderline intraventricular conduction delay Electronic Signature: MISHA BLACK DO 10/01/2024 11:40:01 [facility]07-02-2025 Consult note Author Christiane Akers [facility] Note Date/Time August 14, 2024 10:54 am [facility] Medical Records Department [address] [place] [address] Counseling Note - Pharmacy 08/14/24 1052 MR#: [id number] Acct: [id number] Name: PASTOR MAGALLANES Rep #:[id number] : 1960 64 From: Christiane Akers PCP: Dr. Donavan Gastelum, DO Status:ADM OSMANI Y [facility] Counseling Pharmacy Service has performed discharge medication reconciliation and counseling for this patient. 1. ASPIRIN 81MG PO BIDCM X 4 WEEKS, THEN RESUME DAILY 2. FAMOTIDINE 20MG PO DAILY 3. MELOXICAM 7.5MG PO BID 4. OXYCODONE 5-10MG PO Q4H PRN PAIN 5. SENNA/DOCUSATE 2T PO BID UNTIL FIRST BOWEL MOVEMENT, THEN PRN CONSTIPATION 6. HOLD GARLIC AND OMEGA-3 UNTIL 08/28, HOLD TURMERIC UNTIL 09/11 The patient's discharge medication list was reviewed for discrepancies and discrepancies were resolved. The patient was counseled on the following discharge medications and changes in medications for homegoing were reviewed. The Reason for Use, instructions for use, and potential side effects were reviewed for all new medications. The patient's questions regarding all of their medications were answered. The patient was able to verbally demonstrate an understanding of their dischargemedications. Medications at Discharge Home Medications Lactobacillus acidophilus 10 billion cell capsule (NewFlora) 100 mmu cells PO DAILY 07/09/24 ascorbic acid (vitamin C) 500 mg tablet (C-500) 500 mg PO DAILY 07/09/24 cholecalciferol (vitamin D3) 25 mcg (1,000 unit) tablet (Vitamin D3) 25 mcg PO DAILY 07/09/24 garlic 1,000 mg capsule 1,000 mg PO DAILY 07/09/24 Held on 08/14/24. Instructions: Resume on 08/28/24. lisinopril 20 mg-hydrochlorothiazide 12.5 mg tablet 1 tab PO DAILY 07/09/24 omega 3 350 mg-dha 235 mg-epa 90 mg-fish oil 597 mg capsule,delay rel (Fargo-3) 1 cap PO DAILY 07/09/24 Held on 08/14/24. Instructions: Resume on 08/28/24. propranolol 20 mg tablet 20 mg PO TID PRN anxiety 07/09/24 turmeric 400 mg capsule 400 mg PO DAILY 07/09/24 Held on 08/14/24. Instructions: Resume on 09/11/24. vitamin B complex (Balanced B-50 tablet) 1 tab PO DAILY 07/09/24 zinc gluconate 50 mg tablet 50 mg PO DAILY 07/09/24 clonidine HCl 0.1 mg tablet 0.1 mg PO Q6H PRN hypertensive emergency 08/01/24 lorazepam 0.5 mg tablet (Ativan) 0.5 mg PO Q12H PRN anxiety 08/01/24 aspirin 81 mg chewable tablet 81 mg PO BIDCM #0 tabs 08/14/24 famotidine 20 mg tablet 20 mg PO DAILY 30 days #30 tabs 08/14/24 meloxicam 7.5 mg tablet 7.5 mg PO BID 30 days #60 tabs 08/14/24 oxycodone 5 mg tablet 5 - 10 mg (1 - 2 x 5 mg) PO Q4H PRN PRN As Needed for Pain7 days #42 tabs 08/14/24 sennosides 8.6 mg-docusate sodium 50 mg tablet (Stimulant Laxative Plus) 2 tab PO BID 3 days #12 tabs 08/14/24 08/14/24 1054 <Electronically signed by Christiane Akers> Date _ Christiane Akers Cosigner Signature (if applicable): Date CC: ~ Signed [facility] Work Phone: 1(188) 507-296607-02-2025 Progress note Author Ursula Casper [facility] Note Date/Time August 14, 2024 9:42a [facility] Medical Records Department [address] [place] [id number] Progress Note - Hospitalist 08/14/24 0742 MR#: [id number] Acct: [id number] Name: PASTOR MAGALLANES Rep #:[id number] 8 : 1960 64 From: Ursula Casper DO PCP: Dr. Donavan Gastelum, DO Status:ADM OSMANI Location: [place] [address] Hospitalist Note We were consulted postoperatively for medical management of her chronic medical issues. She has no acute issues at this time. Labs are relatively stable with a drop in her hemoglobin as expected for postoperative knee replacement and fluid resuscitation intraoperatively. She has no signs of acute bleeding. She is hemodynamically stable and vitals unremarkable. From a medical standpoint she is stable for discharge and we will sign off at this point. 08/14/24 0942 <Electronically signed by Ursula Casper DO> Cosigner Signature (if applicable): CC: ~ Signed [facility] Work Phone: 1(247) 940-524607-02-2025 Discharge summary Author Cassius Carranza [facility] Note Date/Time August 14, 2024 9:17a m [facility] Medical Records Department [address] [place] [address] Instructions for Home/Discharge Instructions 08/14/24 0909 MR#: [id number] Acct: [id number] Name: PASTOR MAGALLANES Rep #:[id number] : 1960 64 From: Cassius RUSS PA-C PCP: Dr. Donavan Gastelum, DO Status:ADM OSMANI Discharge Instructions Diet Discharge Diet: No restrictions DC O2, CPAP, BIPAP needs Home O2 Discharge instructions: No Dressing / Incision Discharge Activity: May Not Drive (No driving until you can walk 100 feet with use of cane and no longer on any narcotics.) May shower in (days): 1 (only if incision is dry and without drainage. Do NOT soak/submerge in tub/pool/mora/stream/hot tub.)) Ice area for (Minutes): 20 (Every 1-2 hours while awake[address] place barrier between ice and skin.) Weight Bearing Status: Weight bearing as tolerated Keep extremity elevated above heart level: Operative Extremity Additional Activity Instructions:: Follow [facility] Post-op Instructions. Recommend getting up during the day while awake every hour to walk for several minutes. Avoid elastic band with your underwear or going directly over the incision. Once postoperative dressing has been removed only use gentle soap and water overthe incision. Do not use any ointments, Neosporin, salves, alcohol pads over the incision for 6 weeks postoperatively. Do not submerge underwater for 6 weeks postoperatively. Wear elastic stockings for 2 weeks. Do NOT use alcohol with narcotic pain medication. Do NOT make important decisions while taking narcotic medication. If you have problems with taking your medication (rash, itching, nausea, etc.) call the office at once. Dressing / Incision Call your doctor if your incision/area has: Continuous Slow Oozing, Sudden Increased Bleeding, Increased Pain/ Swelling, Increased Redness and Foul Smelling Discharge Call your doctor if you observe: Fever of 101 or Higher, Shortness of breath, Chest pain, Calf discomfort and Uncontrolled pain Remove Dressing in: 4 days (Okay to remove dressing on August 18, 2024) Follow Up Care Test Results: Test results from this visit will be discussed in further detail at your follow- up appointment, if applicable. Discharge Plan Admission Admit Date/Time: 08/13/24 12:36 Attending Provider: Misbah Byrd Primary Care Provider: Donavan Gastelum Consulting Providers: Eulogio Sheets; Ursula Casper Discharge Orders/Prescriptions Prescriptions: New famotidine 20 mg Tablet 20 mg PO DAILY 30 Days Qty: 30 0RF aspirin 81 mg Tablet,Chewable 81 mg PO BIDCM Qty: 0 0RF Rx Instructions: Take 81 mg aspirin twice daily for 4 weeks postoperatively for DVT prophylaxis. After 4 weeks you can then go back to normal 81 mg aspirin daily. meloxicam 7.5 mg Tablet 7.5 mg PO BID 30 Days Qty: 60 0RF Rx Instructions: Do not take any other nonsteroidal anti-inflammatories while using meloxicam/Mobic. oxycodone 5 mg Tablet 5 - 10 mg PO Q4H PRN PRN (Reason: As Needed for Pain) 7 Days Qty: 42 0RF sennosides-docusate sodium [Stimulant Laxative Plus] 8.6-50 mg Tablet 2 tab PO BID 3 Days Qty: 12 0RF Rx Instructions: Take until first bowel movement, then as needed Continued lisinopril-hydrochlorothiazide 20-12.5 mg tablet 1 tab PO DAILY propranolol 20 mg tablet 20 mg PO TID PRN (Reason: anxiety) ascorbic acid (vitamin C) [C-500] 500 mg tablet 500 mg PO DAILY zinc gluconate 50 mg tablet 50 mg PO DAILY cholecalciferol (vitamin D3) [Vitamin D3] 25 mcg (1,000 unit) tablet 25 mcg PO DAILY vitamin B complex [Balanced B-50] Tablet 1 tab PO DAILY NewFlora 10 billion cell capsule 100 mmu cells PO DAILY clonidine HCl 0.1 mg tablet 0.1 mg PO Q6H PRN (Reason: hypertensive emergency) lorazepam [Ativan] 0.5 mg tablet 0.5 mg PO Q12H PRN (Reason: anxiety) Held turmeric 400 mg capsule 400 mg PO DAILY Hold Instructions: Resume on 09/11/24. garlic 1,000 mg capsule 1,000 mg PO DAILY Hold Instructions: Resume on 08/28/24. Fargo-3 350 mg-235 mg- 90 mg-597 mg capsule,delayed release(DR/EC) 1 cap PO DAILY Hold Instructions: Resume on 08/28/24. Discontinued aspirin 81 mg capsule 81 mg PO DAILY Referrals / Follow Up: Physical,Therapy [Other] - 08/19/24 1:00 pm Donavan Gastelum DO [Primary Care Provider] - Cassius Carranza PA-C [Med Staff - [facility]] - 08/26/24 11:00 am Disposition Disposition (needs filled in before D/C Order can be placed): Home, Self Care 08/14/24 0917<Electronically signed by Cassius RUSS PA-C>Cassius RUSS PA-C CC: Dr. Eulogio Sheets, ; Dr. Ursula Casper DO; Dr. Donavan Gastelum DO ~ Signed [facility] Work Phone: 1(653) 319-989507-02-2025 Progress note Author [facility] Note Date/Time August 14, 2024 9:09a m [facility] Medical Records Department [address] [place] [address] Progress Note - Orthopedic 08/14/24904 MR#: [id number] Acct: [id number] Name: PASTOR MAGALLANES Rep #:[id number] : 1960 64 From: Cassius RUSS PA-C PCP: Dr. Donavan Gastelum DO Status:ADM OSMANI Location: [place] [id number] Subjective Subjective The patient was sitting in bedside chair upon examination. Patient denies any chest pain, shortness of breath, dizziness, lightheadedness, nausea or vomiting,or calf pain. Pain is controlled on medications. No adverse overnight events. Patient is doing very well this morning. She says her pain is very well-controlled. She does have some thigh soreness. She is ready for discharge hometoday. Objective Data Objective Data Vital Signs: Vital Signs Temp Pulse Resp BP Pulse Ox O2 Del Method O2 Flow Rate 97.8 F 75 16 129/73 H 98 Room Air 4 08/14/24 06:30 08/14/24 06:30 08/14/24 06:30 08/14/24 06:30 08/14/24 06:30 08/14/24 06:30 08/13/24 15:35 Oxygen Flow Rate (L/min) 4 Oxygen Delivery Method Room Air Weight: 79 kg Body Mass Index (BMI) 31.8 Intake & Output: Intake and Output for Last 24 Hours 08/12/24 08/13/24 08/14/24 23:59 23:59 23:59 Intake Total 2150 / 2150 50 / 50 Output Total 300 / 300 Balance 1850 / 1850 50 / 50 Lab / Micro Data 08/14/24 05:00 08/14/24 05:00 Labs: Laboratory Results - last 24 hr 08/13/24 09:42: POC Glucose 113 H 08/14/24 05:00: WBC 13.5 H, RBC 3.97 L, Hgb 10.9 L, Hct 33.4 L, MCV 84.1, MCH 27.5, MCHC 32.6, RDW Std Deviation 41.4, RDW Coeff of Nadia 13.3, Plt Count 313, MPV 10.2, Immature Gran % (Auto) 0.500, Neut % (Auto) 85.4 H, Lymph % (Auto) 9.9L, [place] % (Auto) 4.0, Eos % (Auto) 0.1, Baso % (Auto) 0.1, Absolute Neuts (auto)11.5 H, Absolute Lymphs (auto) 1.33, Nucleated RBC % 0, Sodium 140, Potassium 3.7, Chloride 105, Carbon Dioxide 23.4, Anion Gap 12, BUN 14, Creatinine 0.43 L,Estim Creat Clear Calc 68.24, Est GFR (MDRD) Non-Af 108, BUN/Creatinine Ratio 33.1 H, Glucose 137 H, Calcium 8.9 Micro: Microbiology 07/12/24 08:49 Swab (Method) Nasal Screen MRSA/MSSA - Final Radiography Diagnostic Testing: Radiology Impression Hip X-Ray 08/13/24 12:10 IMPRESSION: Unremarkable intraoperative appearance Reading Location: [facility] Hip X-Ray 08/13/24 13:25 IMPRESSION: Hardware in position. Reading Location: [facility] Physical Exam Narrative Vital signs stable and afebrile. Left thigh is soft and supple. SCDs and RONEN hose are in place bilaterally Patient is able to plantarflex and dorsiflex actively. Sensation is intact to light touch to saphenous, sural, superficial and deep peroneal, and tibial distribution. Dressing is clean dry and intact. Negative Homans bilaterally, negative signs and symptoms of DVT. Const alert, oriented x3 and no apparent distress Assessment & Plan Assessment/Plan (1) Status post left hip replacement: PLAN: 1. S/P direct anterior left total hip arthroplasty POD #1 2. Continue Pain Medications: Tylenol, meloxicam, oxycodone. Do not take any other nonsteroidal anti-inflammatories while using meloxicam/Mobic. 3. DVT Prophylaxis: Take 81 mg aspirin twice daily for 4 weeks postoperatively for DVT prophylaxis. Patient denies past history of DVT or pulmonary embolism. Patient will continue with RONEN hose for 2 weeks postoperatively. Recommend getting up every hour while awake to walk for several minutes. After 4 weeks oftwice a day aspirin she can then go back to her normal 81 mg aspirin daily. 4. PT/OT: Weightbearing as tolerated with walker 5. H & H: 10.9/33.4, asymptomatic. Monitoring patient's hemoglobin and hematocrit with postoperative anemia without any intra operative complications. At this time no treatment is required. 6. Reactive leukocytosis: 13.5, Afebrile. Patient did receive Decadron intraoperatively. No clinical signs of infection. 7. Encouraged Incentive Spirometry 8. Patient is aware of postoperative constipation that can occur from 1-3 days postoperatively. Will continue with senna 2 tablets twice daily until first bowel movement. Patient was advised if not having a bowel movement after day 3 she is to contact orthopedics so appropriate change can be made. Patient voicedunderstanding. 9. Continue postoperative medical treatment per medicine 10. Disposition: Plan will be for discharge home today as long as patient remains medically stable, tolerates therapy, and pain is adequately controlled. Patient would like her prescriptions E scribed to [facility] pharmacy. She was instructed to contact our office with any postoperative concerns or questions. She has outpatient physical therapy established for August 19, 2024. I did advise her of the weekend she should be doing these exercises twice daily that she will be taught in the hospital. I would recommend patient hold off of her supplements and vitamins for 2 weeks postoperatively. Hold off of the turmeric for 4 weeks. Patient will follow-up per our postoperative instructions. I have reviewed the [place] Automated Rx Reporting System (OARRS) report for this patient for refill pattern and other prescriber involvement as part of the appropriate surveillance for the provision of acute and chronic controlled medications. The report was requested and reviewed on the date of this entry and was considered in the prescribing process. This dictation was created using voice recognition software. Phonetic and/or grammatical errors may exist. 08/14/24 0909 <Electronically signed by Cassius RUSS PA-C> Cosigner Signature (if applicable): CC: ~ Signed [facility] Work Phone: 1(654) 556-718807-02-2025 Consult note [facility] Medical Records Department [address] [place] [address] Counseling Note - Pharmacy 08/14/24 1052 MR#: [id number] Acct: [id number] Name: PASTOR MAGALLANES Rep #:[id number] : 1960 64 From: Christiane Akers PCP: Dr. Donavan Gastelum, DO Status:ADM OSMANI Y Location: [place] [address] Pharmacy [facility] Counseling Pharmacy Service has performed discharge medication reconciliation and counseling for this patient. 1. ASPIRIN 81MG PO BIDCM X 4 WEEKS, THEN RESUME DAILY 2. FAMOTIDINE 20MG PO DAILY 3. MELOXICAM 7.5MG PO BID 4. OXYCODONE 5-10MG PO Q4H PRN PAIN 5. SENNA/DOCUSATE 2T PO BID UNTIL FIRST BOWEL MOVEMENT, THEN PRN CONSTIPATION 6. HOLD GARLIC AND OMEGA-3 UNTIL 08/28, HOLD TURMERIC UNTIL 09/11 The patient's discharge medication list was reviewed for discrepancies and discrepancies were resolved. The patient was counseled on the following discharge medications and changes in medications for homegoing were reviewed. The Reason for Use, instructions for use, and potential side effects were reviewed for all new medications. The patient's questions regarding all of their medications were answered. The patient was able to verbally demonstrate an understanding of their dischargemedications. Medications at Discharge Home Medications Lactobacillus acidophilus 10 billion cell capsule (NewFlora) 100 mmu cells PO DAILY 07/09/24 ascorbic acid (vitamin C) 500 mg tablet (C-500) 500 mg PO DAILY 07/09/24 cholecalciferol (vitamin D3) 25 mcg (1,000 unit) tablet (Vitamin D3) 25 mcg PO DAILY 07/09/24 garlic 1,000 mg capsule 1,000 mg PO DAILY 07/09/24 Held on 08/14/24. Instructions: Resume on 08/28/24. lisinopril 20 mg-hydrochlorothiazide 12.5 mg tablet 1 tab PO DAILY 07/09/24 omega 3 350 mg-dha 235 mg-epa 90 mg-fish oil 597 mg capsule,delay rel (Fargo-3) 1 cap PO DAILY 07/09/24 Held on 08/14/24. Instructions: Resume on 08/28/24. propranolol 20 mg tablet 20 mg PO TID PRN anxiety 07/09/24 turmeric 400 mg capsule 400 mg PO DAILY 07/09/24 Held on 08/14/24. Instructions: Resume on 09/11/24. vitamin B complex (Balanced B-50 tablet) 1 tab PO DAILY 07/09/24 zinc gluconate 50 mg tablet 50 mg PO DAILY 07/09/24 clonidine HCl 0.1 mg tablet 0.1 mg PO Q6H PRN hypertensive emergency 08/01/24 lorazepam 0.5 mg tablet (Ativan) 0.5 mg PO Q12H PRN anxiety 08/01/24 aspirin 81 mg chewable tablet 81 mg PO BIDCM #0 tabs 08/14/24 famotidine 20 mg tablet 20 mg PO DAILY 30 days #30 tabs 08/14/24 meloxicam 7.5 mg tablet 7.5 mg PO BID 30 days #60 tabs 08/14/24 oxycodone 5 mg tablet 5 - 10 mg (1 - 2 x 5 mg) PO Q4H PRN PRN As Needed for Pain7 days #42 tabs 08/14/24 sennosides 8.6 mg-docusate sodium 50 mg tablet (Stimulant Laxative Plus) 2 tab PO BID 3 days #12 tabs 08/14/24 08/14/24 1054 Date _ Christiane Mccartyer Signature (if applicable): Date CC: ~ Signed [facility]07-02-2025 Progress note [facility] Medical Records Department [address] [place] [address] Progress Note - Hospitalist 08/14/24 0742 MR#: [id number] Acct: [id number] Name: PASTOR MAGALLANES Rep #:[id number] : 1960 64 From: Ursula Casper DO PCP: Dr. Donavan Gastelum, DO Status:ADM OSMANI Location: [place] [address] Hospitalist Note We were consulted postoperatively for medical management of her chronic medical issues. She has no acute issues at this time. Labs are relatively stable with a drop in her hemoglobin as expected for postoperative knee replacement and fluid resuscitation intraoperatively. She has no signs of acute bleeding. She is hemodynamically stable and vitals unremarkable. From a medical standpoint she is stable for discharge and we will sign off at this point. 08/14/24941 Cosigner Signature (if applicable): CC: ~ Signed [facility]07-02-2025 Discharge summary [facility] Medical Records Department [address] [place] [address] Instructions for Home/Discharge Instructions 08/14/24 0909 MR#: [id number] Acct: [id number] Name: PASTOR MAGALLANES Rep #:[id number] : 1960 64 From: Cassius RUSS PA-C PCP: Dr. Donavan Gastelum, DO Status:ADM OSMANI Discharge Instructions Diet Discharge Diet: No restrictions DC O2, CPAP, BIPAP needs Home O2 Discharge instructions: No Dressing / Incision Discharge Activity: May Not Drive (No driving until you can walk 100 feet with use of cane and no longer on any narcotics.) May shower in (days): 1 (only if incision is dry and without drainage. Do NOT soak/submerge in tub/pool/mora/stream/hot tub.)) Ice area for (Minutes): 20 (Every 1-2 hours while awake. Please place barrier between ice and skin.) Weight Bearing Status: Weight bearing as tolerated Keep extremity elevated above heart level: Operative Extremity Additional Activity Instructions:: Follow [facility] Post-op Instructions. Recommend getting up during the day while awake every hour to walk for several minutes. Avoid elastic band with your underwear or going directly over the incision. Once postoperative dressing has been removed only use gentle soap and water overthe incision. Do not use any ointments, Neosporin, salves, alcohol pads over the incision for 6 weeks postoperatively. Do not submerge underwater for 6 weeks postoperatively. Wear elastic stockings for 2 weeks. Do NOT use alcohol with narcotic pain medication. Do NOT make important decisions while taking narcotic medication. If you have problems with taking your medication (rash, itching, nausea, etc.) call the office at once. Dressing / Incision Call your doctor if your incision/area has: Continuous Slow Oozing, Sudden Increased Bleeding, Increased Pain/ Swelling, Increased Redness and Foul Smelling Discharge Call your doctor if you observe: Fever of 101 or Higher, Shortness of breath, Chest pain, Calf discomfort and Uncontrolled pain Remove Dressing in: 4 days (Okay to remove dressing on August 18, 2024) Follow Up Care Test Results: Test results from this visit will be discussed in further detail at your follow- up appointment, if applicable. Discharge Plan Admission Admit Date/Time: 08/13/24 12:36 Attending Provider: Misbah Byrd Primary Care Provider: Donavan Gastelum Consulting Providers: Eulogio Sheets; Ursula Casper Discharge Orders/Prescriptions Prescriptions: New famotidine 20 mg Tablet 20 mg PO DAILY 30 Days Qty: 30 0RF aspirin 81 mg Tablet,Chewable 81 mg PO BIDCM Qty: 0 0RF Rx Instructions: Take 81 mg aspirin twice daily for 4 weeks postoperatively for DVT prophylaxis. After 4 weeks you can then go back to normal 81 mg aspirin daily. meloxicam 7.5 mg Tablet 7.5 mg PO BID 30 Days Qty: 60 0RF Rx Instructions: Do not take any other nonsteroidal anti-inflammatories while using meloxicam/Mobic. oxycodone 5 mg Tablet 5 - 10 mg PO Q4H PRN PRN (Reason: As Needed for Pain) 7 Days Qty: 42 0RF sennosides-docusate sodium [Stimulant Laxative Plus] 8.6-50 mg Tablet 2 tab PO BID 3 Days Qty: 12 0RF Rx Instructions: Take until first bowel movement, then as needed Continued lisinopril-hydrochlorothiazide 20-12.5 mg tablet 1 tab PO DAILY propranolol 20 mg tablet 20 mg PO TID PRN (Reason: anxiety) ascorbic acid (vitamin C) [C-500] 500 mg tablet 500 mg PO DAILY zinc gluconate 50 mg tablet 50 mg PO DAILY cholecalciferol (vitamin D3) [Vitamin D3] 25 mcg (1,000 unit) tablet 25 mcg PO DAILY vitamin B complex [Balanced B-50] Tablet 1 tab PO DAILY NewFlora 10 billion cell capsule 100 mmu cells PO DAILY clonidine HCl 0.1 mg tablet 0.1 mg PO Q6H PRN (Reason: hypertensive emergency) lorazepam [Ativan] 0.5 mg tablet 0.5 mg PO Q12H PRN (Reason: anxiety) Held turmeric 400 mg capsule 400 mg PO DAILY Hold Instructions: Resume on 09/11/24. garlic 1,000 mg capsule 1,000 mg PO DAILY Hold Instructions: Resume on 08/28/24. Fargo-3 350 mg-235 mg- 90 mg-597 mg capsule,delayed release(DR/EC) 1 cap PO DAILY Hold Instructions: Resume on 08/28/24. Discontinued aspirin 81 mg capsule 81 mg PO DAILY Referrals / Follow Up: Physical,Therapy [Other] - 08/19/24 1:00 pm Donavan Gastelum DO [Primary Care Provider] - Cassius Carranza PA-C [Med Staff - [facility]] - 08/26/24 11:00 am Disposition Disposition (needs filled in before D/C Order can be placed): Home, Self Care 08/14/24 0917Rasushil RUSS PA-C CC: Dr. Eulogio Sheets DO; Dr. Ursula Casper DO; Dr. Donavan Gastelum DO ~ Signed [facility]07-02-2025 Progress note [facility] Medical Records Department [address] [place] [address] Progress Note - Orthopedic 08/14/24904 MR#: [id number] Acct: [id number] Name: PASTOR MAGALLANES Rep #:[id number] : 1960 64 From: Cassius RUSS PA-C PCP: Dr. Donavan Gastelum, DO Status:ADM OSMANI Location: MS3 MS981-3 Subjective Subjective The patient was sitting in bedside chair upon examination. Patient denies any chest pain, shortnessof breath, dizziness, lightheadedness, nausea or vomiting,or calf pain. Pain is controlled on medications. No adverse overnight events. Patient is doing very well this morning. She says her pain is very well- controlled. She does have some thigh soreness. She is ready for discharge hometoday. Objective Data Objective Data Vital Signs: Vital Signs Temp Pulse Resp BP Pulse Ox O2 Del Method O2 Flow Rate 97.8 F 75 16 129/73 H 98 Room Air 4 08/14/24 06:30 08/14/24 06:30 08/14/24 06:30 08/14/24 06:30 08/14/24 06:30 08/14/24 06:30 08/13/24 15:35 Oxygen Flow Rate (L/min) 4 Oxygen Delivery Method Room Air Weight: 79 kg Body Mass Index (BMI) 31.8 Intake & Output: Intake and Output for Last 24 Hours 08/12/24 08/13/24 08/14/24 23:59 23:59 23:59 Intake Total 2150 / 2150 50 / 50 Output Total 300 / 300 Balance 1850 / 1850 50 / 50 Lab / Micro Data 08/14/24 05:00 08/14/24 05:00 Labs: Laboratory Results - last 24 hr 08/13/24 09:42: POC Glucose 113 H 08/14/24 05:00: WBC 13.5 H, RBC 3.97 L, Hgb 10.9 L, Hct 33.4 L, MCV 84.1, MCH 27.5, MCHC 32.6, RDW Std Deviation 41.4, RDW Coeff of Nadia 13.3, Plt Count 313, MPV 10.2, Immature Gran % (Auto) 0.500, Neut % (Auto) 85.4 H, Lymph % (Auto) 9.9L, [place] % (Auto) 4.0, Eos % (Auto) 0.1, Baso % (Auto) 0.1, Absolute Neuts (auto)11.5 H, Absolute Lymphs (auto) 1.33, Nucleated RBC % 0, Sodium 140, Potassium 3.7,Chloride 105, Carbon Dioxide 23.4, Anion Gap 12, BUN 14, Creatinine 0.43 L,Estim Creat Clear Calc 68.24, Est GFR (MDRD) Non-Af 108, BUN/Creatinine Ratio 33.1 H, Glucose 137 H, Calcium 8.9 Micro: Microbiology 07/12/24 08:49 Swab (Method) Nasal Screen MRSA/MSSA - Final Radiography Diagnostic Testing: Radiology Impression Hip X-Ray 08/13/24 12:10 IMPRESSION: Unremarkable intraoperative appearance Reading Location: [facility] Hip X-Ray 08/13/24 13:25 IMPRESSION: Hardware in position. Reading Location: [facility] Physical Exam Narrative Vital signs stable and afebrile. Left thigh is soft and supple. SCDs and RONEN hose are in place bilaterally Patient is able to plantarflex and dorsiflex actively. Sensation is intact to light touch to saphenous, sural, superficial and deep peroneal, and tibial distribution. Dressing is clean dry and intact. Negative Homans bilaterally, negative signs and symptoms of DVT. Const alert, oriented x3 and no apparent distress Assessment & Plan Assessment/Plan (1) Status post left hip replacement: PLAN: 1. S/P direct anterior left total hip arthroplasty POD #1 2. Continue Pain Medications: Tylenol, meloxicam, oxycodone. Do not take any other nonsteroidal anti-inflammatories while using meloxicam/Mobic. 3. DVT Prophylaxis: Take 81 mg aspirin twice daily for 4 weeks postoperatively for DVT prophylaxis.Patient denies past history of DVT or pulmonary embolism. Patient will continue with RONEN hose for 2weeks postoperatively. Recommend getting up every hour while awake to walk for several minutes. After 4 weeks oftwice a day aspirin she can then go back to her normal 81 mg aspirin daily. 4. PT/OT: Weightbearing as tolerated with walker 5. H & H: 10.9/33.4, asymptomatic. Monitoring patient's hemoglobin and hematocrit with postoperative anemia without any intra operative complications. At this time no treatment is required. 6. Reactive leukocytosis: 13.5, Afebrile. Patient did receive Decadron intraoperatively. No clinical signs of infection. 7. Encouraged Incentive Spirometry 8. Patient is aware of postoperative constipation that can occur from 1-3 days postoperatively. Will continue with senna 2 tablets twice daily until first bowel movement. Patient was advised if not having a bowel movement after day 3 she is to contact orthopedics so appropriate change can be made. Patient voicedunderstanding. 9. Continue postoperative medical treatment per medicine 10. Disposition: Plan will be for discharge home today as long as patient remains medically stable,tolerates therapy, and pain is adequately controlled. Patient would like her prescriptions E scribed to [facility] pharmacy. She was instructed to contact our office with any postoperative concerns or questions. She has outpatient physical therapy established for August 19, 2024. I did advise her of the weekend she should be doing these exercises twice daily that shedonavan be taught in the hospital. I would recommend patient hold off of her supplements and vitamins for 2 weeks postoperatively. Hold off of the turmeric for 4 weeks. Patient will follow-up per our postoperative instructions. I have reviewed the [place] Automated Rx Reporting System (OARRS) report for this patient for refill pattern and other prescriber involvement as part of the appropriate surveillance for the provision ofacute and chronic controlled medications. The report was requested and reviewed on the date of thisentry and was considered in the prescribing process. This dictation was created using voice recognition software. Phonetic and/or grammatical errors mayexist. 08/14/24 0909 Cosigner Signature (if applicable): CC: ~ Signed [facility]07-02-2025 Radiology Diagnostic study note [facility] Imaging Services [address], [place] [id number] Hip Min 2 Views (Portable) MR#: [id number] Acct: [id number] Name: PASTOR MAGALLANES Rep #: [id number] : 1960 F 64 From: Jessica Gill MD PCP: Dr. Donavna Gastelum, DO Status: ADM OSMANI Study:Hip Min 2 Views (Portable) Date of Exam : 08/13/24 Exam# [id number] Ordering Dr: Diego Byrd MD PROCEDURE: HIP MIN 2 VIEWS (PORTABLE) 08/13/2024 REASON FOR EXAM: ANTERIOR LT HIP TOTAL ARTHROPLASTY TECHNIQUE: HIP MIN 2 VIEWS (PORTABLE) COMPARISON: 08/13/2024 FINDINGS: The patient is undergoing left THR. Intact hardware. Anatomic alignment. No intraoperative complication noted. RAD/Hip Min 2 Views (Portable) IMPRESSION: Unremarkable intraoperative appearance Reading Location: [place] [address] CC: Dr. Donavan Gastelum DO; Dr. Misbah Byrd MD ~ Data Management: Signed [facility]07-01-2025 Consult note Author Eulogio fariha [facility] Note Date/Time August 13, 2024 6:24p m [facility] Medical Records Department [address] [place] [address] Consultation - Hospitalist 08/13/24 1435 MR#: [id number] Acct: [id number] Name: PASTOR MAGALLANES Rep #:[id number] : 1960 64 From: Eulogio freed DO PCP: Dr. Donavan Gastelum DO Status:ADM OSMANI Location: [place] [address] Assessment & Plan Assessment/Plan (1) Status post left hip replacement: PLAN: Plan Patient is a 64-year-old female who presented to [facility] on 08/13/2024 for planned left hip replacement. Medicine consulted postoperatively for medical management. 1. Left hip osteoarthritis ? Orthopedic surgery primary. S/p left direct anterior minimally invasive hip replacement with Dr. Byrd on 08/13. Tolerated procedure well, no intraoperativecomplications noted. Pain control, DVT prophylaxis and further management per orthopedics. Follow-up a.m. CBC and BMP. PT/OT/case management consulted. 2. Hypertension ? Normotensive in the 120s postoperatively. Okay to resume home lisinopril?hydrochlorothiazide tomorrow with hold parameters in place. Notably does have clonidine 0.1 mg every 6 hours as needed on home med list for hypertensive emergency; no need to order at this time. 3. Anxiety ? On propranolol 20 mg 3 times daily as needed at home. Was prescribed a very short course of 0.5 mg Ativan twice daily as needed recently preoperatively as well. Okay to resume home propranolol as needed but will hold on prescribing Ativan. DVT prophylaxis: Baby aspirin twice daily per orthopedics Total clinical time spent by myself addressing the patient's medical issues, reviewing all the data, and collaborating with patient's care team: 35 minutes. HPI Consult Data Date of Consult: 08/13/24 HPI Narrative Reason for Consultation: Postoperative medical management HPI Narrative: PASTOR MAGALLANES, is a 64 F who presented to [facility] on 08/13/2024 for planned left hip replacement. Medicine consulted postoperatively for medical management. Patient had left a replacement done with Dr. Byrd on 08/13. Tolerated procedure well, no intraoperative complications noted. I saw the patient at bedside earlier this evening. Patient was sitting back comfortably in bed, conversing normally, in no acute distress. States she stillfelt a bit lightheaded and attributes this to the anesthesia but otherwise is feeling well. She did get up earlier this afternoon with assistance and ambulated with minimal hip pain. She denies any hip pain at rest currently. Denies any other acute concerns at this time. [facility] Medical History Wears glasses Post-menopausal Anxiety Arthritis Kidney stone Gastric reflux History of edema History of echocardiogram History of stress test Hypertension History of irregular heartbeat Home Medications ?Medication ?Instructions ?Recorded ?Last Taken ?Type Lactobacillus acidophilus 10 100 mmu cells PO DAILY Unknown History billion cell capsule (NewFlora) ascorbic acid (vitamin C) 500 mg 500 mg PO DAILY 07/09 Unknown History tablet (C-500) aspirin 81 mg capsule 81 mg PO DAILY 07/09/24 Unkn own History cholecalciferol (vitamin D3) 25 25 mcg PO DAILY Unknown History mcg (1,000 unit) tablet (Vitamin D3) garlic 1,000 mg capsule 1,000 mg PO DAILY 07/09/24 U nknown History lisinopril 20 1 tab PO DAILY 07/09/24 Unkn own History mg-hydrochlorothiazide 12.5 mg tablet omega 3 350 mg-dha 235 mg-epa 90 1 cap PO DAILY Unknown History mg-fish oil 597 mg capsule,delay rel (Fargo-3) propranolol 20 mg tablet 20 mg PO TID PRN anxiety 08/13/24 08:30 History turmeric 400 mg capsule 400 mg PO DAILY 07/09/24 Unk nown History vitamin B complex (Balanced B-50 1 tab PO DAILY Unknown History tablet) zinc gluconate 50 mg tablet 50 mg PO DAILY 07/09/24 Un known History clonidine HCl 0.1 mg tablet 0.1 mg PO Q6H PRN hyperten sive 08/01/24 08/13/24 08:30 History emergency lorazepam 0.5 mg tablet (Ativan) 0.5 mg PO Q12H PRN an xiety 08/01/24 08/13/24 08:30 History Allergy/AdvReac Type Severity Reaction Status Date / Time Iodinated Contrast Media Allergy Severe Hives Verified 08/13/24 09:26 (Iodinated Contrast Media - IV Dye) Surgical History (Updated 08/13/24 @ 18:[address] Eulogio Sheets, DO) Hx of section Hx of tubal ligation Hx of hysterectomy Social History Smoking Status: Never smoker ROS Constitutional Constitutional: Denies chills, fatigue, fever(s) or weakness Eyes Eyes: Denies change in vision Cardiovascular Cardiovascular: Denies chest pain Respiratory/Chest Respiratory/Chest: Denies cough or shortness of breath at rest Gastrointestinal Gastrointestinal: Denies abdominal pain Genitourinary Genitourinary: Denies dysuria Musculoskeletal Musculoskeletal: Reports joint pain; Denies arthralgias, joint swelling or myalgias Neurologic Neurologic: Denies dizziness, focal weakness or headache(s) Physical Exam Const alert, oriented x3 and no apparent distress Constitutional Narrative: Upper middle-aged female, class I obesity, good energy level, sitting back comfortably in bed, conversing normally, in no acute distress. General Appearance: cooperative and comfortable HEENT normocephalic, head/scalp atraumatic, hearing grossly normal bilaterally, nasal mucous membranes and turbinates normal and moist oral mucous membranes Eyes PERRL, EOMs intact bilaterally and conjunctivae normal Neck full ROM Chest inspection of chest normal Resp normal respiratory effort, normal air movement, no use of accessory muscles and clear to auscultation bilaterally Cardio regular rate, regular rhythm, no murmurs and peripheral pulses 2+ throughout GI normal to inspection, nondistended, normoactive bowel sounds, soft to palpation,non-tender and non-distended Back/Spine normal ROM Extremity Extremity Narrative: Left hip with dressing and ice pack in place. Skin no rashes or lesions noted Psych mental status grossly normal Lab / Micro Data 07/12/24 08:49 07/12/24 08:49 Labs: Laboratory Results - last 24 hr 08/13/24 09:42: POC Glucose 113 H Imaging Radiology Impression Hip X-Ray 08/13/24 13:25 IMPRESSION: Hardware in position. [facility] Charg[facility]/Coding Visit Charges Inpatient E&M: 09416 Subs Hosp L2 08/13/24 1824 <Electronically signed by Eulogio Sheets DO> Cosigner Signature (if applicable): CC: Dr. Donavan Gastelum DO; Dr. Misbah Byrd MD~ Signed [facility] Work Phone: 1(245) 198-200307-01-2025 Consult note [facility] Medical Records Department [address] [place] [address] Consultation - Hospitalist 08/13/24 1435 MR#: [id number] Acct: [id number] Name: PASTOR MAGALLANES Rep #:[id number] : 1960 64 From: Eulogio freed DO PCP: Dr. Donavan Gastelum DO Status:ADM OSMANI Location: [place] [address] Assessment & Plan Assessment/Plan (1) Status post left hip replacement: PLAN: Plan Patient is a 64-year-old female who presented to [facility] on 08/13/2024 for plannedleft hip replacement. Medicine consulted postoperatively for medical management. 1. Left hip osteoarthritis ? Orthopedic surgery primary. S/p left direct anterior minimally invasive hip replacement with Dr. Byrd on 08/13. Tolerated procedure well, no intraoperativecomplications noted. Pain control, DVT prophylaxis and further management per orthopedics. Follow-up a.m. CBC and BMP. PT/OT/case management co nsulted. 2. Hypertension ? Normotensive in the 120s postoperatively. Okay to resume home lisinopril?hydrochlorothiazide tomorrow with hold parameters in place. Notably does have clonidine 0.1 mg every 6 hours as needed on home med list for hypertensive emergency; no need to order at this time. 3. Anxiety ? On propranolol 20 mg 3 times daily as needed at home. Was prescribed a very short course of 0.5 mg Ativan twice daily as needed recently preoperatively as well. Okay to resume home propranolol as needed but will hold on prescribing Ativan. DVT prophylaxis: Baby aspirin twice daily per orthopedics Total clinical time spent by myself addressing the patient's medical issues, reviewing all the data, and collaborating with patient's care team: 35 minutes. HPI Consult Data Date of Consult: 08/13/24 HPI Narrative Reason for Consultation: Postoperative medical management HPI Narrative: PASTOR MAGALLANES, is a 64 F who presented to [facility] on 08/13/2024 for planned lefthip replacement. Medicine consulted postoperatively for medical management. Patient had left a replacement done with Dr. Byrd on 08/13. Tolerated procedure well, no intraoperative complications noted. I saw the patient at bedside earlier this evening. Patient was sitting back comfortably in bed, conversing normally, in no acute distress. States she stillfelt a bit lightheaded and attributes this to the anesthesia but otherwise is feeling well. She did get up earlier this afternoon with assistance and ambulated with minimal hip pain. She denies any hip pain at rest currently. Denies any other acute concerns at this time. [facility] Medical History Wears glasses Post-menopausal Anxiety Arthritis Kidney stone Gastric reflux History of edema History of echocardiogram History of stress test Hypertension History of irregular heartbeat Home Medications ?Medication ?Instructions ?Recorded ?Last Taken ?Type Lactobacillus acidophilus 10 100 mmu cells PO DAILY Unknown History billion cell capsule (NewFlora) ascorbic acid (vitamin C) 500 mg 500 mg PO DAILY 07/09 Unknown History tablet (C-500) aspirin 81 mg capsule 81 mg PO DAILY 07/09/24 Unkn own History cholecalciferol (vitamin D3) 25 25 mcg PO DAILY Unknown History mcg (1,000 unit) tablet (Vitamin D3) garlic 1,000 mg capsule 1,000 mg PO DAILY 07/09/24 U nknown History lisinopril 20 1 tab PO DAILY 07/09/24 Unkn own History mg-hydrochlorothiazide 12.5 mg tablet omega 3 350 mg-dha 235 mg-epa 90 1 cap PO DAILY Unknown History mg-fish oil 597 mg capsule,delay rel (Fargo-3) propranolol 20 mg tablet 20 mg PO TID PRN anxiety 08/13/24 08:30 History turmeric 400 mg capsule 400 mg PO DAILY 07/09/24 Unk nown History vitamin B complex (Balanced B-50 1 tab PO DAILY Unknown History tablet) zinc gluconate 50 mg tablet 50 mg PO DAILY 07/09/24 Un known History clonidine HCl 0.1 mg tablet 0.1 mg PO Q6H PRN hyperten sive 08/01/24 08/13/24 08:30 History emergency lorazepam 0.5 mg tablet (Ativan) 0.5 mg PO Q12H PRN an xiety 08/01/24 08/13/24 08:30 History Allergy/AdvReac Type Severity Reaction Status Date / Time Iodinated Contrast Media Allergy Severe Hives Verified 08/13/24 09:26 (Iodinated Contrast Media - IV Dye) Surgical History (Updated 08/13/24 @ 18:[address] Eulogio Sheets, DO) Hx of section Hx of tubal ligation Hx of hysterectomy Social History Smoking Status: Never smoker ROS Constitutional Constitutional: Denies chills, fatigue, fever(s) or weakness Eyes Eyes: Denies change in vision Cardiovascular Cardiovascular: Denies chest pain Respiratory/Chest Respiratory/Chest: Denies cough or shortness of breath at rest Gastrointestinal Gastrointestinal: Denies abdominal pain Genitourinary Genitourinary: Denies dysuria Musculoskeletal Musculoskeletal: Reports joint pain; Denies arthralgias, joint swelling or myalgias Neurologic Neurologic: Denies dizziness, focal weakness or headache(s) Physical Exam Const alert, oriented x3 and no apparent distress Constitutional Narrative: Upper middle-aged female, class I obesity, good energy level, sitting back comfortably in bed, conversing normally, in no acute distress. General Appearance: cooperative and comfortable HEENT normocephalic, head/scalp atraumatic, hearing grossly normal bilaterally, nasal mucous membranes and turbinates normal and moist oral mucous membranes Eyes PERRL, EOMs intact bilaterally and conjunctivae normal Neck full ROM Chest inspection of chest normal Resp normal respiratory effort, normal air movement, no use of accessory muscles and clear to auscultation bilaterally Cardio regular rate, regular rhythm, no murmurs and peripheral pulses 2+ throughout GI normal to inspection, nondistended, normoactive bowel sounds, soft to palpation,non-tender and non-distended Back/Spine normal ROM Extremity Extremity Narrative: Left hip with dressing and ice pack in place. Skin no rashes or lesions noted Psych mental status grossly normal Lab / Micro Data 07/12/24 08:49 07/12/24 08:49 Labs: Laboratory Results - last 24 hr 08/13/24 09:42: POC Glucose 113 H Imaging Radiology Impression Hip X-Ray 08/13/24 13:25 IMPRESSION: Hardware in position. [facility] Charges/Coding Visit Charges Inpatient E&M: 67282 Subs Hosp L2 08/13/24 1824 Cosigner Signature (if applicable): CC: Dr. Donavan Gastelum DO; Dr. Misbah Byrd MD~ Signed [facility]07-01-2025 Consult note Author Pachecolinnette Gomez [facility] Note Date/Time August 13, 2024 3:35p [facility] Medical Records Department [address] [place] [address] Anesthesia Postop Eval I 08/13/24 1533 MR#: [id number] Acct: [id number] Name: PASTOR MAGALLANES Rep #:[id number] : 1960 64 From: Pacheco Gomez MD PCP: Dr. Donavan Gastelum DO Status:ADM OSMANI Y Race: C Location: [place] [address] Anesthesia: Postop Eval I Current Vital Signs Temperature: 97.2 F Pulse Rate: 61 Blood Pressure: 107/69 Respiratory Rate: 16 Pulse Ox: 99 Oxygen Delivery Method: Simple Mask Oxygen Flow Rate (L/min): 4 Assessment Airway patent: Yes Spontaneous unlabored respirations: Yes Mental status: Awake and Calm nausea: No Vomiting: No Anesthesia Complication: No Fluid Hydration Crystalloid volume administer (ml): 1,500 Total IV fluid infused: 1,500 Progress Note Anesthesia document: Postop Eval 1 completed: Yes 08/13/24 1535 <Electronically signed by Pacheco White D> Date _ Pacheco Gomez MD Cosigner Signature: Date CC: ~ Signed [facility] Work Phone: 1(524) 415-930707-01-2025 Consult note Author Pacheco Gomez [facility] Note Date/Time August 13, 2024 3:35p [facility] Medical Records Department [address] [place] [address] Anesthesia Postop Eval II 08/13/24 1535 MR#: [id number] Acct: [id number] Name: PASTOR MAGALLANES Rep #:[id number] : 1960 64 From: Pacheco Gomez MD PCP: Dr. Donavan Gastelum, DO Status:ADM OSMANI Y Race: C Location: [place] [address] Anesthesia Postop Eval I Sum Postop Eval Completion status Anesthesia document: Postop Eval 1 completed: Yes Anesthesia Postop Eval I Summary Anesthesia Postop Eval I Summary: Anesthesia Postop Eval I: Assessment Summary Airway patent Yes 08/13/24 15:35 Spontaneous unlabored Yes 08/13/24 15:35 respirations Mental status Awake,Calm 08/13/24 15:35 nausea No 08/13/24 15:35 Vomiting No 08/13/24 15:35 Anesthesia Postop Eval I: Fluid Summary Crystalloid volume administer 1,500 08/13/24 15:35 (ml) Colloids volume administered ( ml) Blood Product volume administered (ml) Total IV fluid infused 1,500 08/13/24 15:35 Anesthesia Postop Eval I: Summary Notes Anesthesia Complication No 08/13/24 15:35 Anesthesia Complication Comment: Post-operative progress note Anesthesia: Postop Eval II Evaluation Mental status: Awake and Calm Pain Level: 3 nausea: No Vomiting: No Progress Note Post-operative progress note: doing well in PACU Complications Anesthesia Complication: No 08/13/245 <Electronically signed by Pacheco White D> Date _ Pacheco Gomez MD Cosigner Signature: CC: ~ Signed [facility] Work Phone: 1(270) 703-533607-01-2025 Consult note [facility] Medical Records Department [address] [place] [address] [place] [address] Anesthesia Postop Eval I 08/13/241532 MR#: [id number] Acct: [id number] Name: PASTOR MAGALLANES Rep #:[id number] : 1960 64 From: Pacheco Gomez MD PCP: Dr. Donavan Gastelum, DO Status:ADM OSMANI Y Race: C Location: [place] [address] Anesthesia: Postop Eval I Current Vital Signs Temperature: 97.2 F Pulse Rate: 61 Blood Pressure: 107/69 Respiratory Rate: 16 Pulse Ox: 99 Oxygen Delivery Method: Simple Mask Oxygen Flow Rate (L/min): 4 Assessment Airway patent: Yes Spontaneous unlabored respirations: Yes Mental status: Awake and Calm nausea: No Vomiting: No Anesthesia Complication: No Fluid Hydration Crystalloid volume administer (ml): 1,500 Total IV fluid infused: 1,500 Progress Note Anesthesia document: Postop Eval 1 completed: Yes 08/13/24 1535 D> Date _ Pacheco Gomez MD Cosigner Signature: Date CC: ~ Signed [facility]07-01-2025 Consult note [facility] Medical Records Department [address] [place] [address] Anesthesia Postop Eval II 08/13/24 1535 MR#: [id number] Acct: [id number] Name: PASTOR MAGALLANES Rep #:[id number] : 1960 64 From: Pacheco Gomez MD PCP: Dr. Donavan Gastelum, DO Status:ADM OSMANI Y Race: C Location: [place] [address] Anesthesia Postop Eval I Sum Postop Eval Completion status Anesthesia document: Postop Eval 1 completed: Yes Anesthesia Postop Eval I Summary Anesthesia Postop Eval I Summary: Anesthesia Postop Eval I: Assessment Summary Airway patent Yes 08/13/24 15:35 Spontaneous unlabored Yes 08/13/24 15:35 respirations Mental status Awake,Calm 08/13/24 15:35 nausea No 08/13/24 15:35 Vomiting No 08/13/24 15:35 Anesthesia Postop Eval I: Fluid Summary Crystalloid volume administer 1,500 08/13/24 15:35 (ml) Colloids volume administered ( ml) Blood Product volume administered (ml) Total IV fluid infused 1,500 08/13/24 15:35 Anesthesia Postop Eval I: Summary Notes Anesthesia Complication No 08/13/24 15:35 Anesthesia Complication Comment: Post-operative progress note Anesthesia: Postop Eval II Evaluation Mental status: Awake and Calm Pain Level: 3 nausea: No Vomiting: No Progress Note Post-operative progress note: doing well in PACU Complications Anesthesia Complication: No 08/13/24 1535 D> Date _ Pacheco Gomez MD Cosigner Signature: Date CC: ~ Signed [facility]07-01-2025 Evaluation note* Diagnosis Onset Date Resolution Status Admit Date Status post left hip replacement acu te August 13, 2024 12:36pm [facility] Work Phone: 1(708) 585-915407-01-2025 Procedure note [facility] Medical Records Department [address] [place] [address] Operative Report 08/13/24 1238 MR#: [id number] Acct: [id number] Name: PASTOR MAGALLANES Rep #:[id number] : 1960 64 From: Misbah Card PCP: Dr. Donavan Gastelum, DO Status:REG [facility] [place] Location: [place] [address] Operative Report (Standard) Operative Information Date of Procedure: 08/13/24 Pre-Operative Diagnosis: Left hip primary osteoarthritis Post-Operative Diagnosis: Left hip primary osteoarthritis Surgery/Procedure Performed: Left direct anterior minimally invasive selective placement bariatric nurse: Yes Electrical System Specialist: Cassius Carranza Tasks completed by speech pathologist assistant: Other (See body of operative report) Additionalassistant?: No Type of Anesthesia: Spinal RN Documented Start/Stop Times: Operation Date: 08/13/24 11:00 Case Time Into Pre-Op 08/13/24 09:12 Anesthesia Start 08/13/24 11:13 Into Room 08/13/24 11:13 Procedure Start 08/13/24 11:48 Procedure End 08/13/24 13:07 Anesthesia End 08/13/24 13:14 Out of Room 08/13/24 13:14 Into Recovery 08/13/24 13:16 Procedure Start Time: 11:48 Procedure Stop Time: 13:07 Select all DRAINS/GRAFTS/IMPLANTS that apply: Prosthetic device Prosthetic device details: see bodyof operative report Special Medications: 2 g Ancef, 1 g TXA at incision, 1 g TXA closure, 10 mg Decadron, joint cocktail (5 mg Duramorph, 30 mL of 0.5% Ropivicaine, 1000 units of epinephrine, 30 mg of Toradol) Estimated Blood Loss: 300 mL Fluids Replaced: 2200 mL crystalloid Specimen collected: Yes Description of specimen(s) removed: Bony cuts Description of surgery: Components used: 1. Accolade 2 [place] femoral stem size 5/127 2. Johanny trident 2 acetabular shell size 48 mm 3. Johanny X3 polyethylene D 4. Johanny Biolox delta 36 mm, 2.5 mm femoral head Brief history operative indications: 64 yo f who failed conservative measures for their hip osteoarthritis. X-rays were consistent with osteoarthritis including joint space narrowing, osteophyte formation and subchondral cysts. Total hip replacement was discussed with the patient with risks and benefits including but not limited to blood loss, DVTs, PEs, neurovascular damage, dislocation, general risks of anesthesia including loss of life. Patient demonstrated an understanding medical clearance is obtained the patient was consented for surgery. Procedure: On the date of procedure the patient's L hip was marked in the preoperative area. Patient was then taken back to the operating room where anesthesia assumed control of the C-spine and airway and administered anesthetic. Patient was transferred to the operating table and placed in the supine position. The hips were placed at the break of the bed and a sacral bump was placed. The L lower extremity was then prepped out in a sterile fashion using chlorhexidine while the surgeon scrubbed. The PA wasvital in the positioning of the patient. Upon reentering the room the L lower extremity was draped in the standard orthopedic fashion and the incision was marked. A timeout was called and everyone agreed upon the side, the site, the procedure be performed, antibody given, and patient's identity. At this time incision was made through skin, subcutaneous tissue, and fat down to fascia. The fascia was then incised and the TFL was retractedlaterally. A retractor was placed on the lateral border of the femoral neck. Attention was directedto the inferior portion of the approach and all crossing vessels were identified and appropriately coagulated. A retractor was then placed on the medial portion of the femoral neck. The anterior capsule was then cleared of all soft tissue and then H shaped capsulotomy was made. The retractors were then placed inside the capsule. The femoral neck was identified and a cleanup cut was made. At this time a power corkscrew was used to remove the femoral head. Attention was then turned toward the acetabulum where the soft tissues were appropriately retractedand the acetabulum was sequentially reamed to 48 mm. A 48 mm cup was then selected and impacted into place, excess osteophytes were removed. Acetabular liner was impacted into place and locking mechanism was verified. The position of the acetabular cup was then verified under live fluoroscopy. Attention was then turned to the femur. Soft tissue releases on the medial and lateral femoral neckwere appropriately done, the leg was externally rotated andlateralized. A Wise retractor was placed medially and proximally to the greater trochanter this allowed appropriate visualization and exposure of the femoral canal. Rongeour was then used to remove excess lateral bone. A canal finder andentry broach were used to open the proximal canal. Once we verified we were down the femoral canal we subsequently broached up to a size 5 femur. The appropriate neck was placed in the previously selected head was trialed witha 2.5 mm neck. Traction was pulled and the hip was reduced with internal rotation. Once it was appropriately reduced and stability was checked. There was minimal shuck, equal leg lengths and appropriate stability with hyperextension and external rotation as well as with 90? flexion and internal rotation. Fluoroscopy was then also used to verify the position of the components and leg lengths using the contralateral side for comparison. The trial components were then dislocated the proximal femur was again exposed and the components were removed from the wound. The final components were verified and opened. The wound was copiously irrigated out with normal saline. The acetabulum was checked for any residual debris. The final components were placed and impacted. Traction and internal rotation were again used to reduce the hip. After adequate reduction the hip remained stable with appropriate leg lengths. The final components were once again checked with live fluoroscopy andwere found to be satisfactory. The wound was then copiously irrigated with normal saline once more, and hemostasis was obtained. Closure was then done using #1 Vicryl runner to close the fascia. A 2-0 vicryl interuppted sutures were used to close the subcutaneous skin. A 3-0 Monocryl and Steri-Strips were used for final skin closure. A Silverlon dressing was placed. Patient was awakened by anesthesia and transferred to the [facility]. Patient was then transferred to the PACU for recovery. Postoperative plan: Patient will get 24 hours postop antibiotics. Patient will get in-house physical therapy and will be weight-bear as tolerated. Patient will follow up in office in 2 weeks for a wound check and x-rays. Aspirin 81 mg twice daily. During the course of the procedure the physician director search marketing strategies (PE) played a vital role. Their intimate knowledge of my steps in the procedure aided in safe and expedient completion of the procedure. The PE played a vital rolls in positioning particularly in obtaining the appropriate positioning of the sacral bump. The PE was also vital in the retraction of soft tissues during the exposure and especially the femoral work as this is a vital part of the procedure to prevent complications and fractures. The PE was also vital and protecting soft tissues during times of bony cuts and reaming. He also played jermain role in closure with my direct supervision. The PE was also important during reduction and dislocation of the joint and trials intraoperatively. Insert direct anterior total hip macro Surgical Findings: Stable hip. Stage IV osteoarthritis Complications Complications: No Admit VTE Documentation VTE Present on Admission: No VTE Mechan Device Prophylaxis: SCD's and Thigh High RONEN Hose VTE Pharm Prophylaxis ordered?: Yes 08/13/24 1400 Cosigner Signature (if applicable): CC: Dr. Donavan Gastelum DO; Dr. Misbah Byrd MD~ Signed [facility]07-01-2025 Radiology Diagnostic study note [facility] Imaging Services [address] [place] [address] Hip Min 2 Views (Portable) MR#: [id number] Acct: [id number] Name: PASTOR MAGALLANES Rep #: [id number] : 1960 F 64 From: Jaziel Madison MD PCP: Dr. Donavan Gastelum DO Status: [facility] Study:Hip Min 2 Views (Portable) Date of Exam : 08/13/24 Exam# [id number] Ordering Dr: Diego Byrd MD PROCEDURE: HIP MIN 2 VIEWS (PORTABLE) 08/13/2024 REASON FOR EXAM: POST OP TECHNIQUE: HIP MIN 2 VIEWS (PORTABLE) COMPARISON: None FINDINGS: There is a total hip prosthesis in position on the left. Trace amount of soft tissue air is presentconsistent with recent surgery. Alignment is maintained. RAD/Hip Min 2 Views (Portable) IMPRESSION: Hardware in position. Reading Location: [facility] CC: Dr. Donavan Gastelum DO; Dr. Misbah Byrd MD ~ Data Management: Signed [facility]07-01-2025 History and physical note Author Cassius Carranza [facility] Note Date/Time August 13, 2024 11:11 am [facility] Medical Records Department [address] [place] [address] History & Physical Exam 07/30/24 0859 MR#: [id number] Acct: [id number] Name: PASTOR MAGALLANES Rep #:[id number] : 1960 64 From: Cassius RUSS PA-C PCP: Dr. Donavan Gastelum, DO Status:REG [facility] Location: [place] [address] History and Physical History and Physical? Patient Name: Pastor Magallanes : 1960From:? CASSIUS CARRANZA PA-C? DATE OF PRE-OPERATIVE EXAM: 07/29/2024 DATE OF SURGERY:? 08/05/2024 SCHEDULED PROCEDURE:? Direct anterior left total hip arthroplasty HISTORY OF PRESENT ILLNESS: Preoperative history and physical exam was performed on July 29, 2024.? This is a 64-year-old female who has had ongoing pain with her left hip since 2017.? Pain has been intermittent, dull, sharp, sore.? Pain is increased with going up and down stairs and walking.? She has increased pain after walking one block.? She has had to use a cane for ambulatory assistance for the past 6 months.? She states she is limping and the pain will intensify as the day goes on.? Pain is located in her groin and does experience pain in her buttock when sitting.? She has difficulty with activities of daily living including bathing, getting dressed putting on her socks and shoes, housework, shopping, and leisure activities such as walking and going to sporting events.? She has tripped/stumbled due to the pain.? She feels unsafe going up and down stairs without railings.? She has tried rest, heat, elevation with minimal relief.? Shehas tried home exercises with minimal relief.? She has tried oral medications including Tylenol and ibuprofen with minimal relief.? Patient denies past history of surgery on the left hip.? Patient has medical history pertinent for anxiety, hypertension, gastroesophageal reflux disease, insomnia, frequent UTIs and coronary artery disease.? Patient denies past history of DVT or pulmonary embolism.? She has been recently evaluated and blood pressure medications have been adjusted.? This has been helpful.? She denies chest pain, shortness of breath, fevers chills or recent infections.? After failing conservative measuresand discussing treatment options with Dr. Misbah Byrd, the patient does wish to proceed with a direct anterior left total hip arthroplasty.? Patient has had surgical clearance from primary care provider Dr. Donavan Gastelum. REVIEW OF SYSTEMS: Review Of Systems: Constitutional: Denies anorexia, change in appetite, fever, difficulty sleeping,weight change. Cardiovasular: Denies chest pain, heart murmur, [...] anxiety and insomnia, but denies depression, mental illnessand stress. Hematologic/Lymphatic: Denies anemia, bleeding/bruising tendency and past transfusion. Reviewed and updated. PAST MEDICAL HISTORY: Advance Care Plan: No Advance Directives Effective Date: 05/19/2023 Past Medical History: Medical Problems: High Blood Pressure, Acid Reflux, Kidney Stones Covid- 19 - (2019) anxiety dental disease - tooth pulled - no symptoms currently? mixed hyperlipidemia, insomnia, Atherosclerotic Cardiovascular Disease, frequentUTIs, kink in ureter Accidents: None Surgical Hx: Hysterectomy - (2009) Tubal Ligation - (1999) Section - (1999) Anesthesia Complications: None Assistive Devices: Glasses, Cane Reviewed and updated. 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 Personal Habits:? Cigarette Use: Former.Smokeless Tobacco: Never Used Smokeless Tobacco.E-Cigarette Use: Never used.Alcohol: Occasionally.Drug Use: Denies Use.Enjoy Exercising: Exercises 1-3 x/month. Reviewed and updated. VITALS: Ht: 64 Wt: 176lb Wt k.834 BMI: 30.2 BP: 126/74 Pulse: 82 Resp: 17 T: 97.8 T: 36.6C Pain Level: 8/10 O2SatR: 97 ALLERGIES: Iodinated Contrast? MEDICATIONS: Lisinopril/Hydrochlorothiazide 20-12.5 mg 1 po qd, Propranolol HCL 20 mg take 1 tablet by mouth 3 times a day? take 30 to 60 minutes before triggering ev, Clonidine HCL 0.1 mg 1 tablet as needed, Aspirin 81 81 mg 1 tablet nightly, Omeprazole 40 mg as needed, Vitamin C 500 mg daily, Zinc 30 mg daily, Vitamin B Complex? once daily, Probiotic (Lactobacillus)? daily, Fish Oil 1200 mg daily, QC Tumeric Complex 500 mg daily, Advil 200 mg as needed, Tylenol Extra Strength 500 mg as needed, Aleve 220 mg as needed PRE-OP EXAM:? General appearance:NORMAL? ? ? Other: Eyes: Conjunctivae and lids: NORMAL? Pupils: ERR Ears, Nose, Mouth, and Throat: NORMAL? Other: Inspection of lips, teeth and gums: NORMAL? ?Other: Neck: Examination of neck: no masses noted. Respiratory: Assessment of respiratory effort: NORMAL? ?Other: ?Auscultation of lungs: clear to auscultation no wheezes, rhonchi or rales. Cardiovascular:? Auscultation of heart: regular rate and rhythm, positive systolic murmur PHYSICAL EXAMINATION: On exam patient does walk with an antalgic gait with use of cane.? She has left groin pain.? Range of motion 50 flexion with increased pain, external rotation 5with increased pain, internal rotation neutral.? Sensation intact to light touch. IMAGING STUDIES: Previous x-rays of the left hip reveal joint space narrowing, subchondral sclerosis, osteophyte formation consistent with severe stage IV [id number] erosive osteoarthritis.? In comparison to previous x-rays there has been progression of disease process and worsening of the arthritis. IMPRESSION: 1.? Severe left hip osteoarthritis 2.? Hypertension 3.? Gastroesophageal reflux disease 4.? Anxiety 5.? History of kidney stones 6.? Insomnia 7.? Hyperlipidemia 8.? History of frequent UTIs currently asymptomatic 9.? Obesity with BMI 30.2 PLAN: Dr. Misbah Byrd did discuss and review with the patient all treatment options including surgical versus nonsurgical options.? I will continue plan establishedby Dr. Misbah Byrd.? Patient does wish to proceed with the above-stated procedure.? Potential risks, benefits, and complications of the procedure were discussed in detail including but not limited to , infection, nerve and blood vessel damage, persistent pain, numbness, tingling, paresthesias, blood clot, pulmonary embolism, and requirement for possible further surgery.? The patient expressed full understanding and has no further questions for the doctor.? Patient does agree to proceed with the above-stated procedure and has signed the surgery consent form. POST-OP MEDICATION PLAN: Pain Medications: Postoperative pain regimen will be initiated by Dr. Misbah Byrd in the hospital.? We discussed regimen including Tylenol, meloxicam, and oxycodone postoperatively.? Patient has a walker that she will bring to the hospital.? We discussed postoperative course in great detail.? Labs and EKG havebeen reviewed and clearance from primary care provider.? Extended amount of timewas spent with the patient discussing recovery and surgical procedure. DVT Prophylaxis Plan:? Aspirin 81 mg twice daily for 4 weeks postoperatively.? Denies past history of DVT or pulmonary embolism.? Patient will also utilize TEDhose for 2 weeks postoperatively. This dictation was created using voice recognition software. Phonetic and/or grammatical errors may exist. ___? I have re-examined the patient.? There are no clinical changes since date of exam. ___? See progress notes for changes. ___? Dictated on admission Date: ? ? ?Time: Signature: 07/30/24 0900 <Electronically signed by Cassius RUSS PA-C> Cosigner Signature (if applicable): CC: DEVAN Carranza; Dr. Donavan Gastelum DO; Dr. Misbah Byrd MD~ Signed ADDENDUM by Dr. Misbah Byrd MD on 08/13/24 at 1111 Addendum I have examined the patient and the H&P has been reviewed. There are no clinicalchanges since date of exam. 08/13/24 1111<Electronically signed by Misbah Byrd MD> Cosigner Signature (if applicable): cc: DEVAN Carranza; Dr. Donavan Gastelum DO; Dr. Misbah Byrd MD ~* Signed [facility] Work Phone: [phone]) [phone] Consult note Author Pacheco Gomez [facility] Note Date/Time August 13, 2024 11:02 am [facility] Medical Records Department [address] [place] [address] Pre-Anesthesia Evaluation 08/13/24 1041 MR#: [id number] Acct: [id number] Name: PASTOR MAGALLANES Rep #:[id number] : 1960 64 From: Pacheco Gomez MD PCP: Dr. Donavan Gastelum DO Status:REG SDC Y Race: C Location: [place] [address] ASA Classification* ASA Classification ASA Classification: 3 Assessment & Plan Anesthesia* Anesthesia Assessment Anesthesia Assessment: Discussed sedation and/or anesthesia options, risks, benefits, and alternatives with patient/parents/legal guardian/POA. Questions invited. The patient/parents/legal guardian/POA seems to understand and agrees to proceedwith anesthesia plan. Reviewed the physical assessment, medical history, allergy history and patient home medications list prior to surgery/procedure/anesthetic and documented any changes. Performed airway and anesthesia risk assessments. Anesthesia Type Anesthesia Type: Spinal (we thoroughly discussed spinal +sedation vs GA, patientwould like to move forward with spinal. discussed chances of nerve injury, PDPH,epidural hematoma, lack of efficicacy, need for conversation to GA, awareness. ) History Source History Obtained from:: Patient and Chart Anesthesia Focused Assessment* Temperature: 98.5 F Pulse Rate: 70 Blood Pressure: 140/79 Respiratory Rate: 16 Pulse Ox: 95 Oxygen Delivery Method: Room Air Airway Assessment Mouth opens: >3 cm Mallampati Score: II Teeth Condition: Intact Neck Range of motion (ROM): Full ROM Labs Anesthesia Preop lab: CBC WBC 7.5 K/mm3 (4.4-11.0) 07/12/24 08:49 07/12/24 RBC 4.82 M/mm3 (4.2-5.4) 07/12/24 08:49 07/12/24 Hgb 13.2 g/dL (12.0-15.0) 07/12/24 08:49 07/12/24 Hct 41.1 % (37-47) 07/12/24 08:49 07/12/24 Plt Count 381 K/mm3 (150-450) 07/12/24 08:49 07/12/24 CHEMISTRY Potassium 3.7 mmol/L (3.3-5.1) 07/12/24 08:49 07/12/24 Sodium 141 mmol/L (133-145) 07/12/24 08:49 07/12/24 Magnesium 2.2 mg/dL (1.5-2.2) 07/12/24 08:49 07/12/24 BUN 20 mg/dL (4-19) H 07/12/24 08:49 07/12/24 Creatinine 0.61 mg/dL (0.70-1.20) L 07/12/24 08:49 Glucose 97 mg/dL (70-99) 07/12/24 08:49 07/12/24 POC Glucose 113 mg/dL (74-106) H 08/13/24 09:42 08/13/24 COAG Pre-Assessment Diagnosis/Proposed Procedure Planned Operative Procedure(s): (L) ERAS, ANTERIOR LEFT TOTAL HIP ARTHROPLASTY Anesthesia History Anesthesia History - acute care surgeon: Anesthesia History - acute care surgeon Hx Hospitalization No 07/09/24 08:51 Any Problems With Anesthesia No 07/09/24 08:51 Cholinesterase deficiency No 07/09/24 08:51 You/Your Family Experience No 07/09/24 08:51 fever (hyperthermia) with Relationship Recent Exposure to Contagious No 08/13/24 09:33 Disease Does patient have nerve No 07/09/24 08:51 stimulator Patient instructed to have device shut off --Does patient have Pacemaker No 08/13/24 09:33 or ICD? When Was Last Pacemaker Check QUESTION #4 FULL TEXT: You/Your Family Experience fever (hyperthermia) with Anesthesia Last Oral Intake Last Oral intake: Last Oral Intake NPO since 08:30 08/13/24 09:33 Meds taken in AM with sips of Yes 08/13/24 09:33 water? Meds patient instructed to take am of surgery PONV PONV - acute care surgeon: PONV - acute care surgeon Female Yes 07/09/24 08:51 HX of Motion Sickness No 07/09/24 08:51 HX of N/V After Surgery No 07/09/24 08:51 Non-Smoker Yes 07/09/24 08:51 Duration of Surgery greater Yes 07/09/24 08:51 than 60 minutes Number of Risk Factors 3 07/09/24 08:51 PONV Score Moderate Risk 07/09/24 08:51 Height & Weight Height & Weight: Anesthesia: Height & Weight Height 5 ft 2 in 08/13/24 09:33 Weight: 79 kg 08/13/24 09:33 Body Mass Index (BMI) 31.8 08/13/24 09:33 Respiratory Assessment Respiratory Assessment - acute care surgeon: Respiratory Tract Infection Hx - acute care surgeon Hx Respiratory Tract Infection No 07/09/24 08:51 STOP Sleep Apnea STOP Sleep Apnea - acute care surgeon: STOP Sleep Apnea - acute care surgeon Hx Hypertension Yes: SITUATIONAL/WHITE COAT 07/09/24 08:51 Hx Sleep Apnea No 07/09/24 08:51 CPAP BIPAP Do you snore loudly (louder No 07/09/24 08:51 than talking or can be heard Do you often feel tired/ No 07/09/24 08:51 fatigued/ sleepy during daytime? Has anyone observed you stop No 07/09/24 08:51 breathing during sleep? STOP Results Negative 07/09/24 08:51 QUESTION #5 FULL TEXT : Do you snore loudly (louder than talking or can be heard through closed doors)? Tobacco Use History Tobacco Use History - acute care surgeon: Tobacco Use History - acute care surgeon Tobacco Use Smoking Status Never smoker 07/09/24 08:51 Hx Tobacco Use No 07/09/24 08:51 Years Smoking Packs Smoked per Day Smoking Cessation Date was within the last 15 years Hx Smoking Cessation Date Hx Smoking Cessation Counseling Hematologic Medial History Hematologic Hx - acute care surgeon: Hematologic Medical Hx - triage technician Hx of Blood Transfusion No 07/09/24 08:51 Hx of Transfusion in last 3 No 07/09/24 08:51 Months Date of Last Transfusion (if within last 3 months) Ever experience any problems No 07/09/24 08:51 with transfusion(s)? Specify any problems Hx of Preganancy in last 3 No 07/09/24 08:51 Months Nurse Filling Out Transfusion VCHRISTIN 07/09/24 08:51 & Questions: Date: 07/09/24 07/09/24 08:51 Time: 08:57 07/09/24 08:51 Patient unable to answer at this time (ie. confused, unrespo /Reproduction History /Reproductive History - acute care surgeon: /Reproductive Hx- acute care surgeon Hx Now Gestational Age (in weeks): EDC: Hx Hx Para Hx Section SAB Active Medications Active Medications: Current Medications Generic Name Dose Route Start Last Admin Trade Name Freq PRN Reason Stop Dose Admin Acetaminophen 1,000 mg 08/13/24 11:00 08/13/24 09:57 Acetaminophen 500 Mg Tablet PO 08/13/24 11:01 1,000 mg PREOP ONE Administration Celecoxib 400 mg 08/13/24 11:00 08/13/24 09:56 Celecoxib 200 Mg Capsule PO 08/13/24 11:01 400 mg PREOP ONE Administration Sodium Chloride 77.9 ml/ 0 ml 08/13/24 11:00 Ropivacaine 200 mg/ OPERA.SITE 08/13/24 11:01 Epinephrine HCl 0.6 mg/ INTRAOP ONE Ketorolac Tromethamine 30 mg/ Morphine Sulfate 5 mg Dexamethasone Sodium Phosphate 10 mg 08/13/24 11:00 Dexamethasone 10 Mg/Ml Vial IV 08/13/24 11:01 INTRAOP ONE Gabapentin 600 mg 08/13/24 11:00 08/13/24 09:57 Gabapentin 600 Mg Tablet PO 08/13/24 11:01 600 mg PREOP ONE Administration Cefazolin Sodium 2 gm/ Sodium 110 mls @ 150 mls/hr 08/13/24 11:00 Chloride IV 08/13/24 11:43 INTRAOP ONE Tranexamic Acid 1,000 mg/ 110 mls @ 660 mls/hr 08/13/24 11:00 Sodium Chloride IV 08/13/24 11:09 INTRAOP ONE Tranexamic Acid 1,000 mg/ 110 mls @ 660 mls/hr 08/13/24 11:00 Sodium Chloride IV 08/13/24 11:09 INTRAOP ONE Lactated Ringer's 1,000 mls @ 999 mls/hr 08/13/24 11:00 IV 08/13/24 12:00 .Q1H1M DEE Lactated Ringer's 1,000 mls @ 125 mls/hr 08/13/24 11:00 IV 08/13/24 18:59 .Q8H DEE Magnesium Sulfate 1 gm/ 102 mls @ 408 mls/hr 08/13/24 11:00 08/13/24 10:14 Dextrose IV 08/13/24 11:14 408 mls/hr INTRAOP ONE Administration Lactated Ringer's 1,000 mls @ 15 mls/hr 08/13/24 09:15 IV .Q48H DEE Lactated Ringer's 1,000 mls @ 999 mls/hr 08/13/24 10:45 08/13/24 10:36 IV 08/13/24 11:45 999 mls/hr .Q1H1M DEE Administration Insulin Human Lispro 1 - 6 unit 08/13/24 11:00 Insulin Lispro 100 Unit/Ml Insuln.Pen SC Q4H PRN PRN BG>/= 180, SEE PROTOCOL Protocol PFSH Medical History Wears glasses Post-menopausal Anxiety Arthritis Kidney stone Gastric reflux History of edema History of echocardiogram History of stress test Hypertension History of irregular heartbeat Home Medications ?Medication ?Instructions ?Recorded ?Last Taken ?Type Lactobacillus acidophilus 10 100 mmu cells PO DAILY Unknown History billion cell capsule (NewFlora) ascorbic acid (vitamin C) 500 mg 500 mg PO DAILY 07/09 Unknown History tablet (C-500) aspirin 81 mg capsule 81 mg PO DAILY 07/09/24 Unkn own History cholecalciferol (vitamin D3) 25 25 mcg PO DAILY Unknown History mcg (1,000 unit) tablet (Vitamin D3) garlic 1,000 mg capsule 1,000 mg PO DAILY 07/09/24 U nknown History lisinopril 20 1 tab PO DAILY 07/09/24 Unkn own History mg-hydrochlorothiazide 12.5 mg tablet omega 3 350 mg-dha 235 mg-epa 90 1 cap PO DAILY Unknown History mg-fish oil 597 mg capsule,delay rel (Fargo-3) propranolol 20 mg tablet 20 mg PO TID PRN anxiety 08/13/24 08:30 History turmeric 400 mg capsule 400 mg PO DAILY 07/09/24 Unk nown History vitamin B complex (Balanced B-50 1 tab PO DAILY Unknown History tablet) zinc gluconate 50 mg tablet 50 mg PO DAILY 07/09/24 Un known History clonidine HCl 0.1 mg tablet 0.1 mg PO Q6H PRN hyperten sive 08/01/24 08/13/24 08:30 History emergency lorazepam 0.5 mg tablet (Ativan) 0.5 mg PO Q12H PRN an xiety 08/01/24 08/13/24 08:30 History Allergy/AdvReac Type Severity Reaction Status Date / Time Iodinated Contrast Media Allergy Severe Hives Verified 08/13/24 09:26 (Iodinated Contrast Media - IV Dye) Surgical History (Updated 07/09/24 @ 08:50 by Janiya Dsouza) Hx of section Hx of tubal ligation Hx of hysterectomy Social History Smoking Status: Never smoker Review of Systems (Anesthesia) ROS Narrative System reviewed and no additional complaints, except as documented. 08/13/24 1102 <Electronically signed by Pacheco White D> Date _ Pacheco Gomez MD Cosigner Signature: Date CC: ~ Signed [facility] Work Phone: [phone] 213-731907-01-2025 History and physical note [facility] Medical Records Department [address] [place] [address] History & Physical Exam 07/30/24 0859 MR#: [id number] Acct: [id number] Name: PASTOR MAGALLANES Rep #:[id number] : 1960 64 From: Cassius RUSS PA-C PCP: Dr. Donavan Gastelum, DO Status:REG [facility] Location: [place] [address] History and Physical History and Physical? Patient Name: Pastor Magallanes : 1960From:? CASSIUS CARRANZA PA-C? DATE OF PRE-OPERATIVE EXAM: 07/29/2024 DATE OF SURGERY:? 08/05/2024 SCHEDULED PROCEDURE:? Direct anterior left total hip arthroplasty HISTORY OF PRESENT ILLNESS: Preoperative history and physical exam was performed on July 29, 2024.? This is a 64-year-old female who has had ongoing pain with her left hip since 2017.? Pain has been intermittent, dull, sharp, sore.? Pain is increased with going up and down stairs and walking.? She has increased pain after walking one block.? She has had to use a cane for ambulatory assistance for the past 6 months.? She states she is limping and the pain will intensify as the day goes on.? Pain is located in her groin anddoes experience pain in her buttock when sitting.? She has difficulty with activities of daily living including bathing, getting dressed putting on her socks and shoes, housework, shopping, and leisure activities such as walking and going to sporting events.? She has tripped/stumbled due to the pain.? She feels unsafe going up and down stairs without railings.? She has tried rest, heat, elevationwith minimal relief.? Shehas tried home exercises with minimal relief.? She has tried oral medications including Tylenol and ibuprofen with minimal relief.? Patient denies past history of surgery on the left hip.? Patient has medical history pertinent for anxiety, hypertension, gastroesophageal reflux disease, insomnia, frequent UTIs and coronary artery disease.? Patient denies past history of DVT or pulmonary embolism.? She has been recently evaluated and blood pressure medications have been adjusted.? This has been helpful.? She denies chest pain, shortness of breath, fevers chills or recent infections.? After failing conservative measuresand discussing treatment options with Dr. Misbah Byrd, the patient does wish to proceed with a direct anterior left total hip arthroplasty.? Patienthas had surgical clearance from primary care provider Dr. Donavan Gastelum. REVIEW OF SYSTEMS: Review Of Systems: Constitutional: Denies anorexia, change in appetite, fever, difficulty sleeping,weight change. Cardiovasular: Denies chest pain, heart murmur, [...] anxiety and insomnia, but denies depression, mental illnessand stress. Hematologic/Lymphatic: Denies anemia, bleeding/bruising tendency and past transfusion. Reviewed and updated. PAST MEDICAL HISTORY: Advance Care Plan: No Advance Directives Effective Date: 05/19/2023 Past Medical History: Medical Problems: High Blood Pressure, Acid Reflux, Kidney Stones Covid- 19 - (2019) anxiety dental disease - tooth pulled - no symptoms currently? mixed hyperlipidemia, insomnia, Atherosclerotic Cardiovascular Disease, frequentUTIs, kink in ureter Accidents: None Surgical Hx: Hysterectomy - (2009) Tubal Ligation - (1999) Section - (1999) Anesthesia Complications: None Assistive Devices: Glasses, Cane Reviewed and updated. 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 Personal Habits:? Cigarette Use: Former.Smokeless Tobacco: Never Used Smokeless Tobacco.E-CigaretteUse: Never used.Alcohol: Occasionally.Drug Use: Denies Use.Enjoy Exercising: Exercises 1-3 x/month. Reviewed and updated. VITALS: Ht: 64 Wt: 176lb Wt k.834 BMI: 30.2 BP: 126/74 Pulse: 82 Resp: 17 T: 97.8 T: 36.6C Pain Level: 8/10 O2SatR: 97 ALLERGIES: Iodinated Contrast? MEDICATIONS: Lisinopril/Hydrochlorothiazide 20-12.5 mg 1 po qd, Propranolol HCL 20 mg take 1 tablet by mouth 3 times a day? take 30 to 60 minutes before triggering ev, Clonidine HCL 0.1 mg 1 tablet as needed, Aspirin 81 81 mg 1 tablet nightly, Omeprazole 40 mg as needed, Vitamin C 500 mg daily, Zinc 30 mg daily, Vitamin B Complex? once daily, Probiotic (Lactobacillus)? daily, Fish Oil 1200 mg daily, QC Tumeric Complex 500 mg daily, Advil 200 mg as needed, Tylenol Extra Strength 500 mg as needed, Aleve 220 mg as needed PRE-OP EXAM:? General appearance:NORMAL? ? ? Other: Eyes: Conjunctivae and lids: NORMAL? Pupils: ERR Ears, Nose, Mouth, and Throat: NORMAL? Other: Inspection of lips, teeth and gums: NORMAL? ?Other: Neck: Examination of neck: no masses noted. Respiratory: Assessment of respiratory effort: NORMAL? ?Other: ?Auscultation of lungs: clear to auscultation no wheezes, rhonchi or rales. Cardiovascular:? Auscultation of heart: regular rate and rhythm, positive systolic murmur PHYSICAL EXAMINATION: On exam patient does walk with an antalgic gait with use of cane.? She has left groin pain.? Range of motion 50 flexion with increased pain, external rotation 5with increased pain, internal rotation neutral.? Sensation intact to light touch. IMAGING STUDIES: Previous x-rays of the left hip reveal joint space narrowing, subchondral sclerosis, osteophyte formation consistent with severe stage IV [id number] erosive osteoarthritis.? In comparison to previous x-rays there has been progression of disease process and worsening of the arthritis. IMPRESSION: 1.? Severe left hip osteoarthritis 2.? Hypertension 3.? Gastroesophageal reflux disease 4.? Anxiety 5.? History of kidney stones 6.? Insomnia 7.? Hyperlipidemia 8.? History of frequent UTIs currently asymptomatic 9.? Obesity with BMI 30.2 PLAN: Dr. Misbah Byrd did discuss and review with the patient all treatment options including surgical versus nonsurgical options.? I will continue plan establishedby Dr. Misbah Byrd.? Patient does wish to proceed with the above- stated procedure.? Potential risks, benefits, and complications of the procedure were discussed in detail including but not limited to , infection, nerve and blood vessel damage, persistent pain, numbness, tingling, paresthesias, blood clot, pulmonary embolism, and requirement for possible further surgery.? The patient expressed full understanding and has no further questions for the doctor.? Patient does agree to proceed with the above-stated procedure and has signed the surgery consent form. POST-OP MEDICATION PLAN: Pain Medications: Postoperative pain regimen will be initiated by Dr. Misbah Byrd in the hospital.? We discussed regimen including Tylenol, meloxicam, and oxycodone postoperatively.? Patient has a walker that she will bring to the hospital.? We discussed postoperative course in great detail.? Labs and EKG havebeen reviewed and clearance from primary care provider.? Extended amount of timewas spent with the patient discussing recovery and surgical procedure. DVT Prophylaxis Plan:? Aspirin 81 mg twice daily for 4 weeks postoperatively.? Denies past history of DVT or pulmonary embolism.? Patient will also utilize TEDhose for 2 weeks postoperatively. This dictation was created using voice recognition software. Phonetic and/or grammatical errors mayexist. ___? I have re-examined the patient.? There are no clinical changes since date of exam. ___? See progress notes for changes. ___? Dictated on admission Date: ? ? ?Time: Signature: 07/30/24 0900 Cosigner Signature (if applicable): CC: DEVAN Carranza; Dr. Donavan Gastelum DO; Dr. Misbah Byrd MD~ Signed ADDENDUM by Dr. Misbah Byrd MD on 08/13/24 at 1111 Addendum I have examined the patient and the H&P has been reviewed. There are no clinicalchanges since date of exam. 08/13/24 1111 Cosigner Signature (if applicable): cc: DEVAN Carranza; Dr. Donavan Gastelum DO; Dr. Misbah Byrd MD ~* Signed [facility]07-01-2025 Consult note [facility] Medical Records Department [address] [place] [address] Pre-Anesthesia Evaluation 08/13/24 1041 MR#: [id number] Acct: [id number] Name: PASTOR MAGALLANES Rep #:[id number] : 1960 64 From: Pacheco Gmoez MD PCP: Dr. Donavan Gastelum DO Status:REG SDC Y Race: C Location: [place] [address] ASA Classification* ASA Classification ASA Classification: 3 Assessment & Plan Anesthesia* Anesthesia Assessment Anesthesia Assessment: Discussed sedation and/or anesthesia options, risks, benefits, and alternatives with patient/parents/legal guardian/POA. Questions invited. The patient/parents/legal guardian/POA seems to understand and agrees to proceedwith anesthesia plan. Reviewed the physical assessment, medical history, allergy history and patient home medications list prior to surgery/procedure/anesthetic and documented any changes. Performed airway and anesthesia risk assessments. Anesthesia Type Anesthesia Type: Spinal (we thoroughly discussed spinal +sedation vs GA, patientwould like to move forward with spinal. discussed chances of nerve injury, PDPH,epidural hematoma, lack of efficicacy, need for conversation to GA, awareness. ) History Source History Obtained from:: Patient and Chart Anesthesia Focused Assessment* Temperature: 98.5 F Pulse Rate: 70 Blood Pressure: 140/79 Respiratory Rate: 16 Pulse Ox: 95 Oxygen Delivery Method: Room Air Airway Assessment Mouth opens: >3 cm Mallampati Score: II Teeth Condition: Intact Neck Range of motion (ROM): Full ROM Labs Anesthesia Preop lab: CBC WBC 7.5 K/mm3 (4.4-11.0) 07/12/24 08:49 07/12/24 RBC 4.82 M/mm3 (4.2-5.4) 07/12/24 08:49 07/12/24 Hgb 13.2 g/dL (12.0-15.0) 07/12/24 08:49 07/12/24 Hct 41.1 % (37-47) 07/12/24 08:49 07/12/24 Plt Count 381 K/mm3 (150-450) 07/12/24 08:49 07/12/24 CHEMISTRY Potassium 3.7 mmol/L (3.3-5.1) 07/12/24 08:49 07/12/24 Sodium 141 mmol/L (133-145) 07/12/24 08:49 07/12/24 Magnesium 2.2 mg/dL (1.5-2.2) 07/12/24 08:49 07/12/24 BUN 20 mg/dL (4-19) H 07/12/24 08:49 07/12/24 Creatinine 0.61 mg/dL (0.70-1.20) L 07/12/24 08:49 Glucose 97 mg/dL (70-99) 07/12/24 08:49 07/12/24 POC Glucose 113 mg/dL (74-106) H 08/13/24 09:42 08/13/24 COAG Pre-Assessment Diagnosis/Proposed Procedure Planned Operative Procedure(s): (L) ERAS, ANTERIOR LEFT TOTAL HIP ARTHROPLASTY Anesthesia History Anesthesia History - acute care surgeon: Anesthesia History - acute care surgeon Hx Hospitalization No 07/09/24 08:51 Any Problems With Anesthesia No 07/09/24 08:51 Cholinesterase deficiency No 07/09/24 08:51 You/Your Family Experience No 07/09/24 08:51 fever (hyperthermia) with Relationship Recent Exposure to Contagious No 08/13/24 09:33 Disease Does patient have nerve No 07/09/24 08:51 stimulator Patient instructed to have device shut off --Does patient have Pacemaker No 08/13/24 09:33 or ICD? When Was Last Pacemaker Check QUESTION #4 FULL TEXT: You/Your Family Experience fever (hyperthermia) with Anesthesia Last Oral Intake Last Oral intake: Last Oral Intake NPO since 08:30 08/13/24 09:33 Meds taken in AM with sips of Yes 08/13/24 09:33 water? Meds patient instructed to take am of surgery PONV PONV - acute care surgeon: PONV - acute care surgeon Female Yes 07/09/24 08:51 HX of Motion Sickness No 07/09/24 08:51 HX of N/V After Surgery No 07/09/24 08:51 Non-Smoker Yes 07/09/24 08:51 Duration of Surgery greater Yes 07/09/24 08:51 than 60 minutes Number of Risk Factors 3 07/09/24 08:51 PONV Score Moderate Risk 07/09/24 08:51 Height & Weight Height & Weight: Anesthesia: Height & Weight Height 5 ft 2 in 08/13/24 09:33 Weight: 79 kg 08/13/24 09:33 Body Mass Index (BMI) 31.8 08/13/24 09:33 Respiratory Assessment Respiratory Assessment - acute care surgeon: Respiratory Tract Infection Hx - acute care surgeon Hx Respiratory Tract Infection No 07/09/24 08:51 STOP Sleep Apnea STOP Sleep Apnea - acute care surgeon: STOP Sleep Apnea - acute care surgeon Hx Hypertension Yes: SITUATIONAL/WHITE COAT 07/09/24 08:51 Hx Sleep Apnea No 07/09/24 08:51 CPAP BIPAP Do you snore loudly (louder No 07/09/24 08:51 than talking or can be heard Do you often feel tired/ No 07/09/24 08:51 fatigued/ sleepy during daytime? Has anyone observed you stop No 07/09/24 08:51 breathing during sleep? STOP Results Negative 07/09/24 08:51 QUESTION #5 FULL TEXT : Do you snore loudly (louder than talking or can be heard through closeddoors)? Tobacco Use History Tobacco Use History - acute care surgeon: Tobacco Use History - acute care surgeon Tobacco Use Smoking Status Never smoker 07/09/24 08:51 Hx Tobacco Use No 07/09/24 08:51 Years Smoking Packs Smoked per Day Smoking Cessation Date was within the last 15 years Hx Smoking Cessation Date Hx Smoking Cessation Counseling Hematologic Medial History Hematologic Hx - acute care surgeon: Hematologic Medical Hx - triage technician Hx of Blood Transfusion No 07/09/24 08:51 Hx of Transfusion in last 3 No 07/09/24 08:51 Months Date of Last Transfusion (if within last 3 months) Ever experience any problems No 07/09/24 08:51 with transfusion(s)? Specify any problems Hx of Preganancy in last 3 No 07/09/24 08:51 Months Nurse Filling Out Transfusion VCHRISTIN 07/09/24 08:51 & Questions: Date: 07/09/24 07/09/24 08:51 Time: 08:57 07/09/24 08:51 Patient unable to answer at this time (ie. confused, unrespo /Reproduction History /Reproductive History - acute care surgeon: /Reproductive Hx- acute care surgeon Hx Now Gestational Age (in weeks): EDC: Hx Hx Para Hx Section SAB Active Medications Active Medications: Current Medications Generic Name Dose Route Start Last Admin Trade Name Freq PRN Reason Stop Dose Admin Acetaminophen 1,000 mg 08/13/24 11:00 08/13/24 09:57 Acetaminophen 500 Mg Tablet PO 08/13/24 11:01 1,000 mg PREOP ONE Administration Celecoxib 400 mg 08/13/24 11:00 08/13/24 09:56 Celecoxib 200 Mg Capsule PO 08/13/24 11:01 400 mg PREOP ONE Administration Sodium Chloride 77.9 ml/ 0 ml 08/13/24 11:00 Ropivacaine 200 mg/ OPERA.SITE 08/13/24 11:01 Epinephrine HCl 0.6 mg/ INTRAOP ONE Ketorolac Tromethamine 30 mg/ Morphine Sulfate 5 mg Dexamethasone Sodium Phosphate 10 mg 08/13/24 11:00 Dexamethasone 10 Mg/Ml Vial IV 08/13/24 11:01 INTRAOP ONE Gabapentin 600 mg 08/13/24 11:00 08/13/24 09:57 Gabapentin 600 Mg Tablet PO 08/13/24 11:01 600 mg PREOP ONE Administration Cefazolin Sodium 2 gm/ Sodium 110 mls @ 150 mls/hr 08/13/24 11:00 Chloride IV 08/13/24 11:43 INTRAOP ONE Tranexamic Acid 1,000 mg/ 110 mls @ 660 mls/hr 08/13/24 11:00 Sodium Chloride IV 08/13/24 11:09 INTRAOP ONE Tranexamic Acid 1,000 mg/ 110 mls @ 660 mls/hr 08/13/24 11:00 Sodium Chloride IV 08/13/24 11:09 INTRAOP ONE Lactated Ringer's 1,000 mls @ 999 mls/hr 08/13/24 11:00 IV 08/13/24 12:00 .Q1H1M DEE Lactated Ringer's 1,000 mls @ 125 mls/hr 08/13/24 11:00 IV 08/13/24 18:59 .Q8H DEE Magnesium Sulfate 1 gm/ 102 mls @ 408 mls/hr 08/13/24 11:00 07/01/25 10:14 Dextrose IV 08/13/24 11:14 408 mls/hr INTRAOP ONE Administration Lactated Ringer's 1,000 mls @ 15 mls/hr 08/13/24 09:15 IV .Q48H DEE Lactated Ringer's 1,000 mls @ 999 mls/hr 08/13/24 10:45 08/13/24 10:36 IV 08/13/24 11:45 999 mls/hr .Q1H1M DEE Administration Insulin Human Lispro 1 - 6 unit 08/13/24 11:00 Insulin Lispro 100 Unit/Ml Insuln.Pen SC Q4H PRN PRN BG>/= 180, SEE PROTOCOL Protocol PFSH Medical History Wears glasses Post-menopausal Anxiety Arthritis Kidney stone Gastric reflux History of edema History of echocardiogram History of stress test Hypertension History of irregular heartbeat Home Medications ?Medication ?Instructions ?Recorded ?Last Taken ?Type Lactobacillus acidophilus 10 100 mmu cells PO DAILY Unknown History billion cell capsule (NewFlora) ascorbic acid (vitamin C) 500 mg 500 mg PO DAILY 07/09 Unknown History tablet (C-500) aspirin 81 mg capsule 81 mg PO DAILY 07/09/24 Unkn own History cholecalciferol (vitamin D3) 25 25 mcg PO DAILY Unknown History mcg (1,000 unit) tablet (Vitamin D3) garlic 1,000 mg capsule 1,000 mg PO DAILY 07/09/24 U nknown History lisinopril 20 1 tab PO DAILY 07/09/24 Unkn own History mg-hydrochlorothiazide 12.5 mg tablet omega 3 350 mg-dha 235 mg-epa 90 1 cap PO DAILY Unknown History mg-fish oil 597 mg capsule,delay rel (Fargo-3) propranolol 20 mg tablet 20 mg PO TID PRN anxiety 08/13/24 08:30 History turmeric 400 mg capsule 400 mg PO DAILY 07/09/24 Unk nown History vitamin B complex (Balanced B-50 1 tab PO DAILY Unknown History tablet) zinc gluconate 50 mg tablet 50 mg PO DAILY 07/09/24 Un known History clonidine HCl 0.1 mg tablet 0.1 mg PO Q6H PRN hyperten sive 08/01/24 08/13/24 08:30 History emergency lorazepam 0.5 mg tablet (Ativan) 0.5 mg PO Q12H PRN an xiety 08/01/24 08/13/24 08:30 History Allergy/AdvReac Type Severity Reaction Status Date / Time Iodinated Contrast Media Allergy Severe Hives Verified 08/13/24 09:26 (Iodinated Contrast Media - IV Dye) Surgical History (Updated 07/09/24 @ 08:50 by Janiya Dsouza) Hx of section Hx of tubal ligation Hx of hysterectomy Social History Smoking Status: Never smoker Review of Systems (Anesthesia) ROS Narrative System reviewed and no additional complaints, except as documented. 08/13/24 1102 D> Date _ Pacheco Gomez MD [facility] Signature: Date CC: ~ Signed [facility]06-17-2025 [facility] Medical Records Department [address] [place] [id number] History Physical Exam 07/30/24 0859 MR#: [id number] Acct: [id number] Name: PASTOR MAGALLANES Rep #: [id number] : 1960 64 From: Cassius RUSS PA-C PCP: Dr. Donavan Gastelum, DO Status:REG [facility] Location: [place] [address] History and Physical History and Physical??? 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 CASSIUS CARRANZA PA-C??? DATE [...] for ambulatory assistance for the past 6 months.???She states she is limping and the pain [...] measures and discussing treatment options with Dr. Misbah Byrd, the patient does wish to proceed with a direct anterior left total hip arthroplasty.??? Patient has had surgical clearance from primary care provider Dr. Donavan Gastelum. REVIEW OF SYSTEMS: Review Of Systems: Constitutional: [...] updated. 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 Personal Habits:??? Cigarette [...] mg daily, Zinc 30 mg daily, Vitamin (more content not included)...[facility] 07-30-2024 [facility] Medical Records Department [address] [place] [address] History Physical Exam 07/30/24 0859 MR#: [id number] Acct: [id number] Name: PASTOR MAGALLANES Rep #: [id number] : 1960 64 From: Cassius RUSS PA-C PCP: Dr. Donavan Gastelum, DO Status:PRE [facility] Location: [facility] History and Physical History and Physical??? 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 CASSIUS CARRANZA PA-C??? DATE [...] for ambulatory assistance for the past 6 months.???She states she is limping and the pain [...] measures and discussing treatment options with Dr. Misbah Byrd, the patient does wish to proceed with a direct anterior left total hip arthroplasty.??? Patient has had surgical clearance from primary care provider Dr. Donavan Gastelum. REVIEW OF SYSTEMS: Review Of Systems: Constitutional: [...] updated. 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 Personal Habits:??? Cigarette [...] daily, Vitamin B Com (more content not included)...[facility] 09-04-2023 Note. MICRO - Microbiology PROCEDURE: Urine Culture [*1] [...] Locations *1: This test was performed at: [address], [address] , [facility] ([place])06-25-2023 Note. MICRO - Microbiology PROCEDURE: Urine Culture [*1] [...] Locations *1: This test was performed at: [address], [facility] , [facility] ([place])03-08-2023 Note. MICRO - Microbiology PROCEDURE: Urine Culture [*1] [...] Locations *1: This test was performed at: [facility], [address] [place] [address], [facility] , [facility] ([place])Evaluation + Plan note No data available for this section [facility] Evaluation + Plan note Future Appointments Appointment Date:12/01/2021 10:00:00 AM Scheduled Provider:DONAVAN GASTELUM DO Location:[facility] Appointment Type: Wellness Annual Future Scheduled Tests Laboratory* Thyroid Stimulating Hormone 09/07/21 * Free T4 09/07/21 * Complete Blood Count 09/07/21 * Lipid Profile 09/07/21 * Hepatitis C Antibody IgG 09/07/21 * Microalbumin Level Urine 09/07/21 * Complete Metabolic Panel 09/07/21 [facility] Evaluation + Plan note Future Appointments Appointment Date:03/21/2022 02:30:00 PM Scheduled Provider:DONAVAN GASTELUM DO Location:[facility] Appointment Type: Wellness Annual Future Scheduled Tests Laboratory* Microalbumin Level Urine 09/07/21 [facility] Evaluation + Plan note Future Appointments Appointment Date:07/12/2022 02:00:00 PM Scheduled Provider:DONAVAN GASTELUM DO Location:[facility] Appointment Type: OV Future Scheduled Tests Laboratory* LDL-Cholesterol, Direct 03/22/22 * Basic Metabolic Panel 03/22/22 * Lipid Profile 03/22/22 * Microalbumin Level Urine 09/07/21 [facility] Evaluation + Plan note Future Appointments Appointment Date:05/23/2023 09:30:00 AM Scheduled Provider:DONAVAN GASTELUM DO Location:[facility] Appointment Type:PC OV Diagnostic Tests Pending * Stone Analysis 03/06/23 Future Scheduled Tests Laboratory* LDL-Cholesterol, Direct 11/21/22 * Thyroid Stimulating Hormone 11/21/22 * A1C Hemoglobin 11/21/22 * Complete Blood Count 11/21/22 * Lipid Profile 11/21/22 * Albumin/Creatinine Ratio, Random Urine 11/21/22 * Complete Metabolic Panel 11/21/22 [facility] Evaluation + Plan note Future Appointments Appointment Date:08/28/2023 04:00:00 PM Scheduled Provider:DONAVAN GASTELUM DO Location:[facility] Appointment Type:PC OV Future Scheduled Tests Laboratory* .CCLLDL-Cholesterol, Direct 06/23/23 * Thyroid Stimulating Hormone 06/23/23 * Urine Microscopic 06/23/23 * Vitamin B12 Level 06/23/23 * A1C Hemoglobin 06/23/23 * Complete Blood Count 06/23/23 * Lipid Profile 06/23/23 * Vitamin D Level 06/23/23 * Complete Metabolic Panel 06/23/23 [facility] Evaluation + Plan note Future Appointments Appointment Date:04/12/2024 02:45:00 PM Scheduled Provider:DONAVAN GASTELUM DO Location:[facility] Appointment Type:PC OV Future Scheduled Tests Radiology* CT Coronary Calcium Score w/o Contrast 08/28/23 [facility] Hospital Discharge instructions No data available for this section [facility] Progress note No data available for this section [facility] Reason for referral (narrative)No reason for referral information [facility] Work Phone: Summary Purpose Family History No Family History Records Found Advance Directives Advance Directive Response Recorded Date/ Time Do you have a Healthcare Power of Hospice Fellow? No August 13, 2024 2:30pm Chief Complaint and Reason for Visit Chief Complaint Admit Date PREOP July 12, 2024 8:38a m LEFT ANTERIOR TOTAL HIP ARTHROPLASTY Aug 12:36pm LEFT ANTERIOR TOTAL HIP ARTHROPLASTY Aug 2:35pm LEFT ANTERIOR TOTAL HIP ARTHROPLASTY Aug 7:42am Reason for Visit Admit Date Status post left hip replacement August 12:36pm Additional Source Comments Care Team (unrecognized sect ion and content) Care Team Personnel Name: Zohra Michele Position: Bed Management Member Role: Other Name: DONAVAN GASTELUM DO Position: P4 Physician - Primary Care Member Role: Primary Care Physician [address]: [address] [place] [address] Telecom: Care Team Related Persons Name: ILDA MAGALLANES Team Status: Active Member Role/Relationship Status Dates Dr. Donavan Gastelum DO Primary Care Provider Active Team Status: Active Member Role/Relationship Status Dates Dr. Donavan Gastelum DO Primary Care Provider Active Start: July 12, 2024 End: July 12, 2024 Dr. Jana Magana MD Attending Provider Active Start: July 12, 2024 End: July 12, 2024 Dr. Misbah Byrd MD Referring Provider Active Start: July 12, 2024 End: July 12, 2024 Team Status: Inactive Member Role/Relationship Status Dates Dr. Misbah Byrd MD Admit Provider Active Sta rt: August 13, 2024 End: August 14, 2024 Dr. Misbah Byrd MD Attending Provider Active Start: August 13, 2024 End: August 14, 2024 Dr. Misbah Byrd MD Referring Provider Active Start: August 13, 2024 End: August 14, 2024 Dr. Donavan Gastelum DO Primary Care Provider Active Start: August 13, 2024 End: August 14, 2024 Dr. Eulogio Sheets DO Other Provider Active Start: August 13, 2024 End: August 14, 2024 Dr. Ursula Casper DO Other Provider Active Start : August 13, 2024 End: August 14, 2024 Team Status: Active Member Role/Relationship Status Dates Dr. Misbah Byrd MD Admit Provider Active Sta rt: August 13, 2024 Dr. Misbah Byrd MD Referring Provider Active Start: August 13, 2024 Dr. Misbah Byrd MD Other Provider Active Sta rt: August 13, 2024 Dr. Donavan Gastelum DO Primary Care Provider Active Start: August 13, 2024 Dr. Eulogio Sheets DO Attending Provider Active Start: August 13, 2024 Dr. Eulogio Sheets DO Other Provider Active Start: August 13, 2024 Team Status: Active Member Role/Relationship Status Dates Dr. Misbah Byrd MD Admit Provider Active Sta rt: August 14, 2024 Dr. Misbah Byrd MD Referring Provider Active Start: August 14, 2024 Dr. Misbah Byrd MD Other Provider Active Sta rt: August 14, 2024 Dr. Donavan Gastelum DO Primary Care Provider Active Start: August 14, 2024 Dr. Eulogio Sheets DO Other Provider Active Start: August 14, 2024 Dr. Ursula Casper DO Attending Provider Active S tart: August 14, 2024 Dr. Ursula Casper DO Other Provider Active Start : August 14, 2024 Care Team (unrecognized sect ion and content) Care Team Personnel Name: DONAVAN GASTELUM DO Position: P4 Physician - Primary Care Member Role: Primary Care Physician Address: Address: [address] [place] [address] Care Team Related Persons Name: ILDA MAGALLANES Address: Home [address] [place], [place] [id number] Address: Temporary [address] [place], [place] [id number] Care Team Personnel Name: DONAVAN GASTELUM DO Position: P4 Physician - Primary Care Member Role: Primary Care Physician Address: Address: [address] [place] [address] Care Team Related Persons Name: ILDA MAGALLANES Address: Home [address] [place], [place] [id number] Address: Temporary [address] [place], [place] [id number] INFORMATION SOURCE (unrecogn ized section and content) DATE CREATED AUTHOR 09/05/2023 [facility] ([place]) DATE CREATED AUTHOR AUTHOR'S ORGANIZ ATION 09/08/2024 [facility] DATE CREATED AUTHOR AUTHOR'S ORGANIZ ATION 10/02/2024 [facility] FOR RECORDS PERTAINING TO PATIENTS WHO ARE [...] BE BASED ON THE PRIMARY CLINICAL RECORDS. [employer] [facility]. provides no warranty or guarantee of the accuracy or completeness of information in this document.
[2024-10-04 00:53] LABS: Hematocrit 38.2 % (37-47); Hemoglobin 12.3 g/dL (12.0-15.0); Immature Granulocytes Count 0.030 X10^3/uL (0.0-0.0); Mean Corp Hgb Conc 32.2 g/dL (32-36); Mean Corpuscular Volume 84.9 fL (81-99); Mean Platelet Vol. 9.7 fl (6.2-12.0); NRBC Flagged by Analyzer 0 % (0-5); Platelet Count 413 K/mm3 (150-450); RBC Distribution Width CV 13.3 % (11.6-14.6); RBC Distribution Width SD 41.5 fl (35.1-43.9); Red Blood Count 4.50 M/mm3 (4.2-5.4); White Blood Count 9.2 K/mm3 (4.4-11.0)
[2024-10-04 01:17] VITALS: BP 123/65; PULSE 66; RESP 16; O2SAT 96
[2024-10-04 01:17] LABS: Anion Gap 13 (5-15); BUN 13 mg/dL (4-19); BUN/Creat Ratio 23.3 RATIO (10-20); Calcium,Total 9.2 mg/dL (7.6-11.0); Carbon Dioxide 24.8 mmol/L (21.0-32.0); Chloride 103 mmol/L (98-108); Estimated Creatinine Clearance 69.70 ml/min (50-250); Glucose 109 mg/dL (70-99); Magnesium 2.3 mg/dL (1.5-2.2); Potassium 3.8 mmol/L (3.3-5.1)
[2024-10-04 01:41] VITALS: BP 147/76; PULSE 73; RESP 16; TEMP 36.6; O2SAT 96
--- NOTE | 2024-10-04 01:45 | EX.ED.DYSGE1 ---
HPI History of Present Illness Chief Complaint: Numb/Ting Informant: patient Narrative Narrative: Patient is a 64-year-old female with past medical history of anxiety and hypertension. She states that she went to [facility] on Monday secondary to sensation of numbness and tingling. She states she was admitted for observation secondary to concern for potential stroke and had an MRI on Monday which she states did show a mild stroke. The patient states she was started on Plavix but began to have a reaction to it with hives and therefore they discontinued the medication. Patient states she was discharged home without any alternative medicine. She states she does have a history of anxiety and she has been concerned that since she was not given and other medication like Plavix that she could have a repeat stroke. She states she began to feel sensation of numbness and tingling/paresthesias like she did the other day and therefore she presents to the hospital for evaluation. [facility] Medical History Wears glasses Post-menopausal Anxiety Arthritis Kidney stone Gastric reflux History of edema History of echocardiogram History of stress test Hypertension History of irregular heartbeat Home Medications ?Medication ?Instructions ?Recorded ?Last Taken ?Type Lactobacillus acidophilus 10 100 mmu cells PO DAILY 07/09/24 Unknown History billion cell capsule (NewFlora) ascorbic acid (vitamin C) 500 mg 500 mg PO DAILY 07/09/24 Unknown History tablet (C-500) cholecalciferol (vitamin D3) 25 25 mcg PO DAILY 07/09/24 Unknown History mcg (1,000 unit) tablet (Vitamin D3) garlic 1,000 mg capsule 1,000 mg PO DAILY 07/09/24 Unknown History Held on 08/14/24. Instructions: Resume on 08/28/24. lisinopril 20 1 tab PO DAILY 07/09/24 Unknown History mg-hydrochlorothiazide 12.5 mg tablet omega 3 350 mg-dha 235 mg-epa 90 1 cap PO DAILY 07/09/24 Unknown History mg-fish oil 597 mg capsule,delay rel ([place]-3) Held on 08/14/24. Instructions: Resume on 08/28/24. propranolol 20 mg tablet 20 mg PO TID PRN anxiety 07/09/24 08/13/24 08:30 History turmeric 400 mg capsule 400 mg PO DAILY 07/09/24 Unknown History Held on 08/14/24. Instructions: Resume on 09/11/24. vitamin B complex (Balanced B-50 1 tab PO DAILY 07/09/24 Unknown History tablet) zinc gluconate 50 mg tablet 50 mg PO DAILY 07/09/24 Unknown History clonidine HCl 0.1 mg tablet 0.1 mg PO Q6H PRN hypertensive 08/01/24 08/13/24 08:30 History emergency lorazepam 0.5 mg tablet (Ativan) 0.5 mg PO Q12H PRN anxiety 08/01/24 08/13/24 08:30 History aspirin 81 mg chewable tablet 81 mg PO BIDCM #0 tabs 08/14/24 Unknown Rx famotidine 20 mg tablet 20 mg PO DAILY 30 days #30 tabs 08/14/24 Unknown Rx meloxicam 7.5 mg tablet 7.5 mg PO BID 30 days #60 tabs 08/14/24 Unknown Rx oxycodone 5 mg tablet 5 - 10 mg (1 - 2 x 5 mg) PO Q4H 08/14/24 Unknown Rx PRN PRN As Needed for Pain 7 days #42 tabs sennosides 8.6 mg-docusate sodium 2 tab PO BID 3 days #12 tabs 08/14/24 Unknown Rx 50 mg tablet (Stimulant Laxative Plus) Allergy/AdvReac Type Severity Reaction Status Date / Time Iodinated Contrast Media Allergy Severe Hives Verified 10/04/24 00:21 (Iodinated Contrast Media - IV Dye) Family History no significant family his Surgical History (Updated 08/22/24 @ 00:01 by Background Umm) Hx of section Hx of tubal ligation Hx of hysterectomy Surgical History no surgical history Social History Smoking Status: Never smoker ROS ROS ED Constitutional Constitutional ED: Denies chills or fever(s) Eyes Eyes: Denies blurry vision or change in vision ENT ENT ED: Denies sore throat Cardiovascular Cardiovascular: Denies chest pain, palpitations or racing heartbeat Respiratory/Chest Respiratory/Chest: Denies cough or dyspnea Gastrointestinal Gastrointestinal: Denies abdominal pain, diarrhea, nausea or vomiting Genitourinary Genitourinary ED: Denies dysuria Musculoskeletal Musculoskeletal: Denies myalgias Integumentary Denies rash Neurologic Neurologic: Reports paresthesias; Denies headache(s) or weakness Psychiatric Psychiatric: Reports anxiety; Denies suicidal ideation or suicidal thoughts Hematologic/Lymphatic Hematologic/Lymphatic: Denies easy bleeding or easy bruising EXAM Physical Exam Const Vital Signs: 10/04/24 00:18 10/04/24 01:17 10/04/24 01:41 Temperature 97.8 F 97.8 F Temperature Source Oral Pulse Rate 79 66 73 Respiratory Rate 18 16 16 Blood Pressure 183/97 H 123/65 H 147/76 H Blood Pressure Mean 125 84 99 Pulse Ox 96 96 96 Oxygen Delivery Method Room Air Room Air Positive well nourished and well developed General Appearance ED: well developed; Negative for pallor HEENT HEENT Narrative: Normocephalic atraumatic Eyes PERRL and EOMs intact bilaterally General Eye ED: Negative for scleral icterus Neck supple Resp normal respiratory effort and clear to auscultation bilaterally Cardio regular rate and regular rhythm Rate: other Other Details: Regular rate and rhythm without murmurs rubs or gallop Radial and carotid pulses are equal and symmetric Extremity normal to inspection Extremity Narrative: No asymmetric edema no pitting edema negative Homans' sign bilaterally Neuro oriented x3, CN's II-XII intact bilaterally and no sensory deficits noted Neuro Narrative: GCS of 15 Cranial nerves II through XII are grossly intact without focal neurologic deficit No pronator drift no dysmetria no truncal ataxia Patient reports feeling paresthesias in the right arm and leg but on physical exam/testing she states that she does not feel any difference between the right and left side NIH stroke scale score of 0 Sensorium / Orientation: alert Motor Exam: strength 5/5 throughout Psych Mood & Affect: anxious Skin no rashes or lesions noted General Skin Exam: Negative for jaundice or pallor MDM MDM MDM Narrative Medical decision making narrative: Patient arrived to the ER hypertensive but has a past medical history of this and patient admits that it is worsened when she is anxious. She states she feels paresthesias to the right side which was the similar sensation that caused her to go to [facility] on Monday. She states that MRI the following day confirmed a mild stroke. She is very nervous that she had a reaction to Plavix and they did not recommend any alternative treatment. Her sensation of paresthesia appears more anxiety related as physical exam testing does not reveal any difference in sensation. In order to ensure that the paresthesia is not related to acute kidney injury or clinically significant electrolyte abnormality I do elect to perform basic laboratory studies. As the patient had a recent MRI and her stroke scale score is 0 upon arrival in the ER I do not feel she warrants CT or CTA. Labs revealed no clinically significant findings. I did check [facility] for a report of the MRI as the patient did not bring a copy of it with her and states she is not 100% sure what it said or where the stroke was located. However there is no report present. At initial evaluation her stroke scale score 0 on reevaluation her stroke scale score 0 and her labs revealed no clinically significant findings. Moreover her blood pressure is spontaneously improved. Therefore this time I feel that the patient should just take a full-strength aspirin based on this history. We did discuss she could potentially start Brilinta but as it is in the same family as Plavix there is concern for an a repeat allergic reaction which could be worse than the initial. Patient agrees that she will just a full-strength aspirin at this time until she can follow-up with her family doctor and/or neurology for further evaluation. As vitals are stable neurologic exam normal and overall workup negative there is no need for further intervention and she is otherwise safe for discharge History & Record Review Discussion w/independent historian: Patient Lab Data Attestation: I reviewed the patient's lab results. Labs: Laboratory Results - last 24 hr 10/04/24 00:42 WBC 9.2 RBC 4.50 Hgb 12.3 Hct 38.2 MCV 84.9 MCH 27.3 MCHC 32.2 RDW Std Deviation 41.5 RDW Coeff of Nadia 13.3 Plt Count 413 MPV 9.7 Immature Gran % (Auto) 0.300 Neut % (Auto) 52.0 Lymph % (Auto) 37.8 [place] % (Auto) 6.3 Eos % (Auto) 2.7 Baso % (Auto) 0.9 Absolute Neuts (auto) 4.8 Absolute Lymphs (auto) 3.46 Nucleated RBC % 0 Sodium 141 Potassium 3.8 Chloride 103 Carbon Dioxide 24.8 Anion Gap 13 BUN 13 Creatinine 0.54 L Estim Creat Clear Calc 69.70 Est GFR (MDRD) Non-Af 102 BUN/Creatinine Ratio 23.3 H Glucose 109 H Calcium 9.2 Magnesium 2.3 H TSH 0.536 Discharge Plan Triage Chief Complaint: Numb/Ting ED Provider: Zaire Shane Dx/Rx/DC Orders Clinical Impression: Paresthesias, Anxiety, Hypertension Instructions: ED Paresthesia Prescriptions: No Action lisinopril-hydrochlorothiazide 20-12.5 mg tablet 1 tab PO DAILY propranolol 20 mg tablet 20 mg PO TID PRN (Reason: anxiety) ascorbic acid (vitamin C) [C-500] 500 mg tablet 500 mg PO DAILY zinc gluconate 50 mg tablet 50 mg PO DAILY cholecalciferol (vitamin D3) [Vitamin D3] 25 mcg (1,000 unit) tablet 25 mcg PO DAILY turmeric 400 mg capsule 400 mg PO DAILY garlic 1,000 mg capsule 1,000 mg PO DAILY [place]-3 350 mg-235 mg- 90 mg-597 mg capsule,delayed release(DR/EC) 1 cap PO DAILY vitamin B complex [Balanced B-50] Tablet 1 tab PO DAILY NewFlora 10 billion cell capsule 100 mmu cells PO DAILY clonidine HCl 0.1 mg tablet 0.1 mg PO Q6H PRN (Reason: hypertensive emergency) lorazepam [Ativan] 0.5 mg tablet 0.5 mg PO Q12H PRN (Reason: anxiety) famotidine 20 mg Tablet 20 mg PO DAILY 30 Days Qty: 30 0RF aspirin 81 mg Tablet,Chewable 81 mg PO BIDCM Qty: 0 0RF Rx Instructions: Take 81 mg aspirin twice daily for 4 weeks postoperatively for DVT prophylaxis. After 4 weeks you can then go back to normal 81 mg aspirin daily. meloxicam 7.5 mg Tablet 7.5 mg PO BID 30 Days Qty: 60 0RF Rx Instructions: Do not take any other nonsteroidal anti-inflammatories while using meloxicam/Mobic. oxycodone 5 mg Tablet 5 - 10 mg PO Q4H PRN PRN (Reason: As Needed for Pain) 7 Days Qty: 42 0RF sennosides-docusate sodium [Stimulant Laxative Plus] 8.6-50 mg Tablet 2 tab PO BID 3 Days Qty: 12 0RF Rx Instructions: Take until first bowel movement, then as needed Primary Care Provider: Donavan Gastelum Referrals: Donavan Gastelum DO [Primary Care Provider] - Activity Restrictions/Additional Instructions: Please take a full-strength aspirin once a day secondary to your history of recent stroke. Talk to your family doctor about a neurology referral secondary to that finding on the MRI. If you have worsening symptoms or any further concerns please return to the ER for repeat evaluation Print Language: Malay Disposition Disposition: Home, Self Care Discharge Date/Time: 10/04/24 01:54
== END 2024-10-04 01:54 | disposition home or self-care (01) ==
PROVIDERS: Emergency Provider Emergency Medicine; Visit Provider Emergency Medicine
DX: R20.2 Paresthesia of skin (principal); F41.9 Anxiety disorder, unspecified; I10 Essential (primary) hypertension; R20.0 Anesthesia of skin; Z79.02 Long term (current) use of antithrombotics/antiplatelets; K21.9 Gastro-esophageal reflux disease without esophagitis
CPT/HCPCS: 80048; 83735; 84443; 85025; 99282; A4216